=== PATIENT | male | born 1970 | race Caucasian/White ===

== ENCOUNTER 2021-02-14 15:01 | Emergency (ER) | payer MEDICAID ==
[~2021-02-14] VITALS: Ht 172 cm; Wt 57.0 kg
--- OUTSIDE RECORDS SUMMARY | 2021-02-14 15:07 | XMS REPORT | Clinical Summary ---
Author Author [facility] Organization [facility] Address Unknown Phone Unavailable Care Team Providers Care Academic Interventionist Name Role Phone Marcela Lucas MD PCP Allergies Comments Active Allergy Reactions Severity Noted Date Tree Nuts 03/15/2018 Medications End Date Status Medication Sig Dispensed Refills Start Date Active nystatin (MYCOSTATIN) MIX 6ML WITH 0 02/24/20 1 100,000 unit/mL 15ML OF WATER 8 suspension SWISH FOR 30 SECONDS AND SWALLOW QID TAT Active oxybutynin (DITROPAN-XL) TK 1 T PO QHS 11 03/22 5 MG 24 hr tablet 8 Active citalopram (CELEXA) 20 mg Take 1 tablet 30 tablet 0 tabletIndications: major (20 mg total) 8 depressive disorder by mouth daily. Active citalopram (CELEXA) 40 MG Take 1 tablet 30 tablet 0 tabletIndications: (40 mg total) 8 anxiety with depression by mouth daily. 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 Family History Medical History Relation Name Comments ALS Father Schizophrenia Father Diabetes Maternal Aunt Heart disease Maternal Grandfather Hypertension Maternal Grandfather Breast cancer Maternal Grandmother Diabetes Mother Relation Name Status Comments Father Maternal Aunt Maternal Grandfather Maternal Grandmother Mother Social History Date Tobacco Use Types Packs/Day Years Used Current Every Day Smoker Cigarettes 0.25 28 Smokeless Tobacco: Current User Tobacco Cessation: Ready to Quit: No Drinks/Week oz/Week Comments Alcohol Use No Sex Assigned at Date Recorded Male 01/07/2019 7:47 AM CDT Last Filed Vital Signs Reading Time Taken Comments Vital Sign 107/67 05/03/2018 4:12 PM PLANT QUALITY MANAGER Blood Pressure 85 05/03/2018 4:12 PM PLANT QUALITY MANAGER Pulse 37.1 C (98.7 F) 05/03/2018 4:12 PM PLANT QUALITY MANAGER Temperature 16 01/30/2018 3:25 PM CDT Respiratory Rate 100% 03/15/2018 2:38 PM CDT Oxygen Saturation - - Inhaled Oxygen Concentration 52.9 kg (116 lb 11.2 oz) 05/03/2018 4:12 PM PLANT QUALITY MANAGER Weight 180.3 cm (5' 11") 01/30/2018 3:25 PM CDT Height 16.28 01/30/2018 3:25 PM CDT Body Mass Index Plan of Treatment Health Maintenance Due Date Last Done Comments Td # 1970 Pneumococcal Vaccine: 1977 Pediatrics (0 to 5 Years) and At-Risk Patients (6 to 64 Years) (1 of 1 - PPSV23) Tobacco Cessation 01/30/2019 01/30/2018 Counseling # Depression Monitoring 05/03/2019 05/03/2018 PHQ-9 # Influenza Vaccine (#1) 2020 Pneumococcal Vaccine: 65+ 2036 Years (1 of 1 - PPSV23) Results Not on filefrom Last 3 Months Insurance Type Payer Benefit Subscriber ID Effective Phone Address Plan / Dates Group COMMERCIAL-CONTRACTED MEDICA [id number] 2017 -P EXCHANGE resent Jonel Bacon Personal/F Self [address] [place] [address]) [place] [address] Jonel Bacon Personal/F Self [address] (Home) [place] [address] oJnel Bacon Behavioral Self 1970 [id number] [facility] (Home) [place] [address] Advance Directives For more information, please contact: [phone] Patient Die Repairer Forging Explanation Type Date Recorded Advance Directives and Living Will Power of Nuclear Operations Specialist Health Care Directive
--- OUTSIDE RECORDS SUMMARY | 2021-02-14 15:08 | XMS REPORT | Clinical Summary ---
Author Author [facility] Organization [facility] Address Unknown Phone Unavailable Care Team Providers Care Locomotive Electrician Name Role Phone No, Pcp ENTRY ENGINEER PP Unavailable Allergies No known active allergies Medications No known medications Active Problems Not on file Social History Date Tobacco Use Types Packs/Day Years Used Current Every Day Smoker 0.5 27 Tobacco Cessation: Ready to Quit: Yes; C ounseling Given: Yes Comments: discussed smoking cessation services Sex Assigned at Date Recorded Not on file Last Filed Vital Signs Reading Time Taken Comments Vital Sign 118/80 04/04/2017 6:08 PM CDT Blood Pressure 79 04/04/2017 6:08 PM CDT Pulse - - Temperature - - Respiratory Rate - - Oxygen Saturation - - Inhaled Oxygen Concentration 61.2 kg (135 lb) 04/04/2017 6:08 PM CDT Weight - - Height - - Body Mass Index Plan of Treatment Health Maintenance Due Date Last Done Comments Colonoscopy 2011 Results Not on filefrom Last 3 Months Care Teams Start Date End Date Locomotive Electrician Relationship Specialty 04/04/17 No, Pcp, ENTRY ENGINEER PCP - General N/A Do not use
--- NOTE | 2021-02-14 15:26 | ED General ---
General Stated Complaint: AMS History of Present Illness Date Seen by Provider: Feb 14, 2021 Time Seen by Provider: 15:10 Initial Comments 50-year-old male who is nonverbal brought in wheelchair by his mother for confusion at the [facility]. He was diagnosed with a UTI 2 days ago by his PCP however antibiotics were not started as they were awaiting the culture results. The staff reported to his mother that he seemed more confused today. Timing/Duration: 2-3 Days Severity: Mild Associated Systoms: No Cough; Malaise; No Nausea/Vomiting; Weakness Allergies and Home Medications Allergies Coded Allergies: tree nut (Verified Allergy, Unknown, 02/14/21) Home Medications Cephalexin 500 Mg Tablet, 500 MG PO TID Prescribed by: LOUIS NAVARRO on 02/14/21 1712 Patient Home Medication List Home Medication List Reviewed: Yes Review of Systems Review of Systems Constitutional: see HPI; No fever; malaise, weakness EENTM: see HPI, no symptoms reported Respiratory: no symptoms reported, see HPI Gastrointestinal: see HPI; No diarrhea; loss of appetite; No vomiting Genitourinary: no symptoms reported, see HPI All Other Systems Reviewed Negative Unless Noted: Yes Past Zrzjmfc-Rlipal-Icwgpf Hx Patient Social History Tobacco Use?: No Family Medical History Reviewed Nursing Family Hx Physical Exam Vital Signs Vital Signs - First Documented 02/14/21 15:10 Temp 36.4 Pulse 111 Resp 16 B/P (MAP) 113/82 (92) Pulse Ox 97 O2 Delivery Room Air Capillary Refill : Height, Weight, BMI Height: '" Weight: lbs. oz. kg; BMI Method: General Appearance: No Apparent Distress, WD/WN HEENT: PERRL/EOMI, TMs Normal, Normal ENT Inspection Neck: Full Range of Motion, Normal Inspection, Non Tender Respiratory: Chest Non Tender, No Accessory Muscle Use, Rhonci Cardiovascular: No Edema, No JVD, No Murmur, Tachycardia Gastrointestinal: Normal Bowel Sounds, Non Tender, Soft Neurologic/Psychiatric: Alert, Oriented x3, No Motor/Sensory Deficits, Normal Mood/Affect Skin: Normal Color, Warm/Dry Focused Exam Sepsis Stage: Ruled Out Lactate Level 02/14/21 15:30: Lactic Acid Level 2.26*H 02/14/21 17:33: Time of Focused Exam: 16:45 Respiratory: Chest Non Tender, Lungs Clear, Normal Breath Sounds Cardiovascular: Regular Rate, Rhythm Capillary Refill: Less Than 3 Seconds Skin: normal color, warm/dry; No rash, No ulcerations Lactic Acid Level Laboratory Tests Test 02/14/21 15:30 02/14/21 17:33 Lactic Acid Level 2.26 MMOL/L (0.50-2.00) *H Within 3hrs of presentation: Admin fluids, Admin ABX, Blood cultures prior to ABX's, D/C Instructions given to patient, Focus exam, Lactate level Progress/Results/Core Measures Suspected Sepsis Recent Fever Within 48 Hours: No Infection Criteria Present: Documented Infection New/Unexplained Altered Menta: Yes Within 3hrs of presentation: Admin fluids, Admin 30ml/kg IBW due to BMI>30, Admin ABX, Blood cultures prior to ABX's, D/C Instructions given to patient, Focus exam, Lactate level SIRS Temperature: Pulse: Respiratory Rate: Laboratory Tests 02/14/21 15:20: White Blood Count 7.0 Blood Pressure / Mean: 02/14/21 15:30: Lactic Acid Level 2.26*H 02/14/21 17:33: Laboratory Tests 02/14/21 15:20: Creatinine 0.96, INR Comment 1.1, Platelet Count 308, Total Bilirubin 0.3 Results/Orders Lab Results Laboratory Tests Test 02/14/21 15:20 02/14/21 15:30 02/14/21 17:33 Range/Units White Blood Count 7.0 4.3-11.0 10^3/uL Red Blood Count 4.41 4.30-5.52 10^6/uL Hemoglobin 13.0 L 13.3-17.7 g/dL Hematocrit 41 40-54 % Mean Corpuscular Volume 92 80-99 fL Mean Corpuscular Hemoglobin 30 25-34 pg Mean Corpuscular Hemoglobin Concent 32 32-36 g/dL Red Cell Distribution Width 12.6 10.0-14.5 % Platelet Count 308 130-400 10^3/uL Mean Platelet Volume 10.9 9.0-12.2 fL Immature Granulocyte % (Auto) 0 % Neutrophils (%) (Auto) 57 42-75 % Lymphocytes (%) (Auto) 30 12-44 % Monocytes (%) (Auto) 9 0-12 % Eosinophils (%) (Auto) 4 0-10 % Basophils (%) (Auto) 1 0-10 % Neutrophils # (Auto) 4.0 1.8-7.8 X 10^3 Lymphocytes # (Auto) 2.1 1.0-4.0 X 10^3 Monocytes # (Auto) 0.6 0.0-1.0 X 10^3 Eosinophils # (Auto) 0.3 0.0-0.3 10^3/uL Basophils # (Auto) 0.1 0.0-0.1 10^3/uL Immature Granulocyte # (Auto) 0.0 0.0-0.1 10^3/uL Prothrombin Time 14.8 H 12.2-14.7 SEC INR Comment 1.1 0.8-1.4 Activated Partial Thromboplast Time 29 24-35 SEC Sodium Level 141 135-145 MMOL/L Potassium Level 3.9 3.6-5.0 MMOL/L Chloride Level 103 98-107 MMOL/L Carbon Dioxide Level 25 21-32 MMOL/L Anion Gap 13 5-14 MMOL/L Blood Urea Nitrogen 21 H 7-18 MG/DL Creatinine 0.96 0.60-1.30 MG/DL Estimat Glomerular Filtration Rate 83 BUN/Creatinine Ratio 22 Glucose Level 192 H 70-105 MG/DL Calcium Level 9.9 8.5-10.1 MG/DL Corrected Calcium 9.7 8.5-10.1 MG/DL Total Bilirubin 0.3 0.1-1.0 MG/DL Aspartate Amino Transf (AST/SGOT) 51 H 5-34 U/L Alanine Aminotransferase (ALT/SGPT) 37 0-55 U/L Alkaline Phosphatase 80 40-136 U/L Total Protein 8.4 H 6.4-8.2 GM/DL Albumin 4.2 3.2-4.5 GM/DL Urine Color YELLOW Urine Clarity CLEAR Urine pH 5.5 5-9 Urine Specific Ashby >=1.030 1.016-1.022 Urine Protein 1+ H NEGATIVE Urine Glucose (UA) NEGATIVE NEGATIVE Urine Ketones TRACE H NEGATIVE Urine Nitrite NEGATIVE NEGATIVE Urine Bilirubin NEGATIVE NEGATIVE Urine Urobilinogen 0.2 < = 1.0 MG/DL Urine Leukocyte Esterase NEGATIVE NEGATIVE Urine RBC (Auto) NEGATIVE NEGATIVE Urine RBC NONE /HPF Urine WBC NONE /HPF Urine Squamous Epithelial Cells NONE /HPF Urine Renal Epithelial Cells NONE /HPF Urine Crystals NONE /LPF Urine Bacteria FEW H /HPF Urine Casts NONE /LPF Urine Mucus NEGATIVE /LPF Urine Culture Indicated CULTURE PENDING Lactic Acid Level 2.26 *H 0.50-2.00 MMOL/L My Orders Orders - LOUIS NAVARRO Cbc With Automated Diff (02/14/21 15:18) Comprehensive Metabolic Panel (02/14/21 15:18) Blood Culture (02/14/21 15:18) Urinalysis (02/14/21 15:18) Urine Culture (02/14/21 15:18) Protime With Inr (02/14/21 15:18) Partial Thromboplastin Time (02/14/21 15:18) Chest 1 View, Ap/Pa Only (02/14/21 15:18) Ed Iv/Invasive Line Start (02/14/21 15:18) Ns Iv 1000 Ml (Sodium Chloride 0.9%) (02/14/21 15:30) Lactic Acid Analyzer (02/14/21 15:18) Ceftriaxone (Rocephin) (02/14/21 16:45) Medications Given in ED Current Medications Medications Dose Ordered Sig/Oscar Route Start Time Stop Time Status Last Admin Dose Admin Ceftriaxone Sodium 1000 mg/ Sterile Water 10 ml @ 200 mls/hr ONCE ONCE IV 02/14/21 16:45 02/14/21 16:47 DC 02/14/21 16:41 200 MLS/HR Vital Signs/I&O 02/14/21 02/14/21 15:10 17:37 Temp 36.4 Pulse 111 94 Resp 16 16 B/P (MAP) 113/82 (92) 115/93 Pulse Ox 97 97 O2 Delivery Room Air Room Air Capillary Refill : Progress Note : Time: 15:10 Progress Note Patient seen and evaluated, will obtain labs, chest x-ray, repeat UA and normal saline 1 L per IV. 1600 pulse and blood pressure improved after IV fluids, will give IV antibiotics for UTI. Discharge planning discussed with the patient's mother she had to leave prior to staff arriving. 1640 patient has remained stable, vital signs improved. Discharge instructions and return precautions reviewed with the staff. Diagnostic Imaging Diagonstic Imaging: Xray Plain Films/CT/US/NM/MRI: chest Comments NAME: ZOË MALLOY REC#: [id number] PT STATUS: REG ER : 1970 PHYSICIAN: LOUIS NAVARRO ADMIT DATE: 02/14/21/ER Draft Date of Exam:02/14/21 CHEST 1 VIEW, AP/PA ONLY INDICATION: Sepsis. EXAMINATION: Portable erect AP chest at 3:57 p.m. Two AP views were obtained. COMPARISON: There is no prior study available for comparison. FINDINGS: The heart size is within normal limits. There is a vague area of slightly increased density overlying the right upper lung. This finding could be chronic in nature. The possibility that there is an element of pneumonia/atelectasis there, however, should certainly be considered. The lungs are otherwise generally clear. There is no significant pleural effusion identified. The mediastinum is not widened. The osseous structures are intact. IMPRESSION: 1. The vague area of increased density overlying the right lung is suspicious for pneumonia/atelectasis. Clinical follow-up is recommended. 2. There is no acute cardiopulmonary abnormality noted otherwise. Dictated on workstation # [id number] Dict: 02/14/21 1617 Trans: 02/14/21 1624 [facility] [id number] Interpreted by: ZOË MASON MD Electronically signed by: Reviewed: Reviewed by Me Departure Impression Primary Impression: UTI (urinary tract infection) Qualified Codes: N30.01 - Acute cystitis with hematuria Disposition: HOME, SELF-CARE Condition: Stable Departure-Patient Inst. Decision time for Depature: 16:40 Referrals: MARYCRUZ MAXWELL DO (PCP/Family) Primary Care Physician Patient Instructions: Urinary Tract Infection, Adult (DC) Add. Discharge Instructions: increase water intake. Tylenol 650 mg every 6-8 hours for pain or fever. Ibuprofen 600 mg every 8 hours for pain. Antibiotics as prescribed. Follow up with Dr. Maxwell, next week. Return to ER for new, urgent healchare needs. Scripts Cephalexin (Cephalexin) 500 Mg Tablet 500 MG PO TID, #21 TAB 0 Refills Prov: LOUIS NAVARRO 02/14/21 Copy Copies To 1: MARYCRUZ MAXWELL AMY ARNP Feb 14, 2021 15:26
[2021-02-14 15:28] LABS: BASOPHILS # (AUTO) 0.1 10^3/uL (0.0-0.1); BASOPHILS % (AUTO) 1 % (0-10); EOSINOPHILS # (AUTO) 0.3 10^3/uL (0.0-0.3); EOSINOPHILS % (AUTO) 4 % (0-10); HEMATOCRIT 41 % (40-54); LYMPHOCYTES # (AUTO) 2.1 X 10^3 (1.0-4.0); LYMPHOCYTES % (AUTO) 30 % (12-44); MEAN CORPUSCULAR HEMOGLOBIN 30 pg (25-34); MEAN CORPUSCULAR HGB CONC 32 g/dL (32-36); MEAN CORPUSCULAR VOLUME 92 fL (80-99); MEAN PLATELET VOLUME 10.9 fL (9.0-12.2); MONOCYTES # (AUTO) 0.6 X 10^3 (0.0-1.0); MONOCYTES % (AUTO) 9 % (0-12); NEUTROPHILS % (AUTO) 57 % (42-75); PLATELET COUNT 308 10^3/uL (130-400)
[2021-02-14] MEDS ORDERED: NS IV 1000 ML 1,000 ML IV SCH (15:30)
[2021-02-14 15:38] LABS: ALBUMIN 4.2 GM/DL (3.2-4.5); POTASSIUM 3.9 MMOL/L (3.6-5.0)
[2021-02-14 15:39] LABS: BILIRUBIN,URINE NEGATIVE (NEGATIVE); CLARITY,URINE CLEAR; COLOR,URINE YELLOW; GLUCOSE, URINE (UA) NEGATIVE (NEGATIVE); KETONES,URINE TRACE (NEGATIVE); LEUKOCYTE ESTERASE ,URINE NEGATIVE (NEGATIVE); NITRITE,URINE NEGATIVE (NEGATIVE); PH,URINE 5.5 (5-9); PROTEIN,URINE 1+ (NEGATIVE)
[2021-02-14 15:40] LABS: CALCIUM 9.9 MG/DL (8.5-10.1)
[2021-02-14 15:41] LABS: TOTAL PROTEIN 8.4 GM/DL (6.4-8.2)
[2021-02-14 15:42] LABS: INR 1.1 (0.8-1.4); PROTHROMBIN TIME PATIENT 14.8 SEC (12.2-14.7)
[2021-02-14 15:43] LABS: BILIRUBIN,TOTAL 0.3 MG/DL (0.1-1.0)
[2021-02-14 15:44] LABS: CREATININE SERUM 0.96 MG/DL (0.60-1.30)
[2021-02-14 15:46] LABS: BACTERIA,URINE FEW /HPF
--- NOTE | 2021-02-14 16:25 | Diagnostic Imaging Report ---
INDICATION: Sepsis. EXAMINATION: Portable erect AP chest at 3:57 p.m. Two AP views were obtained. COMPARISON: There is no prior study available for comparison. FINDINGS: The heart size is within normal limits. There is a vague area of slightly increased density overlying the right upper lung. This finding could be chronic in nature. The possibility that there is an element of pneumonia/atelectasis there, however, should certainly be considered. The lungs are otherwise generally clear. There is no significant pleural effusion identified. The mediastinum is not widened. The osseous structures are intact. IMPRESSION: 1. The vague area of increased density overlying the right lung is suspicious for pneumonia/atelectasis. Clinical follow-up is recommended. 2. There is no acute cardiopulmonary abnormality noted otherwise. Dictated by: Dictated on workstation # [id number]
[2021-02-14] MEDS ORDERED: cefTRIAXone 1,000 MG in WATER (STERILE) FOR INJECTION 10 ML IV ONE (16:45)
[2021-02-14] MEDS ORDERED: CEPH500T PO (17:12)
[2021-02-14 17:37] VITALS: BP 115/93
== END 2021-02-14 17:37 | disposition home or self-care (01) ==
LOC: ER 15:05
DX: N39.0 Urinary tract infection, site not specified (principal)
CPT/HCPCS: 36415; 51701; 71045; 80053; 81000; 83605; 85025; 85610; 85730; 87040; 87088

== ENCOUNTER → 2021-02-21 | Outpatient (CLI) | payer MEDICAID ==
[~2021-02-21] MED LIST: CEPH500T PO
[2021-02-21 15:41] LABS: HEMATOCRIT 40 % (40-54); HEMOGLOBIN 12.9 g/dL (13.3-17.7); MEAN CORPUSCULAR HEMOGLOBIN 29 pg (25-34); MEAN CORPUSCULAR HGB CONC 32 g/dL (32-36); MEAN CORPUSCULAR VOLUME 90 fL (80-99); MEAN PLATELET VOLUME 11.6 fL (9.0-12.2); PLATELET COUNT 421 10^3/uL (130-400); WHITE BLOOD COUNT 9.1 10^3/uL (4.3-11.0)
[2021-02-21 15:51] LABS: POTASSIUM 4.2 MMOL/L (3.6-5.0)
[2021-02-21 15:52] LABS: CALCIUM 9.7 MG/DL (8.5-10.1)
[2021-02-21 15:56] LABS: CREATININE SERUM 0.84 MG/DL (0.60-1.30)
== END ==
LOC: LABNPT 15:31
PROVIDERS: ATTEND Family Medicine
DX: N39.0 Urinary tract infection, site not specified (principal)
CPT/HCPCS: 80048; 85027

== ENCOUNTER 2021-03-02 23:13 | Inpatient (IN) | payer MEDICAID ==
[~2021-03-02] VITALS: Ht 175 cm; Wt 56.0 kg
[2021-03-02 23:25] LABS: BASOPHILS % (AUTO) 0 % (0-10); EOSINOPHILS % (AUTO) 0 % (0-10); HEMATOCRIT 44 % (40-54); HEMOGLOBIN 13.8 g/dL (13.3-17.7); LYMPHOCYTES # (AUTO) 2.6 10^3/uL (1.0-4.0); LYMPHOCYTES % (AUTO) 17 % (12-44); MEAN CORPUSCULAR HEMOGLOBIN 29 pg (25-34); MEAN CORPUSCULAR HGB CONC 31 g/dL (32-36); MEAN CORPUSCULAR VOLUME 92 fL (80-99); MEAN PLATELET VOLUME 12.6 fL (9.0-12.2); MONOCYTES % (AUTO) 7 % (0-12); NEUTROPHILS # (AUTO) 11.4 10^3/uL (1.8-7.8); NEUTROPHILS % (AUTO) 76 % (42-75); PLATELET COUNT 164 10^3/uL (130-400)
[2021-03-02 23:35] LABS: ALBUMIN 4.2 GM/DL (3.2-4.5)
[2021-03-02 23:37] LABS: CALCIUM 9.9 MG/DL (8.5-10.1)
[2021-03-02 23:38] LABS: TOTAL PROTEIN 8.2 GM/DL (6.4-8.2)
[2021-03-02 23:40] LABS: BILIRUBIN,TOTAL 1.1 MG/DL (0.1-1.0)
[2021-03-02 23:42] LABS: CREATININE SERUM 2.51 MG/DL (0.60-1.30)
[2021-03-02 23:54] LABS: INR 1.4 (0.8-1.4); PROTHROMBIN TIME PATIENT 17.5 SEC (12.2-14.7)
--- NOTE | 2021-03-02 23:57 | Diagnostic Imaging Report ---
EXAMINATION: Chest 1 view HISTORY: Chest pain. COMPARISON: 02/14/2021. FINDINGS: The lung volumes are normal. No focal consolidation is seen. No large pleural effusion or pneumothorax is seen. The cardiomediastinal silhouette is normal in size and contour. No acute osseous abnormality is seen. IMPRESSION: 1. No acute pleuroparenchymal process. Dictated by: Dictated on workstation # [id number]
[2021-03-03 00:01] LABS: CLARITY,URINE SL CLOUDY; COLOR,URINE ORANGE; GLUCOSE, URINE (UA) NEGATIVE (NEGATIVE); KETONES,URINE NEGATIVE (NEGATIVE); LEUKOCYTE ESTERASE ,URINE NEGATIVE (NEGATIVE); NITRITE,URINE NEGATIVE (NEGATIVE); PH,URINE 5.5 (5-9); PROTEIN,URINE 2+ (NEGATIVE)
[2021-03-03 00:20] LABS: BACTERIA,URINE FEW /HPF; BILIRUBIN,URINE NEGATIVE (NEGATIVE); RBC,URINE 0-2 /HPF; WHITE BLOOD CELL CASTS, URINE 0-2 /LPF
[2021-03-03 00:33] LABS: LYMPHOCYTES % (MANUAL) 17 %; MONOCYTES % (MANUAL) 4 %; NEUTROPHILS % (MANUAL) 79 %
[2021-03-03] MEDS ORDERED: cefTRIAXone 1,000 MG in WATER (STERILE) FOR INJECTION 10 ML IV ONE (00:45)
--- NOTE | 2021-03-03 01:47 | ED General ---
General Chief Complaint: Cardiac/General Problems Stated Complaint: LOW BLOOD PRESSURE Source of Information: EMS, Family, Old Records Exam Limitations: Physical Impairments History of Present Illness Date Seen by Provider: Mar 02, 2021 Time Seen by Provider: 23:15 Initial Comments This 50-year-old gentleman presents to the emergency room via EMS from the [facility]. EMS was activated because he was having marginal blood pressures in the 80s and 90s systolic. He was also diaphoretic. He is nonverbal and has significant functional deficits. He has a neurocognitive disorder according to his mother. Patient's mother is his guardian. Darlyn Bacon [phone]. Neurocognitive disorder was diagnosed by Dr. Rossy Darby at [facility] in [place], [place]. He is afebrile but noted to be tachycardic. Mother states he was recently treated for urinary tract infection. Allergies and Home Medications Allergies Coded Allergies: tree nut (Verified Allergy, Unknown, 02/14/21) Patient Home Medication List Home Medication List Reviewed: Yes Cephalexin (Cephalexin) 500 Mg Tablet, 500 MG PO TID Prescribed by: LOUIS NAVARRO on 02/14/21 1712 Review of Systems Review of Systems Constitutional: see HPI EENTM: no symptoms reported Respiratory: no symptoms reported Cardiovascular: no symptoms reported Gastrointestinal: no symptoms reported Genitourinary: see HPI Musculoskeletal: see HPI Skin: no symptoms reported Psychiatric/Neurological: See HPI Hematologic/Lymphatic: See HPI Past Qljpncm-Daztuq-Wvqsdr Hx Patient Social History Tobacco Use?: No Substance use?: No Immunizations Up To Date First/Initial COVID19 Vaccinat: + Second COVID19 Vaccination Esau: + Past Medical History Surgery/Hospitalization HX: AUTISTIC; NON VERBAL; MELENA, UTI Surgeries: No (None reported) Respiratory: No Cardiac: No Neurological: Yes (Neurocognitive disorder with rapid functional decline in recent years) Reproductive Disorders: No Gastrointestinal: No Musculoskeletal: No Endocrine: No HEENT: No Cancer: No Did You Recieve Any Treatments: No Psychosocial: No Integumentary: No Physical Exam Vital Signs Vital Signs - First Documented 03/02/21 23:15 Temp 36.9 Pulse 128 Resp 16 B/P (MAP) 101/77 (85) Pulse Ox 96 O2 Delivery Room Air Capillary Refill : Less Than 3 Seconds Height, Weight, BMI Height: '" Weight: lbs. oz. kg; 19.00 BMI Method: General Appearance: No Apparent Distress, WD/WN HEENT: PERRL/EOMI, Normal ENT Inspection, Other (Will not open mouth) Neck: Normal Inspection Respiratory: Lungs Clear, Normal Breath Sounds, No Accessory Muscle Use Cardiovascular: No Edema, No Murmur, Tachycardia Gastrointestinal: Normal Bowel Sounds, Non Tender, Soft; No Distended Extremity: Normal Inspection, No Pedal Edema Neurologic/Psychiatric: Alert, Other (Rigidity of the extremities but does move all 4 extremities. Nonverbal. Seems alert.) Skin: Normal Color, Warm/Dry Focused Exam Lactate Level 03/02/21 23:30: Lactic Acid Level 1.78 Lactic Acid Level Laboratory Tests Test 03/02/21 23:30 Lactic Acid Level 1.78 MMOL/L (0.50-2.00) Progress/Results/Core Measures Suspected Sepsis SIRS Temperature: Pulse: Respiratory Rate: Laboratory Tests 03/02/21 23:15: White Blood Count 15.0H Blood Pressure / Mean: 03/02/21 23:30: Lactic Acid Level 1.78 Laboratory Tests 03/02/21 23:15: Creatinine 2.51H, INR Comment 1.4, Platelet Count 164, Total Bilirubin 1.1H Results/Orders Lab Results Laboratory Tests Test 03/02/21 23:15 03/02/21 23:30 03/02/21 23:50 Range/Units White Blood Count 15.0 H 4.3-11.0 10^3/uL Red Blood Count 4.79 4.30-5.52 10^6/uL Hemoglobin 13.8 13.3-17.7 g/dL Hematocrit 44 40-54 % Mean Corpuscular Volume 92 80-99 fL Mean Corpuscular Hemoglobin 29 25-34 pg Mean Corpuscular Hemoglobin Concent 31 L 32-36 g/dL Red Cell Distribution Width 13.2 10.0-14.5 % Platelet Count 164 130-400 10^3/uL Mean Platelet Volume 12.6 H 9.0-12.2 fL Immature Granulocyte % (Auto) 1 % Neutrophils (%) (Auto) 76 H 42-75 % Lymphocytes (%) (Auto) 17 12-44 % Monocytes (%) (Auto) 7 0-12 % Eosinophils (%) (Auto) 0 0-10 % Basophils (%) (Auto) 0 0-10 % Neutrophils # (Auto) 11.4 H 1.8-7.8 10^3/uL Lymphocytes # (Auto) 2.6 1.0-4.0 10^3/uL Monocytes # (Auto) 1.0 0.0-1.0 10^3/uL Eosinophils # (Auto) 0.0 0.0-0.3 10^3/uL Basophils # (Auto) 0.0 0.0-0.1 10^3/uL Immature Granulocyte # (Auto) 0.1 0.0-0.1 10^3/uL Neutrophils % (Manual) 79 % Lymphocytes % (Manual) 17 % Monocytes % (Manual) 4 % Prothrombin Time 17.5 H 12.2-14.7 SEC INR Comment 1.4 0.8-1.4 Activated Partial Thromboplast Time 32 24-35 SEC Sodium Level 153 H 135-145 MMOL/L Potassium Level 4.0 3.6-5.0 MMOL/L Chloride Level 113 H 98-107 MMOL/L Carbon Dioxide Level 24 21-32 MMOL/L Anion Gap 16 H 5-14 MMOL/L Blood Urea Nitrogen 60 H 7-18 MG/DL Creatinine 2.51 H 0.60-1.30 MG/DL Estimat Glomerular Filtration Rate 27 BUN/Creatinine Ratio 24 Glucose Level 213 H 70-105 MG/DL Calcium Level 9.9 8.5-10.1 MG/DL Corrected Calcium 9.7 8.5-10.1 MG/DL Magnesium Level 3.0 H 1.6-2.4 MG/DL Total Bilirubin 1.1 H 0.1-1.0 MG/DL Aspartate Amino Transf (AST/SGOT) 32 5-34 U/L Alanine Aminotransferase (ALT/SGPT) 54 0-55 U/L Alkaline Phosphatase 81 40-136 U/L Myoglobin 415.5 H 10.0-92.0 NG/ML Troponin I < 0.028 <0.028 NG/ML C-Reactive Protein High Sensitivity 2.13 H 0.00-0.50 MG/DL Total Protein 8.2 6.4-8.2 GM/DL Albumin 4.2 3.2-4.5 GM/DL Procalcitonin 1.00 H <0.10 NG/ML Lactic Acid Level 1.78 0.50-2.00 MMOL/L Influenza Type A (RT-PCR) Not Detected Not Detecte Influenza Type B (RT-PCR) Not Detected Not Detecte SARS-CoV-2 RNA (RT-PCR) Not Detected Not Detecte Urine Color ORANGE Urine Clarity SL CLOUDY Urine pH 5.5 5-9 Urine Specific Mertens >=1.030 1.016-1.022 Urine Protein 2+ H NEGATIVE Urine Glucose (UA) NEGATIVE NEGATIVE Urine Ketones NEGATIVE NEGATIVE Urine Nitrite NEGATIVE NEGATIVE Urine Bilirubin NEGATIVE NEGATIVE Urine Urobilinogen 1.0 < = 1.0 MG/DL Urine Leukocyte Esterase NEGATIVE NEGATIVE Urine RBC (Auto) NEGATIVE NEGATIVE Urine RBC 0-2 /HPF Urine WBC 2-5 /HPF Urine Crystals NONE /LPF Urine Bacteria FEW H /HPF Urine Casts PRESENT /LPF Urine Hyaline Casts 10-25 H /LPF Urine White Blood Cell Casts 0-2 H /LPF Urine Mucus NEGATIVE /LPF Urine Culture Indicated CULTURE PENDING My Orders Orders - CARINA SAUCEDO MD Cbc With Automated Diff (03/02/21:) Magnesium (03/02/21:) Chest 1 View, Ap/Pa Only (03/02/21 23:15) Ekg Tracing (03/02/21 23:15) Comprehensive Metabolic Panel (03/02/21:) Myoglobin Serum (03/02/21:) Protime With Inr (03/02/21 23:15) Partial Thromboplastin Time (03/02/21 23:15) O2 (03/02/21:15) Monitor-Rhythm Ecg Trace Only (03/02/21:) Lipid Panel (03/03/21 06:00) Ed Iv/Invasive Line Start (03/02/21 23:15) Troponin I (03/02/21 23:15) Procalcitonin (Pct) (03/02/21 23:29) Hs C Reactive Protein (03/02/21:29) Covid 19 Inhouse Test (03/02/21 23:29) Influenza A And B By Pcr (03/02/21 23:29) Blood Culture (03/02/21 23:29) Sputum Culture (03/02/21 23:29) Urine Culture (03/02/21:) Vital Signs Adult Sepsis Patie Q15M (03/02/21 23:29) Remove Rings In Anticipation O (03/02/21 23:29) Lactic Acid Analyzer (03/02/21 23:29) Manual Differential (03/02/21 23:15) Straight Cath For Spec.-Adult (03/02/21 23:52) Urinalysis (03/02/21 23:52) Ceftriaxone (Rocephin) (03/03/21 00:45) Medications Given in ED Current Medications Medications Dose Ordered Sig/Oscar Route Start Time Stop Time Status Last Admin Dose Admin Ceftriaxone Sodium 1000 mg/ Sterile Water 10 ml @ 200 mls/hr ONCE ONCE IV 03/03/21 00:45 03/03/21 00:47 DC 03/03/21 02:07 200 MLS/HR Vital Signs/I&O 03/02/21 23:15 Temp 36.9 Pulse 128 Resp 16 B/P (MAP) 101/77 (85) Pulse Ox 96 O2 Delivery Room Air 03/03/21 00:00 Intake Total 100 ml Balance 100 ml Capillary Refill : Less Than 3 Seconds Progress Note : Progress Note Patient was found to have acute kidney injury. He was also noted to have leukocytosis, tachycardia and an elevated procalcitonin. No source of infection was identified. Nonetheless, there was concern for infection with possible sepsis. Rocephin was given empirically. Swabs for Covid and influenza were ne gative. 2 L of IV normal saline were administered in the ER. long-term paperwork listed CODE STATUS is full code. However, after discussing risks and benefits of cardiopulmonary resuscitation and intubation, his mother elects to make him a DNR. ECG Initial ECG Impression Date: Mar 03, 2021 Initial ECG Impression Time: 23:22 Initial ECG Rate: 121 Initial ECG Rhythm: S.Tach Comment Sinus tachycardia with no ST elevation or depression. No abnormal intervals or axis deviation. Diagnostic Imaging Diagonstic Imaging: Xray Plain Films/CT/US/NM/MRI: chest Comments NAME: [facility] REC#: [id number] PT STATUS: REG ER : 1970 PHYSICIAN: CARINA SAUCEDO MD ADMIT DATE: 03/02/21/ER Signed Date of Exam:03/02/21 CHEST 1 VIEW, AP/PA ONLY EXAMINATION: Chest 1 view HISTORY: Chest pain. COMPARISON: 02/14/2021. FINDINGS: The lung volumes are normal. No focal consolidation is seen. No large pleural effusion or pneumothorax is seen. The cardiomediastinal silhouette is normal in size and contour. No acute osseous abnormality is seen. IMPRESSION: 1. No acute pleuroparenchymal process. Dictated by: Dictated on workstation # [id number] Dict: 03/02/212354 Trans: 03/02/212356 [facility] [id number] Interpreted by: AHMET GONGORA DO Electronically signed by: AHMET GONGORA DO 03/02/212356 Departure Impression Primary Impression: Acute kidney injury Additional Impressions: Dehydration Leukocytosis Qualified Codes: D72.829 - Elevated white blood cell count, unspecified Neurocognitive disorder Disposition: ADMITTED INPATIENT Condition: Stable Admissions Decision to Admit Reason: Admit from ER (General) Decision to Admit/Date: Mar 03, 2021 Time/Decision to Admit Time: 00:35 Departure-Patient Inst. Referrals: MARYCRUZ MAXWELL DO (PCP/Family) Primary Care Physician Copy Copies To 1: MARYCRUZ MAXWELL JOSHUA T MD Mar 03, 2021 01:47
[2021-03-03] MEDS ORDERED: NS IV 1000 ML 1,000 ML IV ONE (02:00)
[2021-03-03 03:10] VITALS: BP 102/71
[2021-03-03] MEDS ORDERED: ONDANSETRON 4 MG/2 ML (SDV) Z0FRAN IVP PRN (03:15)
[2021-03-03] MEDS ORDERED: D5 1/2 NS W/KCL 20 MEQ 1000 ML IV SCH (03:15)
[2021-03-03 06:30] LABS: POTASSIUM 3.7 MMOL/L (3.6-5.0)
[2021-03-03 06:31] LABS: CALCIUM 8.9 MG/DL (8.5-10.1)
[2021-03-03 06:36] LABS: CREATININE SERUM 1.75 MG/DL (0.60-1.30)
[2021-03-03 06:38] LABS: MAGNESIUM 2.7 MG/DL (1.6-2.4)
[2021-03-03 07:41] VITALS: BP 93/64
[2021-03-03 07:42] LABS: CHOLESTEROL 190 MG/DL (< 200); HDL CHOLESTEROL 28 MG/DL (40-60); TRIGLYCERIDES 135 MG/DL (<150); VLDL CHOLESTEROL 27 MG/DL (5-40)
[2021-03-03] MEDS: 1/2 NS IV SOLUTION 1,000 ML IV SCH ×3 (07:56→23:26)
[2021-03-03 11:30] VITALS: BP 103/68
[2021-03-03] MEDS ORDERED: CIME-48 PO (15:16)
[2021-03-03] MEDS ORDERED: BISA10SU58 RC (15:16)
[2021-03-03] MEDS ORDERED: MAGN400O7 PO (15:16)
[2021-03-03] MEDS ORDERED: DIVA125C10 PO (15:16)
[2021-03-03] MEDS ORDERED: ESCI10TA PO (15:16)
[2021-03-03] MEDS ORDERED: QUET25TA34 PO (15:16)
[2021-03-03] MEDS ORDERED: LORA10TA7 PO (15:16)
[2021-03-03] MEDS ORDERED: MULT-1136 PO (15:16)
[2021-03-03] MEDS ORDERED: PANT20TA2 PO (15:16)
[2021-03-03] MEDS ORDERED: POLY17PO6 PO (15:16)
[2021-03-03] MEDS ORDERED: ACET325T38 PO (15:16)
[2021-03-03 15:53] VITALS: BP 108/72
--- NOTE | 2021-03-03 16:40 | History & Physical-Hospitalist ---
History of Present Illness HPI/Chief Complaint Jonel Bacon is a 50 year old male with PMH neurocognitive disorder, nonverbal, who presented from [facility] with low blood pressures and diaphoresis. He is unable to provide any history due to his condition. He was found to have severe sepsis likely due to urinary tract infection and acute kidney injury. He was started on antibiotics and fluids. Source: RN/MD Exam Limitations: clinical condition Date Seen 03/03/21 Time Seen by a Provider: 10:25 Attending Physician Mushtaq Mohan MD PCP Amador Mitchell DO Referring Physician Date of Admission Mar 03, 2021 at 01:42 Home Medications & Allergies Home Medications Reviewed patient Home Medication Reconciliation performed by pharmacy medication reconciliations automotive specialty technician and/or nursing. Patients Allergies have been reviewed. Allergies Allergies Coded Allergies tree nut (Verified Allergy, Unknown, 02/14/21) Past Rhceagc-Jdgyby-Tzpift Hx Patient Social History Tobacco Use?: No Substance use?: No Pt feels they are or have been: Unable to obtain Immunizations Up To Date First/Initial COVID19 Vaccinat: + Second COVID19 Vaccination Esau: + Current Status Advance Directives: Unable to obtain Communicates: Unable To Communicate Primary Language: Palauan Preferred Spoken Language: Palauan Sensory deficits: Speech impairment Past Medical History Developmental Disorder (neurocognitive disorder with decreased function and nonverbal status) Did You Recieve Any Treatments: No Family Medical History No Pertinent Family Hx Review of Systems ROS-Unable to Obtain: nonverbal Constitutional: see HPI Physical Exam Physical Exam Vital Signs Vital Signs - First Documented 03/02/21 23:15 Temp 36.9 Pulse 128 Resp 16 B/P (MAP) 101/77 (85) Pulse Ox 96 O2 Delivery Room Air Capillary Refill : Less Than 3 Seconds Height, Weight, BMI Height: '" Weight: lbs. oz. kg; 18.28 BMI Method: General Appearance: No Apparent Distress, Chronically ill, Thin, Other (syndromic appearance) HEENT: PERRL/EOMI, Pharynx Normal Neck: Normal Inspection, Supple Respiratory: Lungs Clear, Normal Breath Sounds, No Respiratory Distress Cardiovascular: No Murmur, Tachycardia Gastrointestinal: Normal Bowel Sounds, Soft Extremity: Normal Inspection, Non Tender, No Pedal Edema Neurologic/Psychiatric: Alert, Motor Weakness, Other (nonverbal) Skin: Normal Color, Warm/Dry Results Results/Procedures Labs Laboratory Tests 03/02/21 23:15 03/03/21 05:55 Patient resulted labs reviewed. Imaging: Reviewed Imaging Report Assessment/Plan Admission Diagnosis Severe sepsis Admission Status: Inpatient Order (span 2 midnights) Reason for Inpatient Admission: UTI IV antibiotics Assessment and Plan Severe sepsis UTI MICHAEL Hyponatremia Neurocognitive disorder SIRS+ with fever and leukocytosis Chest xray negative Blood cultures pending UA consistent with UTI Started on Rocephin Urine culture pending Sodium 154 Transition to 1/2 normal saline Procalcitonin elevated, trending down DVT prophylaxis: Lovenox Diagnosis/Problems Diagnosis/Problems (1) Severe sepsis Status: Acute (2) UTI (urinary tract infection) Status: Acute (3) MICHAEL (acute kidney injury) Status: Acute (4) Hypernatremia Status: Acute (5) Neurocognitive disorder Status: Chronic MUSHTAQ MOHAN MD Mar 03, 2021 16:40
[2021-03-03] MEDS ORDERED: diphenhydrAMINE 25 MG TAB (BENADRYL) PO PRN (16:45)
[2021-03-03] MEDS ORDERED: BISACODYL 10 MG SUPP (DULCOLAX) PR PRN (16:45)
[2021-03-03] MEDS ORDERED: MELATONIN 3 MG TABLET PO PRN (16:45)
[2021-03-03] MEDS ORDERED: polyethylene glycoL POWDER 17 GM (MIRALAX) PACK PO PRN (16:45)
[2021-03-03] MEDS ORDERED: ANTACID SUSP 30 ML UDC (MYLANTA) PO PRN (16:45)
[2021-03-03] MEDS: ENOXAPARIN 30 MG/0.3 ML (LOVENOX) SYR SC SCH (17:18)
[2021-03-03 19:27] VITALS: BP 108/66
[2021-03-03] MEDS: cefTRIAXone 1,000 MG/SWFI 10 ML IV PUSH IV SCH ×2 (20:09)
[2021-03-03] MEDS: DOCUSATE SODIUM 100 MG (COLACE) CAP PO SCH (20:09)
[2021-03-03] MEDS: SENNOSIDES 8.6 MG (SENOKOT) TAB PO SCH (20:09)
[2021-03-04] VITALS (7 sets, daily range): BP systolic 94–102; BP diastolic 55–65
[2021-03-04 06:23] LABS: BASOPHILS % (AUTO) 0 % (0-10); EOSINOPHILS # (AUTO) 0.1 10^3/uL (0.0-0.3); EOSINOPHILS % (AUTO) 2 % (0-10); HEMATOCRIT 34 % (40-54); HEMOGLOBIN 10.3 g/dL (13.3-17.7); LYMPHOCYTES # (AUTO) 2.1 10^3/uL (1.0-4.0); LYMPHOCYTES % (AUTO) 26 % (12-44); MEAN CORPUSCULAR HEMOGLOBIN 28 pg (25-34); MEAN CORPUSCULAR HGB CONC 30 g/dL (32-36); MEAN CORPUSCULAR VOLUME 95 fL (80-99); MONOCYTES # (AUTO) 0.4 10^3/uL (0.0-1.0); MONOCYTES % (AUTO) 6 % (0-12); NEUTROPHILS # (AUTO) 5.2 10^3/uL (1.8-7.8); NEUTROPHILS % (AUTO) 66 % (42-75); PLATELET COUNT 103 10^3/uL (130-400); WHITE BLOOD COUNT 7.9 10^3/uL (4.3-11.0)
[2021-03-04 06:43] LABS: POTASSIUM 3.6 MMOL/L (3.6-5.0)
[2021-03-04 06:45] LABS: CALCIUM 8.6 MG/DL (8.5-10.1)
[2021-03-04 06:49] LABS: CREATININE SERUM 0.81 MG/DL (0.60-1.30)
[2021-03-04 06:51] LABS: MAGNESIUM 2.3 MG/DL (1.6-2.4)
[2021-03-04] MEDS: DOCUSATE SODIUM 100 MG (COLACE) CAP PO SCH ×3 (08:58→20:30)
[2021-03-04] MEDS: SENNOSIDES 8.6 MG (SENOKOT) TAB PO SCH ×2 (08:58→20:31)
[2021-03-04] MEDS: 1/2 NS IV SOLUTION 1,000 ML IV SCH ×3 (08:58→23:45)
--- NOTE | 2021-03-04 09:38 | Diagnostic Imaging Report ---
INDICATION: Cough. Chest pain. COMPARISON: 03/02/2021. EXAMINATION: Portable chest. FINDINGS: The lungs are well aerated. The right lung apex is not well visualized due to positioning of the patient. The remainder of the lungs is well-aerated and clear. The heart is not enlarged. No pneumothorax or pleural effusion. IMPRESSION: Negative limited portable chest. Dictated by: Dictated on workstation # [id number]
--- NOTE | 2021-03-04 12:36 | Progress Note - Hospitalist ---
Subjective HPI/CC On Admission Date Seen by Provider: Mar 04, 2021 Time Seen by Provider: 09:30 Jonel Bacon is a 50 year old male with PMH neurocognitive disorder, nonverbal, who presented from [facility] with low blood pressures and diaphoresis. He is unable to provide any history due to his condition. He was found to have severe sepsis likely due to urinary tract infection and acute kidney injury. He was started on antibiotics and fluids. Subjective/Events-last exam He is nonverbal and cannot provide any information. He is awake and alert and opens his eyes but does not participate or follow commands. Focused Exam Lactate Level 03/02/21 23:30: Lactic Acid Level 1.78 Objective Exam Vital Signs Vital Signs Date Time Temp Pulse Resp B/P (MAP) Pulse Ox O2 Delivery O2 Flow Rate FiO2 03/04/21 11:20 36.5 87 24 101/55 (70) 97 Room Air Capillary Refill : Less Than 3 Seconds General Appearance: No Apparent Distress, Chronically ill, Thin Respiratory: Lungs Clear, Normal Breath Sounds, No Respiratory Distress Cardiovascular: Regular Rate, Rhythm, No Edema, No Murmur Gastrointestinal: Normal Bowel Sounds, Non Tender, Soft Extremity: Normal Inspection, Non Tender, No Pedal Edema Neurologic/Psychiatric: Alert, Oriented x3, No Motor/Sensory Deficits, Normal Mood/Affect Skin: Normal Color, Warm/Dry Results/Procedures Lab Laboratory Tests 03/04/21 05:45 Patient resulted labs reviewed. Imaging: Reviewed Imaging Report Assessment/Plan Assessment and Plan Assess & Plan/Chief Complaint Severe sepsis MICHAEL Hypernatremia Neurocognitive disorder SIRS+ with fever and leukocytosis Repeat chest xray negative Blood cultures with no growth Urine culture with no growth Continue Rocephin Urine culture pending Sodium trending down Renal function improved Continue 1/2 normal saline Procalcitonin elevated, trending down DVT prophylaxis: Lovenox Diagnosis/Problems Diagnosis/Problems (1) Severe sepsis Status: Acute (2) MICHAEL (acute kidney injury) Status: Acute (3) Hypernatremia Status: Acute (4) Neurocognitive disorder Status: Chronic MUSHTAQ MOHAN MD Mar 04, 2021 12:36
[2021-03-04] MEDS: ENOXAPARIN 30 MG/0.3 ML (LOVENOX) SYR SC SCH (16:58)
[2021-03-04] MEDS: cefTRIAXone 1,000 MG/SWFI 10 ML IV PUSH IV SCH ×2 (20:23)
[2021-03-05] MEDS: 1/2 NS IV SOLUTION 1,000 ML IV SCH ×2 (00:17→08:35)
[2021-03-05 03:09] VITALS: BP 102/61
[2021-03-05 06:33] LABS: BASOPHILS % (AUTO) 0 % (0-10); MEAN CORPUSCULAR VOLUME 94 fL (80-99)
[2021-03-05 06:35] LABS: EOSINOPHILS # (AUTO) 0.2 10^3/uL (0.0-0.3); EOSINOPHILS % (AUTO) 3 % (0-10); HEMATOCRIT 32 % (40-54); HEMOGLOBIN 9.9 g/dL (13.3-17.7); LYMPHOCYTES # (AUTO) 1.9 10^3/uL (1.0-4.0); LYMPHOCYTES % (AUTO) 24 % (12-44); MEAN CORPUSCULAR HEMOGLOBIN 29 pg (25-34); MEAN CORPUSCULAR HGB CONC 31 g/dL (32-36); MEAN PLATELET VOLUME 13.7 fL (9.0-12.2); MONOCYTES # (AUTO) 0.5 10^3/uL (0.0-1.0); MONOCYTES % (AUTO) 6 % (0-12); NEUTROPHILS # (AUTO) 5.3 10^3/uL (1.8-7.8); NEUTROPHILS % (AUTO) 67 % (42-75); PLATELET COUNT 107 10^3/uL (130-400)
[2021-03-05 07:48] LABS: CALCIUM 8.5 MG/DL (8.5-10.1); CREATININE SERUM 0.68 MG/DL (0.60-1.30); POTASSIUM 3.4 MMOL/L (3.6-5.0)
[2021-03-05 08:00] VITALS: BP 103/64
[2021-03-05] MEDS: SENNOSIDES 8.6 MG (SENOKOT) TAB PO SCH (08:35)
[2021-03-05] MEDS: DOCUSATE SODIUM 100 MG (COLACE) CAP PO SCH (08:35)
[2021-03-05] MEDS ORDERED: KCL 10 MEQ TAB (MICRO K) PO ONE (09:30)
[2021-03-05] MEDS ORDERED: POTASSIUM CL 10MEQ/50ML IVPB 50 ML IV ONE (09:45)
[2021-03-05] MEDS: POTASSIUM CL 10MEQ/50ML IVPB 50 ML IV SCH ×2 (10:12→11:34)
[2021-03-05 12:00] VITALS: BP 97/62
--- NOTE | 2021-03-05 17:57 | Discharge Summary ---
Discharge Summary Hospital Course Problems/Dx: (1) MICHAEL (acute kidney injury) Status: Acute (2) Hypernatremia Status: Acute (3) Neurocognitive disorder Status: Chronic (4) Severe sepsis Status: Acute Hospital Course Date of Admission: Mar 03, 2021 at 01:42 Admission Diagnosis : Severe sepsis Family Physician/Provider: Marycruz Mitchell DO Date of Discharge: 03/05/21 Discharge Diagnosis: Acute kidney injury and hypernatremia due to dehydration Hospital Course: Jonel Bacon is a 50 year old male with H neurocognitive disorder, nonverbal, who presented with tachycardia and leukocytosis and was admitted for possible severe sepsis. He underwent a thorough infectious evaluation and did not have any identifiable infection. He was very dehydrated with acute kidney injury and hypernatremia. He had decreased fluid intake at his facility. He was rehydrated with IV fluids and was drinking fluids with assistance. He should be encouraged to drink every couple hours at the facility. His mother was concerned about his eating and asked about a feeding tube. I recommended against this due to his poor functional and nonverbal status and she was understanding. I recommended her to follow up with his primary care physician for further discussion. He was discharged back to [facility] in stable condition. Labs and Pending Lab Test: Laboratory Tests 03/05/21 05:29: White Blood Count 8.0, Red Blood Count 3.45L, Hemoglobin 9.9L, Hematocrit 32L, Mean Corpuscular Volume 94, Mean Corpuscular Hemoglobin 29, Mean Corpuscular Hemoglobin Concent 31L, Red Cell Distribution Width 13.1, Platelet Count 107L, Mean Platelet Volume 13.7H, Immature Granulocyte % (Auto) 0, Neutrophils (%) (Auto) 67, Lymphocytes (%) (Auto) 24, Monocytes (%) (Auto) 6, Eosinophils (%) (Auto) 3, Basophils (%) (Auto) 0, Neutrophils # (Auto) 5.3, Lymphocytes # (Auto) 1.9, Monocytes # (Auto) 0.5, Eosinophils # (Auto) 0.2, Basophils # (Auto) 0.0, Immature Granulocyte # (Auto) 0.0, Percent Immature Platelet Fraction 13.5H, Sodium Level 142, Potassium Level 3.4L, Chloride Level 109H, Carbon Dioxide Level 23, Anion Gap 10, Blood Urea Nitrogen 14, Creatinine 0.68, Estimat Glomerular Filtration Rate 124, BUN/Creatinine Ratio 21, Glucose Level 101, Calcium Level 8.5 Microbiology 03/03/21 Blood Culture - Preliminary, Resulted No growth 03/02/21 Urine Culture - Final, Complete NO GROWTH Home Meds Active Reported Tylenol (Acetaminophen) 325 Mg Tablet 650 Mg PO Q6H PRN Milk of Magnesia (Magnesium Hydroxide) 400 Mg/5 Ml Oral.susp 30 Ml PO DAILY PRN Dulcolax (Bisacodyl) 10 Mg Supp.rect 10 Mg RC DAILY PRN Quetiapine Fumarate 25 Mg Tablet 75 Mg PO BID TAKES 3 (75MG) TABLETS Miralax (Polyethylene Glycol 3350) 17 Gm Powd.pack 17 Gm PO BID Protonix (Pantoprazole Sodium) 20 Mg Tablet.dr 40 Mg PO DAILY TAKES 2 (20MG) TABLETS Multivitamin 1 Each Tablet 1 Each PO DAILY Loratadine 10 Mg Tablet 10 Mg PO DAILY Lexapro (Escitalopram Oxalate) 10 Mg Tablet 10 Mg PO DAILY Divalproex Sodium 125 Mg Cap.sprink 500 Mg PO DAILY TAKES 4 (125MG) CAPSULES Cimetidine 400 Mg Tablet 400 Mg PO DAILY Assessment/Pt Instructions Patient discharged back to [facility]. Take medications as prescribed. Increase fluid intake. Follow up with your PCP. Return with worsening symptoms. Discharge Planning: <30 minutes discharge planning Discharge Instructions Discharge Diet: No Restrictions Activity as Tolerated: Yes Discharge Physical Examination Vital Signs Vital Signs Date Time Temp Pulse Resp B/P (MAP) Pulse Ox O2 Delivery O2 Flow Rate FiO2 03/05/21 12:00 36.1 80 18 97/62 (74) 98 Room Air General Appearance: No Apparent Distress, Chronically ill, Thin Respiratory: Lungs Clear, Normal Breath Sounds, No Respiratory Distress Cardiovascular: Regular Rate, Rhythm, No Edema, No Murmur Gastrointestinal: Normal Bowel Sounds, Non Tender, Soft Extremity: Normal Inspection, Non Tender, No Pedal Edema Skin: Normal Color, Warm/Dry Neurologic/Psychiatric: Alert, Other (nonverbal, noncooperative) Allergies: Coded Allergies: tree nut (Verified Allergy, Unknown, 02/14/21) Copy Copies To 1: MARYCRUZ MITCHELL DO Discharge Summary Date of Admission Mar 03, 2021 at 01:42 Date of Discharge Discharge Date: Mar 05, 2021 Discharge Time: 1700 Admission Diagnosis Severe sepsis Discharge Diagnosis MICHAEL Hypernatremia (1) MICHAEL (acute kidney injury) Status: Acute (2) Hypernatremia Status: Acute (3) Neurocognitive disorder Status: Chronic (4) Severe sepsis Status: Acute MUSHTAQ MOHAN MD Mar 05, 2021 17:57
[2021-03-05 18:06] VITALS: BP 97/62
== END 2021-03-05 17:30 | DRG 872 ==
LOC: EDUNIT# 23:13 → ER 23:14 → EDLOC 03-03 01:42 → 4TH 03-03 01:42
PROVIDERS: ADMIT Internal Medicine; ATTEND Internal Medicine
DX: A41.9 Sepsis, unspecified organism (principal); N39.0 Urinary tract infection, site not specified; N17.9 Acute kidney failure, unspecified; E87.0 Hyperosmolality and hypernatremia; R65.20 Severe sepsis without septic shock; E86.0 Dehydration; R41.9 Unspecified symptoms and signs involving cognitive functions and awareness; Z66 Do not resuscitate; Z20.822 Contact with and (suspected) exposure to COVID-19
CPT/HCPCS: 36415; 51701; 71045; 80048; 80053; 80061; 81000; 83605; 83735; 83874; 84145; 84484; 85007; 85025; 85027; 85610; 85730; 86141; 87040; 87088; 87636; 93005; 93041; 96361; 96374

== ENCOUNTER 2021-03-23 19:36 | Emergency (ER) | payer MEDICAID ==
[~2021-03-23] VITALS: Ht 170.1 cm; Wt 56.0 kg
[~2021-03-23 19:36] MED LIST changes: +ACET325T38 PO; +BISA10SU58 RC; +CIME-48 PO; +DIVA125C10 PO; +ESCI10TA PO; +LORA10TA7 PO; +MAGN400O7 PO; +MULT-1136 PO; +PANT20TA2 PO; +POLY17PO6 PO; +QUET25TA35 PO
[2021-03-23 19:38] VITALS: BP 113/88
--- NOTE | 2021-03-23 19:43 | ED Cardiac General ---
History of Present Illness General Chief Complaint: Cardiac/General Problems Stated Complaint: HIGH HEART RATE Source: patient Exam Limitations: no limitations History of Present Illness Date Seen by Provider: Mar 23, 2021 Time Seen by Provider: 19:33 Initial Comments This is a 50 yo non verbal male [facility] that presented via [facility] for c/o elevated HR. Allergies and Home Medications Allergies Coded Allergies: tree nut (Verified Allergy, Unknown, 02/14/21) Patient Home Medication List Acetaminophen (Tylenol) 325 Mg Tablet, 650 MG PO Q6H PRN for PAIN-MILD (1-4), (Reported) Entered as Reported by: ANNE GARCIA on 03/03/211515 Bisacodyl (Dulcolax) 10 Mg Supp.rect, 10 MG RC DAILY PRN for CONSTIPATION-4TH LINE, (Reported) Entered as Reported by: ANNE GARCIA on 03/03/211515 Cimetidine (Cimetidine) 400 Mg Tablet, 400 MG PO DAILY, (Reported) Entered as Reported by: ANNE GARCIA on 03/03/211515 Divalproex Sodium (Divalproex Sodium) 125 Mg Cap.sprink, 500 MG PO DAILY, (Reported) Entered as Reported by: ANNE GARCIA on 03/03/211515 Escitalopram Oxalate (Lexapro) 10 Mg Tablet, 10 MG PO DAILY, (Reported) Entered as Reported by: ANNE GARCIA on 03/03/211515 Loratadine (Loratadine) 10 Mg Tablet, 10 MG PO DAILY, (Reported) Entered as Reported by: ANNE GARCIA on 03/03/211515 Magnesium Hydroxide (Milk of Magnesia) 400 Mg/5 Ml Oral.susp, 30 ML PO DAILY PRN for CONSTIPATION-7TH LINE, (Reported) Entered as Reported by: ANNE GARCIA on 03/03/211515 Multivitamin (Multivitamin) 1 Each Tablet, 1 EACH PO DAILY, (Reported) Entered as Reported by: ANNE GARCIA on 03/03/211515 Pantoprazole Sodium (Protonix) 20 Mg Tablet.dr, 40 MG PO DAILY, (Reported) Entered as Reported by: ANNE GARCIA on 03/03/211515 Polyethylene Glycol 3350 (Miralax) 17 Gm Powd.pack, 17 GM PO BID, (Reported) Entered as Reported by: ANNE GARCIA on 03/03/21 1516 Quetiapine Fumarate (Quetiapine Fumarate) 25 Mg Tablet, 75 MG PO BID, (Reported) Entered as Reported by: ANNE GARCIA on 03/03/21 1516 Past Uaawfhq-Ihcnwp-Svywcr Hx Immunizations Up To Date First/Initial COVID19 Vaccinat: + Second COVID19 Vaccination Esau: + Past Medical History Surgery/Hospitalization HX: AUTISTIC; NON VERBAL; MELENA, UTI Surgeries: No (None reported) Respiratory: No Cardiac: No Neurological: Yes (Neurocognitive disorder with rapid functional decline in recent years) Developmental Disorder Reproductive Disorders: No Gastrointestinal: No Musculoskeletal: No Endocrine: No HEENT: No Cancer: No Did You Recieve Any Treatments: No Psychosocial: No Integumentary: No Family Medical History No Pertinent Family Hx Physical Exam Vital Signs Vital Signs - First Documented 03/23/21 19:38 Temp 37.3 Pulse 126 Resp 20 B/P (MAP) 113/88 (96) Pulse Ox 95 O2 Delivery Room Air Capillary Refill : Height, Weight, BMI Height: '" Weight: lbs. oz. kg; 18.28 BMI Method: Focused Exam Lactate Level 03/23/21 19:40: Lactic Acid Level 1.84 Lactic Acid Level Laboratory Tests Test 03/23/21 19:40 Lactic Acid Level 1.84 MMOL/L (0.50-2.00) Progress/Results/Core Measures Results/Orders Lab Results Laboratory Tests Test 03/23/21 19:40 Range/Units White Blood Count 6.8 4.3-11.0 10^3/uL Red Blood Count 5.33 4.30-5.52 10^6/uL Hemoglobin 15.1 13.3-17.7 g/dL Hematocrit 47 40-54 % Mean Corpuscular Volume 88 80-99 fL Mean Corpuscular Hemoglobin 28 25-34 pg Mean Corpuscular Hemoglobin Concent 32 32-36 g/dL Red Cell Distribution Width 13.8 10.0-14.5 % Platelet Count 342 130-400 10^3/uL Mean Platelet Volume 11.0 9.0-12.2 fL Immature Granulocyte % (Auto) 0 % Neutrophils (%) (Auto) 58 42-75 % Lymphocytes (%) (Auto) 32 12-44 % Monocytes (%) (Auto) 9 0-12 % Eosinophils (%) (Auto) 0 0-10 % Basophils (%) (Auto) 1 0-10 % Neutrophils # (Auto) 3.9 1.8-7.8 10^3/uL Lymphocytes # (Auto) 2.1 1.0-4.0 10^3/uL Monocytes # (Auto) 0.6 0.0-1.0 10^3/uL Eosinophils # (Auto) 0.0 0.0-0.3 10^3/uL Basophils # (Auto) 0.0 0.0-0.1 10^3/uL Immature Granulocyte # (Auto) 0.0 0.0-0.1 10^3/uL Prothrombin Time 16.4 H 12.2-14.7 SEC INR Comment 1.3 0.8-1.4 Activated Partial Thromboplast Time 36 H 24-35 SEC Sodium Level 145 135-145 MMOL/L Potassium Level 3.4 L 3.6-5.0 MMOL/L Chloride Level 105 98-107 MMOL/L Carbon Dioxide Level 23 21-32 MMOL/L Anion Gap 17 H 5-14 MMOL/L Blood Urea Nitrogen 24 H 7-18 MG/DL Creatinine 1.13 0.60-1.30 MG/DL Estimat Glomerular Filtration Rate 69 BUN/Creatinine Ratio 21 Glucose Level 166 H 70-105 MG/DL Lactic Acid Level 1.84 0.50-2.00 MMOL/L Calcium Level 10.5 H 8.5-10.1 MG/DL Corrected Calcium 8.5-10.1 MG/DL Total Bilirubin 0.8 0.1-1.0 MG/DL Aspartate Amino Transf (AST/SGOT) 41 H 5-34 U/L Alanine Aminotransferase (ALT/SGPT) 38 0-55 U/L Alkaline Phosphatase 90 40-136 U/L C-Reactive Protein High Sensitivity 0.12 0.00-0.50 MG/DL Total Protein 9.0 H 6.4-8.2 GM/DL Albumin 4.6 H 3.2-4.5 GM/DL Procalcitonin 0.04 <0.10 NG/ML My Orders Orders - [employer] Cbc With Automated Diff (03/23/21 19:41) Comprehensive Metabolic Panel (03/23/21 19:41) Blood Culture (03/23/21 19:41) Sputum Culture (03/23/21 19:41) Urinalysis (03/23/21 19:41) Urine Culture (03/23/21 19:41) Protime With Inr (03/23/21 19:41) Partial Thromboplastin Time (03/23/21 19:41) Chest 1 View, Ap/Pa Only (03/23/21 19:41) Ed Iv/Invasive Line Start (03/23/21 19:41) Vital Signs Adult Sepsis Patie Q15M (03/23/21 19:41) O2 (03/23/21 19:41) Remove Rings In Anticipation O (03/23/21 19:41) Lactic Acid Analyzer (03/23/21 19:41) Ns Iv 1000 Ml (Sodium Chloride 0.9%) (03/23/21 19:45) Procalcitonin (Pct) (03/23/21 19:41) Hs C Reactive Protein (03/23/21 19:41) Ekg Tracing (03/23/21 19:44) Ns Iv 1000 Ml (Sodium Chloride 0.9%) (03/23/21 21:00) Vital Signs/I&O 03/23/21 19:38 Temp 37.3 Pulse 126 Resp 20 B/P (MAP) 113/88 (96) Pulse Ox 95 O2 Delivery Room Air Departure Impression Primary Impression: Failure to thrive Additional Impressions: Dehydration Tachycardia Disposition: 03 XFER SNF Condition: Improved Departure-Patient Inst. Decision time for Depature: 20:52 Referrals: MARYCRUZ MAXWELL DO (PCP/Family) Primary Care Physician Patient Instructions: Dehydration, Adult ED, Failure to Thrive, Adult Add. Discharge Instructions: Plan: 1. Discuss possibly prescribing appetite stimulant with primary care provider. 2. May need to have IVF if not eating or drinking, call position classification manager provider if he is not eating or drinking. 3. Discuss feeding tube if he continues to not eat or drink. 4. Encourage plenty of oral fluids and supplements between meals. 5. Return for any new, concerning, or worsening symptoms. All discharge instructions reviewed with patient and/or family. Voiced understanding. [employer] Mar 23, 2021 19:43
[2021-03-23] MEDS ORDERED: NS IV 1000 ML 1,000 ML IV SCH (19:45)
[2021-03-23 19:54] LABS: BASOPHILS % (AUTO) 1 % (0-10); EOSINOPHILS % (AUTO) 0 % (0-10); HEMATOCRIT 47 % (40-54); HEMOGLOBIN 15.1 g/dL (13.3-17.7); LYMPHOCYTES # (AUTO) 2.1 10^3/uL (1.0-4.0); LYMPHOCYTES % (AUTO) 32 % (12-44); MEAN CORPUSCULAR HEMOGLOBIN 28 pg (25-34); MEAN CORPUSCULAR HGB CONC 32 g/dL (32-36); MEAN CORPUSCULAR VOLUME 88 fL (80-99); MONOCYTES # (AUTO) 0.6 10^3/uL (0.0-1.0); MONOCYTES % (AUTO) 9 % (0-12); NEUTROPHILS # (AUTO) 3.9 10^3/uL (1.8-7.8); NEUTROPHILS % (AUTO) 58 % (42-75); PLATELET COUNT 342 10^3/uL (130-400); WHITE BLOOD COUNT 6.8 10^3/uL (4.3-11.0)
[2021-03-23 20:12] LABS: INR 1.3 (0.8-1.4); PROTHROMBIN TIME PATIENT 16.4 SEC (12.2-14.7)
--- NOTE | 2021-03-23 20:34 | Diagnostic Imaging Report ---
INDICATION: Sepsis Portable AP view of the chest is obtained with comparison made to the study of 03/04/2021. FINDINGS: Heart size and pulmonary vascularity are within normal limits, and the lungs are clear, bilaterally. IMPRESSION: Unremarkable chest. Dictated by: Dictated on workstation # [id number]
[2021-03-23 20:41] LABS: ALANINE AMINOTRANSFERASE 38 U/L (0-55); ALBUMIN 4.6 GM/DL (3.2-4.5); ALKALINE PHOSPHATASE 90 U/L (40-136); BILIRUBIN,TOTAL 0.8 MG/DL (0.1-1.0); BUN/CREATININE RATIO 21; CALCIUM 10.5 MG/DL (8.5-10.1); CARBON DIOXIDE 23 MMOL/L (21-32); CHLORIDE 105 MMOL/L (98-107); CREATININE SERUM 1.13 MG/DL (0.60-1.30); GFR ESTIMATED 69; GLUCOSE 166 MG/DL (70-105); POTASSIUM 3.4 MMOL/L (3.6-5.0); SODIUM 145 MMOL/L (135-145)
[2021-03-23] MEDS ORDERED: NS IV 1000 ML 1,000 ML ONE (20:53)
[2021-03-23] MEDS ORDERED: NS IV 1000 ML 1,000 ML IV ONE (21:00)
[2021-03-23 21:12] LABS: CLARITY,URINE CLEAR; COLOR,URINE YELLOW; GLUCOSE, URINE (UA) NEGATIVE (NEGATIVE); KETONES,URINE NEGATIVE (NEGATIVE); LEUKOCYTE ESTERASE ,URINE NEGATIVE (NEGATIVE); NITRITE,URINE NEGATIVE (NEGATIVE); PROTEIN,URINE TRACE (NEGATIVE)
[2021-03-23 21:21] LABS: BILIRUBIN,URINE 1+ (NEGATIVE)
[2021-03-23 21:22] LABS: BACTERIA,URINE TRACE /HPF
== END 2021-03-23 21:59 ==
LOC: EDUNIT# 19:36 → ER 19:37
DX: R62.7 Adult failure to thrive (principal); E86.0 Dehydration; R00.0 Tachycardia, unspecified
CPT/HCPCS: 36415; 51702; 71045; 80053; 81000; 83605; 84145; 85025; 85610; 85730; 86141; 87040; 87088; 93005

== ENCOUNTER 2021-03-28 13:37 | Emergency (ER) | payer MEDICAID ==
[~2021-03-28] VITALS: Ht 167.7 cm; Wt 60.0 kg
[2021-03-28] MEDS ORDERED: NS IV 1000 ML 1,000 ML IV STA (13:56)
--- NOTE | 2021-03-28 14:03 | ED General ---
General Chief Complaint: General Problems/Pain Stated Complaint: NOT EATING OR DRINKING Source of Information: [facility] Exam Limitations: Physical Impairments History of Present Illness Date Seen by Provider: Mar 28, 2021 Time Seen by Provider: 13:50 Initial Comments Patient is a 50-year-old who presents from a local [place] [facility], [facility] with a chief complaint of not taking any food, fluids or medications by mouth for about 2 weeks now. Patient's guardian is his mother who reportedly does not live locally. Dr. Maxwell, the patient's PCP reportedly has been trying to get the mother to consent to a PEG tube for treatment and she has reportedly declined. He was in the hospital about a week ago, had blood cultures that have returned positive, sensitivities pending. Dr. Maxwell ordered for the patient to be started on cefdinir either yesterday or the day before but as the patient is not taking anything by mouth he is not had any antibiotics. Staff was concerned about his lack of oral intake, slightly tachycardic at 110 to 120 bpm. Decision was made to send the patient to the ER for concerns of dehydration. Patient is at baseline nonverbal secondary to a history of autism. He cannot contribute to the HPI, review of systems, past medical family or social history. I did speak to one of the nurses at the [place] [facility] [place] for further history. Timing/Duration: Other (2 weeks) Severity: Severe Allergies and Home Medications Allergies Coded Allergies: tree nut (Verified Allergy, Unknown, 02/14/21) Patient Home Medication List Home Medication List Reviewed: Yes Acetaminophen (Tylenol) 325 Mg Tablet, 650 MG PO Q6H PRN for PAIN-MILD (1-4), (Reported) Entered as Reported by: ANNE GARCIA on 03/03/211515 Bisacodyl (Dulcolax) 10 Mg Supp.rect, 10 MG RC DAILY PRN for CONSTIPATION-4TH LINE, (Reported) Entered as Reported by: ANNE GARCIA on 03/03/21 151 Cimetidine (Cimetidine) 400 Mg Tablet, 400 MG PO DAILY, (Reported) Entered as Reported by: ANNE GARCIA on 03/03/211515 Divalproex Sodium (Divalproex Sodium) 125 Mg Cap.sprink, 500 MG PO DAILY, (R eported) Entered as Reported by: ANNE GARCIA on 03/03/211515 Escitalopram Oxalate (Lexapro) 10 Mg Tablet, 10 MG PO DAILY, (Reported) Entered as Reported by: ANNE GARCIA on 03/03/211515 Loratadine (Loratadine) 10 Mg Tablet, 10 MG PO DAILY, (Reported) Entered as Reported by: ANNE GARCIA on 03/03/211515 Magnesium Hydroxide (Milk of Magnesia) 400 Mg/5 Ml Oral.susp, 30 ML PO DAILY PRN for CONSTIPATION-7TH LINE, (Reported) Entered as Reported by: ANNE GARCIA on 03/03/211515 Multivitamin (Multivitamin) 1 Each Tablet, 1 EACH PO DAILY, (Reported) Entered as Reported by: ANNE GARCIA on 03/03/211515 Pantoprazole Sodium (Protonix) 20 Mg Tablet.dr, 40 MG PO DAILY, (Reported) Entered as Reported by: ANNE GARCIA on 03/03/211515 Polyethylene Glycol 3350 (Miralax) 17 Gm Powd.pack, 17 GM PO BID, (Reported) Entered as Reported by: ANNE GARCIA on 03/03/211515 Quetiapine Fumarate (Quetiapine Fumarate) 25 Mg Tablet, 75 MG PO BID, (Reported) Entered as Reported by: ANNE GARCIA on 03/03/211515 Review of Systems Review of Systems Constitutional: see HPI Unable to obtain review of systems secondary the patient's physical impairments Past Vsmikhh-Vyuxdl-Rhtrpo Hx Immunizations Up To Date First/Initial COVID19 Vaccinat: + Second COVID19 Vaccination Esau: + Past Medical History Surgery/Hospitalization HX: AUTISTIC; NON VERBAL Surgeries: No (None reported) Respiratory: No Cardiac: No Neurological: Yes (Neurocognitive disorder with rapid functional decline in recent years) Developmental Disorder Reproductive Disorders: No Gastrointestinal: No Musculoskeletal: No Endocrine: No HEENT: No Cancer: No Did You Recieve Any Treatments: No Psychosocial: No Integumentary: No Family Medical History No Pertinent Family Hx Physical Exam Vital Signs Vital Signs - First Documented 03/28/21 13:59 Temp 37.5 Pulse 116 Resp 20 B/P (MAP) 119/87 (98) Pulse Ox 96 O2 Delivery Room Air Capillary Refill : Height, Weight, BMI Height: '" Weight: lbs. oz. kg; 19.00 BMI Method: General Appearance: Chronically ill, Cachetic Eyes: Bilateral Eye Normal Inspection Neck: Supple (No lymphadenopathy) Respiratory: Lungs Clear, Normal Breath Sounds, No Accessory Muscle Use, No Respiratory Distress Cardiovascular: Regular Rate, Rhythm, Tachycardia, Other (Radial pulses 2+ bilaterally) Gastrointestinal: Normal Bowel Sounds, Guarding Extremity: Other (Minimal erythema noted to the lateral malleolus of the right ankle otherwise no skin breakdown in the feet, patient presented with heel protectors in place. Patient is noted to have abrasions to the left knee, appear old/not fresh; contractured upper extremities) Neurologic/Psychiatric: Alert (Eyes are open however the patient is nonverbal and does not really appear to react to my voice; unable to assess orientation secondary to autism) Skin: Normal Color, Warm/Dry (Tactile fever) Progress/Results/Core Measures Suspected Sepsis SIRS Temperature: Pulse: Respiratory Rate: Laboratory Tests 03/28/21 14:15: White Blood Count 8.6 Blood Pressure / Mean: Laboratory Tests 03/28/21 14:15: Creatinine 0.71, Platelet Count 265, Total Bilirubin 0.7 Results/Orders Lab Results Laboratory Tests Test 03/28/21 14:15 03/28/21 14:34 Range/Units White Blood Count 8.6 4.3-11.0 10^3/uL Red Blood Count 4.80 4.30-5.52 10^6/uL Hemoglobin 13.7 13.3-17.7 g/dL Hematocrit 42 40-54 % Mean Corpuscular Volume 88 80-99 fL Mean Corpuscular Hemoglobin 29 25-34 pg Mean Corpuscular Hemoglobin Concent 33 32-36 g/dL Red Cell Distribution Width 14.0 10.0-14.5 % Platelet Count 265 130-400 10^3/uL Mean Platelet Volume 12.3 H 9.0-12.2 fL Immature Granulocyte % (Auto) 0 % Neutrophils (%) (Auto) 69 42-75 % Lymphocytes (%) (Auto) 25 12-44 % Monocytes (%) (Auto) 5 0-12 % Eosinophils (%) (Auto) 1 0-10 % Basophils (%) (Auto) 0 0-10 % Neutrophils # (Auto) 5.9 1.8-7.8 10^3/uL Lymphocytes # (Auto) 2.1 1.0-4.0 10^3/uL Monocytes # (Auto) 0.4 0.0-1.0 10^3/uL Eosinophils # (Auto) 0.1 0.0-0.3 10^3/uL Basophils # (Auto) 0.0 0.0-0.1 10^3/uL Immature Granulocyte # (Auto) 0.0 0.0-0.1 10^3/uL Sodium Level 141 135-145 MMOL/L Potassium Level 3.5 L 3.6-5.0 MMOL/L Chloride Level 105 98-107 MMOL/L Carbon Dioxide Level 23 21-32 MMOL/L Anion Gap 13 5-14 MMOL/L Blood Urea Nitrogen 9 7-18 MG/DL Creatinine 0.71 0.60-1.30 MG/DL Estimat Glomerular Filtration Rate 118 BUN/Creatinine Ratio 13 Glucose Level 140 H 70-105 MG/DL Calcium Level 9.8 8.5-10.1 MG/DL Corrected Calcium 9.7 8.5-10.1 MG/DL Total Bilirubin 0.7 0.1-1.0 MG/DL Aspartate Amino Transf (AST/SGOT) 68 H 5-34 U/L Alanine Aminotransferase (ALT/SGPT) 83 H 0-55 U/L Alkaline Phosphatase 83 40-136 U/L Total Protein 7.5 6.4-8.2 GM/DL Albumin 4.1 3.2-4.5 GM/DL Urine Color YELLOW Urine Clarity SL CLOUDY Urine pH 6.5 5-9 Urine Specific [place] 1.025 H 1.016-1.022 Urine Protein 1+ H NEGATIVE Urine Glucose (UA) NEGATIVE NEGATIVE Urine Ketones NEGATIVE NEGATIVE Urine Nitrite NEGATIVE NEGATIVE Urine Bilirubin NEGATIVE NEGATIVE Urine Urobilinogen 0.2 < = 1.0 MG/DL Urine Leukocyte Esterase NEGATIVE NEGATIVE Urine RBC (Auto) NEGATIVE NEGATIVE Urine RBC 0-2 /HPF Urine WBC 0-2 /HPF Urine Squamous Epithelial Cells 2-5 /HPF Urine Crystals NONE /LPF Urine Bacteria NEGATIVE /HPF Urine Casts PRESENT /LPF Urine Hyaline Casts 2-5 H /LPF Urine Mucus SMALL H /LPF Urine Culture Indicated NO My Orders Orders - MAGI HERNANDEZ MD Tier Lift Operator Consult (03/28/21 13:56) Ed Iv/Invasive Line Start (03/28/21 13:56) Cbc With Automated Diff (03/28/21 13:56) Comprehensive Metabolic Panel (03/28/21 13:56) Ua Culture If Indicated (03/28/21 13:56) Ns Iv 1000 Ml (Sodium Chloride 0.9%) (03/28/21 13:56) Vital Signs/I&O 03/28/21 03/28/21 13:59 17:08 Temp 37.5 Pulse 116 98 Resp 20 18 B/P (MAP) 119/87 (98) 104/75 Pulse Ox 96 96 O2 Delivery Room Air Room Air Capillary Refill : Progress Note : Time: 16:38 Progress Note Jonel's labs actually look pretty good. He is not significantly dehydrated, urine does not appear infected. Micro reviewed from previous culture - was "Micrococcus luteus" - no sensitivities performed. Chemistry is unremarkable today as is his CBC. Vital signs are stable, heart rate is decreased down to below 100. I think there is no clinical and certainly no objective reason to keep him in the hospital. Close follow-up recommended with his primary care physician regarding further management of decreased oral intake. Departure Impression Primary Impression: Failure to thrive in adult Disposition: 01 HOME, SELF-CARE Condition: Stable Departure-Patient Inst. Decision time for Depature: 16:39 Referrals: MARYCRUZ MAXWELL DO (PCP/Family) Primary Care Physician Patient Instructions: Failure to Thrive, Adult (DC) Add. Discharge Instructions: Continue to try and push oral fluids as much as possible. I have reviewed his blood culture results, this is likely skin contaminant, no further treatment is necessary. Please contact his guardian for further instructions on DNR/feeding tube/further therapy in conjunction with his primary care physician. Return to the emergency room for any fevers, change in mental status, vomiting or other emergent concerns. Copy Copies To 1: MARYCRUZ MAXWELL KATHRYN M MD Mar 28, 2021 14:03
[2021-03-28 14:38] LABS: BASOPHILS % (AUTO) 0 % (0-10); EOSINOPHILS # (AUTO) 0.1 10^3/uL (0.0-0.3); EOSINOPHILS % (AUTO) 1 % (0-10); HEMATOCRIT 42 % (40-54); HEMOGLOBIN 13.7 g/dL (13.3-17.7); LYMPHOCYTES # (AUTO) 2.1 10^3/uL (1.0-4.0); LYMPHOCYTES % (AUTO) 25 % (12-44); MEAN CORPUSCULAR HEMOGLOBIN 29 pg (25-34); MEAN CORPUSCULAR HGB CONC 33 g/dL (32-36); MEAN CORPUSCULAR VOLUME 88 fL (80-99); MEAN PLATELET VOLUME 12.3 fL (9.0-12.2); MONOCYTES # (AUTO) 0.4 10^3/uL (0.0-1.0); MONOCYTES % (AUTO) 5 % (0-12); NEUTROPHILS # (AUTO) 5.9 10^3/uL (1.8-7.8); NEUTROPHILS % (AUTO) 69 % (42-75); PLATELET COUNT 265 10^3/uL (130-400); WHITE BLOOD COUNT 8.6 10^3/uL (4.3-11.0)
[2021-03-28 14:40] LABS: BILIRUBIN,URINE NEGATIVE (NEGATIVE); CLARITY,URINE SL CLOUDY; COLOR,URINE YELLOW; GLUCOSE, URINE (UA) NEGATIVE (NEGATIVE); KETONES,URINE NEGATIVE (NEGATIVE); LEUKOCYTE ESTERASE ,URINE NEGATIVE (NEGATIVE); NITRITE,URINE NEGATIVE (NEGATIVE); PH,URINE 6.5 (5-9); PROTEIN,URINE 1+ (NEGATIVE)
[2021-03-28 14:50] LABS: ALBUMIN 4.1 GM/DL (3.2-4.5); POTASSIUM 3.5 MMOL/L (3.6-5.0)
[2021-03-28 14:51] LABS: CALCIUM 9.8 MG/DL (8.5-10.1)
[2021-03-28 14:52] LABS: TOTAL PROTEIN 7.5 GM/DL (6.4-8.2)
[2021-03-28 14:54] LABS: BACTERIA,URINE NEGATIVE /HPF; RBC,URINE 0-2 /HPF; WBC,URINE 0-2 /HPF
[2021-03-28 14:54] LABS: BILIRUBIN,TOTAL 0.7 MG/DL (0.1-1.0)
[2021-03-28 14:56] LABS: CREATININE SERUM 0.71 MG/DL (0.60-1.30)
[2021-03-28 17:08] VITALS: BP 104/75
== END 2021-03-28 16:45 | disposition home or self-care (01) ==
LOC: EDUNIT# 13:37 → ER 13:38
DX: R62.7 Adult failure to thrive (principal); F84.0 Autistic disorder; R00.0 Tachycardia, unspecified
CPT/HCPCS: 36415; 80053; 81000; 85025

== ENCOUNTER 2021-04-01 06:35 | Emergency (ER) | payer MEDICAID ==
[~2021-04-01] VITALS: Ht 167.7 cm; Wt 60.0 kg
--- NOTE | 2021-04-01 06:45 | ED Fall/Injury ---
General Chief Complaint: Trauma-Non Activation Stated Complaint: FALL History of Present Illness Date Seen by Provider: Apr 01, 2021 Time Seen by Provider: 06:40 Initial Comments 50-year-old male sent in from the senior living to be "checked out" patient had a unwitnessed fall out of bed at some point throughout the night. Patient has severe autism and is nonverbal. Patient is on a blood thinner. Patient has fall mats around his bed and "fell out a low a spot on his bed" is unsure exactly what time he fell. Patient has no visible signs of injury. Patient is at his baseline mentation with no acute changes. No reports of vomiting or other acute change Allergies and Home Medications Allergies Coded Allergies: tree nut (Verified Allergy, Unknown, 02/14/21) Patient Home Medication List Home Medication List Reviewed: Yes Acetaminophen (Tylenol) 325 Mg Tablet, 650 MG PO Q6H PRN for PAIN-MILD (1-4), (Reported) Entered as Reported by: ANNE GARCIA on 03/03/211515 Bisacodyl (Dulcolax) 10 Mg Supp.rect, 10 MG RC DAILY PRN for CONSTIPATION-4TH LINE, (Reported) Entered as Reported by: ANNE GARCIA on 03/03/211515 Cimetidine (Cimetidine) 400 Mg Tablet, 400 MG PO DAILY, (Reported) Entered as Reported by: ANNE GARCIA on 03/03/211515 Divalproex Sodium (Divalproex Sodium) 125 Mg Cap.sprink, 500 MG PO DAILY, (Reported) Entered as Reported by: ANNE GARCIA on 03/03/211515 Escitalopram Oxalate (Lexapro) 10 Mg Tablet, 10 MG PO DAILY, (Reported) Entered as Reported by: ANNE GARCIA on 03/03/211515 Loratadine (Loratadine) 10 Mg Tablet, 10 MG PO DAILY, (Reported) Entered as Reported by: ANNE GARCIA on 03/03/211515 Magnesium Hydroxide (Milk of Magnesia) 400 Mg/5 Ml Oral.susp, 30 ML PO DAILY PRN for CONSTIPATION-7TH LINE, (Reported) Entered as Reported by: ANNE GARCIA on 03/03/211515 Multivitamin (Multivitamin) 1 Each Tablet, 1 EACH PO DAILY, (Reported) Entered as Reported by: ANNE GARCIA on 03/03/211515 Pantoprazole Sodium (Protonix) 20 Mg Tablet.dr, 40 MG PO DAILY, (Reported) Entered as Reported by: ANNE GARCIA on 03/03/211515 Polyethylene Glycol 3350 (Miralax) 17 Gm Powd.pack, 17 GM PO BID, (Reported) Entered as Reported by: ANNE GARCIA on 03/03/211515 Quetiapine Fumarate (Quetiapine Fumarate) 25 Mg Tablet, 75 MG PO BID, (Reported) Entered as Reported by: ANNE GARCIA on 03/03/211515 Review of Systems Review of Systems Constitutional: No chills, No fever Eyes: No Symptoms Reported Ears, Nose, Mouth, Throat: no symptoms reported Respiratory: no symptoms reported Cardiovascular: no symptoms reported Gastrointestinal: no symptoms reported Genitourinary: no symptoms reported Musculoskeletal: no symptoms reported Skin: no symptoms reported Psychiatric/Neurological: No Symptoms Reported Past Njsmnxy-Stoipn-Cthgwd Hx Immunizations Up To Date First/Initial COVID19 Vaccinat: + Second COVID19 Vaccination Esau: + Past Medical History Surgery/Hospitalization HX: AUTISTIC; NON VERBAL Surgeries: No (None reported) Respiratory: No Cardiac: No Neurological: Yes (Neurocognitive disorder with rapid functional decline in recent years) Developmental Disorder Reproductive Disorders: No Gastrointestinal: No Musculoskeletal: No Endocrine: No HEENT: No Cancer: No Did You Recieve Any Treatments: No Psychosocial: No Integumentary: No Family Medical History No Pertinent Family Hx Physical Exam Vital Signs Capillary Refill : Height, Weight, BMI Height: '" Weight: lbs. oz. kg; 21.00 BMI Method: General Appearance: WD/WN, no apparent distress HEENT: PERRL/EOMI Neck: full range of motion, supple Cardiovascular: normal peripheral pulses, regular rate, rhythm Respiratory: lungs clear, normal breath sounds Gastrointestinal: non tender, soft Back: normal inspection Extremities: non-tender, normal inspection, other (Bilateral lower leg ICDs) Neurologic/Psychiatric: alert, normal mood/affect (Patient is baseline nonverbal with no acute changes in his normal status) Skin: normal color, warm/dry Progress/Results/Core Measures Progress Progress Note : Progress Note Patient "fell out of bed" onto a fall mat. Patient shows no signs of injury, no changes in his mental status. Patient's bed is only approximately 1 foot off the ground with fall mats around it. This time I do not see any indication for CT head or any other imaging. Patient with no pain palpation of any extremities. No pain with any range of motion. Patient stable and discharged back to the senior living Departure Impression Primary Impression: Accidental fall from bed Qualified Codes: W06.XXXA - Fall from bed, initial encounter Disposition: HOME, SELF-CARE Condition: Stable Departure-Patient Inst. Referrals: MARYCRUZ MAXWELL DO (PCP/Family) Primary Care Physician Patient Instructions: Preventing Falls ED Add. Discharge Instructions: Follow-up with his primary care provider as needed All discharge instructions reviewed with patient and/or family. Voiced understanding. MICHELLE LECHUGA DO Apr 01, 2021 06:45
[2021-04-01 07:19] VITALS: BP 93/74
== END 2021-04-01 07:22 | disposition home or self-care (01) ==
LOC: EDUNIT# 06:35 → ER 06:36
DX: F84.0 Autistic disorder (principal); Z79.01 Long term (current) use of anticoagulants; W06.XXXA Fall from bed, initial encounter
CPT/HCPCS: 99283

== ENCOUNTER 2022-03-22 18:39 | Inpatient (IN) | payer MEDICARE, MEDICAID ==
[2022-03-22] MEDS ORDERED: methylPREDNISolone 125 MG (Solu-MEDROL) VIAL IV STA (18:46)
[2022-03-22] MEDS ORDERED: RT-ALBUTEROL/IPRATROPIUM 3 ML (DUONEB) VIAL INH ONE (19:00)
[2022-03-22 19:08] LABS: BASOPHILS % (AUTO) 0 % (0-10); EOSINOPHILS # (AUTO) 0.1 10^3/uL (0.0-0.3); EOSINOPHILS % (AUTO) 2 % (0-10); HEMATOCRIT 40 % (40-54); HEMOGLOBIN 13.5 g/dL (13.3-17.7); LYMPHOCYTES # (AUTO) 2.5 10^3/uL (1.0-4.0); LYMPHOCYTES % (AUTO) 30 % (12-44); MEAN CORPUSCULAR HEMOGLOBIN 30 pg (25-34); MEAN CORPUSCULAR HGB CONC 34 g/dL (32-36); MEAN CORPUSCULAR VOLUME 88 fL (80-99); MEAN PLATELET VOLUME 11.4 fL (9.0-12.2); MONOCYTES # (AUTO) 0.3 10^3/uL (0.0-1.0); MONOCYTES % (AUTO) 3 % (0-12); NEUTROPHILS # (AUTO) 5.3 10^3/uL (1.8-7.8); NEUTROPHILS % (AUTO) 64 % (42-75); PLATELET COUNT 271 10^3/uL (130-400); WHITE BLOOD COUNT 8.2 10^3/uL (4.3-11.0)
--- NOTE | 2022-03-22 19:09 | ED Respiratory ---
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 PER EMS THE FACILITY SAID HE HAD LOW O2 PER THEIR READINGS Source: EMS, old records Exam Limitations: other (PT IS NON-VERBAL, NO REPORT FROM [facility], AND NO PAPERS SENT WITH PT FROM [facility]. ) History of Present Illness Date Seen by Provider: Mar 22, 2022 Time Seen by Provider: 18:39 Initial Comments PT ARRIVES VIA EMS FROM [facility] NO CALL / REPORT FROM [facility], AND NO PAPERWORK SENT WITH PATIENT OTHER THAN A FACE SHEET. WAS REPORTED TO EMS THAT PT POSSIBLY ASPIRATED WHILE HE WAS BEING FED TONIGHT, 20 MINUTES PRIOR TO ARRIVAL. NO EVIDENCE OF VOMITING [facility] REPORTED TO EMS THAT THEY HAD AN O2 SAT OF 64% ON NON-REBREATHER AND UNKNOWN AMOUNT EMS HAD O2 SAT OF 91% ON NON-REBREATHER AT UNKNOWN AMOUNT O2 SAT IS 87-88% ON ROOM AIR ON ARRIVAL HERE PT DOES NOT APPEAR TO BE TO BE DYSPNEIC OR ANY DISCOMFORT OR DISTRESS PT HAS SEVERE AUTISM, AND IS NON-VERBAL AND NON-AMBULATORY PT WITH FLEXION CONTRACTURES OF ARMS AND HANDS/WRISTS, AND BOTH LOWER LEGS AND FEET WITH VERY THICK HEEL/FEET PROTECTORS IN PLACE APPEARS TO HAVE SOME FLEXION CONTRACTURES AT KNEES NO OTHER INFORMATION IS AVAILABLE AT THIS TIME. RN LATER CALLED THE [facility]--STAFF MEMBER THAT SHE SPOKE WITH DID NOT KNOW ANYTHING ABOUT PT, AND PT'S NURSE /STAFF MEMBER THAT WAS WITH PT WHEN EMS WAS CALLED WAS NOT THERE ANYMORE. PT'S MEDICATION LIST AND DIAGNOSIS LIST WAS FAXED. PT WAS DX WITH COVID-19 ON 03/08/22. ELIQUIS IS LISTED MEDICATION, FOR DVT RIGHT LOWER EXTREMITY. HOWEVER, THIS DX IS NOT LISTED WITH HIS OTHER DIAGNOSES, ONLY NOTED ON MEDICATION LIST. PCP: DR. MAXWELL Allergies and Home Medications Allergies Coded Allergies: tree nut (Verified Allergy, Unknown, 02/14/21) Patient Home Medication List Home Medication List Reviewed: Yes Acetaminophen (Tylenol) 325 Mg Tablet, 650 MG PO Q6H PRN for PAIN-MILD (1-4), (Reported) Entered as Reported by: ANNE GARCIA on 03/03/21 7496 Last Action: Reviewed Apixaban (Eliquis) 2.5 Mg Tablet, 2.5 MG PO BID, (Reported) Entered as Reported by: LARY STERN on 03/23/22 1016 Last Action: Reviewed Bisacodyl (Dulcolax) 10 Mg Supp.rect, 10 MG RC DAILY PRN for CONSTIPATION-4TH LINE, (Reported) Entered as Reported by: ANNE GARCIA on 03/03/211515 Last Action: Reviewed Cefdinir (Cefdinir) 300 Mg Capsule, 300 MG PO BID Prescribed by: JONEL WEBER on 03/24/22 1032 Docusate Sodium (Docusate Sodium) 100 Mg Capsule, 100 MG PO BID, (Reported) Entered as Reported by: LARY STERN on 03/23/22 1016 Last Action: Reviewed Escitalopram Oxalate (Lexapro) 10 Mg Tablet, 10 MG PO DAILY, (Reported) Entered as Reported by: ANNE GARCIA on 03/03/211515 Last Action: Reviewed Loratadine (Loratadine) 10 Mg Tablet, 10 MG PO DAILY, (Reported) Entered as Reported by: ANNE GARCIA on 03/03/211515 Last Action: Reviewed Magnesium Hydroxide (Milk of Magnesia) 400 Mg/5 Ml Oral.susp, 30 ML PO DAILY PRN for CONSTIPATION-7TH LINE, (Reported) Entered as Reported by: ANNE GARCIA on 03/03/211515 Last Action: Reviewed Multivitamin (Multivitamin) 1 Each Tablet, 1 EACH PO DAILY, (Reported) Entered as Reported by: ANNE GARCIA on 03/03/211515 Last Action: Reviewed Na Phos,M-B/Na Phos,Di-Ba (Enema Ready To Use) 19 Gram-7 Gram/118 Ml Enema, 133 ML RC DAILY PRN for CONSTIPATION, (Reported) Entered as Reported by: LARY STERN on 03/23/22 1016 Last Action: Reviewed Ondansetron (Ondansetron Odt) 4 Mg Tab.rapdis, 4 MG SL Q8H PRN for NAUSEA/VOMITING, (Reported) Entered as Reported by: LARY STERN on 03/23/22 1016 Last Action: Reviewed Pantoprazole Sodium (Pantoprazole Sodium) 40 Mg Tablet.dr, 40 MG PO DAILY, (Reported) Entered as Reported by: LARY STERN on 03/23/22 1016 Last Action: Reviewed Polyethylene Glycol 3350 (Miralax) 17 Gm Powd.pack, 17 GM PO BID, (Reported) Entered as Reported by: ANNE GARCIA on 03/03/211515 Last Action: Reviewed Discontinued Medications Cimetidine (Cimetidine) 400 Mg Tablet, 400 MG PO DAILY, (Reported) Discontinued Reason: No Longer Taking Entered as Reported by: ANNE GARCIA on 03/03/211515 Last Action: Discontinued Divalproex Sodium (Divalproex Sodium) 125 Mg Cap.sprink, 500 MG PO DAILY, (Reported) Discontinued Reason: No Longer Taking Entered as Reported by: ANNE GARCAI on 03/03/211515 Last Action: Discontinued Pantoprazole Sodium (Protonix) 20 Mg Tablet.dr, 40 MG PO DAILY, (Reported) Discontinued Reason: Duplicate Order Entered as Reported by: ANNE GARCIA on 03/03/211515 Last Action: Discontinued Quetiapine Fumarate (Quetiapine Fumarate) 25 Mg Tablet, 75 MG PO BID, (Reported) Discontinued Reason: No Longer Taking Entered as Reported by: ANNE GARCIA on 03/03/211515 Last Action: Discontinued Review of Systems Review of Systems Constitutional: other (UNABLE TO OBTAIN ANY INFORMATION FROM PT) Past Afydobn-Cqewhd-Zwkfln Hx Patient Social History Tobacco Use?: No Use of E-Cig and/or Vaping dev: No Substance use?: No Alcohol Use?: No Pt feels they are or have been: No Immunizations Up To Date First/Initial COVID19 Vaccinat: + Second COVID19 Vaccination Esau: + Third COVID19 Vaccination Date: + Past Medical History Surgery/Hospitalization HX: AUTISTIC; NON VERBAL, COVID 19, DEPRESSIN, UTI Surgeries: No (UNKNOWN) Respiratory: No (UNKNOWN) Cardiac: No (UNKNOWN) Neurological: Yes (Neurocognitive disorder W/ rapid functional decline in recent years;AUTISM) Developmental Disorder Reproductive Disorders: No Gastrointestinal: No Musculoskeletal: Yes (NONAMBULATORY; FLEXION CONTRACTURES OF ARMS/HANDS AND LEGS) Contracture Endocrine: No HEENT: No Cancer: No Did You Recieve Any Treatments: No Psychosocial: Yes (SEVERE AUTISM) Integumentary: No Blood Disorders: No Family Medical History No Pertinent Family Hx Physical Exam Vital Signs - First Documented 03/22/22 18:40 Temp 37.1 Pulse 105 Resp 18 B/P (MAP) 130/93 (105) Pulse Ox 93 O2 Delivery OxyMask O2 Flow Rate 15.00 Capillary Refill : Height: '" Weight: lbs. oz. kg; BMI Method: General Appearance: no apparent distress, cachetic, thin, other (PT IS AWAKE/ALERT, AND FREELY MOVING LEGS AND ARMS, BUT WITH FLEXION CONTRACTURES NOTED ABOVE. ) Neck: normal inspection Respiratory: no respiratory distress, no accessory muscle use, wheezing (FAINT WHEEZING BILATERALLY) Cardiovascular: no murmur, tachycardia (100-110) Gastrointestinal: soft Extremities: normal capillary refill Neurologic/Psychiatric: alert, other (AWAKE, ALERT, BUT IS NON-VERBAL, HAS GROSS MOVEMENT OF ALL EXTREMEMITES, BUT DOES NOT FOLLOW ANY COMMANDS. ROM LIMITED BY FLEXION CONTRACTURES. BOTH LOWER LEGS AND FEET WITH THICK HEEL/FOOT PROTECTORS) Skin: normal color, warm/dry Focused Exam Sepsis Stage: Ruled Out Reason for ruling out sepsis: DOES NOT MEET CRITERIA Possible Source: Pulmonary Lactate Level 03/22/22 18:50: Lactic Acid Level 1.16 Time of Focused Exam: 20:00 Respiratory: Normal Breath Sounds, No Accessory Muscle Use, No Respiratory Distress Cardiovascular: Tachycardia Capillary Refill: Less Than 3 Seconds Skin: normal color, warm/dry Lactic Acid Level Laboratory Tests Test 03/22/22 18:50 Lactic Acid Level 1.16 MMOL/L (0.50-2.00) Within 3hrs of presentation: Admin fluids, Admin ABX, Blood cultures prior to ABX's, Focus exam, Lactate level Progress/Results/Core Measures Suspected Sepsis SIRS Temperature: Pulse: 105 Respiratory Rate: 18 Laboratory Tests 03/22/22 18:50: White Blood Count 8.2 Blood Pressure 130 /93 Mean: 105 03/22/22 18:50: Lactic Acid Level 1.16 Laboratory Tests 03/22/22 18:50: Creatinine 0.95, Platelet Count 271, Total Bilirubin 0.4 Results/Orders Lab Results Laboratory Tests Test 03/22/22 18:50 03/22/22 19:23 Range/Units White Blood Count 8.2 4.3-11.0 10^3/uL Red Blood Count 4.56 4.30-5.52 10^6/uL Hemoglobin 13.5 13.3-17.7 g/dL Hematocrit 40 40-54 % Mean Corpuscular Volume 88 80-99 fL Mean Corpuscular Hemoglobin 30 25-34 pg Mean Corpuscular Hemoglobin Concent 34 32-36 g/dL Red Cell Distribution Width 12.3 10.0-14.5 % Platelet Count 271 130-400 10^3/uL Mean Platelet Volume 11.4 9.0-12.2 fL Immature Granulocyte % (Auto) 0 % Neutrophils (%) (Auto) 64 42-75 % Lymphocytes (%) (Auto) 30 12-44 % Monocytes (%) (Auto) 3 0-12 % Eosinophils (%) (Auto) 2 0-10 % Basophils (%) (Auto) 0 0-10 % Neutrophils # (Auto) 5.3 1.8-7.8 10^3/uL Lymphocytes # (Auto) 2.5 1.0-4.0 10^3/uL Monocytes # (Auto) 0.3 0.0-1.0 10^3/uL Eosinophils # (Auto) 0.1 0.0-0.3 10^3/uL Basophils # (Auto) 0.0 0.0-0.1 10^3/uL Immature Granulocyte # (Auto) 0.0 0.0-0.1 10^3/uL Erythrocyte Sedimentation Rate 17 0-30 MM/HR Sodium Level 138 135-145 MMOL/L Potassium Level 3.6 3.6-5.0 MMOL/L Chloride Level 103 98-107 MMOL/L Carbon Dioxide Level 25 21-32 MMOL/L Anion Gap 10 5-14 MMOL/L Blood Urea Nitrogen 13 7-18 MG/DL Creatinine 0.95 0.60-1.30 MG/DL Estimat Glomerular Filtration Rate 98 BUN/Creatinine Ratio 14 Glucose Level 146 H 70-105 MG/DL Lactic Acid Level 1.16 0.50-2.00 MMOL/L Calcium Level 9.5 8.5-10.1 MG/DL Corrected Calcium 9.3 8.5-10.1 MG/DL Magnesium Level 2.2 1.6-2.4 MG/DL Total Bilirubin 0.4 0.1-1.0 MG/DL Aspartate Amino Transf (AST/SGOT) 19 5-34 U/L Alanine Aminotransferase (ALT/SGPT) 23 0-55 U/L Alkaline Phosphatase 68 40-136 U/L C-Reactive Protein High Sensitivity 0.07 0.00-0.50 MG/DL B-Type Natriuretic Peptide 15.3 <100.0 PG/ML Total Protein 7.5 6.4-8.2 GM/DL Albumin 4.2 3.2-4.5 GM/DL Procalcitonin 0.01 <0.10 NG/ML Valproic Acid (Depakene) Level < 2.0 L 50.0-100.0 UG/ML Influenza Type A (RT-PCR) Not Detected Not Detecte Influenza Type B (RT-PCR) Not Detected Not Detecte SARS-CoV-2 RNA (RT-PCR) Detected H Not Detecte Blood Gas Puncture Site RT RADIAL Blood Gas Patient Temperature 37.1 Arterial Blood pH 7.35 L 7.37-7.43 Arterial Blood Partial Pressure CO2 51 H 35-45 MMHG Arterial Blood Partial Pressure O2 156 H 79-93 MMHG Arterial Blood HCO3 28 H 23-27 MMOL/L Arterial Blood Total CO2 29.4 21.0-31.0 MMOL/L Arterial Blood Oxygen Saturation 99 94-100 % Arterial Blood Base Excess 2.8 H -2.5-2.5 MMOL/L Can Test YES-POS Blood Gas Ventilator Setting NO Blood Gas Inspired Oxygen 14 Micro Results Microbiology 03/22/22 Blood Culture - Preliminary, Resulted Coryneform bacteria 03/22/22 Blood Culture - Preliminary, Resulted Corynebacterium species My Orders Orders - HANNAH DELEON DO Ed Iv/Invasive Line Start (03/22/22 18:46) O2 (03/22/22 18:46) Monitor-Rhythm Ecg Trace Only (03/22/22 18:46) Chest 1 View, Ap/Pa Only (03/22/22 18:46) Arterial Blood Gas (03/22/22 19:23) Bnp [place] (03/22/22 18:46) Cbc With Automated Diff (03/22/22 18:46) Comprehensive Metabolic Panel (03/22/22 18:46) Hs C Reactive Protein (03/22/22 18:46) Lactic Acid Analyzer (03/22/22 18:46) Magnesium (03/22/22 18:46) Procalcitonin (Pct) (03/22/22 18:46) Erythrocyte Sedimentation Rate (03/22/22 18:46) Albuterol/Ipra Inhalation Soln (Duoneb I (03/22/22 19:00) Dexamethasone Injection (Decadron Injec (03/22/22 19:00) Rt Request For Service (03/22/22 18:46) Methylprednisolone Sod Succ (Solu-Medrol (03/22/22 18:46) Covid 19 Inhouse Test (03/22/22 18:46) Svn Small Volume Nebulizer (03/22/22 18:46) Influenza A And B By Pcr (03/22/22 18:46) Isolation Central Supply Req (03/22/22 18:46) Valproic Acid (03/22/22 18:49) Medications Given in ED Vital Signs/I&O 03/22/22 03/22/22 03/22/22 18:40 19:27 19:28 Temp 37.1 Pulse 105 Resp 18 B/P (MAP) 130/93 (105) Pulse Ox 93 99 99 O2 Delivery OxyMask Non Rebreather Non Rebreather O2 Flow Rate 15.00 14.00 14.00 Capillary Refill : Blood Pressure Mean: 105 Progress Note : Progress Note O2 SATS UP TO MID 90'S ON NON-REBREATHER AT 15L, LATER WEANED DOWN TO 6 LITERS AND O2 SATS 1005 PRIOR TO ADMIT GIVEN NEB TREATMENT WITH WHEEZING RESOLVED NO COUGH NO DYSPNEA NO FEVER NO DETERIORATION IN PT'S CONDITION DURING ER STAY Diagnostic Imaging Comments CXR--PER RADIOLOGIST REPORT AT 1930 FINDINGS: Hyperinflation. No new focal pulmonary opacity. No pleural effusion or pneumothorax. Normal heart size and central pulmonary vascularity. No acute osseous findings. IMPRESSION: 1. COPD. 2. No acute cardiopulmonary findings. CT CHEST ANGIOGRAM--PER RADIOLOGIST REPORT AT 2106 COMPARISON: Chest radiograph 03/22/2022. FINDINGS: No pulmonary artery filling defects. Normal caliber thoracic aorta. Normal heart size. No pericardial effusion. No mediastinal, hilar or axillary lymphadenopathy. Multifocal airspace opacities scattered throughout both lungs are greatest in the lung apices. There are also tree-in-bud opacities in the left lung base. No pleural effusion or pneumothorax. Debris in the superiormost esophagus measuring 2.8 x 1.8 cm. No acute osseous findings. Visualized upper abdominal contents are unremarkable. IMPRESSION: 1. No pulmonary emboli. 2. Multifocal airspace opacities, greatest in the lung apices, are compatible with reported COVID pneumonitis 3. airspace opacities in the left lung base have more of a tree-in-bud morphology and are more compatible with aspiration. 4. Debris within the most upper esophagus measuring approximately 2.[address] ABDOMEN/PELVIS--PER RADIOLOGIST REPORT AT 2107 FINDINGS: Tree-in-bud opacities in the lung bases are better demonstrated on the comparison exam given the motion on this exam. The liver, gallbladder, pancreas, spleen, adrenals, kidneys, collecting systems demonstrate no acute findings on this noncontrast exam. There is contrast in the collecting systems. Urinary bladder is decompressed by a Dowell catheter. No free intraperitoneal air or fluid. No lymphadenopathy. No evidence of bowel obstruction. No acute osseous findings. IMPRESSION: 1. No acute CT findings in the abdomen or pelvis. 2. Airspace opacities in the left lung base. Reviewed: Reviewed by Me Departure Communication (Admissions) 2001--SPOKE WITH DR. CASTILLO, HOSPITALIST. ACCEPTS PT FOR ADMIT. 2107--SPOKE WITH DR. DUBOSE FOR SURGICAL CONSULT FOR FOOD IN ESOPHAGUS. HE WILL SEE PT IN CONSULT Impression Primary Impression: Acute on chronic respiratory failure with hypoxia and hypercapnia Additional Impressions: Suspected pulmonary aspiration of food RECENT COVID-19 VIRUS 03/08/22 Severe intellectual disability NON-AMBULATORY History of deep venous thrombosis (DVT) of distal vein of right lower extrem ity Aspiration pneumonia FOOD IN PROXIMAL ESOPHAGUS Disposition: ADMITTED INPATIENT Condition: Stable Admissions Decision to Admit Reason: Admit from ER (General) Decision to Admit/Date: Mar 22, 2022 Time/Decision to Admit Time: 20:05 Departure-Patient Inst. Referrals: MARYCRUZ MAXWELL DO (PCP/Family) Primary Care Physician Scripts Cefdinir (Cefdinir) 300 Mg Capsule 300 MG PO BID, #10 CAP Prov: JONEL WEBER MD 03/24/22 HANNAH DELEON DO Mar 22, 2022 19:09
--- NOTE | 2022-03-22 19:23 | Diagnostic Imaging Report ---
EXAM: CHEST 1 VIEW, AP/PA ONLY. INDICATION: Hypoxia. COMPARISON: 03/23/2021. FINDINGS: Hyperinflation. No new focal pulmonary opacity. No pleural effusion or pneumothorax. Normal heart size and central pulmonary vascularity. No acute osseous findings. IMPRESSION: 1. COPD. 2. No acute cardiopulmonary findings. Dictated by: Dictated on workstation # [id number]
[2022-03-22 19:24] LABS: ERYTHROCYTE SEDIMENTATION RATE 17 MM/HR (0-30)
[2022-03-22 19:32] LABS: ABG BASE EXCESS 2.8 MMOL/L (-2.5-2.5); ABG OXYGEN SATURATION 99 % (94-100); ABG PCO2 51 MMHG (35-45); ABG PH 7.35 (7.37-7.43); ABG PO2 156 MMHG (79-93); ABG TCO2 29.4 MMOL/L (21.0-31.0); ALLENS TEST YES-POS; INSPIRED O2 14; PATIENT TEMP 37.1; VENTILATOR NO
[2022-03-22 19:44] LABS: ALANINE AMINOTRANSFERASE 23 U/L (0-55); ALBUMIN 4.2 GM/DL (3.2-4.5); ALKALINE PHOSPHATASE 68 U/L (40-136); BILIRUBIN,TOTAL 0.4 MG/DL (0.1-1.0); BUN/CREATININE RATIO 14; CALCIUM 9.5 MG/DL (8.5-10.1); CARBON DIOXIDE 25 MMOL/L (21-32); CHLORIDE 103 MMOL/L (98-107); CREATININE SERUM 0.95 MG/DL (0.60-1.30); GFR ESTIMATED 98; GLUCOSE 146 MG/DL (70-105); MAGNESIUM 2.2 MG/DL (1.6-2.4); POTASSIUM 3.6 MMOL/L (3.6-5.0); SODIUM 138 MMOL/L (135-145); TOTAL PROTEIN 7.5 GM/DL (6.4-8.2)
[2022-03-22 20:08] LABS: VALPROIC ACID < 2.0 UG/ML (50.0-100.0)
[2022-03-22] MEDS ORDERED: LIDOCAINE UROJET 2% GEL 10 ML PKG TOP ONE (20:15)
[2022-03-22] MEDS ORDERED: NS 100 ML (IVPB) BAG IV ONE (20:15)
[2022-03-22] MEDS ORDERED: CEFEPIME INJECTION 1,000 MG in NS (IVPB) 50 ML IV ONE (20:15)
[2022-03-22] MEDS ORDERED: LACTATED RINGERS 1,000 ML IV ONE (20:15)
[2022-03-22] MEDS ORDERED: IOHEXOL 350 MG/ML 100 ML (OMNIPAQUE 350) VIAL IV ONE (20:15)
[2022-03-22] MEDS ORDERED: HOLD METFORMIN - RECEIVED CONTRAST 20 ML VIAL IV SCH (20:15)
[2022-03-22 20:38] LABS: BILIRUBIN,URINE NEGATIVE (NEGATIVE); CLARITY,URINE CLEAR; COLOR,URINE YELLOW; GLUCOSE, URINE (UA) NEGATIVE (NEGATIVE); KETONES,URINE NEGATIVE (NEGATIVE); LEUKOCYTE ESTERASE ,URINE NEGATIVE (NEGATIVE); NITRITE,URINE NEGATIVE (NEGATIVE); PROTEIN,URINE NEGATIVE (NEGATIVE)
[2022-03-22 20:44] LABS: BACTERIA,URINE NEGATIVE /HPF; RBC,URINE RARE /HPF; SQUAMOUS EPITHELIAL CELL,UR 0-2 /HPF
--- NOTE | 2022-03-22 21:00 | Diagnostic Imaging Report ---
PROCEDURE: CT angiography of the chest with contrast. TECHNIQUE: Multiple contiguous axial images were obtained through the chest after uneventful bolus administration of intravenous contrast. 3D reconstructed CTA MIP acquisitions were also performed. Auto Exposure Controls were utilized during the CT exam to meet ALARA standards for radiation dose reduction. INDICATION: COVID. Possible aspiration. Shortness of breath. COMPARISON: Chest radiograph 03/22/2022. FINDINGS: No pulmonary artery filling defects. Normal caliber thoracic aorta. Normal heart size. No pericardial effusion. No mediastinal, hilar or axillary lymphadenopathy. Multifocal airspace opacities scattered throughout both lungs are greatest in the lung apices. There are also tree-in-bud opacities in the left lung base. No pleural effusion or pneumothorax. Debris in the superiormost esophagus measuring 2.8 x 1.8 cm. No acute osseous findings. Visualized upper abdominal contents are unremarkable. IMPRESSION: 1. No pulmonary emboli. 2. Multifocal airspace opacities, greatest in the lung apices, are compatible with reported COVID pneumonitis 3. airspace opacities in the left lung base have more of a tree-in-bud morphology and are more compatible with aspiration. 4. Debris within the most upper esophagus measuring approximately 2.8 x 1.8 cm. Dictated by: Dictated on workstation # [id number]
--- NOTE | 2022-03-22 21:01 | Diagnostic Imaging Report ---
PROCEDURE: CT abdomen and pelvis without contrast. TECHNIQUE: Multiple contiguous axial images were obtained through the abdomen and pelvis without the use of intravenous contrast. Auto Exposure Controls were utilized during the CT exam to meet ALARA standards for radiation dose reduction. INDICATION: Abdominal pain and distention. COMPARISON: CTA chest also performed today. FINDINGS: Tree-in-bud opacities in the lung bases are better demonstrated on the comparison exam given the motion on this exam. The liver, gallbladder, pancreas, spleen, adrenals, kidneys, collecting systems demonstrate no acute findings on this noncontrast exam. There is contrast in the collecting systems. Urinary bladder is decompressed by a Dowell catheter. No free intraperitoneal air or fluid. No lymphadenopathy. No evidence of bowel obstruction. No acute osseous findings. IMPRESSION: 1. No acute CT findings in the abdomen or pelvis. 2. Airspace opacities in the left lung base. Dictated by: Dictated on workstation # [id number]
--- NOTE | 2022-03-22 22:16 | Progress Note-Pre Operative ---
Pre-Operative Progress Note Date of Available H&P: Mar 22, 2022 Date H&P Reviewed: Mar 22, 2022 Time H&P Reviewed: 22:00 History & Physical: No changes noted Pre-Operative Diagnosis: dysphagia possible aspiration JENNYFER DUBOSE MD Mar 22, 2022 22:16
[2022-03-23] VITALS (12 sets, daily range): BP systolic 88–120; BP diastolic 50–72
[2022-03-23] MEDS ORDERED: RT-ALBUTEROL/IPRATROPIUM 3 ML (DUONEB) VIAL INH PRN (01:15)
--- NOTE | 2022-03-23 03:32 | CONSULTATION REPORT ---
DATE OF SERVICE: ATTENDING PRIMARY CARE PHYSICIAN: Dr. Mitchell. ADMITTING PHYSICIAN: Dr. Correa. HISTORY OF PRESENT ILLNESS: The patient is a 51-year-old male with a history of severe autism, who is nonverbal and nonambulatory, who resides at [facility] [place]. EMS was called by staff when he developed a cough after being fed a meal and staff had reported that his oxygen saturation was 64% on a nonrebreather mask. Upon arrival to the Emergency Department, his saturation was around 91%. A chest x-ray was performed, which did show signs of COPD. There is no consolidation to indicate any aspiration. A CT scan of the chest and abdomen were also performed, which did show a possible food bolus within the upper to middle third of the esophagus. The patient is comfortable, not showing any signs of distress and is ventilating without any difficulty. PAST MEDICAL HISTORY: Severe autism with functional decline over time, flexion contractures of arms, hands and lower extremities, past history of COVID-19, depression, urinary tract infection. PAST SURGICAL HISTORY: None known. ALLERGIES: No known drug allergies. MEDICATIONS: Dulcolax suppository p.r.n., cimetidine 400 mg daily, divalproex 500 mg daily, citalopram 10 mg daily, loratadine 10 mg daily, Protonix 40 mg daily, MiraLax p.r.n., quetiapine fumarate 25 mg b.i.d. SOCIAL HISTORY: Severe developmental delay. Negative alcohol. Negative smoking. FAMILY HISTORY: Noncontributory. PHYSICAL EXAMINATION: VITAL SIGNS: Temperature 37.1, blood pressure 130/83, pulse 105, respirations 18, pulse ox 99% on a nonrebreather mask. REVIEW OF SYSTEMS: This is a physical and cognitively impaired male with severe contractures. He appears comfortable and not in any acute distress. No signs of shortness of breath or use of any accessory muscles of respirations. No nausea, vomiting, history of constipation. No known red blood per rectum, no dark tarry stools. No known fever, chills. No recent inadvertent weight loss. All other review of systems negative. PHYSICAL EXAMINATION: Will be assessed in a.m. on examination of the patient. The patient's history was ascertained by the emergency room physician as well as the patient's electronic medical records. LABORATORY DATA: WBC 8.2, hemoglobin 13.5, hematocrit 40, platelets 271. BUN 13, creatinine 0.95. ASSESSMENT AND PLAN: A 51-year-old male with history of severe developmental delay, which has been progressive with severe contractures of upper and lower extremities and nonverbal as well as nonambulatory and is fully dependent on care. After feeding, he did have some coughing as well as low oxygen saturations after being fed a meal, which may indicate some aspiration. Upon presentation to the Emergency Department, his oxygen saturations were in a normal range. A CT scan of the chest and abdomen were performed, which did show a possible food bolus within the upper to middle third of the esophagus. We will keep him n.p.o. and proceed with IV hydration and proceed with an EGD as well as biopsies as appropriate and possible foreign body retraction on this admission. Job ID: [id number] DocumentID: [id number] Dictated Date: 03/22/2022 22:25:13 Senior Search Marketing Analyst Date: 03/23/2022 03:32:43 Dictated By: JENNYFER DUBOSE MD
[2022-03-23] MEDS: CEFEPIME 1,000 MG/NS 50 ML IVPB IV SCH ×8 (03:56→21:16)
[2022-03-23 05:35] LABS: BASOPHILS % (AUTO) 0 % (0-10); EOSINOPHILS % (AUTO) 0 % (0-10); HEMATOCRIT 36 % (40-54); HEMOGLOBIN 12.1 g/dL (13.3-17.7); LYMPHOCYTES # (AUTO) 0.6 10^3/uL (1.0-4.0); LYMPHOCYTES % (AUTO) 4 % (12-44); MEAN CORPUSCULAR HEMOGLOBIN 30 pg (25-34); MEAN CORPUSCULAR HGB CONC 33 g/dL (32-36); MEAN CORPUSCULAR VOLUME 89 fL (80-99); MEAN PLATELET VOLUME 11.7 fL (9.0-12.2); MONOCYTES # (AUTO) 0.6 10^3/uL (0.0-1.0); MONOCYTES % (AUTO) 4 % (0-12); NEUTROPHILS # (AUTO) 15.1 10^3/uL (1.8-7.8); NEUTROPHILS % (AUTO) 92 % (42-75); PLATELET COUNT 250 10^3/uL (130-400); WHITE BLOOD COUNT 16.4 10^3/uL (4.3-11.0)
[2022-03-23 05:53] LABS: CALCIUM 9.3 MG/DL (8.5-10.1); CREATININE SERUM 0.9 MG/DL (0.60-1.30); POTASSIUM 3.9 MMOL/L (3.6-5.0)
[2022-03-23 06:38] LABS: LYMPHOCYTES % (MANUAL) 6 %; MONOCYTES % (MANUAL) 5 %; NEUTROPHILS % (MANUAL) 89 %
[2022-03-23 06:39] LABS: BURR CELLS SLIGHT; ELLIPT/OVALOCYTES SLIGHT
[2022-03-23] MEDS: RT-ALBUTEROL/IPRATROPIUM 3 ML (DUONEB) VIAL INH SCH ×4 (08:05→19:26)
--- NOTE | 2022-03-23 08:24 | History & Physical-Hospitalist ---
History of Present Illness HPI/Chief Complaint Patient is a 51-year-old male with a past medical history of autism who is nonverbal who presented to the emergency department due to aspiration. He is unable to provide me any history and there is no family at bedside. All history is obtained from the records. He resides at [facility] and was being fed dinner last night when he choked on it. The intermediate reported to EMS that he was hypoxic into the 60s and placed him on a nonrebreather. EMS transported him to the ER here on the nonrebreather breather where he remained with sats in the high 80s. This was titrated off in the [facility] department and he stayed in the high 80s. He was then placed back on nasal cannula and has maintained sats in the 90s. A CT of his chest was done which revealed pneumonitis consistent with recent COVID infection (last month) and tree-in-bud morphology consistent with aspiration. It also revealed likely food bolus still in the esophagus. Surgery has been consulted and plans to take him to endoscopy today. RT is at bedside and reports they have weaned him down from 5 L to 3 L. Exam Limitations: clinical condition Date Seen 03/23/22 Time Seen by a Provider: 08:21 Attending Physician Amador Mitchell DO PCP Admitting Physician: Gonzales Correa MD Attending Physician: Amador Mitchell DO Referring Physician Date of Admission Mar 22, 2022 at 20:02 Home Medications & Allergies Home Medications Reviewed patient Home Medication Reconciliation performed by pharmacy medication reconciliations chemical research technician and/or nursing. Patients Allergies have been reviewed. Allergies Allergies Coded Allergies tree nut (Verified Allergy, Unknown, 02/14/21) Past Hvgeltu-Mlmxgd-Favxpg Hx Patient Social History Employed/Student: unemployed Tobacco Use?: No Smoking Status: Never a Smoker Smokeless Tobacco Frequency: Never a User Use of E-Cig and/or Vaping dev: No Substance use?: No Alcohol Use?: No Pt feels they are or have been: No Immunizations Up To Date First/Initial COVID19 Vaccinat: + Second COVID19 Vaccination Esau: + Tetanus Booster (TDap): Unknown Current Status Communicates: Does Not Communicate Primary Language: Northern Irish Preferred Spoken Language: Northern Irish Is interpretation needed?: No Sensory deficits: Speech impairment Past Medical History Developmental Disorder Contracture Did You Recieve Any Treatments: No Blood Disorders: No Family Medical History Reviewed Nursing Family Hx (non verbal- unable to assess family history) Review of Systems ROS-Unable to Obtain: nonverbal Constitutional: see HPI Physical Exam Physical Exam Vital Signs Vital Signs - First Documented 03/22/22 18:40 Temp 37.1 Pulse 105 Resp 18 B/P (MAP) 130/93 (105) Pulse Ox 93 O2 Delivery OxyMask O2 Flow Rate 15.00 Capillary Refill : Less Than 3 Seconds Height, Weight, BMI Height: '" Weight: lbs. oz. kg; BMI Method: General Appearance: No Apparent Distress, Chronically ill, Cachetic, Thin HEENT: PERRL/EOMI; No Scleral Icterus (L), No Scleral Icterus (R); Other (receiving nebulized breathing treatments- oral exam deferred) Respiratory: Decreased Breath Sounds, Other (upper airway noises) Cardiovascular: Regular Rate, Rhythm, No JVD, No Murmur Gastrointestinal: Normal Bowel Sounds, Non Tender, Soft Genital/Rectal: Other (catheter in place) Neurologic/Psychiatric: Alert, Other (nonverbal, contractures of extremities) Skin: Normal Color, Warm/Dry Results Results/Procedures Labs Laboratory Tests 03/22/22 18:50 03/23/22 05:20 Patient resulted labs reviewed. Imaging: Reviewed Imaging Report Imaging [facility] [place], [place] NAME: [facility] REC#: [id number] PT STATUS: REG ER : 1970 PHYSICIAN: HANNAH DELEON DO ADMIT DATE: 03/22/22/ER Signed Date of Exam:03/22/22 CHEST 1 VIEW, AP/PA ONLY EXAM: CHEST 1 VIEW, AP/PA ONLY. INDICATION: Hypoxia. COMPARISON: 03/23/2021. FINDINGS: Hyperinflation. No new focal pulmonary opacity. No pleural effusion or pneumothorax. Normal heart size and central pulmonary vascularity. No acute osseous findings. IMPRESSION: 1. COPD. 2. No acute cardiopulmonary findings. Dictated by: Dictated on workstation # [id number] Dict: 03/22/221920 Trans: 03/22/221922 [id number] Interpreted by: HELGA GOLDSTEIN MD Electronically signed by: HELGA GOLDSTEIN MD 03/22/221922 [facility] [place] [place] NAME: [facility] REC#: [id number] PT STATUS: ADM IN : 1970 PHYSICIAN: HANNAH DELEON DO ADMIT DATE: 03/22/22 Signed Date of Exam:03/22/22 CT ANGIO CHEST W PROCEDURE: CT angiography of the chest with contrast. TECHNIQUE: Multiple contiguous axial images were obtained through the chest after uneventful bolus administration of intravenous contrast. 3D reconstructed CTA MIP acquisitions were also performed. Auto Exposure Controls were utilized during the CT exam to meet ALARA standards for radiation dose reduction. INDICATION: COVID. Possible aspiration. Shortness of breath. COMPARISON: Chest radiograph 03/22/2022. FINDINGS: No pulmonary artery filling defects. Normal caliber thoracic aorta. Normal heart size. No pericardial effusion. No mediastinal, hilar or axillary lymphadenopathy. Multifocal airspace opacities scattered throughout both lungs are greatest in the lung apices. There are also tree-in-bud opacities in the left lung base. No pleural effusion or pneumothorax. Debris in the superiormost esophagus measuring 2.8 x 1.8 cm. No acute osseous findings. Visualized upper abdominal contents are unremarkable. IMPRESSION: 1. No pulmonary emboli. 2. Multifocal airspace opacities, greatest in the lung apices, are compatible with reported COVID pneumonitis 3. airspace opacities in the left lung base have more of a tree-in-bud morphology and are more compatible with aspiration. 4. Debris within the most upper esophagus measuring approximately 2.8 x 1.8 cm. Dictated by: Dictated on workstation # [id number] Dict: 03/22/222050 Trans: 03/22/222220 [facility] [id number] Interpreted by: HELGA GOLDSTEIN MD Electronically signed by: HELGA GOLDSTEIN MD 03/22/222220 [facility] [place] [place] NAME: [facility] REC#: [id number] PT STATUS: ADM IN : 1970 PHYSICIAN: HANNAH DELEON DO ADMIT DATE: 03/22/22 Signed Date of Exam:03/22/22 CT ABDOMEN/PELVIS WO PROCEDURE: CT abdomen and pelvis without contrast. TECHNIQUE: Multiple contiguous axial images were obtained through the abdomen and pelvis without the use of intravenous contrast. Auto Exposure Controls were utilized during the CT exam to meet ALARA standards for radiation dose reduction. INDICATION: Abdominal pain and distention. COMPARISON: CTA chest also performed today. FINDINGS: Tree-in-bud opacities in the lung bases are better demonstrated on the comparison exam given the motion on this exam. The liver, gallbladder, pancreas, spleen, adrenals, kidneys, collecting systems demonstrate no acute findings on this noncontrast exam. There is contrast in the collecting systems. Urinary bladder is decompressed by a Dowell catheter. No free intraperitoneal air or fluid. No lymphadenopathy. No evidence of bowel obstruction. No acute osseous findings. IMPRESSION: 1. No acute CT findings in the abdomen or pelvis. 2. Airspace opacities in the left lung base. Dictated by: Dictated on workstation # [id number] Dict: 03/22/222055 Trans: 03/22/222220 [facility] [id number] Interpreted by: HELGA GOLDSTEIN MD Electronically signed by: HELGA GOLDSTEIN MD 03/22/222220 Assessment/Plan Admission Diagnosis Acute respiratory failure due to aspiration pneumonitis Admission Status: Inpatient Order (span 2 midnights) Reason for Inpatient Admission: see below Assessment and Plan Acute respiratory failure due to aspiration pneumonitis Recent COVID infection Aspirated at [place] last night Food bolus still in esophagus Surgery consulted, appreciate recs WBC up today Continue IV abx Wean oxygen as able MAT protocol No indication for COVID treatment as PCR likely indicative of remnant Autism Nonverbal Contractures History of DVT Resume home meds as able DVT ppx: On Eliquis- hold for EGD with possibly biopsies Diagnosis/Problems Diagnosis/Problems (1) Contracture of joint, multiple sites (2) Severe intellectual disability Status: Acute (3) Aspiration pneumonia Status: Acute (4) Neurocognitive disorder Status: Chronic (5) History of deep venous thrombosis (DVT) of distal vein of right lower extremity Status: Acute (6) Suspected pulmonary aspiration of food Status: Acute (7) Leukocytosis JONEL WEBER MD Mar 23, 2022 08:24
--- NOTE | 2022-03-23 09:03 | Speech Therapy Progress Note ---
Therapy Progress Note Speech pathology received the consultation for the patient, reviewed the medical chart extensively, and contacted the clinician's RN. Per chart review, the patient is N.P.O. for a pending upper esophageal study and biopsy with Dr. Deshpande. Due to the patient's N.P.O. status, the clinician is unable to complete a clinical bedside swallowing evaluation. The patient's RN stated the patient's study is scheduled for noon on this date pending signature and approval. This clinician will contact the RN later on this date to re-assess the appropriateness of the evaluation. The evaluation will be completed if the patient's study has been completed, the patient displays appropriate alertness following the study, and the patient's physician clears the speech pathologist for safe P.O. trials pending results of the study. If the patient is not appropriate by 1400 on this date, the clinician's bedside evaluation will be completed on 03/24/22 (if the patient is appropriate at that time). The RN verbalized comprehension and agreed with the above plan of care. JANAK DOBSON Mar 23, 2022 09:03
[2022-03-23] MEDS ORDERED: DOCU100C37 PO (10:16)
[2022-03-23] MEDS ORDERED: PANT40TA52 PO (10:16)
[2022-03-23] MEDS ORDERED: ONDA4TAB11 SL (10:16)
[2022-03-23] MEDS ORDERED: APIX2.5T PO (10:16)
[2022-03-23] MEDS ORDERED: NA P133E36 RC (10:16)
[2022-03-23] MEDS ORDERED: LACTATED RINGERS 1,000 ML IV STA (12:11)
[2022-03-23] MEDS ORDERED: LIDOCAINE JELLY 2% 6 ML SYRINGE MM PRN (12:15)
[2022-03-23] MEDS ORDERED: HURRICAINE EXT TUBE (BENZOCAINE) XX PRN (12:15)
[2022-03-23] MEDS ORDERED: LIDOCAINE PF 2% 5 ML (XYLOCAINE) VIAL ONE (12:18)
[2022-03-23] MEDS ORDERED: SUCCINYLCHOLINE INJ 100 MG/5 ML SYR/VIAL ONE (12:18)
[2022-03-23] MEDS ORDERED: proPOfol 200 MG/20 ML (DIPRIVAN) VIAL IV ONE (12:18)
--- NOTE | 2022-03-23 13:36 | Speech Therapy Progress Note ---
Therapy Progress Note Speech pathology followed up with the patient's RN regarding the patient's procedure. The patient is currently being returned to his room. At this time, the recommendations and results are unknown to the RN. Additionally, due to the procedure, the patient is not appropriate (alertness) for participation in a clinical bedside swallowing evaluation. ST will HOLD the patient at this time and plan to complete the clinical bedside swallowing evaluation following results and recommendations from the patient's physician/surgeon. ST asked the RN to contact her with any updated information. JANAK DOBSON Mar 23, 2022 13:36
--- NOTE | 2022-03-23 13:48 | Anesthesia-General Post-Op ---
MAC Patient Condition Mental Status/LOC: Same as Preop Cardiovascular: Satisfactory Nausea/Vomiting: Absent Respiratory: Satisfactory Pain: Controlled Complications: Absent Post Op Complications Complications None Follow Up Care/Instructions Patient Instructions None needed. Anesthesiology Discharge Order Discharge Order Patient is doing well, no complaints, stable vital signs, no apparent adverse anesthesia problems. No complications reported per nursing. TAE CASTILLO CRNA Mar 23, 2022 13:48
[2022-03-23] MEDS: D5 1/2 NS 1000 ML IV SOLUTION 1,000 ML IV SCH ×2 (13:51→23:50)
--- NOTE | 2022-03-23 13:53 | Progress Note-Post Operative ---
Post-Operative Progess Note Surgeon (s)/Wet Inspector Optical Glass (s) Surgeon JENNYFER DUBOSE MD Wet Inspector Optical Glass: none Pre-Operative Diagnosis dysphagia possible aspiration Post-Operative Diagnosis pharyngitis, upper esopageal FB with stricture, reflux esophagitis(grade B-C)with distal esophageal stricture, small HH(2cm), mild-mod gastritis, no distal obstructions. Procedure & Operative Findings Date of Procedure 03/23/22 Procedure Performed/Findings EGD with bx, removal esophageal FB, balloon dilatation x2 Anesthesia Type mac Estimated Blood Loss Estimated blood loss (mL): minimal Specimens/Packing Specimens Removed ge jxn, antrum JENNYFER DUBOSE MD Mar 23, 2022 13:52
--- NOTE | 2022-03-23 22:15 | OPERATIVE REPORT ---
DATE OF SERVICE: 03/23/2022 ATTENDING PRIMARY CARE PHYSICIAN: Dr. Amador Mitchell. ADMITTING PHYSICIAN: Dr. Merino. PREOPERATIVE DIAGNOSES: Dysphagia, low oxygen saturations, possible aspiration, possible esophageal foreign body. POSTOPERATIVE DIAGNOSES: Upper esophageal food foreign body, upper esophageal stricture, chronic pharyngitis, mild distal esophageal stricture, small hiatal hernia 2 cm in size, mild to moderate gastritis. No distal obstructions. PROCEDURE: EGD with removal of esophageal foreign body, biopsy, balloon dilatation of the lower esophageal sphincter as well as upper esophageal sphincter. SURGEON: Jennyfer Deshpande MD. ANESTHESIA: Monitored anesthesia care. ESTIMATED BLOOD LOSS: Minimal. FINDINGS: Upper esophageal food foreign body, upper esophageal stricture, chronic pharyngitis, mild distal esophageal stricture, small hiatal hernia 2 cm in size, mild to moderate gastritis. No distal obstructions. DISPOSITION: The patient tolerated the procedure well. INDICATIONS: The patient is a 51-year-old male with a severe mental developmental delay and autism spectrum. He has progressively worsened as he has gotten older and constantly holds a contractured position. He is a resident of a nursing facility and is completely care dependent including for feedings. Staff had reported that during a feeding, he appeared to be struggling with a food bolus and then developed low oxygen saturations. Staff does not report any issues with regurgitation as well as no hematemesis, no coffee ground emesis. A CT scan of the chest and abdomen were performed, which did show a potential foreign body in the upper esophagus. DESCRIPTION OF PROCEDURE: The patient was brought to the endoscopy suite, laid in the left lateral decubitus position with head slightly elevated. After adequate IV pain and sedative medications and monitored anesthesia care, the mouthpiece was applied. The endoscope was placed in the mouth, visualizing the pharynx and hypopharyngeal region. Vocal cords, epiglottis and vallecula identified with a chronic pharyngitis noted, likely consistent with a chronic dysphagia and reflux. The endoscope was then advanced into the upper portion of the esophagus and at the level of the cricopharyngeus muscle, an esophageal foreign body identified. This appeared to be some form of vegetable product. Gentle pressure was held at the area of the food bolus and this was able to push through with minimal resistance throughout the rest of the esophagus. The endoscope was pulled back to the area of the food bolus and there was an upper esophageal stricture near the cricopharyngeus muscle identified. At the level of the distal esophageal stricture, a mild stricture was also identified as well as a reflux esophagitis, [place] between grade B and C. The endoscope was then advanced in the stomach and endoscope retroflexed, visualizing a small hiatal hernia approximately 2 cm in size. There was a mild to moderate gastritis. A biopsy was taken of the antrum to rule out H. pylori with visualization of good hemostasis. The endoscope was then advanced to the pylorus and the first and second portion of the duodenum, which appeared normal with no distal obstructions. A biopsy was also taken of the GE junction to rule out Art's esophagus. We then proceeded with balloon dilatations of both upper and lower esophageal strictures. We first proceeded with balloon dilatation of the lower esophageal sphincter integrated stepwise fashion from 2, 4, then eventually 6 atmospheres of pressure or 20 mm in luminal diameter with moderate resistance and left this in place for approximately 60 seconds. The balloon was then desufflated and removed with visualization of good hemostasis as well as no mucosal tears. Using the same balloon, the balloon was placed at the area of the upper esophageal cricopharyngeus muscle and the balloon was slowly insufflated to approximately 3 atmospheres of pressure or approximately 18.5 mm in luminal diameter with moderate resistance and left this in place for approximately 60 seconds. The wound was then desufflated and removed with visualization of good hemostasis as well as no mucosal tears. Endoscope was then slowly withdrawn while taking a second look and suctioning of residual air with no additional findings. The patient tolerated the procedure well. We feel that he likely is an aspiration risk based on his chronic pharyngitis as well as upper esophageal foreign body. We did do a balloon dilatations of both structures and we will see what speech pathology finds out on swallow evaluation. For now, we will start him on a soft pureed diet. If his aspiration risk is high plus his body mass index is low and he appears to be malnourished, the option for placement of a percutaneous endoscopic gastrostomy tube will also be given to the patient's family for further alimentation and reduction of aspiration risk. Job ID: [id number] DocumentID: [id number] Dictated Date: 03/23/2022 13:17:42 Impress Associate Date: 03/23/2022 22:14:19 Dictated By: JENNYFER DESHPANDE MD MTDD
[2022-03-24] MEDS ORDERED: ACETAMINOPHEN 650 MG SUPP (TYLENOL) PR PRN
[2022-03-24] MEDS ORDERED: LACTATED RINGERS 1,000 ML IV ONE ×2 (00:02)
[2022-03-24] MEDS ORDERED: ACETAMINOPHEN 650 MG SUPP (TYLENOL) ONE (00:04)
[2022-03-24 01:57] VITALS: BP 101/57
[2022-03-24] MEDS: CEFEPIME 1,000 MG/NS 50 ML IVPB IV SCH ×6 (03:13→15:36)
[2022-03-24 03:18] VITALS: BP 97/53
[2022-03-24 05:44] LABS: HEMATOCRIT 32 % (40-54); HEMOGLOBIN 10.6 g/dL (13.3-17.7); MEAN CORPUSCULAR HEMOGLOBIN 30 pg (25-34); MEAN CORPUSCULAR HGB CONC 33 g/dL (32-36); MEAN CORPUSCULAR VOLUME 91 fL (80-99); MEAN PLATELET VOLUME 11.9 fL (9.0-12.2); PLATELET COUNT 264 10^3/uL (130-400); WHITE BLOOD COUNT 13.7 10^3/uL (4.3-11.0)
[2022-03-24 05:58] LABS: CALCIUM 8.7 MG/DL (8.5-10.1); CREATININE SERUM 0.81 MG/DL (0.60-1.30); POTASSIUM 3.6 MMOL/L (3.6-5.0)
[2022-03-24] MEDS: RT-ALBUTEROL/IPRATROPIUM 3 ML (DUONEB) VIAL INH SCH ×3 (06:58→15:15)
[2022-03-24 08:12] VITALS: BP 86/52
--- NOTE | 2022-03-24 09:58 | Discharge Summary ---
Diagnosis/Chief Complaint Date of Admission Mar 22, 2022 at 8:02 pm Date of Discharge Admission Diagnosis Acute respiratory failure due to aspiration pneumonitis Primary Care Amador Mitchell DO Discharge Diagnosis (1) Contracture of joint, multiple sites (2) Severe intellectual disability Status: Acute (3) Aspiration pneumonia Status: Acute (4) Neurocognitive disorder Status: Chronic (5) History of deep venous thrombosis (DVT) of distal vein of right lower extremity Status: Acute (6) Suspected pulmonary aspiration of food Status: Acute (7) Leukocytosis Discharge Summary Discharge Physical Exam Allergies: Coded Allergies: tree nut (Verified Allergy, Unknown, 02/14/21) Vitals & I&Os Vital Signs Date Time Temp Pulse Resp B/P (MAP) Pulse Ox O2 Delivery O2 Flow Rate FiO2 03/24/22 08:12 37.5 92 18 86/52 (63) 98 Nasal Cannula 2.00 Hospital Course Labs (last 24 hrs) Laboratory Tests 03/24/22 05:25: White Blood Count 13.7H, Red Blood Count 3.56L, Hemoglobin 10.6L, Hematocrit 32L , Mean Corpuscular Volume 91, Mean Corpuscular Hemoglobin 30, Mean Corpuscular Hemoglobin Concent 33, Red Cell Distribution Width 12.7, Platelet Count 264, Mean Platelet Volume 11.9, Sodium Level 139, Potassium Level 3.6, Chloride Level 107, Carbon Dioxide Level 22, Anion Gap 10, Blood Urea Nitrogen 9, Creatinine 0. 81, Estimat Glomerular Filtration Rate 107, BUN/Creatinine Ratio 11, Glucose Level 123H, Calcium Level 8.7 Microbiology 03/22/22 Blood Culture - Preliminary, Resulted No growth Patient resulted labs reviewed. Pending Labs Laboratory Tests 03/24/22 05:25: White Blood Count 13.7, Red Blood Count 3.56, Hemoglobin 10.6, Hematocrit 32, Mean Corpuscular Volume 91, Mean Corpuscular Hemoglobin 30, Mean Corpuscular Hemoglobin Concent 33, Red Cell Distribution Width 12.7, Platelet Count 264, Mean Platelet Volume 11.9, Sodium Level 139, Potassium Level 3.6, Chloride Level 107, Carbon Dioxide Level 22, Anion Gap 10, Blood Urea Nitrogen 9, Creatinine 0.81, Estimat Glomerular Filtration Rate 107, BUN/Creatinine Ratio 11, Glucose Level 123, Calcium Level 8.7 Imaging: Reviewed Imaging Report Discharge Home Medications: Active Scripts Active Reported Ondansetron Odt (Ondansetron) 4 Mg Tab.rapdis 4 Mg SL Q8H PRN Eliquis (Apixaban) 2.5 Mg Tablet 2.5 Mg PO BID Docusate Sodium 100 Mg Capsule 100 Mg PO BID Pantoprazole Sodium 40 Mg Tablet.dr 40 Mg PO DAILY Enema Ready To Use (Na Phos,M-B/Na Phos,Di-Ba) 19 Gram-7 Gram/118 Ml Enema 133 Ml RC DAILY PRN Tylenol (Acetaminophen) 325 Mg Tablet 650 Mg PO Q6H PRN Milk of Magnesia (Magnesium Hydroxide) 400 Mg/5 Ml Oral.susp 30 Ml PO DAILY PRN Dulcolax (Bisacodyl) 10 Mg Supp.rect 10 Mg RC DAILY PRN Miralax (Polyethylene Glycol 3350) 17 Gm Powd.pack 17 Gm PO BID Multivitamin 1 Each Tablet 1 Each PO DAILY Loratadine 10 Mg Tablet 10 Mg PO DAILY Lexapro (Escitalopram Oxalate) 10 Mg Tablet 10 Mg PO DAILY Instructions to patient/family Please see electronic discharge instructions given to patient. JONEL WEBER MD Mar 24, 2022 9:58 am
--- NOTE | 2022-03-24 10:02 | ST Dysphagia Evaluation ---
Speech Evaluation-General Medical Diagnosis Aspiration Pneumonia Onset Date: Mar 23, 2022 Therapy Diagnosis Therapy Diagnosis: Oropharyngeal Dysphagia Precautions Precautions: Fall, Pressure Ulcer, Aspiration Precautions/Isolations: Fall Prevention, Standard Precautions, Pressure Ulcer Referral Referring Physician: Dr. Merino Reason for Referral: Evaluation/Treatment Medical History Current History The patient is a 51-year-old male with a past medical history of autism (nonverbal), who presented to the emergency department due to aspiration. A CT of his chest was done which revealed pneumonitis consistent with recent COVID infection (last month) and tree-in-bud morphology consistent with aspiration. It also revealed likely food bolus still in the esophagus. Chest CT: 03/22/22: 1. No pulmonary emboli. 2. Multifocal airspace opacities, greatest in the lung apices, are compatible with reported COVID pneumonitis 3. airspace opacities in the left lung base have more of a tree-in-bud morphology and are more compatible with aspiration. 4. Debris within the most upper esophagus measuring approximately 2.8 x 1.8 cm. Speech PLF/Current-Dysphagia Prior Level of Function The patient's prior level of function is unknown to this clinician and not retrieved from a medical chart review. Due to the patient's nonverbal state, he is unable to provide information to the clinician regarding prior P.O. intake. Subjective The patient was lying in bed, awake and alert upon entrance to the patient's room by the clinician. The patient makes eye contact with the clinician throughout a verbal greeting. The patient was positioned upright in bed for safe swallowing. 03/23/2022: EGD FINDINGS: Upper esophageal food foreign body, upper esophageal stricture, chronic pharyngitis, mild distal esophageal stricture, small hiatal hernia 2 cm in size, mild to moderate gastritis. No distal obstructions. PROCEDURE: EGD with removal of esophageal foreign body, biopsy, balloon dilatation of the lower esophageal sphincter as well as upper esophageal sphincter. Cognitive Status Patient Orientation: Non-Verbal/Aphasic Oral Motor Skills Dentition: Natural Ability to Follow Directions: Poor Oral Expression Ability: Severe Impairment Face Facial Symmetry: Symmetrical (Grossly symmetrical at rest.) The patient was unable to follow verbal instructions or direct modeling for completion of the oral mechanism evaluation. Oral-Facial Assessment Oral-Facial Dentition: Normal Labial Seal Description: Normal Dysphagia Evaluation Consistencies Presented: Thin Liquid, Pureed The patient is able to appropriately draw bolus material from a teaspoon and straw without anterior bolus loss. Mild lingual pumping is displayed in attempts to move bolus material posterior in the oral cavity. A pharyngeal swallow is triggered appropriately and complete clearance of material is observed from the oral cavity. The patient displays a suspected, slightly delayed pharyngeal swallow. Laryngeal elevation was present to palpation. Vocal quality following the swallow could not be evaluated due to the patient's non-verbal state. The patient was provided thin liquid via teaspoon and straw (single and multiple straw drinks) and teaspoons of puree. The material was presented with a slow pace and consistencies were alternated to aid in pharyngeal and upper esophageal clearance. The patient remained seated upright following to reduce aspiration risks. No overt s/s of suspected aspiration were present throughout the evaluation with thin liquids or puree. Solid consistencies were not tested due to the patient's documented upper esophageal stricture and recent recommendation from physician. Dietary Recommendations: Pureed Liquid Recommendations: Thin Recommendations: - Dysphagia one (pureed) with thin liquids, as tolerated. - Fully upright and alert for P.O. intake. - Full feeding support ("feeder"). - Small, single bites and sips. - Slow rate of P.O. intake. - Alternate puree and thin liquid consistencies on a 1:1 ratio to aid in pharyngeal and upper esophageal clearance. - Crush medication and place in puree for administration. - Remain upright for a minimum of 30 minutes following P.O. intake. - Monitor for s/s of suspected aspiration with P.O. intake. If demonstrated, contact speech pathology. The recommendations were discussed with the patient, the patient's RN, and the patient's physician immediately following completion. Dysphagia Evaluation Summary The patient demonstrated suspected oropharyngeal-esophageal dysphagia kirk acterized by reduced lingual coordination, a suspected delay in the pharyngeal swallow, and the presence of an upper esophageal stricture. No s/s of suspected aspiration were demonstrated with thin liquids or purees presented on this date. Speech-Plan Treatment Plan Speech Therapy Treatment Plan: Discontinue ST Treatment Duration: Mar 24, 2022 Frequency: 1 time per week Estimated Hrs Per Day: .5 hour per day Rehab Potential: Poor Safety Risks/Education Teaching Recipient: Patient Teaching Methods: Discussion Response to Teaching: Unable to Comprehend Education Topics Provided: Results, Recommendations, Plan of Care Time Speech Therapy Time In: 08:25 Speech Therapy Time Out: 08:45 Total Billed Time: 20 Billed Treatment Time FAISAL MACHADO [facility] ST Mar 24, 2022 10:02
[2022-03-24] MEDS ORDERED: CEFD300C3 PO (10:32)
[2022-03-24] MEDS: D5 1/2 NS 1000 ML IV SOLUTION 1,000 ML IV SCH (10:38)
[2022-03-24 11:56] VITALS: BP 107/67
[2022-03-24] MEDS ORDERED: PANTOPRAZOLE 40 MG (PROTONIX) TAB PO NR (13:45)
--- NOTE | 2022-03-24 15:27 | Discharge Inst-Simple/Standard ---
Discharge Inst-Standard Patient Instructions/Follow Up Plan of Care/Instructions/FU: Please continue to take your medications as written. Please follow up with your primary care doctor to follow up this hospital stay. Activity as Tolerated: Yes Discharge Diet: Soft Diet (thin liquids) Return to The Hospital For: Chest pain, shortness of breath, fever, weakness, if you feel you are getting worse. Other Inst to Patient Recommendations: - Dysphagia one (pureed) with thin liquids, as tolerated. - Fully upright and alert for P.O. intake. - Full feeding support ("feeder"). - Small, single bites and sips. - Slow rate of P.O. intake. - Alternate puree and thin liquid consistencies on a 1:1 ratio to aid in pharyngeal and upper esophageal clearance. - Crush medication and place in puree for administration. - Remain upright for a minimum of 30 minutes following P.O. intake. JONEL WEBER MD Mar 24, 2022 10:31
[2022-03-24 15:37] VITALS: BP 107/67
[2022-03-25] MEDS ORDERED: PANTOPRAZOLE 40 MG (PROTONIX) TAB PO SCH (09:00)
--- NOTE | 2022-03-25 14:35 | Physician Query Clarification ---
PQ-Intro New Diagnosis Admission/Discharge Admission Date: Mar 22, 2022 at 20:02 Discharge Date: Mar 24, 2022 at 15:38 Dr. Merino, The medical record reflects the following clinical scenario: History/Risk Factors: aspirated, nonverbal, severe autism, hx covid 03/08/22 Clinical Findings: O2 sats 64%, positive covid test Treatment: IV Cefepime, Isolation Question: What condition best reflects the above clinical scenario? Please document a response in the Progress Noter or Discharge Summary. 1. Covid still active 2. hx covid no longer active disease process 3. postcovid condition 4. Other, with explanation of the clinical findings. 5. Clinically undetermined, no explanation for the clinical findings. PHYSICIAN RESPONSE What condition reflects above: 2 In responding to this query, please exercise your independent professional judgment. The purpose of this communication is to more accurately reflect the complexity of your patients condition. The fact that a question is asked does not imply that any particular answer is desired or expected. Thank you for your timely response to this clarification. Requestors name: Lyndsey THIS PHYSICIAN QUERY FORM IS A PERMANENT PART OF THE MEDICAL RECORD LYNDSEY COSTELLO Mar 25, 2022 14:35 JONEL MERINO MD Mar 25, 2022 15:25
== END 2022-03-24 15:38 | DRG 177 ==
LOC: EDUNIT# 18:39 → ER 18:40 → 4TH 20:02
PROVIDERS: ADMIT Internal Medicine; ATTEND Family Medicine
PROC: 8E0ZXY6 Isolation (ICD-10-PCS; 2022-03-22)
PROC: 0D738ZZ Dilation of Lower Esophagus, Via Natural or Artificial Opening Endoscopic (ICD-10-PCS; 2022-03-23)
PROC: 0D718ZZ Dilation of Upper Esophagus, Via Natural or Artificial Opening Endoscopic (ICD-10-PCS; 2022-03-23)
PROC: 0DB78ZX Excision of Stomach, Pylorus, Via Natural or Artificial Opening Endoscopic, Diagnostic (ICD-10-PCS; 2022-03-23)
PROC: 0DB48ZX Excision of Esophagogastric Junction, Via Natural or Artificial Opening Endoscopic, Diagnostic (ICD-10-PCS; 2022-03-23)
PROC: 0DC18ZZ Extirpation of Matter from Upper Esophagus, Via Natural or Artificial Opening Endoscopic (ICD-10-PCS; principal; 2022-03-23 12:35)
DX: J69.0 Pneumonitis due to inhalation of food and vomit (principal); J96.21 Acute and chronic respiratory failure with hypoxia; J96.22 Acute and chronic respiratory failure with hypercapnia; F72 Severe intellectual disabilities; F84.0 Autistic disorder; T18.128A Food in esophagus causing other injury, initial encounter; M24.542 Contracture, left hand; M24.541 Contracture, right hand; M24.532 Contracture, left wrist; M24.531 Contracture, right wrist; M24.562 Contracture, left knee; M24.561 Contracture, right knee; J44.9 Chronic obstructive pulmonary disease, unspecified; K22.2 Esophageal obstruction; J31.2 Chronic pharyngitis; K29.70 Gastritis, unspecified, without bleeding; K44.9 Diaphragmatic hernia without obstruction or gangrene; F32.A Depression, unspecified; Z99.81 Dependence on supplemental oxygen; Z86.16 Personal history of COVID-19; Z86.718 Personal history of other venous thrombosis and embolism; Z79.01 Long term (current) use of anticoagulants; Z91.018 Allergy to other foods
CPT/HCPCS: 36415; 51702; 71045; 71275; 74176; 80048; 80053; 80164; 81000; 82805; 83605; 83735; 83880; 84145; 85007; 85025; 85027; 85652; 86141; 87040; 87636; 93041; 94640; 94760; 94761; 96361; 96365; 96375

== ENCOUNTER 2022-06-14 09:28 | Inpatient (IN) | payer MEDICARE, MEDICAID ==
[~2022-06-14] VITALS: Ht 167.7 cm; Wt 60.3 kg
[~2022-06-14 09:28] MED LIST changes: +APIX2.5T PO; +CEFD300C3 PO; +DOCU100C37 PO; +NA P133E36 RC; +ONDA4TAB11 SL; +PANT40TA52 PO
--- NOTE | 2022-06-14 09:35 | ED Respiratory ---
General Chief Complaint: Respiratory Problems Stated Complaint: LOW O2 Source: EMS Exam Limitations: clinical condition History of Present Illness Date Seen by Provider: Jun 14, 2022 Time Seen by Provider: 09:25 Initial Comments 51-year-old male with severe dementia presents from local nursing facility after what is reported to been a witnessed aspiration. He was eating oatmeal and apparently "choked." Staff waited for about 15 minutes to see if his breathing was improved and it did not so they called the paramedics. On metal sorter arrival his oxygen saturation was 60%. They started him on 15 L via nonrebreather and transported him here with a short transit time. He was reportedly well just prior to the events. He is a full code as verified on the phone with the nursing facility. Allergies and Home Medications Allergies Coded Allergies: tree nut (Verified Allergy, Unknown, 02/14/21) Patient Home Medication List Home Medication List Reviewed: Yes Acetaminophen (Tylenol) 325 Mg Tablet, 650 MG PO Q6H PRN for PAIN-MILD (1-4), (Reported) Entered as Reported by: ANNE GARCIA on 03/03/211515 Last Action: Reviewed Apixaban (Eliquis) 2.5 Mg Tablet, 2.5 MG PO BID, (Reported) Entered as Reported by: LARY STERN on 03/23/22 1016 Last Action: Continued Bisacodyl (Dulcolax) 10 Mg Supp.rect, 10 MG RC DAILY PRN for CONSTIPATION-4TH LINE, (Reported) Entered as Reported by: ANNE GARCIA on 03/03/211515 Last Action: Held Docusate Sodium (Docusate Sodium) 100 Mg Capsule, 100 MG PO BID, (Reported) Entered as Reported by: LARY STERN on 03/23/22 1016 Last Action: Held Escitalopram Oxalate (Lexapro) 10 Mg Tablet, 10 MG PO DAILY, (Reported) Entered as Reported by: ANNE GARCIA on 03/03/211515 Last Action: Converted Loratadine (Loratadine) 10 Mg Tablet, 10 MG PO DAILY, (Reported) Entered as Reported by: ANNE GARCIA on 03/03/211515 Last Action: Continued Magnesium Hydroxide (Milk of Magnesia) 400 Mg/5 Ml Oral.susp, 30 ML PO DAILY PRN for CONSTIPATION-7TH LINE, (Reported) Entered as Reported by: ANNE GARCIA on 03/03/21 1516 Last Action: Held Mirtazapine (Remeron) 15 Mg Tablet, 15 MG PO HS Prescribed by: RADHA VAZ on 06/14/22 1416 Last Action: Converted Multivitamin (Multivitamin) 1 Each Tablet, 1 EACH PO DAILY, (Reported) Entered as Reported by: ANNE GARCIA on 03/03/21 1516 Last Action: Held Na Phos,M-B/Na Phos,Di-Ba (Enema Ready To Use) 19 Gram-7 Gram/118 Ml Enema, 133 ML RC DAILY PRN for CONSTIPATION, (Reported) Entered as Reported by: LARY STERN on 03/23/22 1016 Last Action: Held Ondansetron (Ondansetron Odt) 4 Mg Tab.rapdis, 4 MG SL Q8H PRN for NAUSEA/VOMITING, (Reported) Entered as Reported by: LARY STERN on 03/23/22 1016 Last Action: Held Pantoprazole Sodium (Pantoprazole Sodium) 40 Mg Tablet.dr, 40 MG PO DAILY, (Reported) Entered as Reported by: LARY STERN on 03/23/22 1016 Last Action: Continued Polyethylene Glycol 3350 (Miralax) 17 Gm Powd.pack, 17 GM PO BID, (Reported) Entered as Reported by: ANNE GARCIA on 03/03/21 151 Last Action: Continued Discontinued Medications Cefdinir (Cefdinir) 300 Mg Capsule, 300 MG PO BID Discontinued Reason: No Longer Taking Prescribed by: JONEL WEBER on 03/24/22 1032 Last Action: Discontinued Review of Systems Review of Systems Constitutional: no symptoms reported EENTM: no symptoms reported Respiratory: short of breath Cardiovascular: no symptoms reported Gastrointestinal: no symptoms reported Genitourinary: no symptoms reported Musculoskeletal: no symptoms reported Skin: no symptoms reported Psychiatric/Neurological: No Symptoms Reported Hematologic/Lymphatic: No Symptoms Reported Immunological/Allergic: no symptoms reported Past Cwmqltn-Xumibx-Kjehuj Hx Patient Social History Tobacco Use?: No Use of E-Cig and/or Vaping dev: No Substance use?: No Alcohol Use?: No Immunizations Up To Date First/Initial COVID19 Vaccinat: + Second COVID19 Vaccination Esau: + Third COVID19 Vaccination Date: + Past Medical History Surgery/Hospitalization HX: AUTISTIC; NON VERBAL, COVID 19, DEPRESSIN, UTI Surgeries: No (UNKNOWN) Respiratory: No (UNKNOWN) Cardiac: No (UNKNOWN) Neurological: Yes (Neurocognitive disorder W/ rapid functional decline in recent years;AUTISM) Developmental Disorder Reproductive Disorders: No Gastrointestinal: No Musculoskeletal: Yes (NONAMBULATORY; FLEXION CONTRACTURES OF ARMS/HANDS AND LEGS) Contracture Endocrine: No HEENT: No Cancer: No Did You Recieve Any Treatments: No Psychosocial: Yes (SEVERE AUTISM) Integumentary: No Blood Disorders: No Family Medical History Reviewed Nursing Family Hx No Pertinent Family Hx Physical Exam Vital Signs - First Documented 06/14/22 09:28 Temp 34.6 Pulse 121 Resp 32 B/P (MAP) 126/93 (104) Pulse Ox 91 O2 Delivery Non Rebreather O2 Flow Rate 15.00 Capillary Refill : Height: '" Weight: lbs. oz. kg; BMI Method: General Appearance: severe distress Eyes: Bilateral Eye Normal Inspection, Bilateral Eye PERRL, Bilateral Eye EOMI HEENT: normal ENT inspection, other (Dry mucous membranes) Neck: non-tender Respiratory: decreased breath sounds, accessory muscle use, rhonchi, other (Severe respiratory distress) Cardiovascular: no murmur, tachycardia Gastrointestinal: normal bowel sounds, non tender, soft Skin: warm/dry, pallor Lymphatic: no adenopathy Focused Exam Lactic Acid Level Laboratory Tests Test 06/14/22 09:30 Lactic Acid Level 12.28 MMOL/L (0.50-2.00) *H Procedures/Interventions Reason for Intubation: resp failure Intubation Method: orotracheal Tube Size: 7.5 Medications: Etomidate, Rocuronium Positive End Tide CO2: Yes Breath Sounds after Intubation: bilateral-equal Intubation Complications: no complications Post Intubation Xray: Yes Progress/Results/Core Measures Suspected Sepsis SIRS Temperature: Pulse: Respiratory Rate: Laboratory Tests 06/14/22 09:30: White Blood Count 17.3H Blood Pressure / Mean: Laboratory Tests 06/14/22 09:30: Creatinine 1.38H, Platelet Count 361, Total Bilirubin 0.5 Results/Orders Lab Results Laboratory Tests Test 06/14/22 09:30 06/14/22 09:31 06/14/22 09:35 06/14/22 09:45 Range/Units White Blood Count 17.3 H 4.3-11.0 10^3/uL Red Blood Count 4.60 4.30-5.52 10^6/uL Hemoglobin 13.2 L 13.3-17.7 g/dL Hematocrit 43 40-54 % Mean Corpuscular Volume 94 80-99 fL Mean Corpuscular Hemoglobin 29 25-34 pg Mean Corpuscular Hemoglobin Concent 31 L 32-36 g/dL Red Cell Distribution Width 13.4 10.0-14.5 % Platelet Count 361 130-400 10^3/uL Mean Platelet Volume 11.9 9.0-12.2 fL Immature Granulocyte % (Auto) 2 % Neutrophils (%) (Auto) 47 42-75 % Lymphocytes (%) (Auto) 47 H 12-44 % Monocytes (%) (Auto) 3 0-12 % Eosinophils (%) (Auto) 2 0-10 % Basophils (%) (Auto) 1 0-10 % Neutrophils # (Auto) 8.1 H 1.8-7.8 10^3/uL Lymphocytes # (Auto) 8.0 H 1.0-4.0 10^3/uL Monocytes # (Auto) 0.5 0.0-1.0 10^3/uL Eosinophils # (Auto) 0.3 0.0-0.3 10^3/uL Basophils # (Auto) 0.1 0.0-0.1 10^3/uL Immature Granulocyte # (Auto) 0.3 H 0.0-0.1 10^3/uL Neutrophils % (Manual) 42 % Lymphocytes % (Manual) 47 % Monocytes % (Manual) 2 % Eosinophils % (Manual) 1 % Basophils % (Manual) 0 % Metamyelocytes % 1 % Band Neutrophils 7 % Blood Morphology Comment NORMAL Sodium Level 138 135-145 MMOL/L Potassium Level 2.8 L 3.6-5.0 MMOL/L Chloride Level 100 98-107 MMOL/L Carbon Dioxide Level 14 L 21-32 MMOL/L Anion Gap 24 H 5-14 MMOL/L Blood Urea Nitrogen 14 7-18 MG/DL Creatinine 1.38 H 0.60-1.30 MG/DL Estimat Glomerular Filtration Rate 62 BUN/Creatinine Ratio 10 Glucose Level 393 H 70-105 MG/DL Lactic Acid Level 12.28 *H 0.50-2.00 MMOL/L Calcium Level 9.4 8.5-10.1 MG/DL Corrected Calcium 9.2 8.5-10.1 MG/DL Total Bilirubin 0.5 0.1-1.0 MG/DL Aspartate Amino Transf (AST/SGOT) 40 H 5-34 U/L Alanine Aminotransferase (ALT/SGPT) 47 0-55 U/L Alkaline Phosphatase 87 40-136 U/L Total Protein 8.4 H 6.4-8.2 GM/DL Albumin 4.2 3.2-4.5 GM/DL Triglycerides Level 126 <150 MG/DL Influenza Type A (RT-PCR) Not Detected Not Detecte Influenza Type B (RT-PCR) Not Detected Not Detecte SARS-CoV-2 RNA (RT-PCR) Not Detected Not Detecte Blood Gas Puncture Site LT RADIAL Blood Gas Patient Temperature 34.6 Arterial Blood pH 7.07 *L 7.37-7.43 Arterial Blood Partial Pressure CO2 65 H 35-45 MMHG Arterial Blood Partial Pressure O2 81 79-93 MMHG Arterial Blood HCO3 19 L 23-27 MMOL/L Arterial Blood Total CO2 21.2 21.0-31.0 MMOL/L Arterial Blood Oxygen Saturation 91 L 94-100 % Arterial Blood Base Excess -10.2 L -2.5-2.5 MMOL/L Can Test YES-POS Blood Gas Ventilator Setting NO Blood Gas Inspired Oxygen UNK Test 06/14/22 10:23 Range/Units Urine Color YELLOW Urine Clarity CLEAR Urine pH 6.0 5-9 Urine Specific [place] >=1.030 1.016-1.022 Urine Protein TRACE H NEGATIVE Urine Glucose (UA) 1+ H NEGATIVE Urine Ketones NEGATIVE NEGATIVE Urine Nitrite NEGATIVE NEGATIVE Urine Bilirubin NEGATIVE NEGATIVE Urine Urobilinogen 0.2 < = 1.0 MG/DL Urine Leukocyte Esterase NEGATIVE NEGATIVE Urine RBC (Auto) NEGATIVE NEGATIVE Urine RBC NONE /HPF Urine WBC RARE /HPF Urine Squamous Epithelial Cells NONE /HPF Urine Crystals NONE /LPF Urine Bacteria NEGATIVE /HPF Urine Casts NONE /LPF Urine Mucus MODERATE H /LPF Urine Culture Indicated NO My Orders Orders - WALTER MULLEN DO Cbc With Automated Diff (06/14/22 09:31) Comprehensive Metabolic Panel (06/14/22 09:31) Blood Culture (06/14/22 09:31) Urinalysis (06/14/22 09:31) Urine Culture (06/14/22 09:31) Chest 1 View, Ap/Pa Only (06/14/22 09:31) Ed Iv/Invasive Line Start (06/14/22 09:31) Ed Iv/Invasive Line Start (06/14/22 09:31) Vital Signs Adult Sepsis Patie Q15M (06/14/22 09:31) O2 (06/14/22 09:31) Lactic Acid Analyzer (06/14/22 09:31) Influenza A And B By Pcr (06/14/22 09:31) Vancomycin Injection (Vancomycin Injecti (06/14/22 09:45) Cefepime Injection (Maxipime Injection) (06/14/22 09:45) Covid 19 Inhouse Test (06/14/22 09:31) Arterial Blood Gas (06/14/22 09:31) Manual Differential (06/14/22 09:30) Catheter(Urinary) Insert & Ass 03,15 (06/14/22 10:09) Og Tube Insertion (06/14/22 10:09) Ed Admission (Communication) (06/14/22 10:48) Medications Given in ED Current Medications Medications Dose Ordered Sig/Oscar Route Start Time Stop Time Status Last Admin Dose Admin Cefepime HCl 1000 mg/Sodium Chloride 50 ml @ 100 mls/hr ONCE ONCE IV 06/14/22 09:45 06/14/22 10:14 DC 06/14/22 10:39 100 MLS/HR Vancomycin HCl 1000 mg/Sodium Chloride 250 ml @ 250 mls/hr ONCE ONCE IV 06/14/22 09:45 06/14/22 10:44 DC 06/14/22 10:41 250 MLS/HR Vital Signs/I&O 06/14/22 06/14/22 06/14/22 09:28 09:28 09:56 Temp 34.6 Pulse 121 116 Resp 32 36 B/P (MAP) 126/93 (104) Pulse Ox 91 91 97 O2 Delivery Non Rebreather Non Rebreather O2 Flow Rate 15.00 15.00 Capillary Refill : Critical Care Note Critical Care Total Time (minutes) 45 Departure Communication (Admissions) Patient initially with significant respiratory distress, concern for aspiration. He is alert, oriented and maintaining erect posture. We tried BiPAP initially so that I can take the time to call his mother. He reportedly has severe dementia and poor quality of life. I spoke with his mother about the significance of the situation. I tried to encourage possible comfort measures, watch his respiratory status to see if it would improve but I did impress upon her that this could likely be life-threatening either with or without intubation. She states she wants "everything to be done to save his life." Without I recommended intubation given the patient's significant respiratory distress despite BiPAP use. He became diaphoretic and had even worsening increased work of breathing while on BiPAP after about 20 minutes. pH is 7.07. He is intubated successfully without complications. His oxygenation improved after the procedure. Chest x-ray shows patchy infiltrates bilaterally consistent with likely aspiration. He is given antibiotics. His lactate significantly elevated, ordered 30 cc/kg bolus in accordance with sepsis protocol. Cultures have been obtained prior to antibiotic administration. Patient is admitted to the ICU in otherwise stable condition. Impression Primary Impression: Aspiration into airway Qualified Codes: T17.908A - Unspecified foreign body in respiratory tract, part unspecified causing other injury, initial encounter Additional Impression: Acute respiratory failure Qualified Codes: J96.01 - Acute respiratory failure with hypoxia; J96.02 - Acute respiratory failure with hypercapnia Disposition: ADMITTED INPATIENT Condition: Critical Departure-Patient Inst. Referrals: MARYCRUZ MAXWELL DO (PCP/Family) Primary Care Physician Scripts Mirtazapine (Remeron) 15 Mg Tablet 15 MG PO HS for 30 Days, TAB Prov: JONEL WEBER MD 06/14/22 WALTER MULLEN DO Jun 14, 2022 09:35
[2022-06-14 09:44] LABS: BASOPHILS # (AUTO) 0.1 10^3/uL (0.0-0.1); BASOPHILS % (AUTO) 1 % (0-10); EOSINOPHILS # (AUTO) 0.3 10^3/uL (0.0-0.3); EOSINOPHILS % (AUTO) 2 % (0-10); HEMATOCRIT 43 % (40-54); HEMOGLOBIN 13.2 g/dL (13.3-17.7); LYMPHOCYTES % (AUTO) 47 % (12-44); MEAN CORPUSCULAR HEMOGLOBIN 29 pg (25-34); MEAN CORPUSCULAR HGB CONC 31 g/dL (32-36); MEAN CORPUSCULAR VOLUME 94 fL (80-99); MEAN PLATELET VOLUME 11.9 fL (9.0-12.2); MONOCYTES # (AUTO) 0.5 10^3/uL (0.0-1.0); MONOCYTES % (AUTO) 3 % (0-12); NEUTROPHILS # (AUTO) 8.1 10^3/uL (1.8-7.8); NEUTROPHILS % (AUTO) 47 % (42-75); PLATELET COUNT 361 10^3/uL (130-400); WHITE BLOOD COUNT 17.3 10^3/uL (4.3-11.0)
[2022-06-14] MEDS ORDERED: VANCOMYCIN INJECTION 1,000 MG in NS (IVPB) 250 ML IV ONE (09:45)
[2022-06-14] MEDS ORDERED: CEFEPIME INJECTION 1,000 MG in NS (IVPB) 50 ML IV ONE (09:45)
[2022-06-14 09:51] LABS: ABG BASE EXCESS -10.2 MMOL/L (-2.5-2.5); ABG OXYGEN SATURATION 91 % (94-100); ABG PCO2 65 MMHG (35-45); ABG PO2 81 MMHG (79-93); ABG TCO2 21.2 MMOL/L (21.0-31.0)
[2022-06-14 09:54] LABS: ALBUMIN 4.2 GM/DL (3.2-4.5)
[2022-06-14 09:54] LABS: ABG PH 7.07 (7.37-7.43); ALLENS TEST YES-POS; PATIENT TEMP 34.6; VENTILATOR NO
[2022-06-14 09:55] LABS: POTASSIUM 2.8 MMOL/L (3.6-5.0)
[2022-06-14 09:56] VITALS: BP 109/88
[2022-06-14 09:56] LABS: CALCIUM 9.4 MG/DL (8.5-10.1)
[2022-06-14 09:57] LABS: TOTAL PROTEIN 8.4 GM/DL (6.4-8.2)
[2022-06-14 09:59] LABS: BILIRUBIN,TOTAL 0.5 MG/DL (0.1-1.0)
[2022-06-14 10:01] LABS: CREATININE SERUM 1.38 MG/DL (0.60-1.30)
[2022-06-14 10:09] LABS: BAND NEUTROPHILS 7 %; BASOPHILS % (MANUAL) 0 %; EOSINOPHILS % (MANUAL) 1 %; LYMPHOCYTES % (MANUAL) 47 %; METAMYELOCYTES % 1 %; MONOCYTES % (MANUAL) 2 %; NEUTROPHILS % (MANUAL) 42 %; RBC MORPH NORMAL
[2022-06-14 10:29] LABS: BILIRUBIN,URINE NEGATIVE (NEGATIVE); CLARITY,URINE CLEAR; COLOR,URINE YELLOW; GLUCOSE, URINE (UA) 1+ (NEGATIVE); KETONES,URINE NEGATIVE (NEGATIVE); LEUKOCYTE ESTERASE ,URINE NEGATIVE (NEGATIVE); NITRITE,URINE NEGATIVE (NEGATIVE); PROTEIN,URINE TRACE (NEGATIVE)
[2022-06-14 10:43] LABS: BACTERIA,URINE NEGATIVE /HPF; WBC,URINE RARE /HPF
--- NOTE | 2022-06-14 10:55 | Diagnostic Imaging Report ---
INDICATION: dyspnea, hypoxia. TECHNIQUE: Single view chest 10:27 AM. CORRELATION STUDY: 03/22/2022 FINDINGS: Endotracheal tube projects over the trachea just below the left clavicles. Gastric tube passes below the diaphragm and edge of the film. These have been placed since the prior. Heart size and mediastinum are stable. Scattered pulmonary infiltrate-like opacities particularly the upper lobes right greater than left. IMPRESSION: 1. Interval intubation. 2. Suggested somewhat nodular patchy infiltrate-like opacities of the bilateral lung apices right greater than left. Follow-up imaging is recommended particularly given their nodular appearance. Dictated by: Dictated on workstation # [id number]
[2022-06-14] MEDS ORDERED: NS IV 1000 ML 1,000 ML IV SCH ×3 (11:15→22:30)
[2022-06-14] MEDS ORDERED: NS IV 500 ML 500 ML IV SCH (11:30)
[2022-06-14] MEDS ORDERED: PIPERACILLIN SODIUM/TAZOBACTAM 4.5 GM in NS (IVPB) 100 ML IV ONE (12:00)
[2022-06-14] MEDS ORDERED: VANCOMYCIN INJECTION 0.1 MG in NS (IVPB) 250 ML IV SCH (12:00)
[2022-06-14] MEDS ORDERED: PROPOFOL DRIP (ICU) 100 ML IV ONE (12:14)
[2022-06-14] MEDS: fentaNYL DRIP PRE-MIX 250 ML IV SCH ×2 (12:18→23:58)
[2022-06-14] MEDS: PROPOFOL DRIP (ICU) 100 ML IV SCH ×2 (12:33→22:14)
--- NOTE | 2022-06-14 12:34 | Tele-ICU Consult ---
History of Present Illness History of Present Illness Date Seen by Provider: Jun 14, 2022 Time Seen by Provider: 12:31 Date of Admission (Tele-ICU Physician , consultation as per request of PCP Service provided via interactive audio and video telecommunications E-CARE system to a patient admitted to ICU bed in [facility]. Available chart/ vitals / labs / Images reviewed H&P is from ER notes Patient's information available about PMH, Shx, Fhx allergy reviewed inEMR. ROS as per chart and RN report Now in ICU, hemodynamically stable Video assessment done using teleICU camera, rest of exam as per RN Discussed with RN. VENT SETTINGS and ABG reviewed NOT CANDIDATE for SBTreviewed possible contraindications including Cardiovascular Stability /Sedation Score / FI02/PEEP / ABG / CXR/ secretions Sedation, discussed with RN, RASS +2 on fentanyl 50 Consultants: Hospital course: -: 51 y/o M - From [place] - Aspitation Pneumonia - Intubated.Neg Covid & Flu A/P Acute resp failure - Intubated 06/14 -AC 20 - 450-80% + 6- follow ABG Aspiration PNA - 06/14 in [place] eating oatmeal and apparently "choked."= Sao2 80% - Abx started 06/14 - suspected chronic intermittent aspiration based on previous CT and reports - speach eval 03/2022- Dysphagia one (pureed) with thin liquids MICHAEL - cont hydration Elevated lactate 12 - reported SaO2 60s for > 15 min - follow - not correlates with sepsis [id number] Recent EGD 03/2023 - distal esophageal stricture - foreign body in esophagus ( veggi h/o DVT reported - ? on eliquis Baseline : severe dementia, AUTISTIC; NON VERBAL - cont fentanyl gtt , propofol gtt Lines : periph , (Central Line Necessity Reviewed) Dowell: 06/14 OG:+ Nutrition: to start Analgesia: Anxiety/ delirium VTE Prophylaxis: ? resume Eliquis Stress Ulcer Prophylaxis: PPi Plans in collaboration with bedside consultants and IM MDs. Discussed with RN to reach out if any questions or concerns A total of 31 minutes of critical care time was devoted to this patient today, required to treat and/or prevent further deterioration of critical care condition ( as above ) . I am remotely monitoring this patient from another state. I am unable to do the bedside exam, and history/physical and pertinent information is taken from other notes in the computer and bedside staff. . Allergies and Home Medications Allergies Coded Allergies: tree nut (Verified Allergy, Unknown, 02/14/21) Home Medications Acetaminophen 325 Mg Tablet, 650 MG PO Q6H PRN for PAIN-MILD (1-4), (Reported) Apixaban 2.5 Mg Tablet, 2.5 MG PO BID, (Reported) Bisacodyl 10 Mg Supp.rect, 10 MG RC DAILY PRN for CONSTIPATION-4TH LINE, (Reported) Cefdinir 300 Mg Capsule, 300 MG PO BID Prescribed by: JONEL WEBER on 03/24/22 1032 Docusate Sodium 100 Mg Capsule, 100 MG PO BID, (Reported) Escitalopram Oxalate 10 Mg Tablet, 10 MG PO DAILY, (Reported) Loratadine 10 Mg Tablet, 10 MG PO DAILY, (Reported) Magnesium Hydroxide 400 Mg/5 Ml Oral.susp, 30 ML PO DAILY PRN for CONSTIPATION- 7TH LINE, (Reported) Multivitamin 1 Each Tablet, 1 EACH PO DAILY, (Reported) Na Phos,M-B/Na Phos,Di-Ba 19 Gram-7 Gram/118 Ml Enema, 133 ML RC DAILY PRN for CONSTIPATION, (Reported) Ondansetron 4 Mg Tab.rapdis, 4 MG SL Q8H PRN for NAUSEA/VOMITING, (Reported) Pantoprazole Sodium 40 Mg Tablet.dr, 40 MG PO DAILY, (Reported) Polyethylene Glycol 3350 17 Gm Powd.pack, 17 GM PO BID, (Reported) Past Medical/Social/Family Hx Patient Social History Tobacco Use?: No Use of E-Cig and/or Vaping dev: No Substance use?: No Alcohol Use?: No Immunizations Up To Date First/Initial COVID19 Vaccinat: no report from n.h. Second COVID19 Vaccination Esau: + Tetanus Booster (TDap): Unknown Current Status Advance Directives: Yes Advance Directive Location: full code per n.h. paperwork Communicates: Unable To Communicate Primary Language: Ukrainian Review of Systems Constitutional: see HPI Focused Exam Lactate Level 06/14/22 09:30: Lactic Acid Level 12.28*H 06/14/22 11:20: Lactic Acid Level 5.78*H Height, Weight, BMI Height: '" Weight: lbs. oz. kg; 18.00 BMI Method: Lactic Acid Level Laboratory Tests Test 06/14/22 09:30 06/14/22 11:20 Lactic Acid Level 12.28 MMOL/L (0.50-2.00) *H 5.78 MMOL/L (0.50-2.00) *H Exam Exam Patient acknowledged, consented, and participated in this virtual visit which was conducted using real time audio/video Vital Signs Date Time Temp Pulse Resp B/P (MAP) Pulse Ox O2 Delivery O2 Flow Rate FiO2 06/14/22 12:18 128 134/96 06/14/22 09:56 116 36 97 06/14/22 09:28 34.6 121 32 126/93 (104) 91 Non Rebreather 15.00 06/14/22 09:28 91 Non Rebreather 15.00 Height & Weight Height: '" Weight: lbs. oz. kg; 18.00 BMI Method: General Appearance: Other Gastrointestinal: normal bowel sounds, non tender, soft Results Lab Laboratory Tests 06/14/22 09:30 Assessment/Plan Assessment/Plan 1 LELIA MASSEY MD Jun 14, 2022 12:34
[2022-06-14] MEDS: POTASSIUM CL 10MEQ/50ML IVPB 50 ML IV SCH (13:05)
[2022-06-14] MEDS ORDERED: ETOMIDATE IV SOLN 20 MG/10 ML VIAL IV ONE (13:13)
[2022-06-14] MEDS ORDERED: ROCURONIUM 50 MG/5 ML (ZEMURON) VIAL IV ONE (13:13)
[2022-06-14 13:25] LABS: ABG BASE EXCESS -0.9 MMOL/L (-2.5-2.5); ABG OXYGEN SATURATION 95 % (94-100); ABG PCO2 52 MMHG (35-45); ABG PO2 80 MMHG (79-93); ABG TCO2 26.5 MMOL/L (21.0-31.0)
[2022-06-14 13:28] LABS: ABG PH 7.29 (7.37-7.43)
[2022-06-14 13:29] LABS: ALLENS TEST YES-POS; INSPIRED O2 80%; PATIENT TEMP 36.3; VENTILATOR YES
--- NOTE | 2022-06-14 13:32 | History & Physical ---
AMANDAANAM 06/14/22 1332: History of Present Illness History of Present Illness Reason for visit/HPI Mr. Bacon is a 51 year old male with a PMHx of autism, dementia, and depression who presented to the [facility] ED with acute respiratory failure s/p an aspiration incident that occurred this morning, 06/14. The patient lives in a senior living and is non-verbal. Per ED provider report, the senior living staff reported the patient aspirated on oatmeal this morning during breakfast and demonstrated labored breathing and signs of respiratory distress. With no improvement the patient was transferred to [facility] via EMS. The patient is currently intubated and sedated for respiratory support s/p acute respiratory failure with hypoxia and respiratory acidosis. Ventilator Settings: 450 / 20 / 6.0 with FiO2 of 90%. AB.07 / 65 / 81 -> 7.29 / 52 / 80 Antibiotics day: 1 with Zosyn, vancomycin Urinary catheter: in place OGT: in place Position: supine Date of Admission Jun 14, 2022 at 10:50 Date Seen by a Provider: Jun 14, 2022 Time Seen by a Provider: 13:15 I consulted on this patient on 06/14/22 13:25 Attending Physician Amador Mitchell DO Admitting Physician Admitting Physician: Jonel Weber MD Attending Physician: Jonel Weber MD Consult Allergies and Home Medications Allergies Coded Allergies: tree nut (Verified Allergy, Unknown, 02/14/21) Patient Home Medication List Home Medication List Reviewed: Yes Acetaminophen (Tylenol) 325 Mg Tablet, 650 MG PO Q6H PRN for PAIN-MILD (1-4), (Reported) Entered as Reported by: ANNE GARCIA on 03/03/21 151 Last Action: Reviewed Apixaban (Eliquis) 2.5 Mg Tablet, 2.5 MG PO BID, (Reported) Entered as Reported by: LARY STERN on 03/23/22 1016 Last Action: Reviewed Bisacodyl (Dulcolax) 10 Mg Supp.rect, 10 MG RC DAILY PRN for CONSTIPATION-4TH LINE, (Reported) Entered as Reported by: ANNE GARCIA on 03/03/21 1516 Last Action: Reviewed Docusate Sodium (Docusate Sodium) 100 Mg Capsule, 100 MG PO BID, (Reported) Entered as Reported by: LARY STERN on 03/23/22 1016 Last Action: Reviewed Escitalopram Oxalate (Lexapro) 10 Mg Tablet, 10 MG PO DAILY, (Reported) Entered as Reported by: ANNE GARCIA on 03/03/211515 Last Action: Reviewed Loratadine (Loratadine) 10 Mg Tablet, 10 MG PO DAILY, (Reported) Entered as Reported by: ANNE GARCIA on 03/03/211515 Last Action: Reviewed Magnesium Hydroxide (Milk of Magnesia) 400 Mg/5 Ml Oral.susp, 30 ML PO DAILY PRN for CONSTIPATION-7TH LINE, (Reported) Entered as Reported by: ANNE GARCIA on 03/03/211515 Last Action: Reviewed Mirtazapine (Remeron) 15 Mg Tablet, 15 MG PO HS Prescribed by: RADHA VAZ on 06/14/22 141 Last Action: Reviewed Multivitamin (Multivitamin) 1 Each Tablet, 1 EACH PO DAILY, (Reported) Entered as Reported by: ANNE GARCIA on 03/03/211515 Last Action: Reviewed Na Phos,M-B/Na Phos,Di-Ba (Enema Ready To Use) 19 Gram-7 Gram/118 Ml Enema, 133 ML RC DAILY PRN for CONSTIPATION, (Reported) Entered as Reported by: LARY STERN on 03/23/22 1016 Last Action: Reviewed Ondansetron (Ondansetron Odt) 4 Mg Tab.rapdis, 4 MG SL Q8H PRN for NAUS EA/VOMITING, (Reported) Entered as Reported by: LARY STERN on 03/23/22 1016 Last Action: Reviewed Pantoprazole Sodium (Pantoprazole Sodium) 40 Mg Tablet.dr, 40 MG PO DAILY, (Reported) Entered as Reported by: LARY STERN on 03/23/22 1016 Last Action: Reviewed Polyethylene Glycol 3350 (Miralax) 17 Gm Powd.pack, 17 GM PO BID, (Reported) Entered as Reported by: ANNE GARCIA on 03/03/211515 Last Action: Reviewed Discontinued Medications Cefdinir (Cefdinir) 300 Mg Capsule, 300 MG PO BID Discontinued Reason: No Longer Taking Prescribed by: JONEL WEBER on 03/24/22 1032 Last Action: Discontinued Past Cueccex-Cozwei-Eoiuwk Hx Patient Social History Tobacco Use?: No Use of E-Cig and/or Vaping dev: No Substance use?: No Alcohol Use?: No Immunizations Up To Date First/Initial COVID19 Vaccinat: no report from n.h. Second COVID19 Vaccination Esau: + Tetanus Booster (TDap): Unknown Current Status Advance Directives: Yes Advance Directive Location: full code per n.h. paperwork Communicates: Unable To Communicate Primary Language: Yoruba Past Medical History Developmental Disorder Contracture Did You Recieve Any Treatments: No Blood Disorders: No Family Medical History Reviewed Nursing Family Hx No Pertinent Family Hx Review of Systems ROS-Unable to Obtain: Unable to Obtain Physical Exam Vital Signs Vital Signs - First Documented 06/14/22 09:28 Temp 34.6 Pulse 121 Resp 32 B/P (MAP) 126/93 (104) Pulse Ox 91 O2 Delivery Non Rebreather O2 Flow Rate 15.00 Capillary Refill : Height, Weight, BMI Height: '" Weight: lbs. oz. kg; 18.00 BMI Method: General Appearance: Other (intubated and sedated) Respiratory: No Accessory Muscle Use, Crackles (bilateral crackles in lower lung herrera ) Cardiovascular: Regular Rate, Rhythm, No Edema, Normal Peripheral Pulses (R radial +2, bilateral dorsalis pedis +2) Gastrointestinal: Normal Bowel Sounds, Soft Genital/Rectal: Other (urinary catheter in place) Extremity: No Pedal Edema, Other (bilateral contractures of hands and feet) Neurologic/Psychiatric: Other (intubated and sedated) Skin: Normal Color, Warm/Dry Comments NAME: [facility]ACON [facility] REC#: [id number] PT STATUS: REG ER : 1970 PHYSICIAN: WALTER MULLEN DO ADMIT DATE: 06/14/22/ER Signed Date of Exam:06/14/22 CHEST 1 VIEW, AP/PA ONLY INDICATION: dyspnea, hypoxia. TECHNIQUE: Single view chest 10:27 AM. CORRELATION STUDY: 03/22/2022 FINDINGS: Endotracheal tube projects over the trachea just below the left clavicles. Gastric tube passes below the diaphragm and edge of the film. These have been placed since the prior. Heart size and mediastinum are stable. Scattered pulmonary infiltrate-like opacities particularly the upper lobes right greater than left. IMPRESSION: 1. Interval intubation. 2. Suggested somewhat nodular patchy infiltrate-like opacities of the bilateral lung apices right greater than left. Follow-up imaging is recommended particularly given their nodular appearance. Dictated by: Dictated on workstation # [id number] Dict: 06/14/22 1042 Trans: 06/14/22 1057 MALIK [id number] Interpreted by: MICHELE BARROSO DO Electronically signed by: MICHELE BARROSO DO 06/14/22 1057 Assessment/Plan Assessment and Plan 1. Acute respiratory failure with hypoxia and respiratory acidosis / aspiration pneumonitis -ET tube in place for respiratory support -Sedation with Propofol and fentanyl -Pantoprazole 40mg IV qd for stress ulcer ppx -Antibiotic therapy for aspiration pneumonitis/PNA ppx: -Zosyn 4.5gm for anaerobic and pseudomonas coverage: 100ml @ 30mls/hr Q8H IV -Vancomycin 750 mg for MRSA coverage: 250ml @ 250mls/hr Q12H IV with vancomycin trough monitoring. Discontinue if trough exceeds 17 -Speech evaluation -Urinary catheter in place -OGT in place -Supine positioning -Appreciate plan per Critical Care -DVT ppx -> resuming Eliquis 2.5mg PO BID -Consider PEG tube placement for long-term nutrition support 2. Hypokalemia -Replaced with 20meq KCl - 2 bags KCl 50ml @ 50mls/hr -Resolved to 3.7 on 06/14 3. MICHAEL with Cr 1.38 on 06/14 -Continue IV fluids -Monitor Cr 4. Lactic acidosis, likely secondary to hypoxia. Lactate is trending down 12.28 -> 5.78 on 06/14 Admission Diagnosis Admission Status: Inpatient Order (span 2 midnights) Reason for Inpatient Admission: Acute respiratory failure, aspiration PNA JONEL WEBER MD 06/14/22 1435: Allergies and Home Medications Allergies Coded Allergies: tree nut (Verified Allergy, Unknown, 02/14/21) Patient Home Medication List Acetaminophen (Tylenol) 325 Mg Tablet, 650 MG PO Q6H PRN for PAIN-MILD (1-4), (Reported) Entered as Reported by: ANNE GARCIA on 03/03/21 0497 Last Action: Reviewed Apixaban (Eliquis) 2.5 Mg Tablet, 2.5 MG PO BID, (Reported) Entered as Reported by: LARY STERN on 03/23/22 1016 Last Action: Reviewed Bisacodyl (Dulcolax) 10 Mg Supp.rect, 10 MG RC DAILY PRN for CONSTIPATION-4TH LINE, (Reported) Entered as Reported by: ANNE GARCIA on 03/03/211515 Last Action: Reviewed Docusate Sodium (Docusate Sodium) 100 Mg Capsule, 100 MG PO BID, (Reported) Entered as Reported by: LARY STERN on 03/23/22 1016 Last Action: Reviewed Escitalopram Oxalate (Lexapro) 10 Mg Tablet, 10 MG PO DAILY, (Reported) Entered as Reported by: ANNE GARCIA on 03/03/211515 Last Action: Reviewed Loratadine (Loratadine) 10 Mg Tablet, 10 MG PO DAILY, (Reported) Entered as Reported by: ANNE GARCIA on 03/03/211515 Last Action: Reviewed Magnesium Hydroxide (Milk of Magnesia) 400 Mg/5 Ml Oral.susp, 30 ML PO DAILY PRN for CONSTIPATION-7TH LINE, (Reported) Entered as Reported by: ANNE GARCIA on 03/03/211515 Last Action: Reviewed Mirtazapine (Remeron) 15 Mg Tablet, 15 MG PO HS Prescribed by: RADHA VAZ on 06/14/22 1416 Last Action: Reviewed Multivitamin (Multivitamin) 1 Each Tablet, 1 EACH PO DAILY, (Reported) Entered as Reported by: ANNE GARCIA on 03/03/211515 Last Action: Reviewed Na Phos,M-B/Na Phos,Di-Ba (Enema Ready To Use) 19 Gram-7 Gram/118 Ml Enema, 133 ML RC DAILY PRN for CONSTIPATION, (Reported) Entered as Reported by: LARY STERN on 03/23/22 1016 Last Action: Reviewed Ondansetron (Ondansetron Odt) 4 Mg Tab.rapdis, 4 MG SL Q8H PRN for NAUSEA/VOMITING, (Reported) Entered as Reported by: LARY STERN on 03/23/22 1016 Last Action: Reviewed Pantoprazole Sodium (Pantoprazole Sodium) 40 Mg Tablet.dr, 40 MG PO DAILY, ( Reported) Entered as Reported by: LARY STERN on 03/23/22 1016 Last Action: Reviewed Polyethylene Glycol 3350 (Miralax) 17 Gm Powd.pack, 17 GM PO BID, (Reported) Entered as Reported by: ANNE GARCIA on 03/03/21 1516 Last Action: Reviewed Discontinued Medications Cefdinir (Cefdinir) 300 Mg Capsule, 300 MG PO BID Discontinued Reason: No Longer Taking Prescribed by: JONEL WEBER on 03/24/22 1032 Last Action: Discontinued Review of Systems Constitutional: see HPI Assessment/Plan Assessment and Plan Patient was admitted to the hospital secondary to acute respiratory failure following aspiration this morning. He was trialed on nonrebreather and BiPAP in the emergency room without improvement in his respiratory status and was ultimately intubated. He is being covered with IV antibiotics and telemetry ICU is managing the ventilator. This is his second event of aspiration requiring hospitalization in the past 2 to 3 months so once off ventilator will consider PEG placement if family and patient in agreement. We will otherwise resume home meds. Supervisory-Addendum Brief Verification & Attestation Participated in pt care: history, MDM, physical Personally performed: exam, history, MDM, supervision of care Care discussed with: Medical Student Procedures: n/a Results interpretation: Verified all documentation Verification and Attestation of Medical Student E/M Service A medical student performed and documented this service in my presence. I rev iewed and verified all information documented by the medical student and made modifications to such information, when appropriate. I personally performed the physical exam and medical decision making. Jonel Weber, Jun 14, 2022,14:35 ANAM PATEL Jun 14, 2022 13:32 JONEL WEBER MD Jun 14, 2022 14:35
[2022-06-14] MEDS ORDERED: MIRT-96 PO (14:16)
[2022-06-14 14:17] LABS: POTASSIUM 3.7 MMOL/L (3.6-5.0)
[2022-06-14 14:18] LABS: CALCIUM 8.1 MG/DL (8.5-10.1)
[2022-06-14 14:23] LABS: CREATININE SERUM 0.93 MG/DL (0.60-1.30)
[2022-06-14 14:52] VITALS: BP 98/66
[2022-06-14] MEDS: NS IV 1000 ML 1,000 ML IV SCH ×2 (15:15→21:27)
[2022-06-14] MEDS ORDERED: DEXTROSE 50% 50 ML (IMS) SYR ONE (17:34)
[2022-06-14] MEDS: PIPERACILLIN SODIUM/TAZOBACTAM 4.5 GM in NS (IVPB) 100 ML IV SCH (17:40)
[2022-06-14] MEDS ORDERED: DEXTROSE 50% 50 ML (IMS) SYR IV ONE (17:45)
[2022-06-14 19:20] VITALS: BP 87/50
[2022-06-14] MEDS: MIRTAZAPINE 15 MG (REMERON) TAB PO SCH (20:43)
[2022-06-14] MEDS: polyethylene glycoL POWDER 17 GM (MIRALAX) PACK PO SCH (20:43)
[2022-06-14] MEDS: APIXABAN 2.5 MG (ELIQUIS) TABLET PO SCH (20:43)
[2022-06-14 22:51] VITALS: BP 77/54
[2022-06-15] VITALS (7 sets, daily range): BP systolic 72–123; BP diastolic 49–69
[2022-06-15] MEDS ORDERED: NS IV 1000 ML 1,000 ML IV SCH (02:00)
[2022-06-15] MEDS: PIPERACILLIN SODIUM/TAZOBACTAM 4.5 GM in NS (IVPB) 100 ML IV SCH ×3 (02:07→17:22)
[2022-06-15] MEDS ORDERED: NOREPINEPHRINE 8 MG/250 ML 250 ML IV ONE (03:37)
[2022-06-15] MEDS: NOREPINEPHRINE 8 MG/250 ML 250 ML IV SCH ×2 (03:45→14:24)
[2022-06-15 04:54] LABS: BASOPHILS # (AUTO) 0.1 10^3/uL (0.0-0.1); BASOPHILS % (AUTO) 1 % (0-10); EOSINOPHILS # (AUTO) 0.3 10^3/uL (0.0-0.3); EOSINOPHILS % (AUTO) 2 % (0-10); HEMATOCRIT 31 % (40-54); LYMPHOCYTES # (AUTO) 2.2 10^3/uL (1.0-4.0); LYMPHOCYTES % (AUTO) 14 % (12-44); MEAN CORPUSCULAR HEMOGLOBIN 29 pg (25-34); MEAN CORPUSCULAR HGB CONC 32 g/dL (32-36); MEAN CORPUSCULAR VOLUME 89 fL (80-99); MEAN PLATELET VOLUME 11.8 fL (9.0-12.2); MONOCYTES # (AUTO) 0.4 10^3/uL (0.0-1.0); MONOCYTES % (AUTO) 2 % (0-12); NEUTROPHILS # (AUTO) 13.3 10^3/uL (1.8-7.8); NEUTROPHILS % (AUTO) 81 % (42-75); PLATELET COUNT 224 10^3/uL (130-400); WHITE BLOOD COUNT 16.4 10^3/uL (4.3-11.0)
[2022-06-15 05:30] LABS: ALBUMIN 2.7 GM/DL (3.2-4.5); BILIRUBIN,TOTAL 0.6 MG/DL (0.1-1.0); CALCIUM 7.3 MG/DL (8.5-10.1); CREATININE SERUM 0.94 MG/DL (0.60-1.30); POTASSIUM 3.3 MMOL/L (3.6-5.0); TOTAL PROTEIN 5.5 GM/DL (6.4-8.2)
[2022-06-15] MEDS ORDERED: POTASSIUM CL 10MEQ/50ML IVPB 200 ML IV ONE (05:43)
[2022-06-15] MEDS ORDERED: NS IV 500 ML 500 ML IV PRN (05:45)
[2022-06-15] MEDS: POTASSIUM CL 10MEQ/50ML IVPB 50 ML IV SCH ×5 (05:47→08:46)
[2022-06-15] MEDS: MAGNESIUM 1 GM/100 ML IVPB 100 ML IV SCH (05:50)
[2022-06-15] MEDS: KCL 20 MEQ TAB (K-DUR) PO SCH (05:50)
[2022-06-15] MEDS: NS IV 1000 ML 1,000 ML IV SCH ×4 (06:39→20:54)
[2022-06-15] MEDS: fentaNYL DRIP PRE-MIX 250 ML IV SCH ×2 (08:47→17:22)
[2022-06-15] MEDS: PANTOPRAZOLE 40 MG (PROTONIX) VIAL IV SCH (08:47)
[2022-06-15] MEDS ORDERED: PANTOPRAZOLE 40 MG (PROTONIX) TAB PO SCH (09:00)
[2022-06-15] MEDS ORDERED: NON-FORMULARY MEDICATION 1 EA EA (Escitalopram Oxalate (Lexapro) 10 MG) PO SCH (09:00)
[2022-06-15] MEDS: VANCOMYCIN 750 MG/NS 250 ML IVPB IV SCH ×2 (09:48)
[2022-06-15] MEDS: LORATADINE (CLARITIN) 10 MG TAB PO SCH (09:49)
[2022-06-15] MEDS: polyethylene glycoL POWDER 17 GM (MIRALAX) PACK PO SCH ×2 (09:49→20:48)
--- NOTE | 2022-06-15 10:03 | Tele-ICU Progress Note ---
Subjective Date Seen by a Provider: Jun 15, 2022 Time Seen by a Provider: 10:02 Subjective/Events-last exam (Tele-ICU Physician , Progress Note ) Service provided via interactive audio and video telecommunications E-CARE system to a patient admitted to ICU bed in [facility]. Available chart/ vitals / labs / Images reviewed Video assessment done using teleICU camera, rest of exam as per RN Discussed with RN Events overnight : received 2 l for hypotension Afebrile hemodynamically stable Respiratory - I/O = Drips: Pressors- no NS 150 VENT SETTINGS and ABG reviewed NOT CANDIDATE for SBTreviewed possible contraindications including Cardiovascular Stability /Sedation Score / FI02/PEEP / ABG / CXR/ secretions Sedation, discussed with RN, RASS +2 on fentanyl 125 propofol 20 Consultants: Hospital course: -: 51 y/o M - [place] - Aspitation Pneumonia - Intubated.Neg Covid & Flu 06/15 - shock , received additional 2 L NS , started on levo fio2 60% A/P Acute resp failure - Intubated 06/14 -AC 20 - 450-50% + 6 secretions thick shock - received additional 2 L NS , started on levo Aspiration PNA - 06/14 in [place] eating oatmeal and apparently "choked."= Sao2 80% - Abx started 06/14 - suspected chronic intermittent aspiration based on previous CT and reports - speach eval 03/2022- Dysphagia one (pureed) with thin liquids MICHAEL - cont hydration - RECOVERED Elevated lactate 12 - reported SaO2 60s for > 15 min - follow - not correlates with sepsis [id number] Recent EGD 03/2023 - distal esophageal stricture - foreign body in esophagus ( veggi h/o DVT reported - ? on eliquis Amnemia - no bleeding , delutional Baseline : severe dementia, AUTISTIC; NON VERBAL - cont fentanyl gtt , propofol gtt nutritional - TF started Lines : plans for 06/15 , (Central Line Necessity Reviewed) Dowell: 06/14 OG:+ Nutrition: to start Analgesia: Anxiety/ delirium VTE Prophylaxis: Eliquis Stress Ulcer Prophylaxis: PPi Plans in collaboration with bedside consultants and IM MDs. Discussed with RN to reach out if any questions or concerns A total of 35 minutes of critical care time was devoted to this patient today, required to treat and/or prevent further deterioration of critical care condition ( as above ) . I am remotely monitoring this patient from another state. I am unable to do the bedside exam, and history/physical and pertinent information is taken from other notes in the computer and bedside staff. . Sepsis Event Evaluation Height, Weight, BMI Height: '" Weight: lbs. oz. kg; 21.90 BMI Method: Focused Exam Lactate Level 06/14/22 13:52: Lactic Acid Level 2.90*H 06/14/22 16:38: Lactic Acid Level 2.38*H 06/14/22 19:25: Lactic Acid Level 2.86*H Exam Exam Patient acknowledged, consented, and participated in this virtual visit which was conducted using real time audio/video Vital Signs Date Time Temp Pulse Resp B/P (MAP) Pulse Ox O2 Delivery O2 Flow Rate FiO2 06/15/22 09:53 Mechanical Ventilator 60.00 06/15/22 09:00 82 29 89/61 (70) 95 Mechanical Ventilator 50.00 06/15/22 08:47 85 107/64 06/15/22 08:03 95 Mechanical Ventilator 50 06/15/22 08:01 50 06/15/22 08:00 83 20 97/60 (72) 94 Mechanical Ventilator 50.00 06/15/22 07:40 77 20 94 50 06/15/22 07:32 37.8 06/15/22 07:23 66 06/15/22 07:00 70 21 101/51 (68) 95 Mechanical Ventilator 50.00 06/15/22 06:39 82 87/47 06/15/22 06:32 80 91/47 06/15/22 06:00 78 20 101/52 (68) 94 Mechanical Ventilator 50.00 06/15/22 05:32 75 95/56 06/15/22 05:00 75 20 98/51 (67) 95 Mechanical Ventilator 50.00 06/15/22 04:11 73 86/55 06/15/22 04:11 73 86/55 06/15/22 04:02 37.8 74 20 90/54 (66) 99 Mechanical Ventilator 50.00 06/15/22 04:00 72 22 88/54 (65) 98 Mechanical Ventilator 70.00 06/15/22 04:00 99 Mechanical Ventilator 50 06/15/22 03:58 74 90/54 06/15/22 03:57 50 06/15/22 03:45 84 64/46 06/15/22 03:16 88 20 100 60 06/15/22 03:00 87 20 72/49 (57) 100 Mechanical Ventilator 70.00 06/15/22 02:14 84 64/46 06/15/22 02:00 91 20 73/47 (56) 94 Mechanical Ventilator 70.00 06/15/22 01:09 92 74/47 06/15/22 01:09 20 90 Mechanical Ventilator 70.00 06/15/22 01:00 97 20 97/49 (65) 90 Mechanical Ventilator 40.00 06/15/22 01:00 100 06/15/22 00:59 60 06/15/22 00:53 97 85/59 06/15/22 00:00 97 18 87/60 (69) 93 Mechanical Ventilator 40.00 06/14/22 23:59 93 Mechanical Ventilator 40 06/14/22 23:58 40 06/14/22 23:58 89 79/52 06/14/22 23:00 89 22 79/52 (61) 98 Mechanical Ventilator 40.00 06/14/22 22:51 89 20 97 40 06/14/22 22:14 92 79/49 06/14/22 22:11 92 79/49 06/14/22 22:00 91 18 79/49 (59) 94 Mechanical Ventilator 40.00 06/14/22 21:43 92 76/50 06/14/22 21:00 93 20 90/50 (63) 96 Mechanical Ventilator 40.00 06/14/22 20:00 94 18 94/60 (71) 97 Mechanical Ventilator 40.00 06/14/22 20:00 37.4 06/14/22 19:59 97 Mechanical Ventilator 40 06/14/22 19:58 40 06/14/22 19:20 Mechanical Ventilator 40.00 06/14/22 19:20 94 20 99 50 06/14/22 19:00 100 06/14/22 19:00 95 15 94/58 (70) 99 Mechanical Ventilator 50.00 06/14/22 18:00 98 92/57 (69) 99 Mechanical Ventilator 50.00 06/14/22 17:00 99 25 91/67 (75) 98 Mechanical Ventilator 50.00 06/14/22 16:24 103 95/61 12/26/22 16:23 103 95/61 06/14/22 16:00 94 20 90/61 (71) 97 Mechanical Ventilator 50.00 06/14/22 15:58 50 06/14/22 15:56 36.8 06/14/22 15:51 96 Mechanical Ventilator 50 06/14/22 15:00 Mechanical Ventilator 50.00 06/14/22 15:00 103 23 95/61 (72) 94 Mechanical Ventilator 50.00 06/14/22 14:52 100 22 96 65 06/14/22 14:00 95 21 97/67 (77) 97 Mechanical Ventilator 80.00 06/14/22 13:00 102 27 89/60 (70) 95 Mechanical Ventilator 80.00 06/14/22 12:48 113 06/14/22 12:33 108 100/64 06/14/22 12:18 128 134/96 06/14/22 12:15 91 Mechanical Ventilator 80 06/14/22 12:00 112 24 134/86 (102) 94 Mechanical Ventilator 80.00 06/14/22 11:58 36.3 06/14/22 11:50 35.0 100 26 136/94 100 Mechanical Ventilator 90.00 I & O 06/15/22 07:00 Intake Total 7400 ml Output Total 1375 ml Balance 6025 ml Height & Weight Height: '" Weight: lbs. oz. kg; 21.90 BMI Method: General Appearance: Other (intubated and sedated) Respiratory: No Accessory Muscle Use, Crackles (bilateral crackles in lower lung herrera ) Cardiovascular: Regular Rate, Rhythm, No Edema, Normal Peripheral Pulses (R radial +2, bilateral dorsalis pedis +2) Capillary Refill: Less Than 3 Seconds Gastrointestinal: normal bowel sounds, non tender, soft Extremity: No Pedal Edema, Other (bilateral contractures of hands and feet) Neurologic/Psychiatric: Other (intubated and sedated) Skin: Normal Color, Warm/Dry Results Lab Laboratory Tests 06/14/22 09:30 06/14/22 14:04 06/15/22 04:32 Assessment/Plan Assessment/Plan 1 LELIA MASSEY MD Jun 15, 2022 10:03
--- NOTE | 2022-06-15 10:03 | Progress Note ---
ANAM PATEL 06/15/22 1003: Subjective Date Seen by a Provider: Jun 15, 2022 Time Seen by a Provider: 07:50 Subjective/Events-last exam Mr. Bacon is a 51 year old male with a PMHx of autism, dementia, and depression who presented to the [facility] ED with acute respiratory failure s/p an aspiration incident that occurred this morning, 06/14. The patient lives in a fdc and is non-verbal. Per ED provider report, the fdc staff reported the patient aspirated on oatmeal this morning during breakfast and demonstrated labored breathing and signs of respiratory distress. With no improvement the patient was transferred to [facility] via EMS. The patient is currently intubated and sedated for respiratory support s/p acute respiratory failure with hypoxia and respiratory acidosis. 06/15: Patient remains intubated and sedation has been titrated to accommodate low BPs. The patient has been placed on a norepinephrine protocol to manage low BPs per EICU provider. The patient is resting this morning but opens his eyes when spoken to. The patient stirred when adjusting his SCDs but calmed easily and went back to sleep. Ventilator Settings: 500 / 20 / 6.0 with FiO2 of 50%. AB.07 / 65 / 81 -> 7.29 / 52 / 80 on 06/14 Antibiotics day: 2 with Zosyn, vancomycin Urinary catheter: in place OGT: in place Position: supine Review of Systems Unable to obtain Focused Exam Lactate Level 06/14/22 13:52: Lactic Acid Level 2.90*H 06/14/22 16:38: Lactic Acid Level 2.38*H 06/14/22 19:25: Lactic Acid Level 2.86*H Objective Exam Last Set of Vital Signs Vital Signs Date Time Temp Pulse Resp B/P (MAP) Pulse Ox O2 Delivery O2 Flow Rate FiO2 06/15/22 09:53 Mechanical Ventilator 60.00 06/15/22 09:00 82 29 89/61 (70) 95 06/15/22 08:03 50 06/15/22 07:32 37.8 Capillary Refill : Less Than 3 Seconds I&O Intake and Output 06/15/22 00:00 Intake Total 5030 ml Output Total 1025 ml Balance 4005 ml Intake Oral 0 ml IV Total 4950 ml Tube Feeding 50 ml Other 30 ml Output Urine Total 1025 ml Daily Weight Change Yes, Unsure # of pounds General: No Acute Distress, Other (Intubated with sedation) Lungs: Other (soft coarse breath sounds bilaterally. Good air movement bilaterally. Improved lung sounds from 06/14) Heart: Regular Rate, No Murmurs Abdomen: Normal Bowel Sounds, Other (tense abdominal musculature at rest) Extremities: No Edema, Other (contractures of bilateral hands and feet) Results Lab Laboratory Tests 06/14/22 10:23: Urine Color YELLOW, Urine Clarity CLEAR, Urine pH 6.0, Urine Specific [place] >=1.030, Urine Protein TRACEH, Urine Glucose (UA) 1+H, Urine Ketones NEGATIVE, Urine Nitrite NEGATIVE, Urine Bilirubin NEGATIVE, Urine Urobilinogen 0.2, Urine Leukocyte Esterase NEGATIVE, Urine RBC (Auto) NEGATIVE, Urine RBC NONE, Urine WBC RARE, Urine Squamous Epithelial Cells NONE, Urine Crystals NONE, Urine Bacteria NEGATIVE, Urine Casts NONE, Urine Mucus MODERATEH, Urine Culture Indicated NO 06/14/22 11:20: Lactic Acid Level 5.78*H 06/14/22 13:15: Blood Gas Puncture Site RT RADIAL, Blood Gas Patient Temperature 36.3, Arterial Blood pH 7.29*L, Arterial Blood Partial Pressure CO2 52H, Arterial Blood Partial Pressure O2 80, Arterial Blood HCO3 25, Arterial Blood Total CO2 26.5, Arterial Blood Oxygen Saturation 95, Arterial Blood Base Excess -0.9, Can Test YES-POS, Blood Gas Ventilator Setting YES, Blood Gas Inspired Oxygen 80% 06/14/22 13:36: Glucometer 129H 06/14/22 13:52: Lactic Acid Level 2.90*H 06/14/22 14:04: Sodium Level 140, Potassium Level 3.7, Chloride Level 108H, Carbon Dioxide Level 21, Anion Gap 11, Blood Urea Nitrogen 13, Creatinine 0.93, Estimat Glomerular Filtration Rate 100, BUN/Creatinine Ratio 14, Glucose Level 114H, Calcium Level 8.1L, Magnesium Level 2.0 06/14/22 16:38: Lactic Acid Level 2.38*H 06/14/22 17:26: Glucometer 68L 06/14/22 18:54: Glucometer 88 06/14/22 19:25: Lactic Acid Level 2.86*H 06/15/22 00:04: Glucometer 86 06/15/22 04:32: White Blood Count 16.4H, Red Blood Count 3.47L, Hemoglobin 10.0#L, Hematocrit 31L, Mean Corpuscular Volume 89, Mean Corpuscular Hemoglobin 29, Mean Corpuscular Hemoglobin Concent 32, Red Cell Distribution Width 13.9, Platelet Count 224, Mean Platelet Volume 11.8, Immature Granulocyte % (Auto) 1, Neutrophils (%) (Auto) 81H, Lymphocytes (%) (Auto) 14, Monocytes (%) (Auto) 2, Eosinophils (%) (Auto) 2, Basophils (%) (Auto) 1, Neutrophils # (Auto) 13.3H, Lymphocytes # (Auto) 2.2, Monocytes # (Auto) 0.4, Eosinophils # (Auto) 0.3, Basophils # (Auto) 0.1, Immature Granulocyte # (Auto) 0.1, Sodium Level 140, Potassium Level 3.3L, Chloride Level 114H, Carbon Dioxide Level 18L, Anion Gap 8, Blood Urea Nitrogen 11, Creatinine 0.94, Estimat Glomerular Filtration Rate 99, BUN/Creatinine Ratio 12, Glucose Level 111H, Calcium Level 7.3L, Corrected Calcium 8.3L, Total Bilirubin 0.6, Aspartate Amino Transf (AST/SGOT) 34, Alanine Aminotransferase (ALT/SGPT) 32, Alkaline Phosphatase 55, Total Protein 5.5L, Albumin 2.7L Microbiology 06/14/22 Gram Stain - Final, Resulted 06/14/22 Sputum Culture - Preliminary, Resulted Strep, Beta Hemolytic Group A Assessment/Plan Assessment/Plan Assess & Plan/Chief Complaint 1. Acute respiratory failure with hypoxia and respiratory acidosis / aspiration pneumonitis -ET tube in place for respiratory support -Sedation with Propofol and fentanyl, titrated to accommodate lower BPs. Norepinephrine protocol in place with goals of MAP >65, SBP >90 -Pantoprazole 40mg IV qd for stress ulcer ppx -Antibiotic therapy for aspiration pneumonitis/PNA ppx: -Zosyn 4.5gm for anaerobic and pseudomonas coverage: 100ml @ 30mls/hr Q8H IV -Vancomycin 750 mg for MRSA coverage: 250ml @ 250mls/hr Q12H IV with vancomycin trough monitoring. Discontinue if trough exceeds 17 -Speech evaluation -Urinary catheter in place -OGT in place -Supine positioning -Appreciate plan per Critical Care -DVT ppx -> resuming Eliquis 2.5mg PO BID -Consider PEG tube placement for long-term nutrition support 2. Hypokalemia -Replaced with 20meq KCl - 2 bags KCl 50ml @ 50mls/hr -Resolved to 3.7 on 06/14 -> 3.3 on 06/15. Replace with KCl 50ml IV qd 3. MICHAEL with Cr 1.38 on 06/14 -> Cr 0.94 on 06/15 -Continue IV fluids -Monitor Cr 4. Lactic acidosis, likely secondary to hypoxia. Lactate is trending down 12.28 -> 5.78 on 06/14 Clinical Quality Measures Admission Status Admission Dx 1. Acute respiratory failure with hypoxia and respiratory acidosis / aspiration pneumonitis -ET tube in place for respiratory support -Sedation with Propofol and fentanyl -Pantoprazole 40mg IV qd for stress ulcer ppx -Antibiotic therapy for aspiration pneumonitis/PNA ppx: -Zosyn 4.5gm for anaerobic and pseudomonas coverage: 100ml @ 30mls/hr Q8H IV -Vancomycin 750 mg for MRSA coverage: 250ml @ 250mls/hr Q12H IV with vancomycin trough monitoring. Discontinue if trough exceeds 17 -Speech evaluation -Urinary catheter in place -OGT in place -Supine positioning -Appreciate plan per Critical Care -DVT ppx -> resuming Eliquis 2.5mg PO BID -Consider PEG tube placement for long-term nutrition support 2. Hypokalemia -Replaced with 20meq KCl - 2 bags KCl 50ml @ 50mls/hr -Resolved to 3.7 on 06/14 3. MICHAEL with Cr 1.38 on 06/14 -Continue IV fluids -Monitor Cr 4. Lactic acidosis, likely secondary to hypoxia. Lactate is trending down 12.28 -> 5.78 on 06/14 JONEL MERINO MD 06/15/22 1254: Assessment/Plan Assessment/Plan Assess & Plan/Chief Complaint Patient remains intubated and sedated. We will continue on IV antibiotics and wean ventilator setting. He appears more comfortable with sedation today. No family at bedside. Supervisory-Addendum Brief Verification & Attestation Participated in pt care: history, MDM, physical Personally performed: exam, history, MDM, supervision of care Care discussed with: Medical Student Procedures: n/a Results interpretation: Verified all documentation Verification and Attestation of Medical Student E/M Service A medical student performed and documented this service in my presence. I reviewed and verified all information documented by the medical student and made modifications to such information, when appropriate. I personally performed the physical exam and medical decision making. Jonel Merino, Jun 15, 2022,12:53 ANAM PATEL Jun 15, 2022 10:03 JONEL MERINO MD Jun 15, 2022 12:54
[2022-06-15] MEDS: PROPOFOL DRIP (ICU) 100 ML IV SCH ×3 (10:58→23:34)
[2022-06-15] MEDS: APAP 325 MG/10.15 ML LIQ (TYLENOL) UDC PO PRN (11:23)
--- NOTE | 2022-06-15 13:21 | Consultation - Surgery ---
FANTASMA MADRIGAL 06/15/22 1321: History of Present Illness History of Present Illness Patient Consulted On(christina/time) 06/15/22 13:16 Date Seen by Provider: Jun 15, 2022 Time Seen by Provider: 13:16 History of Present Illness Jonel Bacon is a 51yo male with past medical history of autism, dementia, and depression. Pt is also nonverbal and resides in alf. Pt presented to ER 06/14 after symptoms of respiratory distress from aspirated oatmeal at his alf during breakfast. Symptoms became worse which prompted the ER visit and ICU admit. Pt is sedated with propofol and fentanyl which has been titrated to accommodate low BP. Currently pt is on Vancomycin and Zosyn for ppx of pneumonitis as well as pantoprazole for stress ulcer ppx. Surgery was consulted for Central Line placement. Today pt is currently intubated and sedated; pt was not awake during visit, and consent for central line placement was acquired from pt's mother. Allergies and Home Medications Allergies Coded Allergies: tree nut (Verified Allergy, Unknown, 02/14/21) Patient Home Medication List Acetaminophen (Tylenol) 325 Mg Tablet, 650 MG PO Q6H PRN for PAIN-MILD (1-4), (Reported) Entered as Reported by: ANNE GARCIA on 03/03/211515 Last Action: Reviewed Apixaban (Eliquis) 2.5 Mg Tablet, 2.5 MG PO BID, (Reported) Entered as Reported by: LARY STERN on 03/23/22 1016 Last Action: Reviewed Bisacodyl (Dulcolax) 10 Mg Supp.rect, 10 MG RC DAILY PRN for CONSTIPATION-4TH LINE, (Reported) Entered as Reported by: ANNE GARCIA on 03/03/211515 Last Action: Reviewed Docusate Sodium (Docusate Sodium) 100 Mg Capsule, 100 MG PO BID, (Reported) Entered as Reported by: LARY STERN on 03/23/22 1016 Last Action: Reviewed Escitalopram Oxalate (Lexapro) 10 Mg Tablet, 10 MG PO DAILY, (Reported) Entered as Reported by: ANNE GARCIA on 03/03/211515 Last Action: Reviewed Loratadine (Loratadine) 10 Mg Tablet, 10 MG PO DAILY, (Reported) Entered as Reported by: ANNE GARCIA on 03/03/211515 Last Action: Reviewed Magnesium Hydroxide (Milk of Magnesia) 400 Mg/5 Ml Oral.susp, 30 ML PO DAILY PRN for CONSTIPATION-7TH LINE, (Reported) Entered as Reported by: ANNE GARCIA on 03/03/211515 Last Action: Reviewed Mirtazapine (Remeron) 15 Mg Tablet, 15 MG PO HS Prescribed by: RAHDA VAZ on 06/14/22 1416 Last Action: Reviewed Multivitamin (Multivitamin) 1 Each Tablet, 1 EACH PO DAILY, (Reported) Entered as Reported by: ANNE GARCIA on 03/03/211515 Last Action: Reviewed Na Phos,M-B/Na Phos,Di-Ba (Enema Ready To Use) 19 Gram-7 Gram/118 Ml Enema, 133 ML RC DAILY PRN for CONSTIPATION, (Reported) Entered as Reported by: LARY STERN on 03/23/22 1016 Last Action: Reviewed Ondansetron (Ondansetron Odt) 4 Mg Tab.rapdis, 4 MG SL Q8H PRN for NAUSEA/VOMITING, (Reported) Entered as Reported by: LARY STERN on 03/23/22 1016 Last Action: Reviewed Pantoprazole Sodium (Pantoprazole Sodium) 40 Mg Tablet.dr, 40 MG PO DAILY, (Reported) Entered as Reported by: LARY STERN on 03/23/22 1016 Last Action: Reviewed Polyethylene Glycol 3350 (Miralax) 17 Gm Powd.pack, 17 GM PO BID, (Reported) Entered as Reported by: ANNE GARCIA on 03/03/211515 Last Action: Reviewed Discontinued Medications Cefdinir (Cefdinir) 300 Mg Capsule, 300 MG PO BID Discontinued Reason: No Longer Taking Prescribed by: JONEL MERINO on 03/24/22 1032 Last Action: Discontinued Past Dcezdtw-Hnqhfu-Hjtvdb Hx Patient Social History Smoking Status: Never a Smoker Alcohol Use?: No Have you traveled recently?: No Immunizations Up To Date Date of Influenza Vaccine: Mar 20, 2022 Surgeries History of Surgeries: No (UNKNOWN) Respiratory History of Respiratory Disorde: No (UNKNOWN) Cardiovascular History of Cardiac Disorders: No (UNKNOWN) Neurological History of Neurological Disord: Yes (Neurocognitive disorder W/ rapid functional decline in recent years;AUTISM) Neurological Disorders: Developmental Disorder Reproductive System Hx Reproductive Disorders: No Gastrointestinal History of Gastrointestinal Di: No Musculoskeletal History of Musculoskeletal Dis: Yes (NONAMBULATORY; FLEXION CONTRACTURES OF ARMS/HANDS AND LEGS) Musculoskeletal Disorders: Contracture Endocrine History of Endocrine Disorders: No HEENT History of HEENT Disorders: No Cancer History of Cancer: No Psychosocial History of Psychiatric Problem: Yes (SEVERE AUTISM) Integumentary History of Skin or Integumenta: No Blood Transfusions History of Blood Disorders: No Family Medical History Significant Family History: No Pertinent Family Hx Review of Systems-General ROS-Unable to Obtain: Pt was sedated Physical Exam-General Problems Physical Exam Vital Signs Vital Signs - First Documented 06/14/22 06/14/22 09:28 12:15 Temp 34.6 Pulse 121 Resp 32 B/P (MAP) 126/93 (104) Pulse Ox 91 O2 Delivery Non Rebreather O2 Flow Rate 15.00 FiO2 80 Capillary Refill : Less Than 3 Seconds General Appearance: no apparent distress, other (Pt was asleep ) Respiratory: chest non-tender, lungs clear, normal breath sounds, no respirato ry distress, no accessory muscle use Cardiovascular: regular rate, rhythm, no edema, no gallop, no murmur Peripheral Pulses: 2+ Radial Pulses (R), 2+ Radial Pulses (L) Gastrointestinal: normal bowel sounds, soft Rectal: deferred Skin: normal color, warm/dry Data Review Labs Laboratory Tests 06/14/22 13:36: Glucometer 129H 06/14/22 13:52: Lactic Acid Level 2.90*H 06/14/22 14:04: Sodium Level 140, Potassium Level 3.7, Chloride Level 108H, Carbon Dioxide Level 21, Anion Gap 11, Blood Urea Nitrogen 13, Creatinine 0.93, Estimat Glomerular Filtration Rate 100, BUN/Creatinine Ratio 14, Glucose Level 114H, Calcium Level 8.1L, Magnesium Level 2.0 06/14/22 16:38: Lactic Acid Level 2.38*H 06/14/22 17:26: Glucometer 68L 06/14/22 18:54: Glucometer 88 06/14/22 19:25: Lactic Acid Level 2.86*H 06/15/22 00:04: Glucometer 86 06/15/22 04:32: White Blood Count 16.4H, Red Blood Count 3.47L, Hemoglobin 10.0#L, Hematocrit 31L, Mean Corpuscular Volume 89, Mean Corpuscular Hemoglobin 29, Mean Corpuscular Hemoglobin Concent 32, Red Cell Distribution Width 13.9, Platelet C ount 224, Mean Platelet Volume 11.8, Immature Granulocyte % (Auto) 1, Neutrophils (%) (Auto) 81H, Lymphocytes (%) (Auto) 14, Monocytes (%) (Auto) 2, Eosinophils (%) (Auto) 2, Basophils (%) (Auto) 1, Neutrophils # (Auto) 13.3H, Lymphocytes # (Auto) 2.2, Monocytes # (Auto) 0.4, Eosinophils # (Auto) 0.3, Basophils # (Auto) 0.1, Immature Granulocyte # (Auto) 0.1, Sodium Level 140, Potassium Level 3.3L, Chloride Level 114H, Carbon Dioxide Level 18L, Anion Gap 8, Blood Urea Nitrogen 11, Creatinine 0.94, Estimat Glomerular Filtration Rate 99, BUN/Creatinine Ratio 12, Glucose Level 111H, Calcium Level 7.3L, Corrected Calcium 8.3L, Total Bilirubin 0.6, Aspartate Amino Transf (AST/SGOT) 34, Alanine Aminotransferase (ALT/SGPT) 32, Alkaline Phosphatase 55, Total Protein 5.5L, Albumin 2.7L 06/15/22 11:27: Glucometer 130H Microbiology 06/14/22 MRSA Screen - Final, Complete MRSA not isolated Radiology NAME: [facility] REC#: [id number] PT STATUS: REG ER : 1970 PHYSICIAN: WALTER MULELN DO ADMIT DATE: 06/14/22/ER Signed Date of Exam:06/14/22 CHEST 1 VIEW, AP/PA ONLY INDICATION: dyspnea, hypoxia. TECHNIQUE: Single view chest 10:27 AM. CORRELATION STUDY: 03/22/2022 FINDINGS: Endotracheal tube projects over the trachea just below the left clavicles. Gastric tube passes below the diaphragm and edge of the film. These have been placed since the prior. Heart size and mediastinum are stable. Scattered pulmonary infiltrate-like opacities particularly the upper lobes right greater than left. IMPRESSION: 1. Interval intubation. 2. Suggested somewhat nodular patchy infiltrate-like opacities of the bilateral lung apices right greater than left. Follow-up imaging is recommended particularly given their nodular appearance. Dictated by: Dictated on workstation # [id number] Dict: 06/14/22 1042 Trans: 06/14/22 1057 MALIK [id number] Interpreted by: MICHELE BARROSO DO Electronically signed by: MICHELE BARROSO DO 06/14/22 1057 Assessment/Plan Assessment/Plan Assessment/Plan Patient remains intubated and sedated. We will continue on IV antibiotics and wean ventilator setting. He appears more comfortable with sedation today. Consider Central Line Placement Continue supportive care ZACKERY HA DO 06/15/22 1524: History of Present Illness History of Present Illness History of Present Illness Consult requested by Dr. Merino for central line placement. Patient is a 51 year old male who aspirated oatmeal at alf yesterday. Having worsening respiratory status and was sent to emergency dept. Currently intubated and requiring pressors. No family at bedside. Is on Eliquis for recent history of right DVT, which is currently on hold. Allergies and Home Medications Allergies Coded Allergies: tree nut (Verified Allergy, Unknown, 02/14/21) Patient Home Medication List Home Medication List Reviewed: Yes Acetaminophen (Tylenol) 325 Mg Tablet, 650 MG PO Q6H PRN for PAIN-MILD (1-4), (Reported) Entered as Reported by: ANNE GARCIA on 03/03/211515 Last Action: Reviewed Apixaban (Eliquis) 2.5 Mg Tablet, 2.5 MG PO BID, (Reported) Entered as Reported by: LARY STERN on 03/23/22 1016 Last Action: Reviewed Bisacodyl (Dulcolax) 10 Mg Supp.rect, 10 MG RC DAILY PRN for CONSTIPATION-4TH LINE, (Reported) Entered as Reported by: ANNE GARCIA on 03/03/21 151 Last Action: Reviewed Docusate Sodium (Docusate Sodium) 100 Mg Capsule, 100 MG PO BID, (Reported) Entered as Reported by: LARY STERN on 03/23/22 1016 Last Action: Reviewed Escitalopram Oxalate (Lexapro) 10 Mg Tablet, 10 MG PO DAILY, (Reported) Entered as Reported by: ANNE GARCIA on 03/03/21 151 Last Action: Reviewed Loratadine (Loratadine) 10 Mg Tablet, 10 MG PO DAILY, (Reported) Entered as Reported by: ANNE GARCIA on 03/03/211515 Last Action: Reviewed Magnesium Hydroxide (Milk of Magnesia) 400 Mg/5 Ml Oral.susp, 30 ML PO DAILY PRN for CONSTIPATION-7TH LINE, (Reported) Entered as Reported by: ANNE GARCIA on 03/03/211515 Last Action: Reviewed Mirtazapine (Remeron) 15 Mg Tablet, 15 MG PO HS Prescribed by: RADHA VAZ on 06/14/22 1416 Last Action: Reviewed Multivitamin (Multivitamin) 1 Each Tablet, 1 EACH PO DAILY, (Reported) Entered as Reported by: ANNE GARCIA on 03/03/211515 Last Action: Reviewed Na Phos,M-B/Na Phos,Di-Ba (Enema Ready To Use) 19 Gram-7 Gram/118 Ml Enema, 133 ML RC DAILY PRN for CONSTIPATION, (Reported) Entered as Reported by: LARY STERN on 03/23/22 1016 Last Action: Reviewed Ondansetron (Ondansetron Odt) 4 Mg Tab.rapdis, 4 MG SL Q8H PRN for NAUSEA/VOMITING, (Reported) Entered as Reported by: LARY STERN on 03/23/22 1016 Last Action: Reviewed Pantoprazole Sodium (Pantoprazole Sodium) 40 Mg Tablet.dr, 40 MG PO DAILY, (Reported) Entered as Reported by: LARY STERN on 03/23/22 1016 Last Action: Reviewed Polyethylene Glycol 3350 (Miralax) 17 Gm Powd.pack, 17 GM PO BID, (Reported) Entered as Reported by: ANNE GARCIA on 03/03/211515 Last Action: Reviewed Discontinued Medications Cefdinir (Cefdinir) 300 Mg Capsule, 300 MG PO BID Discontinued Reason: No Longer Taking Prescribed by: JONEL MERINO on 03/24/22 1032 Last Action: Discontinued Review of Systems-General ROS-Unable to Obtain: intubated and sedated unable to provide. Physical Exam-General Problems Physical Exam General Appearance: no apparent distress, other (intubated and sedated) HEENT: PERRL/EOMI, normal ENT inspection Neck: non-tender, supple Respiratory: chest non-tender, no respiratory distress, no accessory muscle use Cardiovascular: regular rate, rhythm, no JVD Gastrointestinal: soft, no organomegaly Rectal: deferred Back: normal inspection Extremities: other (contracted extremities, decreased muscle mass) Neurologic/Psychiatric: No alert; other (intubated/sedated) Skin: normal color, warm/dry Lymphatic: no adenopathy Assessment/Plan Assessment/Plan Assessment/Plan aspiration pneumonia acute resp failure intubated and 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 Will sign off, call if needed. PROCEDURE: Right u/s guided central line placement right neck prepped and draped in sterile fashion. u/s used to isolate the right IJ vein. 3 mL of 1% lidocaine was used to anest hetize the right neck. The right IJ was then accessed using u/s guidance. Dark nonpulsatile blood withdrawn. Guide wire inserted and needle removed. 11 Blade used to make small skin incision at insertion point. Dilator adanced over wire and removed. Tripple lumen catheter was then advanced over wire and wire removed. All ports accessed and flushed without difficulty. Catheter secured with 3-0 silk. Washed and dried, sterile bandage applied. Tolerated without difficulty. Chest x ray pending. Supervisory-Addendum Brief Verification & Attestation Participated in pt care: history, MDM, physical Personally performed: exam, history, MDM, supervision of care Care discussed with: Medical Student Procedures: performed (by myself) Results interpretation: Verified all documentation Verification and Attestation of Medical Student E/M Service A medical student performed and documented this service in my presence. I reviewed and verified all information documented by the medical student and made modifications to such information, when appropriate. I personally performed the physical exam and medical decision making. Zackery Ha, Jun 15, 2022,15:48 FANTASMA MADRIGAL Jun 15, 2022 13:21 ZACKERY HA DO Jun 15, 2022 15:24
[2022-06-15] MEDS ORDERED: RT-ALBUTEROL/IPRATROPIUM 3 ML (DUONEB) VIAL INH PRN (13:30)
[2022-06-15] MEDS: RT-ALBUTEROL/IPRATROPIUM 3 ML (DUONEB) VIAL INH SCH ×3 (14:14→22:15)
--- NOTE | 2022-06-15 15:19 | Diagnostic Imaging Report ---
INDICATION: Aspiration. EXAMINATION: Portable chest, 3:13 p.m. FINDINGS: There is an ET tube projecting over the trachea. NG tube enters the stomach. There is diffuse interstitial fibrotic change in the lungs that is most coarse in the apices. There are no consolidating alveolar infiltrates. There are no effusions or pneumothoraces. IMPRESSION: Moderate interstitial lung disease. No change compared to 06/14/2022. Dictated by: Dictated on workstation # [id number]
[2022-06-15] MEDS: APIXABAN 2.5 MG (ELIQUIS) TABLET PO SCH ×2 (16:15→20:48)
[2022-06-15] MEDS: MIRTAZAPINE 15 MG (REMERON) TAB PO SCH (20:48)
[2022-06-16] MEDS: NOREPINEPHRINE 8 MG/250 ML 250 ML IV SCH ×2 (01:24→10:14)
[2022-06-16] MEDS: fentaNYL DRIP PRE-MIX 250 ML IV SCH ×3 (01:44→18:22)
[2022-06-16] MEDS: PIPERACILLIN SODIUM/TAZOBACTAM 4.5 GM in NS (IVPB) 100 ML IV SCH ×3 (01:44→17:01)
[2022-06-16 02:19] VITALS: BP 117/68
[2022-06-16] MEDS: RT-ALBUTEROL/IPRATROPIUM 3 ML (DUONEB) VIAL INH SCH ×6 (02:33→23:36)
[2022-06-16 02:54] LABS: BASOPHILS # (AUTO) 0.1 10^3/uL (0.0-0.1); BASOPHILS % (AUTO) 1 % (0-10); EOSINOPHILS # (AUTO) 0.5 10^3/uL (0.0-0.3); EOSINOPHILS % (AUTO) 3 % (0-10); HEMATOCRIT 33 % (40-54); HEMOGLOBIN 10.6 g/dL (13.3-17.7); LYMPHOCYTES # (AUTO) 1.7 10^3/uL (1.0-4.0); LYMPHOCYTES % (AUTO) 10 % (12-44); MEAN CORPUSCULAR HEMOGLOBIN 29 pg (25-34); MEAN CORPUSCULAR HGB CONC 32 g/dL (32-36); MEAN CORPUSCULAR VOLUME 90 fL (80-99); MEAN PLATELET VOLUME 11.8 fL (9.0-12.2); MONOCYTES # (AUTO) 0.4 10^3/uL (0.0-1.0); MONOCYTES % (AUTO) 2 % (0-12); NEUTROPHILS # (AUTO) 14.5 10^3/uL (1.8-7.8); NEUTROPHILS % (AUTO) 81 % (42-75); PLATELET COUNT 223 10^3/uL (130-400); WHITE BLOOD COUNT 17.8 10^3/uL (4.3-11.0)
[2022-06-16 03:07] LABS: ALBUMIN 2.4 GM/DL (3.2-4.5); BILIRUBIN,TOTAL 0.3 MG/DL (0.1-1.0); CALCIUM 7.6 MG/DL (8.5-10.1); CREATININE SERUM 0.81 MG/DL (0.60-1.30); MAGNESIUM 1.6 MG/DL (1.6-2.4); PHOSPHORUS 1.5 MG/DL (2.3-4.7); POTASSIUM 2.9 MMOL/L (3.6-5.0); TOTAL PROTEIN 5.4 GM/DL (6.4-8.2)
[2022-06-16] MEDS: NS IV 1000 ML 1,000 ML IV SCH ×2 (03:43→11:44)
[2022-06-16 03:48] LABS: ABG BASE EXCESS -8.2 MMOL/L (-2.5-2.5); ABG OXYGEN SATURATION 98 % (94-100); ABG PCO2 38 MMHG (35-45); ABG PO2 93 MMHG (79-93); ABG TCO2 18.5 MMOL/L (21.0-31.0); ALLENS TEST YES-POS
[2022-06-16 03:49] LABS: INSPIRED O2 35%; PATIENT TEMP 36.9; VENTILATOR YES
[2022-06-16 03:50] LABS: ABG PH 7.28 (7.37-7.43)
[2022-06-16] MEDS: MAGNESIUM 1 GM/100 ML IVPB 100 ML IV SCH ×3 (05:05→06:08)
[2022-06-16] MEDS: POTASSIUM CL 10MEQ/50ML IVPB 50 ML IV SCH ×10 (05:06→15:06)
[2022-06-16] MEDS: KCL 20 MEQ TAB (K-DUR) PO SCH (05:09)
[2022-06-16] MEDS: PROPOFOL DRIP (ICU) 100 ML IV SCH ×3 (05:47→20:06)
[2022-06-16 07:23] VITALS: BP 111/77
[2022-06-16] MEDS: APIXABAN 2.5 MG (ELIQUIS) TABLET PO SCH ×2 (08:44→20:05)
[2022-06-16] MEDS: LORATADINE (CLARITIN) 10 MG TAB PO SCH (08:44)
[2022-06-16] MEDS: PANTOPRAZOLE 40 MG (PROTONIX) VIAL IV SCH (08:44)
[2022-06-16] MEDS: polyethylene glycoL POWDER 17 GM (MIRALAX) PACK PO SCH ×2 (08:44→20:05)
[2022-06-16] MEDS ORDERED: TROUGH ORDER-PHARMACY XX ONE (09:00)
--- NOTE | 2022-06-16 09:15 | Progress Note ---
ANAM PATEL 06/16/22 0915: Subjective Date Seen by a Provider: Jun 16, 2022 Time Seen by a Provider: 08:20 Subjective/Events-last exam Mr. Bacon is a 51 year old male with a PMHx of autism, dementia, and depression who presented to the [facility] ED with acute respiratory failure s/p an aspiration incident that occurred this morning, 06/14. The patient lives in a fdc and is non-verbal. Per ED provider report, the fdc staff reported the patient aspirated on oatmeal this morning during breakfast and demonstrated labored breathing and signs of respiratory distress. With no improvement the patient was transferred to [facility] via EMS. The patient is currently intubated and sedated for respiratory support s/p acute respiratory failure with hypoxia and respiratory acidosis. 06/15: Patient remains intubated and sedation has been titrated to accommodate low BPs. The patient has been placed on a norepinephrine protocol to manage low BPs per EICU provider. The patient is resting this morning but opens his eyes when spoken to. The patient stirred when adjusting his SCDs but calmed easily and went back to sleep. 06/16: Patient is intubated and sedated. BP remains stable. Patient did not stir during exam this morning. Central line has been placed by Surgery. Ventilator Settings: 500 / 20 / 5.0 with FiO2 of 35%. AB.07 / 65 / 81 -> 7.29 / 52 / 80 on 06/15 -> 7.28 / 38 / 93 on 06/16 Antibiotics day: 3 with Zosyn, -[id number]- Urinary catheter: in place OGT: in place Position: supine Review of Systems Unable to obtain Focused Exam Lactate Level 06/14/22 13:52: Lactic Acid Level 2.90*H 06/14/22 16:38: Lactic Acid Level 2.38*H 06/14/22 19:25: Lactic Acid Level 2.86*H Objective Exam Last Set of Vital Signs Vital Signs Date Time Temp Pulse Resp B/P (MAP) Pulse Ox O2 Delivery O2 Flow Rate FiO2 06/16/22 08:00 85 20 101/63 (76) 90 Mechanical Ventilator 21.00 06/16/22 08:00 36.3 06/16/22 07:23 35 Capillary Refill : Less Than 3 Seconds I&O Intake and Output 06/16/22 00:00 Intake Total 6450 ml Output Total 3550 ml Balance 2900 ml Intake Oral 0 ml IV Total 5750 ml Tube Feeding 520 ml Other 180 ml Output Urine Total 3550 ml General: Other (intubated and sedated) Neck: Other (R central line in place) Lungs: Normal Air Movement, Other (coarse breath sounds on R, crackles noted on L ) Heart: Regular Rate, No Murmurs Abdomen: Normal Bowel Sounds, Soft Extremities: No Edema, Normal Pulses (dorsalis pedis +2 bilaterally) Results Lab Laboratory Tests 06/15/22 11:27: Glucometer 130H 06/15/22 18:13: Glucometer 149H 06/15/22 23:40: Glucometer 185H 06/16/22 02:33: Blood Gas Puncture Site R RAD, Blood Gas Patient Temperature 36.9, Arterial Blood pH 7.28*L, Arterial Blood Partial Pressure CO2 38, Arterial Blood Partial Pressure O2 93, Arterial Blood HCO3 17*L, Arterial Blood Total CO2 18.5L, Arterial Blood Oxygen Saturation 98, Arterial Blood Base Excess -8.2L, Can Test YES-POS, Blood Gas Ventilator Setting YES, Blood Gas Inspired Oxygen 35% 06/16/22 02:40: White Blood Count 17.8H, Red Blood Count 3.67L, Hemoglobin 10.6L, Hematocrit 33L , Mean Corpuscular Volume 90, Mean Corpuscular Hemoglobin 29, Mean Corpuscular Hemoglobin Concent 32, Red Cell Distribution Width 14.2, Platelet Count 223, Mean Platelet Volume 11.8, Immature Granulocyte % (Auto) 3, Neutrophils (%) (Auto) 81H, Lymphocytes (%) (Auto) 10L, Monocytes (%) (Auto) 2, Eosinophils (%) (Auto) 3, Basophils (%) (Auto) 1, Neutrophils # (Auto) 14.5H, Lymphocytes # (Auto) 1.7, Monocytes # (Auto) 0.4, Eosinophils # (Auto) 0.5H, Basophils # (Auto) 0.1, Immature Granulocyte # (Auto) 0.6H, Sodium Level 141, Potassium Level 2.9L, Chloride Level 117H, Carbon Dioxide Level 15L, Anion Gap 9, Blood Urea Nitrogen 7, Creatinine 0.81, Estimat Glomerular Filtration Rate 107, BUN/Creatinine Ratio 9, Glucose Level 186H, Calcium Level 7.6L, Corrected Calcium 8.9, Phosphorus Level 1.5L, Magnesium Level 1.6, Total Bilirubin 0.3, Aspartate Amino Transf (AST/SGOT) 62H, Alanine Aminotransferase (ALT/SGPT) 39, Alkaline Phosphatase 69, Total Protein 5.4L, Albumin 2.4L 06/16/22 08:47: Microbiology 06/14/22 MRSA Screen - Final, Complete MRSA not isolated 06/14/22 Urine Culture - Preliminary, Resulted NO GROWTH 06/14/22 Blood Culture - Preliminary, Resulted No growth Radiology NAME: ZOË BACON [facility] REC#: [id number] PT STATUS: ADM IN : 1970 PHYSICIAN: OFELIA HA DO ADMIT DATE: 06/14/22/ICU Signed Date of Exam:06/15/22 CHEST 1 VIEW, AP/PA ONLY INDICATION: Aspiration. EXAMINATION: Portable chest, 3:13 p.m. FINDINGS: There is an ET tube projecting over the trachea. NG tube enters the stomach. There is diffuse interstitial fibrotic change in the lungs that is most coarse in the apices. There are no consolidating alveolar infiltrates. There are no effusions or pneumothoraces. IMPRESSION: Moderate interstitial lung disease. No change compared to 06/14/2022. Dictated by: Dictated on workstation # [id number] Dict: 06/15/22 1515 Trans: 06/15/22 1527 [id number] Interpreted by: SHARMILA RODRIGUEZ MD Electronically signed by: SHARMILA RODRIGUEZ MD 06/15/22 1527 Assessment/Plan Assessment/Plan Assess & Plan/Chief Complaint 1. Acute respiratory failure with hypoxia and respiratory acidosis / aspiration pneumonitis -> respiratory acidosis resolved on 06/16 -ET tube in place for respiratory support -Sedation with Propofol and fentanyl, titrated to accommodate lower BPs. Norepinephrine protocol in place with goals of MAP >65, SBP >90. 06/16 plan to decrease/titrate down Levophed due to MAP within goals. Monitor BP/MAP -Pantoprazole 40mg IV qd for stress ulcer ppx -Antibiotic therapy for aspiration pneumonitis/PNA ppx: -Zosyn 4.5gm for anaerobic and pseudomonas coverage: 100ml @ 30mls/hr Q8H IV -Discontinue vancomycin on 06/16, cultures grew Group A strep. MRSA not identified -Speech evaluation -Urinary catheter in place -OGT in place -Supine positioning -Appreciate plan per Critical Care -> patient is not ready for SBT at this time 06/16 -DVT ppx -> resuming Eliquis 2.5mg PO BID -Consider PEG tube placement for long-term nutrition support -Central line placed -Patient has tested positive for Group A Strep -> continue Zosyn therapy 2. Hypokalemia -Replaced with 20meq KCl - 2 bags KCl 50ml @ 50mls/hr -Resolved to 3.7 on 06/14 -> 3.3 on 06/15. Replace with KCl 50ml IV qd -> 2.9 on 06/16 Replace with KCl 50ml IV x5 3. MICHAEL with Cr 1.38 on 06/14 -> Cr 0.94 on 06/15 -> Cr 0.81 on 06/16 -Continue IV fluids -Monitor Cr -Resolved 4. Lactic acidosis, likely secondary to hypoxia. Lactate is trending down 06.16 -> 5.78 on 06/14 5. Hypomagnesemia of 1.6 on 06/16 -Replace with magnesium sulfate 2gm IV once -AM Mg level 6. Hypophosphatemia -Likely secondary to re-feeding syndrome with combined hypophosphatemia, hypokalemia, and hypomagnesemia -Replace with KPO4 or NaPO4, depending on status of KCl replacement -Continue tube feeds with electrolyte substitution, adjust tube feeds to 1000-1500kcal/day 7. Metabolic acidosis -Hyperchloremic metabolic acidosis, NS infusion rate decreased to 70mls/hr -Monitor ABG and Cl levels with AM labs Clinical Quality Measures Admission Status Admission Dx 1. Acute respiratory failure with hypoxia and respiratory acidosis / aspiration pneumonitis -ET tube in place for respiratory support -Sedation with Propofol and fentanyl -Pantoprazole 40mg IV qd for stress ulcer ppx -Antibiotic therapy for aspiration pneumonitis/PNA ppx: -Zosyn 4.5gm for anaerobic and pseudomonas coverage: 100ml @ 30mls/hr Q8H IV -Vancomycin 750 mg for MRSA coverage: 250ml @ 250mls/hr Q12H IV with vancomycin trough monitoring. Discontinue if trough exceeds 17 -Speech evaluation -Urinary catheter in place -OGT in place -Supine positioning -Appreciate plan per Critical Care -DVT ppx -> resuming Eliquis 2.5mg PO BID -Consider PEG tube placement for long-term nutrition support 2. Hypokalemia -Replaced with 20meq KCl - 2 bags KCl 50ml @ 50mls/hr -Resolved to 3.7 on 06/14 3. MICHAEL with Cr 1.38 on 06/14 -Continue IV fluids -Monitor Cr 4. Lactic acidosis, likely secondary to hypoxia. Lactate is trending down . -> 5.78 on 06/14 JONEL MERINO MD 06/16/22 1152: Assessment/Plan Assessment/Plan Assess & Plan/Chief Complaint Patient stable on vent and weaning oxygen requirement down. Still on pressors. TeleICU managing vent and weaning parameters. Will continue Zosyn and DC Vancomycin as MRSA screen negative. I attempted call mother and no answer and no identifying information on voicemail. Will try again. Would like to discuss possible PEG placement with her. Supervisory-Addendum Brief Verification & Attestation Participated in pt care: history, MDM, physical Personally performed: exam, history, MDM, supervision of care Care discussed with: Medical Student Procedures: n/a Results interpretation: Verified all documentation Verification and Attestation of Medical Student E/M Service A medical student performed and documented this service in my presence. I reviewed and verified all information documented by the medical student and made modifications to such information, when appropriate. I personally performed the physical exam and medical decision making. Jonel Merino, Jun 16, 2022,11:49 ANAM PATEL Jun 16, 2022 09:15 JONEL MERINO MD Jun 16, 2022 11:52
--- NOTE | 2022-06-16 10:04 | Tele-ICU Progress Note ---
Subjective Date Seen by a Provider: Jun 16, 2022 Time Seen by a Provider: 10:04 Subjective/Events-last exam (Tele-ICU Physician , Progress Note ) Service provided via interactive audio and video telecommunications E-CARE system to a patient admitted to ICU bed in [facility]. Available chart/ vitals / labs / Images reviewed Video assessment done using teleICU camera, rest of exam as per RN Discussed with RN Events overnight : received 2 l for hypotension Afebrile hemodynamically stable Respiratory - 21 I/O = Drips: Pressors- LEVO NS 125 VENT SETTINGS and ABG reviewed NOT CANDIDATE for SBTreviewed possible contraindications including Cardiovascular Stability /Sedation Score / FI02/PEEP / ABG / CXR/ secretions Sedation, discussed with RN, RASS +2 on fentanyl 150 propofol 50 Consultants: Hospital course: -: 51 y/o M - From Tx - Aspitation Pneumonia - Intubated.Neg Covid & Flu 06/15 - shock , received additional 2 L NS , started on levo fio2 60% 06/16 - adding vaso 06/16 - cortisol level pending , 21 % , cut down IVF A/P Acute resp failure - Intubated 06/14 -AC 20 - 450-50% + 6 secretions thick shock - received additional 2 L NS , started on levo 06/14 - levo , adding vaso 06/16 - cortisol level Aspiration PNA - 06/14 in [place] eating oatmeal and apparently "choked."= Sao2 80% - Abx started 06/14 - suspected chronic intermittent aspiration based on previous CT and reports - speach eval 03/2022- Dysphagia one (pureed) with thin liquids MICHAEL - cont hydration - RECOVERED Elevated lactate 12 - reported SaO2 60s for > 15 min - follow - not correlates with sepsis [id number] Recent EGD 03/2023 - distal esophageal stricture - foreign body in esophagus ( veggi h/o DVT reported - ? on eliquis Anemia - no bleeding , delutional Baseline : severe dementia, AUTISTIC; NON VERBAL - cont fentanyl gtt , propofol gtt nutritional - TF started 06/15 - up to goal Elev TGL - decrease propofol Lines : R IJ 06/15 , (Central Line Necessity Reviewed) Dowell: 06/14 OG:+ Nutrition: + Analgesia: Anxiety/ delirium VTE Prophylaxis: Eliquis Stress Ulcer Prophylaxis: PPi Plans in collaboration with bedside consultants and IM MDs. Discussed with RN to reach out if any questions or concerns A total of 35 minutes of critical care time was devoted to this patient today, required to treat and/or prevent further deterioration of critical care condition ( as above ) . I am remotely monitoring this patient from another state. I am unable to do the bedside exam, and history/physical and pertinent information is taken from other notes in the computer and bedside staff. . Sepsis Event Evaluation Height, Weight, BMI Height: '" Weight: lbs. oz. kg; 22.57 BMI Method: Focused Exam Lactate Level 06/14/22 13:52: Lactic Acid Level 2.90*H 06/14/22 16:38: Lactic Acid Level 2.38*H 06/14/22 19:25: Lactic Acid Level 2.86*H Exam Exam Patient acknowledged, consented, and participated in this virtual visit which was conducted using real time audio/video Vital Signs Date Time Temp Pulse Resp B/P (MAP) Pulse Ox O2 Delivery O2 Flow Rate FiO2 06/16/22 09:56 85 101/63 06/16/22 08:00 85 20 101/63 (76) 90 Mechanical Ventilator 21.00 06/16/22 08:00 36.3 06/16/22 08:00 21 06/16/22 07:35 Mechanical Ventilator 21.00 06/16/22 07:23 61 20 98 35 06/16/22 07:00 58 43 83/59 (67) 96 Mechanical Ventilator 45.00 06/16/22 06:59 64 06/16/22 06:00 65 20 115/77 (90) 96 Mechanical Ventilator 45.00 06/16/22 05:57 112/74 06/16/22 05:47 61/33 06/16/22 05:47 68 117/68 06/16/22 05:44 68 112/74 06/16/22 05:00 67 21 109/62 (78) 96 Mechanical Ventilator 45.00 06/16/22 04:00 69 20 104/67 (79) 97 Mechanical Ventilator 45.00 06/16/22 04:00 96 Mechanical Ventilator 35 06/16/22 03:58 35 06/16/22 03:34 68 117/68 06/16/22 03:00 75 20 99/61 (74) 96 Mechanical Ventilator 45.00 06/16/22 02:19 68 20 98 35 06/16/22 02:00 70 20 117/68 (84) 98 Mechanical Ventilator 45.00 06/16/22 01:44 71 100/64 06/16/22 01:24 71 100/64 06/16/22 01:00 71 20 113/78 (90) 98 Mechanical Ventilator 45.00 06/16/22 01:00 71 06/16/22 00:00 71 20 100/64 (76) 98 Mechanical Ventilator 45.00 06/15/22 23:42 97 Mechanical Ventilator 45 06/15/22 23:41 45 06/15/22 23:34 80 100/65 06/15/22 23:00 80 20 100/65 (77) 97 Mechanical Ventilator 45.00 06/15/22 22:16 71 20 97 45 06/15/22 22:00 72 20 101/70 (80) 97 Mechanical Ventilator 45.00 06/15/22 21:22 74 113/73 06/15/22 21:22 74 113/73 06/15/22 21:00 74 20 113/73 (86) 98 Mechanical Ventilator 45.00 06/15/22 20:00 37.2 75 20 99/67 (78) 97 Mechanical Ventilator 45.00 06/15/22 19:31 98 Mechanical Ventilator 45 06/15/22 19:31 45 06/15/22 19:03 73 20 98 55 06/15/22 19:00 80 06/15/22 19:00 73 20 107/69 (82) 98 Mechanical Ventilator 55.00 06/15/22 18:00 74 20 103/68 (80) 98 Mechanical Ventilator 55.00 06/15/22 17:22 76 104/65 06/15/22 17:22 76 104/65 06/15/22 17:00 76 20 104/65 (78) 97 Mechanical Ventilator 55.00 06/15/22 16:00 50 06/15/22 16:00 97 Mechanical Ventilator 60 06/15/22 16:00 79 20 105/70 (82) 96 Mechanical Ventilator 55.00 06/15/22 15:53 36.6 06/15/22 15:12 81 101/55 06/15/22 15:00 81 20 101/55 (70) 96 Mechanical Ventilator 55.00 06/15/22 14:30 Mechanical Ventilator 55.00 06/15/22 14:24 96 118/67 06/15/22 14:14 79 20 97 55 06/15/22 14:00 80 20 120/60 (80) 97 Mechanical Ventilator 60.00 06/15/22 13:18 38.0 82 97 60 06/15/22 13:00 81 20 112/55 (74) 97 Mechanical Ventilator 60.00 06/15/22 12:47 82 123/54 06/15/22 12:36 81 06/15/22 12:30 38.0 06/15/22 12:30 50 06/15/22 12:00 82 20 123/54 (77) 97 Mechanical Ventilator 60.00 06/15/22 12:00 94 Mechanical Ventilator 60 06/15/22 12:00 38.6 06/15/22 11:23 38.6 06/15/22 11:20 Mechanical Ventilator 60.00 06/15/22 11:00 66 20 109/55 (73) 95 Mechanical Ventilator 60.00 06/15/22 10:58 67 107/54 06/15/22 10:30 67 20 95 60 I & O 06/16/22 07:00 Intake Total 6400 ml Output Total 4675 ml Balance 1725 ml Height & Weight Height: '" Weight: lbs. oz. kg; 22.57 BMI Method: General Appearance: Other (intubated and sedated) Respiratory: No Accessory Muscle Use, Crackles (bilateral crackles in lower lung herrera ) Cardiovascular: Regular Rate, Rhythm, No Edema, Normal Peripheral Pulses (R radial +2, bilateral dorsalis pedis +2) Capillary Refill: Less Than 3 Seconds Peripheral Pulses: 2+ Radial Pulses (R), 2+ Radial Pulses (L) Gastrointestinal: soft, no organomegaly Extremity: No Pedal Edema, Other (bilateral contractures of hands and feet) Neurologic/Psychiatric: Other (intubated and sedated) Skin: Normal Color, Warm/Dry Results Lab Laboratory Tests 06/14/22 14:04 06/15/22 04:32 06/16/22 02:40 Assessment/Plan Assessment/Plan 1 LELIA MASSEY MD Jun 16, 2022 10:04
[2022-06-16] MEDS: VANCOMYCIN 750 MG/NS 250 ML IVPB IV SCH ×2 (10:08)
[2022-06-16 11:05] VITALS: BP 115/77
[2022-06-16] MEDS: VASOPRESSIN INJECTION 20 UNIT in NS (IVPB) 100 ML IV SCH ×2 (11:15→22:21)
[2022-06-16] MEDS ORDERED: METOCLOPRAMIDE INJ 10 MG/2 ML (REGLAN) IVP PRN (13:00)
[2022-06-16 15:14] VITALS: BP 115/77
[2022-06-16] MEDS: inSUlin ASPART (NovoLOG) 1 UNIT/0.01 ML (CHARGE PER UNIT) SC SCH (17:42)
[2022-06-16 19:21] VITALS: BP 102/78
[2022-06-16] MEDS: MIRTAZAPINE 15 MG (REMERON) TAB PO SCH (20:05)
[2022-06-16] MEDS ORDERED: VASOPRESSIN (PYXIS DRIP KIT) 20 UNIT/1 ML VIAL ONE (22:16)
[2022-06-16] MEDS ORDERED: NS (IVPB) 100 ML ONE (22:17)
[2022-06-16 23:31] VITALS: BP 130/87
[2022-06-17] MEDS: inSUlin ASPART (NovoLOG) 1 UNIT/0.01 ML (CHARGE PER UNIT) SC SCH ×4 (00:20→18:09)
[2022-06-17] MEDS: NOREPINEPHRINE 8 MG/250 ML 250 ML IV SCH (00:42)
[2022-06-17] MEDS: NS IV 1000 ML 1,000 ML IV SCH ×2 (01:16→15:34)
[2022-06-17] MEDS: PIPERACILLIN SODIUM/TAZOBACTAM 4.5 GM in NS (IVPB) 100 ML IV SCH ×3 (01:18→18:23)
[2022-06-17 03:09] VITALS: BP 123/83
[2022-06-17] MEDS: RT-ALBUTEROL/IPRATROPIUM 3 ML (DUONEB) VIAL INH SCH ×6 (03:12→22:39)
[2022-06-17 04:19] LABS: BASOPHILS % (AUTO) 0 % (0-10); EOSINOPHILS # (AUTO) 0.6 10^3/uL (0.0-0.3); EOSINOPHILS % (AUTO) 6 % (0-10); HEMATOCRIT 31 % (40-54); HEMOGLOBIN 10.2 g/dL (13.3-17.7); LYMPHOCYTES # (AUTO) 1.3 10^3/uL (1.0-4.0); LYMPHOCYTES % (AUTO) 11 % (12-44); MEAN CORPUSCULAR HEMOGLOBIN 29 pg (25-34); MEAN CORPUSCULAR HGB CONC 33 g/dL (32-36); MEAN CORPUSCULAR VOLUME 86 fL (80-99); MEAN PLATELET VOLUME 11.3 fL (9.0-12.2); MONOCYTES # (AUTO) 0.5 10^3/uL (0.0-1.0); MONOCYTES % (AUTO) 4 % (0-12); NEUTROPHILS # (AUTO) 8.7 10^3/uL (1.8-7.8); NEUTROPHILS % (AUTO) 78 % (42-75); PLATELET COUNT 199 10^3/uL (130-400); WHITE BLOOD COUNT 11.2 10^3/uL (4.3-11.0)
[2022-06-17 04:36] LABS: ALBUMIN 2.3 GM/DL (3.2-4.5); POTASSIUM 2.9 MMOL/L (3.6-5.0)
[2022-06-17 04:37] LABS: CALCIUM 7.5 MG/DL (8.5-10.1)
[2022-06-17 04:38] LABS: TOTAL PROTEIN 5.4 GM/DL (6.4-8.2)
[2022-06-17 04:40] LABS: BILIRUBIN,TOTAL 0.5 MG/DL (0.1-1.0)
[2022-06-17 04:42] LABS: CREATININE SERUM 0.68 MG/DL (0.60-1.30)
[2022-06-17 04:43] LABS: PHOSPHORUS 1.2 MG/DL (2.3-4.7)
[2022-06-17 04:45] LABS: MAGNESIUM 1.7 MG/DL (1.6-2.4)
[2022-06-17] MEDS: POTASSIUM CL 10MEQ/50ML IVPB 50 ML IV SCH ×6 (05:01→08:19)
[2022-06-17] MEDS: KCL 20 MEQ TAB (K-DUR) PO SCH (05:02)
[2022-06-17] MEDS: MAGNESIUM 1 GM/100 ML IVPB 100 ML IV SCH ×3 (05:02→06:11)
[2022-06-17] MEDS: fentaNYL DRIP PRE-MIX 250 ML IV SCH ×2 (06:14→19:52)
[2022-06-17 07:20] VITALS: BP 106/73
[2022-06-17] MEDS: APIXABAN 2.5 MG (ELIQUIS) TABLET PO SCH ×2 (08:18→20:55)
[2022-06-17] MEDS: polyethylene glycoL POWDER 17 GM (MIRALAX) PACK PO SCH ×2 (08:18→20:55)
[2022-06-17] MEDS: PANTOPRAZOLE 40 MG (PROTONIX) VIAL IV SCH (08:18)
[2022-06-17] MEDS: LORATADINE (CLARITIN) 10 MG TAB PO SCH (08:18)
--- NOTE | 2022-06-17 09:05 | Progress Note ---
ANAM PATEL 06/17/22 0905: Subjective Date Seen by a Provider: Jun 17, 2022 Time Seen by a Provider: 07:50 Subjective/Events-last exam Mr. Bacon is a 51 year old male with a PMHx of autism, dementia, and depression who presented to the [facility] ED with acute respiratory failure s/p an aspiration incident that occurred this morning, 06/14. The patient lives in a intermediate and is non-verbal. Per ED provider report, the intermediate staff reported the patient aspirated on oatmeal this morning during breakfast and demonstrated labored breathing and signs of respiratory distress. With no improvement the patient was transferred to [facility] via EMS. The patient is currently intubated and sedated for respiratory support s/p acute respiratory failure with hypoxia and respiratory acidosis. 06/15: Patient remains intubated and sedation has been titrated to accommodate low BPs. The patient has been placed on a norepinephrine protocol to manage low BPs per EICU provider. The patient is resting this morning but opens his eyes when spoken to. The patient stirred when adjusting his SCDs but calmed easily and went back to sleep. 06/16: Patient is intubated and sedated. BP remains stable. Patient did not stir during exam this morning. Central line has been placed by Surgery. 06/17: Patient is intubated and sedated. BP/MAP remains stable. Ventilator Settings: 500 / 20 / 5.0 with FiO2 of 30%. AB.07 / 65 / 81 -> 7.29 / 52 / 80 on 06/15 -> 7.28 / 38 / 93 on 06/16 Antibiotics day: 4 with -[id number]-n-, -[id number]-c-y-c-i-n- -> 06/17 transition to amoxicillin 1000mg PO qd x10 days Urinary catheter: in place OGT: in place Position: supine Review of Systems Unable to obtain Focused Exam Lactate Level 06/14/22 13:52: Lactic Acid Level 2.90*H 06/14/22 16:38: Lactic Acid Level 2.38*H 06/14/22 19:25: Lactic Acid Level 2.86*H Objective Exam Last Set of Vital Signs Vital Signs Date Time Temp Pulse Resp B/P (MAP) Pulse Ox O2 Delivery O2 Flow Rate FiO2 06/17/22 08:00 89 20 106/73 (84) 97 Mechanical Ventilator 21.00 06/17/22 07:20 21 06/17/22 04:00 36.8 Capillary Refill : Less Than 3 Seconds I&O Intake and Output 06/17/22 00:00 Intake Total 5870 ml Output Total 4450 ml Balance 1420 ml IV Total 4850 ml Tube Feeding 680 ml Other 340 ml Output Urine Total 4450 ml General: Other (intubated and sedated) Lungs: Other (coarse breath sounds bilaterally) Heart: Regular Rate, No Murmurs Abdomen: Normal Bowel Sounds, Soft Extremities: No Edema, Normal Pulses (dorsalis pedis +2 bilaterally) Results Lab Laboratory Tests 06/16/22 13:10: Potassium Level 3.2L 06/16/22 17:37: Glucometer 146H 06/17/22 00:06: Glucometer 106 06/17/22 04:10: Potassium Level 2.9L, White Blood Count 11.2H, Red Blood Count 3.55L, Hemoglobin 10.2L, Hematocrit 31L, Mean Corpuscular Volume 86, Mean Corpuscular Hemoglobin 29, Mean Corpuscular Hemoglobin Concent 33, Red Cell Distribution Width 14.1, Platelet Count 199, Mean Platelet Volume 11.3, Immature Granulocyte % (Auto) 0, Neutrophils (%) (Auto) 78H, Lymphocytes (%) (Auto) 11L, Monocytes (%) (Auto) 4, Eosinophils (%) (Auto) 6, Basophils (%) (Auto) 0, Neutrophils # (Auto) 8.7H, Lymphocytes # (Auto) 1.3, Monocytes # (Auto) 0.5, Eosinophils # (Auto) 0.6H, Basophils # (Auto) 0.0, Immature Granulocyte # (Auto) 0.1, Sodium Level 135, Chloride Level 110H, Carbon Dioxide Level 18L, Anion Gap 7, Blood Urea Nitrogen 5L, Creatinine 0.68, Estimat Glomerular Filtration Rate 113, BUN/Creatinine Ratio 7, Glucose Level 128H, Calcium Level 7.5L, Corrected Calcium 8.9, Phosphor us Level 1.2L, Magnesium Level 1.7, Total Bilirubin 0.5, Aspartate Amino Transf (AST/SGOT) 51H, Alanine Aminotransferase (ALT/SGPT) 37, Alkaline Phosphatase 88, Total Protein 5.4L, Albumin 2.3L Microbiology 06/14/22 MRSA Screen - Final, Complete MRSA not isolated 06/14/22 Urine Culture - Final, Complete NO GROWTH 06/14/22 Blood Culture - Preliminary, Resulted No growth Assessment/Plan Assessment/Plan Assess & Plan/Chief Complaint 1. Acute respiratory failure with hypoxia and respiratory acidosis / aspiration pneumonitis -> respiratory acidosis resolved on 06/16 -ET tube in place for respiratory support -Sedation with Propofol and fentanyl, titrated to accommodate lower BPs. Norepinephrine protocol in place with goals of MAP >65, SBP >90. 06/16 plan to decrease/titrate down Levophed due to MAP within goals. Monitor BP/MAP -Pantoprazole 40mg IV qd for stress ulcer ppx -Antibiotic therapy for aspiration pneumonitis/PNA ppx: -Zosyn 4.5gm for anaerobic and pseudomonas coverage: 100ml @ 30mls/hr Q8H IV - Discontinue on 06/17, cultures grew Group A strep. Pseudomonas/anaerobic bacterium not identified -Discontinue vancomycin on 06/16, cultures grew Group A strep. MRSA not identified -06/17 transition to amoxicillin 1000mg PO qd x 10 days for Group A strep infection -Speech evaluation -Urinary catheter in place -OGT in place -Supine positioning -Appreciate plan per Critical Care -> decrease sedation and initiate SBT 06/17 -DVT ppx -> resuming Eliquis 2.5mg PO BID -Consider PEG tube placement for long-term nutrition support -Central line placed 2. Hypokalemia -Resolved to 3.7 on 06/14 s/p replacement -> 3.3 on 06/15. Replace with KCl 50ml IV qd -> 2.9 on 06/16 Replace with KCl 50ml IV x5 -> 2.9 on 06/17, continue replacement 3. MICHAEL with Cr 1.38 on 06/14 -> Cr 0.94 on 06/15 -> Cr 0.81 on 06/16 -Continue IV fluids -Monitor Cr -Resolved 4. Lactic acidosis, likely secondary to hypoxia. Lactate is trending down 06.16 -> 5.78 on 06/14 5. Hypomagnesemia of 1.6 on 06/16 ->1.7 on 06/17 -Replace with magnesium sulfate 2gm IV once -AM Mg level 6. Hypophosphatemia 1.5 on 06/16 -> 1.2 on 06/17 -Likely secondary to re-feeding syndrome with combined hypophosphatemia, hypokalemia, and hypomagnesemia -Replace with KPO4 or NaPO4, depending on status of KCl replacement -Continue tube feeds with electrolyte substitution, adjust tube feeds to 1000- 1500kcal/day 7. Metabolic acidosis -Hyperchloremic metabolic acidosis, NS infusion rate decreased to 70mls/hr -Monitor ABG and Cl levels with AM labs -Cl 117 06/16 -> 110 on 06/17 Clinical Quality Measures Admission Status Admission Dx 1. Acute respiratory failure with hypoxia and respiratory acidosis / aspiration pneumonitis -ET tube in place for respiratory support -Sedation with Propofol and fentanyl -Pantoprazole 40mg IV qd for stress ulcer ppx -Antibiotic therapy for aspiration pneumonitis/PNA ppx: -Zosyn 4.5gm for anaerobic and pseudomonas coverage: 100ml @ 30mls/hr Q8H IV -Vancomycin 750 mg for MRSA coverage: 250ml @ 250mls/hr Q12H IV with vancomycin trough monitoring. Discontinue if trough exceeds 17 -Speech evaluation -Urinary catheter in place -OGT in place -Supine positioning -Appreciate plan per Critical Care -DVT ppx -> resuming Eliquis 2.5mg PO BID -Consider PEG tube placement for long-term nutrition support 2. Hypokalemia -Replaced with 20meq KCl - 2 bags KCl 50ml @ 50mls/hr -Resolved to 3.7 on 06/14 3. MICHAEL with Cr 1.38 on 06/14 -Continue IV fluids -Monitor Cr 4. Lactic acidosis, likely secondary to hypoxia. Lactate is trending down 12.28 -> 5.78 on 06/14 JONEL MERINO MD 06/17/22 1106: Assessment/Plan Assessment/Plan Assess & Plan/Chief Complaint Patient remains sedated on vent. No family at bedside and no review of systems possible. Discussed with RN and they are going to try a spontaneous breathing trial today. He is still currently on 2 pressors though blood pressure is adequate discussed weaning that as well. I did return to the room yesterday and speak with patient's mother about potential for PEG tube. She requested time to think about this and see how he does off the ventilator. Supervisory-Addendum Brief Verification & Attestation Participated in pt care: history, MDM, physical Personally performed: exam, history, MDM, supervision of care Care discussed with: Medical Student Procedures: n/a Results interpretation: Verified all documentation Verification and Attestation of Medical Student E/M Service A medical student performed and documented this service in my presence. I reviewed and verified all information documented by the medical student and made modifications to such information, when appropriate. I personally performed the physical exam and medical decision making. Jonel Merino, Jun 17, 2022,11:02 ANAM PATEL Jun 17, 2022 09:05 JONEL MERINO MD Jun 17, 2022 11:06
[2022-06-17] MEDS: VASOPRESSIN INJECTION 20 UNIT in NS (IVPB) 100 ML IV SCH ×2 (09:57→20:55)
[2022-06-17 10:42] VITALS: BP 109/76
--- NOTE | 2022-06-17 10:56 | Tele-ICU Progress Note ---
Subjective Date Seen by a Provider: Jun 17, 2022 Time Seen by a Provider: 10:56 Subjective/Events-last exam (Tele-ICU Physician , Progress Note ) Service provided via interactive audio and video telecommunications E-CARE system to a patient admitted to ICU bed in [facility]. Available chart/ vitals / labs / Images reviewed Video assessment done using teleICU camera, rest of exam as per RN Discussed with RN Events overnight : received 2 l for hypotension Afebrile hemodynamically stable Respiratory - 21 I/O = Drips: Pressors- LEVO NS 125 VENT SETTINGS and ABG reviewed CANDIDATE for SBTreviewed possible contraindications including Cardiovascular Stability /Sedation Score / FI02/PEEP / ABG / CXR/ secretions Sedation, discussed with RN, RASS -1 on fentanyl propofol Consultants: Hospital course: -: 51 y/o M - From [place] - Aspitation Pneumonia - Intubated.Neg Covid & Flu 06/15 - shock , received additional 2 L NS , started on levo fio2 60% 06/16 - adding vaso 06/16 - cortisol level pending , 21 % , cut down IVF 06/17 21 levo . o.03 , vaso A/P Acute resp failure - Intubated 06/14 -AC 20 - 450-50% + 6 secretions thick = added MUCOMIS 06/17 - try SBT todaya shock - received additional 2 L NS , started on levo 06/14 -? partially related to sedation - levo to wean off , adding vaso 06/16 - cortisol level 6 Aspiration PNA - 06/14 in [place] eating oatmeal and apparently "choked."= Sao2 80% - Abx started 06/14 - suspected chronic intermittent aspiration based on previous CT and reports - speach eval 03/2022- Dysphagia one (pureed) with thin liquids MICHAEL - cont hydration - RECOVERED Recent EGD 03/2023 - distal esophageal stricture - foreign body in esophagus ( veggi h/o DVT reported - ? on eliquis Anemia - no bleeding , delutional Baseline : severe dementia, AUTISTIC; NON VERBAL - cont fentanyl gtt , propofol gtt nutritional - TF started 06/15 - up to goal 06/15 -HIGHresiduals 06/16- - strarted on reglan _ TF on hold now Elev TGL - decrease propofol Lines : R IJ 06/15 , (Central Line Necessity Reviewed) Dowell: 06/14 OG:+ Nutrition: + Analgesia: Anxiety/ delirium VTE Prophylaxis: Eliquis Stress Ulcer Prophylaxis: PPi Plans in collaboration with bedside consultants and IM MDs. Discussed with RN to reach out if any questions or concerns A total of 35 minutes of critical care time was devoted to this patient today, required to treat and/or prevent further deterioration of critical care c ondition ( as above ) . I am remotely monitoring this patient from another state. I am unable to do the bedside exam, and history/physical and pertinent information is taken from other notes in the computer and bedside staff. . Sepsis Event Evaluation Height, Weight, BMI Height: '" Weight: lbs. oz. kg; 22.57 BMI Method: Focused Exam Lactate Level 06/14/22 13:52: Lactic Acid Level 2.90*H 06/14/22 16:38: Lactic Acid Level 2.38*H 06/14/22 19:25: Lactic Acid Level 2.86*H Exam Exam Patient acknowledged, consented, and participated in this virtual visit which was conducted using real time audio/video Vital Signs Date Time Temp Pulse Resp B/P (MAP) Pulse Ox O2 Delivery O2 Flow Rate FiO2 06/17/22 10:42 95 20 95 21 06/17/22 10:14 89 106/73 06/17/22 10:00 79 20 112/81 (91) 99 Mechanical Ventilator 21.00 06/17/22 09:57 89 106/73 06/17/22 09:00 82 20 110/78 (89) 99 Mechanical Ventilator 21.00 06/17/22 08:00 30 06/17/22 08:00 89 20 106/73 (84) 97 Mechanical Ventilator 21.00 06/17/22 08:00 96 Mechanical Ventilator 30 06/17/22 07:20 83 20 98 21 06/17/22 07:11 82 06/17/22 07:00 85 20 102/70 (81) 100 Mechanical Ventilator 21.00 06/17/22 06:14 85 107/74 06/17/22 06:00 87 20 111/75 (87) 100 Mechanical Ventilator 21.00 06/17/22 05:00 84 20 108/76 (87) 99 Mechanical Ventilator 21.00 06/17/22 04:02 30 06/17/22 04:00 95 Mechanical Ventilator 30 06/17/22 04:00 36.8 109 20 100/66 (77) 95 Mechanical Ventilator 30.00 06/17/22 03:09 86 21 99 21 06/17/22 03:00 80 20 123/83 (96) 95 Mechanical Ventilator 21.00 06/17/22 02:00 85 20 121/84 (96) 95 Mechanical Ventilator 21.00 06/17/22 01:00 80 20 116/83 (94) 96 Mechanical Ventilator 21.00 06/17/22 01:00 84 06/17/22 00:42 85 104/76 06/17/22 00:20 93 101/75 06/17/22 00:11 21 06/17/22 00:00 37.1 06/17/22 00:00 94 18 106/74 (85) 95 Mechanical Ventilator 21.00 06/17/22 00:00 93 Mechanical Ventilator 21 06/16/22 23:31 79 20 96 21 06/16/22 23:00 80 20 119/85 (96) 98 Mechanical Ventilator 21.00 06/16/22 22:24 90 120/84 06/16/22 22:23 95 120/84 06/16/22 22:21 81 120/84 06/16/22 22:00 78 19 118/80 (93) 97 Mechanical Ventilator 21.00 06/16/22 21:00 82 20 109/80 (90) 97 Mechanical Ventilator 21.00 06/16/22 20:06 96 111/84 06/16/22 20:03 93 111/84 06/16/22 20:00 90 20 104/74 (84) 97 Mechanical Ventilator 21.00 06/16/22 20:00 98 Mechanical Ventilator 21 06/16/22 19:59 36.1 06/16/22 19:58 21 06/16/22 19:21 73 20 98 21 06/16/22 19:00 80 06/16/22 19:00 80 29 111/84 (93) 96 Mechanical Ventilator 21.00 06/16/22 18:22 78 95/72 06/16/22 18:00 78 20 95/72 (80) 98 Mechanical Ventilator 21.00 06/16/22 17:00 90 20 92/67 (75) 96 Mechanical Ventilator 21.00 06/16/22 16:35 102 102/76 06/16/22 16:00 86 20 108/77 (87) 96 Mechanical Ventilator 21.00 06/16/22 16:00 36.0 06/16/22 15:52 98 Mechanical Ventilator 21 06/16/22 15:50 77 114/75 06/16/22 15:42 71 115/77 06/16/22 15:41 21 06/16/22 15:14 71 20 98 21 06/16/22 15:00 74 20 110/77 (88) 98 Mechanical Ventilator 21.00 06/16/22 14:25 81 99/65 06/16/22 14:00 81 23 99/65 (76) 97 Mechanical Ventilator 21.00 06/16/22 13:00 81 20 98/70 (79) 96 Mechanical Ventilator 21.00 06/16/22 12:43 86 06/16/22 12:37 95 Mechanical Ventilator 21 06/16/22 12:15 21 06/16/22 12:14 86 111/75 06/16/22 12:00 36.0 06/16/22 12:00 75 30 111/75 (87) 92 Mechanical Ventilator 21.00 06/16/22 11:47 67 115/77 06/16/22 11:15 67 115/77 06/16/22 11:05 67 20 93 21 06/16/22 11:00 67 20 115/77 (90) 93 Mechanical Ventilator 21.00 I & O 06/17/22 07:00 Intake Total 5300 ml Output Total 3725 ml Balance 1575 ml Height & Weight Height: '" Weight: lbs. oz. kg; 22.57 BMI Method: General Appearance: Other (intubated and sedated) Respiratory: No Accessory Muscle Use, Crackles (bilateral crackles in lower lung herrera ) Cardiovascular: Regular Rate, Rhythm, No Edema, Normal Peripheral Pulses (R radial +2, bilateral dorsalis pedis +2) Capillary Refill: Less Than 3 Seconds Peripheral Pulses: 2+ Radial Pulses (R), 2+ Radial Pulses (L) Gastrointestinal: soft, no organomegaly Extremity: No Pedal Edema, Other (bilateral contractures of hands and feet) Neurologic/Psychiatric: Other (intubated and sedated) Skin: Normal Color, Warm/Dry Results Lab Laboratory Tests 06/16/22 02:40 06/16/22 13:10 06/17/22 04:10 Assessment/Plan Assessment/Plan 1 LELIA MASSEY MD Jun 17, 2022 10:56
[2022-06-17] MEDS ORDERED: POTASSIUM PHOSPHATE INJ 15 MM in NS (IVPB) 250 ML IV NR (13:00)
[2022-06-17 13:28] LABS: CALCIUM 7.4 MG/DL (8.5-10.1); CREATININE SERUM 0.67 MG/DL (0.60-1.30); POTASSIUM 3.5 MMOL/L (3.6-5.0)
[2022-06-17 14:20] VITALS: BP 89/56
[2022-06-17] MEDS: METOCLOPRAMIDE INJ 10 MG/2 ML (REGLAN) IVP SCH ×2 (15:33→21:00)
[2022-06-17] MEDS: PROPOFOL DRIP (ICU) 100 ML IV SCH (15:34)
[2022-06-17 18:15] VITALS: BP 97/47
[2022-06-17] MEDS: MIRTAZAPINE 15 MG (REMERON) TAB PO SCH (20:55)
[2022-06-17 22:36] VITALS: BP 120/79
[2022-06-17] MEDS: aCETylcysteine 20% (MUCOMYST) 4 ML SOLN VIAL INH SCH (22:39)
[2022-06-18] MEDS: inSUlin ASPART (NovoLOG) 1 UNIT/0.01 ML (CHARGE PER UNIT) SC SCH ×5 (00:13→23:42)
[2022-06-18] MEDS: PIPERACILLIN SODIUM/TAZOBACTAM 4.5 GM in NS (IVPB) 100 ML IV SCH (01:41)
[2022-06-18 03:05] VITALS: BP 119/79
[2022-06-18] MEDS: aCETylcysteine 20% (MUCOMYST) 4 ML SOLN VIAL INH SCH ×4 (03:05→22:08)
[2022-06-18] MEDS: RT-ALBUTEROL/IPRATROPIUM 3 ML (DUONEB) VIAL INH SCH ×6 (03:05→22:00)
[2022-06-18] MEDS: NOREPINEPHRINE 8 MG/250 ML 250 ML IV SCH (04:16)
[2022-06-18 04:37] LABS: BASOPHILS % (AUTO) 1 % (0-10); EOSINOPHILS # (AUTO) 0.5 10^3/uL (0.0-0.3); EOSINOPHILS % (AUTO) 6 % (0-10); HEMATOCRIT 28 % (40-54); HEMOGLOBIN 9.5 g/dL (13.3-17.7); LYMPHOCYTES # (AUTO) 1.2 10^3/uL (1.0-4.0); LYMPHOCYTES % (AUTO) 16 % (12-44); MEAN CORPUSCULAR HEMOGLOBIN 29 pg (25-34); MEAN CORPUSCULAR HGB CONC 34 g/dL (32-36); MEAN CORPUSCULAR VOLUME 85 fL (80-99); MEAN PLATELET VOLUME 11.8 fL (9.0-12.2); MONOCYTES # (AUTO) 0.5 10^3/uL (0.0-1.0); MONOCYTES % (AUTO) 7 % (0-12); NEUTROPHILS % (AUTO) 69 % (42-75); PLATELET COUNT 181 10^3/uL (130-400); WHITE BLOOD COUNT 7.2 10^3/uL (4.3-11.0)
[2022-06-18 04:49] LABS: ALBUMIN 2.4 GM/DL (3.2-4.5); POTASSIUM 3.5 MMOL/L (3.6-5.0)
[2022-06-18 04:50] LABS: CALCIUM 7.4 MG/DL (8.5-10.1)
[2022-06-18 04:51] LABS: TOTAL PROTEIN 5.6 GM/DL (6.4-8.2)
[2022-06-18 04:53] LABS: BILIRUBIN,TOTAL 1.3 MG/DL (0.1-1.0)
[2022-06-18 04:55] LABS: CREATININE SERUM 0.68 MG/DL (0.60-1.30)
[2022-06-18 04:58] LABS: MAGNESIUM 1.7 MG/DL (1.6-2.4); PHOSPHORUS 2.5 MG/DL (2.3-4.7)
[2022-06-18] MEDS: POTASSIUM CL 10MEQ/50ML IVPB 50 ML IV SCH ×4 (05:08→23:05)
[2022-06-18] MEDS: MAGNESIUM 1 GM/100 ML IVPB 100 ML IV SCH ×3 (05:08→06:27)
[2022-06-18] MEDS: KCL 20 MEQ TAB (K-DUR) PO SCH (05:09)
[2022-06-18] MEDS: METOCLOPRAMIDE INJ 10 MG/2 ML (REGLAN) IVP SCH ×3 (05:33→21:03)
[2022-06-18] MEDS: NS IV 1000 ML 1,000 ML IV SCH ×2 (05:42→21:12)
[2022-06-18 05:50] LABS: ABG OXYGEN SATURATION 90 % (94-100); ABG PCO2 29 MMHG (35-45); ABG PH 7.39 (7.37-7.43); ABG PO2 58 MMHG (79-93); ABG TCO2 17.8 MMOL/L (21.0-31.0)
[2022-06-18 05:58] LABS: ALLENS TEST YES-POS; PATIENT TEMP 37.5; VENTILATOR YES
[2022-06-18] MEDS: fentaNYL DRIP PRE-MIX 250 ML IV SCH ×3 (06:10→23:42)
[2022-06-18] MEDS: PROPOFOL DRIP (ICU) 100 ML IV SCH ×3 (06:11→21:41)
[2022-06-18 07:47] VITALS: BP 101/74
[2022-06-18] MEDS: VASOPRESSIN INJECTION 20 UNIT in NS (IVPB) 100 ML IV SCH (08:11)
[2022-06-18] MEDS: APIXABAN 2.5 MG (ELIQUIS) TABLET PO SCH ×2 (08:19→21:03)
[2022-06-18] MEDS: PANTOPRAZOLE 40 MG (PROTONIX) VIAL IV SCH (08:19)
[2022-06-18] MEDS: LORATADINE (CLARITIN) 10 MG TAB PO SCH (08:19)
[2022-06-18] MEDS: polyethylene glycoL POWDER 17 GM (MIRALAX) PACK PO SCH ×2 (08:19→21:03)
--- NOTE | 2022-06-18 09:09 | Diagnostic Imaging Report ---
INDICATION: Respiratory failure. COMPARISON: 06/15/2022 FINDINGS: Single frontal radiographic view of the chest was obtained and demonstrates indwelling endotracheal tube with tip at the clavicular heads. Gastric tube tip terminates in the stomach. Right internal jugular central venous catheter seen with tip in right atrium. Cardiac silhouette and pulmonary vasculature stable. Lungs continue to show diffuse interstitial prominence with scattered patchy alveolar opacities. Overall, airspace disease may be slightly progressed when compared to prior exam. Small effusions may be obscured. There is no pneumothorax. IMPRESSION: 1. Bilateral infiltrate, which appears slightly progressed when compared to prior exam. 2. Lines and tubes as above. Dictated by: Dictated on workstation # [id number]
[2022-06-18 10:07] VITALS: BP 102/75
--- NOTE | 2022-06-18 10:42 | Progress Note ---
ANAM PATEL 06/18/22 10:42am: Subjective Date Seen by a Provider: Jun 18, 2022 Time Seen by a Provider: 08:25 Subjective/Events-last exam Mr. Bacon is a 51 year old male with a PMHx of autism, dementia, and depression who presented to the [facility] ED with acute respiratory failure s/p an aspiration incident that occurred this morning, 06/14. The patient lives in a snf and is non-verbal. Per ED provider report, the snf staff reported the patient aspirated on oatmeal this morning during breakfast and demonstrated labored breathing and signs of respiratory distress. With no improvement the patient was transferred to [facility] via EMS. The patient is currently intubated and sedated for respiratory support s/p acute respiratory failure with hypoxia and respiratory acidosis. 06/15: Patient remains intubated and sedation has been titrated to accommodate low BPs. The patient has been placed on a norepinephrine protocol to manage low BPs per EICU provider. The patient is resting this morning but opens his eyes when spoken to. The patient stirred when adjusting his SCDs but calmed easily and went back to sleep. 06/16: Patient is intubated and sedated. BP remains stable. Patient did not stir during exam this morning. Central line has been placed by Surgery. 06/17: Patient is intubated and sedated. BP/MAP remains stable. 06/18: Patient is intubated and sedated. Patient failed two SBTs on 06/17. Plan per Critical Care and Hospitalist is to rest today and try weaning off the ventilator throughout the weekend. Ventilator Settings: 500 / 20 / 5.0 with FiO2 of 30%. AB.07 / 65 / 81 -> 7.29 / 52 / 80 on 06/15 -> 7.28 / 38 / 93 on 06/16 -> 7.39 / 58 / 58 on 06/18 Antibiotics day: 5 with -[id number]-, -[id number]- -> 06/17 transition to amoxicillin 500mg PO TID Urinary catheter: in place OGT: in place Position: supine Review of Systems Unable to obtain Objective Exam Last Set of Vital Signs Vital Signs Date Time Temp Pulse Resp B/P (MAP) Pulse Ox O2 Delivery O2 Flow Rate FiO2 06/18/22 10:07 91 20 92 21 06/18/22 10:06 106/75 06/18/22 10:00 Mechanical Ventilator 21.00 06/18/22 08:00 37.1 Capillary Refill : Less Than 3 Seconds I&O Intake and Output 06/18/22 00:00 Intake Total 2510 ml Output Total 2175 ml Balance 335 ml Intake Oral 60 ml IV Total 2350 ml Other 100 ml Output Urine Total 2175 ml General: Other (intubated and sedated) Lungs: Other (coarse breath sounds bilaterally) Heart: Regular Rate, No Murmurs Abdomen: Normal Bowel Sounds, Soft Extremities: No Edema Results Lab Laboratory Tests 06/17/22 11:47: Glucometer 97 06/17/22 13:04: Sodium Level 132L, Potassium Level 3.5L, Chloride Level 108H, Carbon Dioxide Level 19L, Anion Gap 5, Blood Urea Nitrogen 4L, Creatinine 0.67, Estimat Glomerular Filtration Rate 114, BUN/Creatinine Ratio 6, Glucose Level 101, Calcium Level 7.4L 06/17/22 23:47: Glucometer 84 06/18/22 04:14: Sodium Level 129L, Potassium Level 3.5L, Chloride Level 103, Carbon Dioxide Level 17L, Anion Gap 9, Blood Urea Nitrogen 4L, Creatinine 0.68, Estimat Glomerular Filtration Rate 113, BUN/Creatinine Ratio 6, Glucose Level 89, Calcium Level 7.4L, White Blood Count 7.2, Red Blood Count 3.30L, Hemoglobin 9.5L, Hematocrit 28L, Mean Corpuscular Volume 85, Mean Corpuscular Hemoglobin 29, Mean Corpuscular Hemoglobin Concent 34, Red Cell Distribution Width 14.4, Platelet Count 181, Mean Platelet Volume 11.8, Immature Granulocyte % (Auto) 0, Neutrophils (%) (Auto) 69, Lymphocytes (%) (Auto) 16, Monocytes (%) (Auto) 7, Eosinophils (%) (Auto) 6, Basophils (%) (Auto) 1, Neutrophils # (Auto) 5.0, Lymphocytes # (Auto) 1.2, Monocytes # (Auto) 0.5, Eosinophils # (Auto) 0.5H, Basophils # (Auto) 0.0, Immature Granulocyte # (Auto) 0.0, Corrected Calcium 8.7, Phosphorus Level 2.5, Magnesium Level 1.7, Total Bilirubin 1.3H, Aspartate Amino Transf (AST/SGOT) 49H, Alanine Aminotransferase (ALT/SGPT) 39, Alkaline Phosphatase 143H, Total Protein 5.6L, Albumin 2.4L 06/18/22 05:30: Blood Gas Puncture Site RIGHT RADIAL, Blood Gas Patient Temperature 37.5, Arterial Blood pH 7.39, Arterial Blood Partial Pressure CO2 29L, Arterial Blood Partial Pressure O2 58L, Arterial Blood HCO3 17*L, Arterial Blood Total CO2 17.8L, Arterial Blood Oxygen Saturation 90L, Arterial Blood Base Excess -7.0L, Can Test YES-POS, Blood Gas Ventilator Setting YES, Blood Gas Inspired Oxygen NA Microbiology 06/14/22 MRSA Screen - Final, Complete MRSA not isolated 06/14/22 Urine Culture - Final, Complete NO GROWTH 06/14/22 Blood Culture - Preliminary, Resulted No growth Assessment/Plan Assessment/Plan Assess & Plan/Chief Complaint 1. Acute respiratory failure with hypoxia and respiratory acidosis / aspiration pneumonitis -> respiratory acidosis resolved on 06/16 -ET tube in place for respiratory support -Sedation with Propofol and fentanyl, titrated to accommodate lower BPs. Norepinephrine protocol in place with goals of MAP >65, SBP >90. Monitor BP/MAP -Pantoprazole 40mg IV qd for stress ulcer ppx -Antibiotic therapy for aspiration pneumonitis/PNA ppx: -Vancomycin and Zosyn discontinued -> amoxicillin 500mg PO TID for Group A strep infection -Speech evaluation -Urinary catheter in place -OGT in place -Supine positioning -Appreciate plan per Critical Care -DVT ppx -> resuming Eliquis 2.5mg PO BID -Central line placed 2. Hypokalemia -3.5 on 06/18 -Continue to replace 3. MICHAEL with Cr 1.38 on 06/14 -> Cr 0.94 on 06/15 -> Cr 0.81 on 06/16 -Resolved 4. Lactic acidosis, likely secondary to hypoxia. Lactate is trending down 06.16 -> 5.78 on 06/14 -Resolved 5. Hypomagnesemia of 1.6 on 06/16 ->1.7 on 06/17 -> 1.7 on 06/18 -Replace with magnesium sulfate 2gm IV once if Mg <1.7 -AM Mg level 6. Hypophosphatemia 1.5 on 06/16 -> 1.2 on 06/17 -> 2.5 on 06/18 resolved -Likely secondary to re-feeding syndrome with combined hypophosphatemia, hypokalemia, and hypomagnesemia -Replace with KPO4 or NaPO4, depending on status of KCl replacement -Continue tube feeds with electrolyte substitution 7. Metabolic acidosis -Hyperchloremic metabolic acidosis, NS infusion rate decreased to 70mls/hr -Monitor ABG and Cl levels with AM labs -Cl 117 06/16 -> 110 on 06/17 -> 103 on 06/18 resolved Clinical Quality Measures Admission Status Admission Dx 1. Acute respiratory failure with hypoxia and respiratory acidosis / aspiration pneumonitis -ET tube in place for respiratory support -Sedation with Propofol and fentanyl -Pantoprazole 40mg IV qd for stress ulcer ppx -Antibiotic therapy for aspiration pneumonitis/PNA ppx: -Zosyn 4.5gm for anaerobic and pseudomonas coverage: 100ml @ 30mls/hr Q8H IV -Vancomycin 750 mg for MRSA coverage: 250ml @ 250mls/hr Q12H IV with vancomycin trough monitoring. Discontinue if trough exceeds 17 -Speech evaluation -Urinary catheter in place -OGT in place -Supine positioning -Appreciate plan per Critical Care -DVT ppx -> resuming Eliquis 2.5mg PO BID -Consider PEG tube placement for long-term nutrition support 2. Hypokalemia -Replaced with 20meq KCl - 2 bags KCl 50ml @ 50mls/hr -Resolved to 3.7 on 06/14 3. MICHAEL with Cr 1.38 on 06/14 -Continue IV fluids -Monitor Cr 4. Lactic acidosis, likely secondary to hypoxia. Lactate is trending down .28 -> 5.78 on 06/14 JONEL MERINO MD 06/18/22 12:33pm: Assessment/Plan Assessment/Plan Assess & Plan/Chief Complaint Pt remains sedated and on vent. RN at bedside and she was able to update mom. Mom plans to call the facility pt resides in and see how his baseline quality of life is. I will call and talk with her this afternoon. Pt failed SBT x2 yesterday. Vent management per ICU. Will deescalate abx per cultures. Supervisory-Addendum Brief Verification & Attestation Participated in pt care: history, MDM, physical Personally performed: exam, history, MDM, supervision of care Care discussed with: Medical Student Procedures: n/a Results interpretation: Verified all documentation Verification and Attestation of Medical Student E/M Service A medical student performed and documented this service in my presence. I reviewed and verified all information documented by the medical student and made modifications to such information, when appropriate. I personally performed the physical exam and medical decision making. Jonel Merino, Jun 18, 2022,12:28 ANAM PATEL Jun 18, 2022 10:42 am JONEL MERINO MD Jun 18, 2022 12:33 pm
[2022-06-18] MEDS: AMOXICILLIN 500 MG (POLYMOX) CAP PO SCH ×3 (10:45→21:03)
--- NOTE | 2022-06-18 14:15 | Tele-ICU Progress Note ---
Subjective Date Seen by a Provider: Jun 18, 2022 Time Seen by a Provider: 14:15 Subjective/Events-last exam (Tele-ICU Physician , consultation) Available chart/ vitals / labs / Images reviewed H&P is from ER notes Patient's information available about PMH, allergy reviewed in EMR. ROS as per chart and RN report Video assessment done using teleICU camera, rest of exam as per RN Discussed with RN. This patient admitted with history of autism, dementia apparently aspirated and development of hypoxic respiratory failure requiring intubation and mechanical ventilation. Yesterday he failed spontaneous breathing trials. Today he remained on mechanical ventilation and sedated. His respiratory acidosis is somewhat improved. Today his blood gas revealed a pH of 7.39 PCO2 29 PO2 58. He is on 21% FiO2. His blood pressure is somewhat soft and on a Levophed at 0.02 mics and also on IV vasopressin. Receiving saline at 70 cc/h. Impression 1. Acute hypercarbic respiratory failure with metabolic acidosis. He required mechanical ventilation. His current vent settings are AC 20/450/20 1% PEEP of 6. 2. Septic shock slowly improving currently on a low-dose Levophed and vasopressin. 3. Aspiration pneumonia. Currently on mechanical ventilation. Reportedly has a distal esophageal stricture. 4. Baseline severe dementia, autistic, nonverbal. Recommendations 1. We will continue to wean vasopressors as tolerated and hydrate the patient. Will restart tube feedings at 10 cc/h and advance as tolerated. He is started on Reglan as he did not tolerate tube feeds earlier. Plans per bedside physicians and consultants. Discussed with the SALES ADMINISTRATION SPECIALIST. Sepsis Event Evaluation Height, Weight, BMI Height: '" Weight: lbs. oz. kg; 22.57 BMI Method: Exam Exam Patient acknowledged, consented, and participated in this virtual visit which was conducted using real time audio/video Vital Signs Date Time Temp Pulse Resp B/P (MAP) Pulse Ox O2 Delivery O2 Flow Rate FiO2 06/18/22 13:45 37.1 06/18/22 13:00 88 06/18/22 13:00 85 15 111/78 (89) 93 Mechanical Ventilator 21.00 06/18/22 12:01 94 Mechanical Ventilator 21 06/18/22 12:00 98 20 85/61 (69) 94 Mechanical Ventilator 21.00 06/18/22 11:59 21 06/18/22 11:49 37.9 06/18/22 11:32 92 89/60 06/18/22 11:00 92 20 82/60 (67) 92 Mechanical Ventilator 21.00 06/18/22 10:07 91 20 92 21 06/18/22 10:06 87 106/75 06/18/22 10:05 87 106/75 06/18/22 10:00 90 21 102/75 (84) 93 Mechanical Ventilator 21.00 06/18/22 09:00 89 20 101/74 (83) 93 Mechanical Ventilator 21.00 06/18/22 08:34 87 106/75 06/18/22 08:17 21 06/18/22 08:11 94 101/74 06/18/22 08:00 94 12 101/74 (83) 92 Mechanical Ventilator 21.00 06/18/22 08:00 93 Mechanical Ventilator 21 06/18/22 08:00 37.1 06/18/22 07:47 89 20 93 21 06/18/22 07:00 85 06/18/22 07:00 84 10 103/78 (86) 92 Mechanical Ventilator 21.00 06/18/22 06:11 83 111/77 06/18/22 06:10 85 111/77 06/18/22 06:00 84 19 111/77 (88) 92 Mechanical Ventilator 21.00 06/18/22 05:00 80 20 111/78 (89) 93 Mechanical Ventilator 21.00 06/18/22 04:16 80 125/82 06/18/22 04:00 37.5 80 20 122/79 (93) 94 Mechanical Ventilator 21.00 06/18/22 04:00 94 Mechanical Ventilator 21 06/18/22 03:40 21 06/18/22 03:05 80 20 94 21 06/18/22 03:00 81 20 125/82 (96) 93 Mechanical Ventilator 21.00 06/18/22 02:00 88 20 121/77 (92) 92 Mechanical Ventilator 21.00 06/18/22 01:35 112 116/79 06/18/22 01:35 112 116/79 06/18/22 01:00 84 06/18/22 01:00 86 20 114/78 (90) 92 Mechanical Ventilator 21.00 06/18/22 00:00 92 Mechanical Ventilator 21 06/18/22 00:00 37.0 87 20 111/78 (89) 92 Mechanical Ventilator 21.00 06/18/22 00:00 86 27 115/80 (92) 92 Mechanical Ventilator 21.00 06/17/22 23:30 80 112/77 06/17/22 23:29 21 06/17/22 23:00 85 20 112/77 (89) 92 Mechanical Ventilator 30.00 06/17/22 22:36 78 20 96 21 06/17/22 22:00 70 20 104/75 (85) 99 Mechanical Ventilator 30.00 06/17/22 21:10 36.8 80 20 95/66 (76) 98 Mechanical Ventilator 30.00 06/17/22 21:00 82 20 119/76 (90) 98 Mechanical Ventilator 21.00 06/17/22 20:55 87 91/65 06/17/22 20:54 86 91/65 06/17/22 20:34 93 83/55 06/17/22 20:00 98 Mechanical Ventilator 30 06/17/22 20:00 93 18 91/65 (74) 97 Mechanical Ventilator 21.00 06/17/22 19:58 30 06/17/22 19:52 92 83/55 06/17/22 19:52 91 98/66 06/17/22 19:34 36.7 06/17/22 19:00 92 06/17/22 19:00 90 20 98/66 (77) 97 Mechanical Ventilator 21.00 06/17/22 18:15 87 20 99 30 06/17/22 18:00 84 20 96/68 (77) 97 Mechanical Ventilator 21.00 06/17/22 17:00 81 20 102/69 (80) 97 Mechanical Ventilator 21.00 06/17/22 16:00 84 20 104/72 (83) 98 Mechanical Ventilator 21.00 06/17/22 15:49 30 06/17/22 15:48 98 Mechanical Ventilator 30 06/17/22 15:34 103 89/56 06/17/22 15:00 89 20 91/64 (73) 98 Mechanical Ventilator 21.00 06/17/22 14:40 37.3 06/17/22 14:20 103 20 95 21 I & O 06/18/22 07:00 Intake Total 2360 ml Output Total 2375 ml Balance -15 ml Height & Weight Height: '" Weight: lbs. oz. kg; 22.57 BMI Method: General Appearance: Other (intubated and sedated) Respiratory: No Accessory Muscle Use, Crackles (bilateral crackles in lower lung herrera ) Cardiovascular: Regular Rate, Rhythm, No Edema, Normal Peripheral Pulses (R radial +2, bilateral dorsalis pedis +2) Capillary Refill: Less Than 3 Seconds Peripheral Pulses: 2+ Radial Pulses (R), 2+ Radial Pulses (L) Gastrointestinal: soft, no organomegaly Extremity: No Pedal Edema, Other (bilateral contractures of hands and feet) Neurologic/Psychiatric: Other (intubated and sedated) Skin: Normal Color, Warm/Dry Results Lab Laboratory Tests 06/17/22 04:10 06/17/22 13:04 06/18/22 04:14 Assessment/Plan Assessment/Plan as above Critical Care: Critically Ill Patient Time spent with patient (mins): 30 JARED MATHEWS MD Jun 18, 2022 14:15
[2022-06-18 15:27] VITALS: BP 93/61
[2022-06-18] MEDS ORDERED: NS IV 1000 ML 1,000 ML IV SCH (18:00)
[2022-06-18] MEDS ORDERED: DIGOXIN 0.25 MG/ML (LANOXIN) 2 ML AMP IV NR (18:00)
[2022-06-18] MEDS: NS IV 500 ML 500 ML IV SCH (18:04)
[2022-06-18 18:48] VITALS: BP 100/72
[2022-06-18] MEDS: MIRTAZAPINE 15 MG (REMERON) TAB PO SCH (21:03)
[2022-06-18 22:02] VITALS: BP 94/64
[2022-06-19] VITALS (9 sets, daily range): BP systolic 80–149; BP diastolic 44–82
[2022-06-19] MEDS: POTASSIUM CL 10MEQ/50ML IVPB 50 ML IV SCH ×4 (00:14→05:51)
[2022-06-19] MEDS: RT-ALBUTEROL/IPRATROPIUM 3 ML (DUONEB) VIAL INH SCH ×5 (02:51→21:42)
[2022-06-19] MEDS: aCETylcysteine 20% (MUCOMYST) 4 ML SOLN VIAL INH SCH ×4 (02:59→21:49)
[2022-06-19 03:57] LABS: BASOPHILS % (AUTO) 1 % (0-10); EOSINOPHILS # (AUTO) 0.2 10^3/uL (0.0-0.3); EOSINOPHILS % (AUTO) 6 % (0-10); HEMATOCRIT 28 % (40-54); HEMOGLOBIN 9.4 g/dL (13.3-17.7); LYMPHOCYTES # (AUTO) 0.9 10^3/uL (1.0-4.0); LYMPHOCYTES % (AUTO) 24 % (12-44); MEAN CORPUSCULAR HEMOGLOBIN 29 pg (25-34); MEAN CORPUSCULAR HGB CONC 34 g/dL (32-36); MEAN CORPUSCULAR VOLUME 87 fL (80-99); MEAN PLATELET VOLUME 11.3 fL (9.0-12.2); MONOCYTES # (AUTO) 0.5 10^3/uL (0.0-1.0); MONOCYTES % (AUTO) 12 % (0-12); NEUTROPHILS # (AUTO) 2.2 10^3/uL (1.8-7.8); NEUTROPHILS % (AUTO) 57 % (42-75); PLATELET COUNT 192 10^3/uL (130-400); WHITE BLOOD COUNT 3.8 10^3/uL (4.3-11.0)
[2022-06-19 04:05] LABS: POTASSIUM 3.6 MMOL/L (3.6-5.0)
[2022-06-19 04:07] LABS: ALBUMIN 2.3 GM/DL (3.2-4.5); CALCIUM 7.9 MG/DL (8.5-10.1); POTASSIUM 3.6 MMOL/L (3.6-5.0)
[2022-06-19 04:08] LABS: CALCIUM 7.8 MG/DL (8.5-10.1)
[2022-06-19 04:09] LABS: TOTAL PROTEIN 5.6 GM/DL (6.4-8.2)
[2022-06-19 04:11] LABS: BILIRUBIN,TOTAL 0.7 MG/DL (0.1-1.0); CREATININE SERUM 0.72 MG/DL (0.60-1.30); PHOSPHORUS 2.6 MG/DL (2.3-4.7)
[2022-06-19 04:13] LABS: CREATININE SERUM 0.75 MG/DL (0.60-1.30); MAGNESIUM 2.4 MG/DL (1.6-2.4)
[2022-06-19 04:24] LABS: ABG BASE EXCESS -8.2 MMOL/L (-2.5-2.5); ABG OXYGEN SATURATION 85 % (94-100); ABG PCO2 39 MMHG (35-45); ABG PO2 60 MMHG (79-93); ABG TCO2 18.3 MMOL/L (21.0-31.0)
[2022-06-19] MEDS: NOREPINEPHRINE 8 MG/250 ML 250 ML IV SCH (04:25)
[2022-06-19 04:26] LABS: ABG PH 7.27 (7.37-7.43)
[2022-06-19] MEDS: KCL 20 MEQ TAB (K-DUR) PO SCH (04:26)
[2022-06-19] MEDS: MAGNESIUM 1 GM/100 ML IVPB 100 ML IV SCH (04:26)
[2022-06-19 04:27] LABS: ALLENS TEST YES-POS; INSPIRED O2 21%; PATIENT TEMP 37.7; VENTILATOR YES
[2022-06-19] MEDS: inSUlin ASPART (NovoLOG) 1 UNIT/0.01 ML (CHARGE PER UNIT) SC SCH ×4 (04:27→23:05)
[2022-06-19] MEDS: METOCLOPRAMIDE INJ 10 MG/2 ML (REGLAN) IVP SCH ×3 (05:51→20:25)
[2022-06-19] MEDS: fentaNYL DRIP PRE-MIX 250 ML IV SCH ×2 (08:01→20:25)
[2022-06-19] MEDS: AMOXICILLIN 500 MG (POLYMOX) CAP PO SCH ×3 (08:02→20:25)
[2022-06-19] MEDS: APIXABAN 2.5 MG (ELIQUIS) TABLET PO SCH ×2 (08:02→20:25)
[2022-06-19] MEDS: polyethylene glycoL POWDER 17 GM (MIRALAX) PACK PO SCH ×2 (08:02→20:25)
[2022-06-19] MEDS: LORATADINE (CLARITIN) 10 MG TAB PO SCH (08:02)
[2022-06-19] MEDS: PANTOPRAZOLE 40 MG (PROTONIX) VIAL IV SCH (08:02)
[2022-06-19] MEDS: PROPOFOL DRIP (ICU) 100 ML IV SCH ×2 (09:59→22:16)
[2022-06-19] MEDS: NS IV 1000 ML 1,000 ML IV SCH (09:59)
[2022-06-19] MEDS: NS IV 500 ML 500 ML IV SCH (10:11)
--- NOTE | 2022-06-19 11:10 | Tele-ICU Progress Note ---
Subjective Date Seen by a Provider: Jun 19, 2022 Time Seen by a Provider: 11:07 Subjective/Events-last exam (Tele-ICU Physician , Progress note) Available chart/ vitals / labs / Images reviewed H&P is from ER notes Patient's information available about PMH, allergy reviewed in EMR. ROS as per chart and RN report Video assessment done using teleICU camera, rest of exam as per RN Discussed with RN. This patient admitted with history of autism, dementia apparently aspirated and development of hypoxic respiratory failure requiring intubation and mechanical ventilation. Yesterday he failed spontaneous breathing trials. Today he remained on mechanical ventilation and sedated. His respiratory acidosis is somewhat improved. Today his blood gas revealed a pH of 7.39 PCO2 29 PO2 58. He is on 21% FiO2. His blood pressure is somewhat soft and on a Levophed at 0.02 mics and also on IV vasopressin. Receiving saline at 70 cc/h. Impression 1. Acute hypercarbic respiratory failure with metabolic acidosis. He required mechanical ventilation. His current vent settings are AC 20/450/20 1% PEEP of 6. 2. Septic shock slowly improving currently on a low-dose Levophed and vasopressin. 3. Aspiration pneumonia. Currently on mechanical ventilation. Reportedly has a distal esophageal stricture. 4. Baseline severe dementia, autistic, nonverbal. 5. Hyperchloremic non gap acidosis Recommendations 1. We will continue to wean vasopressors as tolerated and hydrate the patient. Will restart tube feedings at 10 cc/h and advance as tolerated. He is started on Reglan as he did not tolerate tube feeds earlier. 2. Will give kcl rider and change ivf to !/2 ns 3. Not ready for sbt. family considering PEG insertion. Plans per bedside physicians and consultants. Discussed with the TRANSMITTER ENGINEER. Sepsis Event Evaluation Height, Weight, BMI Height: '" Weight: lbs. oz. kg; 22.72 BMI Method: Focused Exam Lactate Level 06/19/22 05:48: Lactic Acid Level 0.62 Exam Exam Patient acknowledged, consented, and participated in this virtual visit which was conducted using real time audio/video Vital Signs Date Time Temp Pulse Resp B/P (MAP) Pulse Ox O2 Delivery O2 Flow Rate FiO2 06/19/22 10:12 123 20 95 35 06/19/22 10:00 122 16 94/58 (70) 98 Mechanical Ventilator 35.00 06/19/22 09:59 124 94/51 06/19/22 09:00 124 20 94/51 (65) 94 Mechanical Ventilator 35.00 06/19/22 08:57 94 Mechanical Ventilator 35 06/19/22 08:01 126 88/61 06/19/22 08:00 35 06/19/22 08:00 37.3 06/19/22 08:00 130 20 88/49 (62) 98 Mechanical Ventilator 35.00 06/19/22 07:00 132 06/19/22 07:00 129 20 97/63 (74) 98 Mechanical Ventilator 35.00 06/19/22 06:40 126 20 97 35 06/19/22 06:00 128 20 91/61 (71) 95 Mechanical Ventilator 35.00 06/19/22 05:00 129 26 93/66 (75) 99 Mechanical Ventilator 35.00 06/19/22 04:25 120 87/56 06/19/22 04:00 37.6 128 20 96/56 (69) 100 Mechanical Ventilator 35.00 06/19/22 04:00 95 Mechanical Ventilator 35 06/19/22 03:58 21 06/19/22 03:42 120 87/56 06/19/22 03:00 122 20 98/61 (73) 97 Mechanical Ventilator 21.00 06/19/22 02:53 120 20 92 21 06/19/22 02:00 125 20 106/73 (84) 95 Mechanical Ventilator 21.00 06/19/22 01:41 128 86/55 06/19/22 01:00 124 20 90/52 (65) 92 Mechanical Ventilator 21.00 06/19/22 01:00 124 06/19/22 00:15 125 20 94/59 (71) 90 Mechanical Ventilator 21.00 06/18/22 23:49 37.4 125 20 85/52 (63) 91 Mechanical Ventilator 21.00 06/18/22 23:45 92 Mechanical Ventilator 21 06/18/22 23:45 21 06/18/22 23:42 128 86/55 06/18/22 23:00 128 20 86/55 (65) 94 Mechanical Ventilator 21.00 06/18/22 22:02 121 20 93 21 06/18/22 22:00 118 20 94/64 (74) 94 Mechanical Ventilator 21.00 06/18/22 21:41 116 85/62 06/18/22 21:00 37.7 116 20 85/62 (70) 94 Mechanical Ventilator 21.00 06/18/22 20:30 116 20 85/55 (65) 95 Mechanical Ventilator 21.00 06/18/22 19:54 95 Mechanical Ventilator 21 06/18/22 19:52 21 06/18/22 19:00 109 20 117/71 (86) 95 Mechanical Ventilator 21.00 06/18/22 19:00 109 06/18/22 18:48 117 20 93 21 06/18/22 18:04 120 73/48 06/18/22 18:03 120 73/48 06/18/22 18:00 120 20 82/55 (64) 96 Mechanical Ventilator 21.00 06/18/22 17:51 120 74/49 06/18/22 17:28 37.6 06/18/22 17:00 112 19 110/76 (87) 92 Mechanical Ventilator 21.00 06/18/22 16:33 37.4 06/18/22 16:00 104 19 103/60 (74) 93 Mechanical Ventilator 21.00 06/18/22 16:00 37.9 06/18/22 15:37 21 06/18/22 15:37 94 Mechanical Ventilator 21 06/18/22 15:36 81 110/74 06/18/22 15:27 99 20 94 21 06/18/22 15:00 95 16 93/61 (72) 97 Mechanical Ventilator 21.00 06/18/22 14:30 81 110/74 06/18/22 14:00 81 20 110/74 (86) 92 Mechanical Ventilator 21.00 06/18/22 13:45 37.1 06/18/22 13:00 88 06/18/22 13:00 85 15 111/78 (89) 93 Mechanical Ventilator 21.00 06/18/22 12:01 94 Mechanical Ventilator 21 06/18/22 12:00 98 20 85/61 (69) 94 Mechanical Ventilator 21.00 06/18/22 11:59 21 06/18/22 11:49 37.9 06/18/22 11:32 92 89/60 I & O 06/19/22 07:00 Intake Total 3725 ml Output Total 5700 ml Balance -1975 ml Height & Weight Height: '" Weight: lbs. oz. kg; 22.72 BMI Method: General Appearance: Other (intubated and sedated) Respiratory: No Accessory Muscle Use, Crackles (bilateral crackles in lower lung herrera ) Cardiovascular: Regular Rate, Rhythm, No Edema, Normal Peripheral Pulses (R radial +2, bilateral dorsalis pedis +2) Capillary Refill: Less Than 3 Seconds Peripheral Pulses: 2+ Radial Pulses (R), 2+ Radial Pulses (L) Gastrointestinal: soft, no organomegaly Extremity: No Pedal Edema, Other (bilateral contractures of hands and feet) Neurologic/Psychiatric: Other (intubated and sedated) Skin: Normal Color, Warm/Dry Results Lab Laboratory Tests 06/17/22 13:04 06/18/22 04:14 06/19/22 03:36 Assessment/Plan Assessment/Plan as above Critical Care: Critically Ill Patient Time spent with patient (mins): 30 JARED MATHEWS MD Jun 19, 2022 11:10
[2022-06-19] MEDS: 1/2 NS IV SOLUTION 1,000 ML IV SCH (11:57)
--- NOTE | 2022-06-19 13:06 | Progress Note ---
ANAM PATEL 06/19/22 1306: Subjective Date Seen by a Provider: Jun 19, 2022 Time Seen by a Provider: 08:40 Subjective/Events-last exam Mr. Bacon is a 51 year old male with a PMHx of autism, dementia, and depression who presented to the [facility] ED with acute respiratory failure s/p an aspiration incident that occurred this morning, 06/14. The patient lives in a skilled nursing and is non-verbal. Per ED provider report, the skilled nursing staff reported the patient aspirated on oatmeal this morning during breakfast and demonstrated labored breathing and signs of respiratory distress. With no improvement the patient was transferred to [facility] via EMS. The patient is currently intubated and sedated for respiratory support s/p acute respiratory failure with hypoxia and respiratory acidosis. 06/15: Patient remains intubated and sedation has been titrated to accommodate low BPs. The patient has been placed on a norepinephrine protocol to manage low BPs per EICU provider. The patient is resting this morning but opens his eyes when spoken to. The patient stirred when adjusting his SCDs but calmed easily and went back to sleep. 06/16: Patient is intubated and sedated. BP remains stable. Patient did not stir during exam this morning. Central line has been placed by Surgery. 06/17: Patient is intubated and sedated. BP/MAP remains stable. 06/18: Patient is intubated and sedated. Patient failed two SBTs on 06/17. Plan per Critical Care and Hospitalist is to rest today and try weaning off the ventilator throughout the weekend. 06/19: Patient is intubate and sedated. The patient is calm, and his eyes are open/blinking at time of encounter. Plan per Critical Care is to decrease sedation and initiate SBT today. Ventilator Settings: 500 / 20 / 5.0 with FiO2 of 35%. AB.07 / 65 / 81 -> 7.29 / 52 / 80 on 06/15 -> 7.28 / 38 / 93 on 06/16 -> 7.39 / 58 / 58 on 06/18 -> 7.3 / 32.2 / 76, HCO3 16.2, base excess -10 on 06/19 Antibiotics day: 5 with -Z-o-s-y-n-, -v--x-o-n-f-n-n-c-i-n- -> 06/17 transition to amoxicillin 500mg PO TID Urinary catheter: in place OGT: in place Position: supine Review of Systems Unable to obtain Focused Exam Lactate Level 06/19/22 05:48: Lactic Acid Level 0.62 Objective Exam Last Set of Vital Signs Vital Signs Date Time Temp Pulse Resp B/P (MAP) Pulse Ox O2 Delivery O2 Flow Rate FiO2 06/19/22 12:38 118 06/19/22 12:35 20 96 06/19/22 12:24 Mechanical Ventilator 35 06/19/22 12:00 102/62 (75) 35.00 06/19/22 11:53 37.6 Capillary Refill : Less Than 3 Seconds I&O Intake and Output 06/19/22 00:00 Intake Total 4865 ml Output Total 2850 ml Balance 2015 ml Intake Oral 0 ml IV Total 4226 ml Tube Feeding 129 ml Other 510 ml Output Urine Total 2850 ml # Bowel Movements 1 General: Other (intubated and sedated, patient is not over-breathing the ventilator) Lungs: Other (coarse breath sounds bilaterally) Heart: Other (regular rhythm, tachycardia) Abdomen: Normal Bowel Sounds, Soft, No Tenderness Extremities: No Edema, Normal Pulses (dorsalis pedis +2 bilaterally) Results Lab Laboratory Tests 06/18/22 17:48: Glucometer 74 06/18/22 23:38: Glucometer 75 06/19/22 03:36: White Blood Count 3.8L, Red Blood Count 3.23L, Hemoglobin 9.4L, Hematocrit 28L, Mean Corpuscular Volume 87, Mean Corpuscular Hemoglobin 29, Mean Corpuscular Hemoglobin Concent 34, Red Cell Distribution Width 14.5, Platelet Count 192, Mean Platelet Volume 11.3, Immature Granulocyte % (Auto) 1, Neutrophils (%) (Auto) 57, Lymphocytes (%) (Auto) 24, Monocytes (%) (Auto) 12, Eosinophils (%) (Auto) 6, Basophils (%) (Auto) 1, Neutrophils # (Auto) 2.2, Lymphocytes # (Auto) 0.9L, Monocytes # (Auto) 0.5, Eosinophils # (Auto) 0.2, Basophils # (Auto) 0.0, Immature Granulocyte # (Auto) 0.0, Sodium Level 138, Potassium Level 3.6, Chloride Level 114H, Carbon Dioxide Level 15L, Anion Gap 9, Blood Urea Nitrogen 5L, Creatinine 0.72, Estimat Glomerular Filtration Rate 111, BUN/Creatinine Ratio 7, Glucose Level 72, Calcium Level 7.9L, Corrected Calcium 9.2, Phosphorus Level 2.6, Magnesium Level 2.4, Total Bilirubin 0.7, Aspartate Amino Transf (AST/SGOT) 42H, Alanine Aminotransferase (ALT/SGPT) 33, Alkaline Phosphatase 158H, Total Protein 5.6L, Albumin 2.3L 06/19/22 04:14: Blood Gas Puncture Site RIGHT RADIAL, Blood Gas Patient Temperature 37.7, Arterial Blood pH 7.27*L, Arterial Blood Partial Pressure CO2 39, Arterial Blood Partial Pressure O2 60L, Arterial Blood HCO3 17*L, Arterial Blood Total CO2 18.3L, Arterial Blood Oxygen Saturation 85L, Arterial Blood Base Excess -8.2L, Can Test YES-POS, Blood Gas Ventilator Setting YES, Blood Gas Inspired Oxygen 21% 06/19/22 05:48: Lactic Acid Level 0.62 06/19/22 06:40: Bedside Blood Gas pH (LAB) 7.310, Bedside Blood Gas pCO2 (LAB) 32.2L, Bedside Blood Gas pO2 (LAB) 76L, Bedside Blood Gas HCO3 (LAB) 16.2*L, POC Blood Gas Total CO2 Calc 17L, Bedside Bl Gas O2 Saturation (Calc) 94L, Bedside Arterial Blood Base Excess -10L 06/19/22 11:57: Glucometer 90 Microbiology 06/14/22 MRSA Screen - Final, Complete MRSA not isolated 06/14/22 Urine Culture - Final, Complete NO GROWTH 06/14/22 Blood Culture - Preliminary, Resulted No growth Radiology NAME: ZOË BACON [facility] REC#: [id number] PT STATUS: ADM IN : 1970 PHYSICIAN: JARED MATHEWS MD ADMIT DATE: 06/14/22/ICU Signed Date of Exam:06/18/22 CHEST 1 VIEW, AP/PA ONLY INDICATION: Respiratory failure. COMPARISON: 06/15/2022 FINDINGS: Single frontal radiographic view of the chest was obtained and demonstrates indwelling endotracheal tube with tip at the clavicular heads. Gastric tube tip terminates in the stomach. Right internal jugular central venous catheter seen with tip in right atrium. Cardiac silhouette and pulmonary vasculature stable. Lungs continue to show diffuse interstitial prominence with scattered patchy alveolar opacities. Overall, airspace disease may be slightly progressed when compared to prior exam. Small effusions may be obscured. There is no pneumothorax. IMPRESSION: 1. Bilateral infiltrate, which appears slightly progressed when compared to prior exam. 2. Lines and tubes as above. Dictated by: Dictated on workstation # [id number] Dict: 06/18/22829 Trans: 06/18/22 [id number] CVB [id number] Interpreted by: CJ GALDAMEZ MD Electronically signed by: CJ GALDAMEZ MD 06/18/22 6705 Assessment/Plan Assessment/Plan Assess & Plan/Chief Complaint 1. Acute respiratory failure with hypoxia and respiratory acidosis / aspiration pneumonitis -> respiratory acidosis resolved on 06/16 -ET tube in place for respiratory support -Sedation with Propofol and fentanyl, titrated to accommodate lower BPs. Norepinephrine protocol in place with goals of MAP >65, SBP >90. Monitor BP/MAP -Pantoprazole 40mg IV qd for stress ulcer ppx -Antibiotic therapy for aspiration pneumonitis/PNA ppx: -Vancomycin and Zosyn discontinued -> amoxicillin 500mg PO TID for Group A strep infection -Urinary catheter in place -OGT in place -Supine positioning -Appreciate plan per Critical Care -DVT ppx -> resuming Eliquis 2.5mg PO BID -Central line placed 2. Hypokalemia -3.6 on 06/19 -Continue to monitor 3. MICHAEL with Cr 1.38 on 06/14 -> Cr 0.94 on 06/15 -> Cr 0.81 on 06/16 -Resolved 4. Lactic acidosis, likely secondary to hypoxia. Lactate is trending down 06.16 -> 5.78 on 06/14 -Resolved 5. Hypomagnesemia, 2.4 on 06/19 -Replace with magnesium sulfate 2gm IV once if Mg <1.7 -AM Mg level 6. Hypophosphatemia, 2.6 on 06/19, resolved -Likely secondary to re-feeding syndrome with combined hypophosphatemia, hypokalemia, and hypomagnesemia -Continue tube feeds with electrolyte substitution 7. Metabolic acidosis -Hyperchloremic metabolic acidosis, NS infusion rate decreased to 70mls/hr -Monitor ABG and Cl levels with AM labs -Cl 117 06/16 -> 110 on 06/17 -> 103 on 06/18, 114 on 06/19 Clinical Quality Measures Admission Status Admission Dx 1. Acute respiratory failure with hypoxia and respiratory acidosis / aspiration pneumonitis -ET tube in place for respiratory support -Sedation with Propofol and fentanyl -Pantoprazole 40mg IV qd for stress ulcer ppx -Antibiotic therapy for aspiration pneumonitis/PNA ppx: -Zosyn 4.5gm for anaerobic and pseudomonas coverage: 100ml @ 30mls/hr Q8H IV -Vancomycin 750 mg for MRSA coverage: 250ml @ 250mls/hr Q12H IV with vancomycin trough monitoring. Discontinue if trough exceeds 17 -Speech evaluation -Urinary catheter in place -OGT in place -Supine positioning -Appreciate plan per Critical Care -DVT ppx -> resuming Eliquis 2.5mg PO BID -Consider PEG tube placement for long-term nutrition support 2. Hypokalemia -Replaced with 20meq KCl - 2 bags KCl 50ml @ 50mls/hr -Resolved to 3.7 on 06/14 3. MICHAEL with Cr 1.38 on 06/14 -Continue IV fluids -Monitor Cr 4. Lactic acidosis, likely secondary to hypoxia. Lactate is trending down . -> 5.78 on 06/14 JONEL MERINO MD 06/19/22 6185: Assessment/Plan Assessment/Plan Assess & Plan/Chief Complaint Patient seems more alert today. He is opening eyes and blinking and appears to track at times. He did not follow any commands though. RN reports he is still not breathing over the vent. He is having new onset tachycardia though this appears sinus. I am hesitant to give him any beta-blockers to lower this given his hypotension. They are planning on doing a spontaneous breathing trial but if he remains on the ventilator we will trial a fluid bolus to help with the t achycardia. Supervisory-Addendum Brief Verification & Attestation Participated in pt care: history, MDM, physical Personally performed: exam, history, MDM, supervision of care Care discussed with: Medical Student Procedures: n/a Results interpretation: Verified all documentation Verification and Attestation of Medical Student E/M Service A medical student performed and documented this service in my presence. I reviewed and verified all information documented by the medical student and made modifications to such information, when appropriate. I personally performed the physical exam and medical decision making. Jonel Merino, Jun 19, 2022,13:33 ANAM PATEL Jun 19, 2022 13:06 JONEL MERINO MD Jun 19, 2022 13:35
[2022-06-19 13:43] LABS: ABG BASE EXCESS -8.1 MMOL/L (-2.5-2.5); ABG OXYGEN SATURATION 97 % (94-100); ABG PCO2 38 MMHG (35-45); ABG PO2 95 MMHG (79-93); ABG TCO2 18.1 MMOL/L (21.0-31.0)
[2022-06-19] MEDS: APAP 325 MG/10.15 ML LIQ (TYLENOL) UDC PO PRN (13:44)
[2022-06-19 13:46] LABS: ABG PH 7.29 (7.37-7.43); ALLENS TEST YES-POS; PATIENT TEMP 38.2; VENTILATOR YES
[2022-06-19 13:47] LABS: INSPIRED O2 35%
[2022-06-19] MEDS ORDERED: SODIUM BICARB 8.4% 50 MEQ/50 ML (ABBOTT) SYR IV ONE ×2 (14:00→15:00)
--- NOTE | 2022-06-19 15:29 | Diagnostic Imaging Report ---
INDICATION: Shortness of breath. Comparison is made with prior exam of 06/18/2022 FINDINGS: There is diffuse bilateral airspace disease. The heart size is normal. Lines and tubes are in satisfactory position. There is no pleural effusion or pneumothorax. IMPRESSION: Diffuse bilateral airspace disease which is increased since prior examination. Some degree of underlying central pulmonary venous congestion cannot be excluded. Recommend clinical correlation. Dictated by: Dictated on workstation # [id number]
--- NOTE | 2022-06-19 16:02 | Diagnostic Imaging Report ---
EXAMINATION: Chest radiograph, portable AP view. DATE: 06/19/2022 3:57 PM INDICATION: 51-year-old male, intubation. COMPARISON: June 19, 2022 at 1524 hours. FINDINGS: The endotracheal tube is approximately 4.5 cm above the harry. The nasogastric tube extends to the inferior margin of the included [id number]. The right internal jugular central venous line overlies the cavoatrial junction. Heart size and mediastinal contours are unchanged. There is no identified pneumothorax. There is no large pleural effusion. There are bilateral interstitial and/or alveolar opacities which appear unchanged. IMPRESSION: 1. Support lines and tubes as above. There is newly placed nasogastric tube extending to the inferior margin of the included [id number]. There is interval less distention of the stomach. 2. Redemonstrated and essentially unchanged multifocal interstitial and/or alveolar opacities bilaterally. Dictated by: Dictated on workstation # [id number]
--- NOTE | 2022-06-19 16:03 | Diagnostic Imaging Report ---
EXAMINATION: Abdominal radiographs, single portable view. DATE: June 19, 2022. CLINICAL INDICATION: 51-year-old male, orogastric tube placement. COMPARISON: CT abdomen pelvis March 22, 2022. COMMENTS: The nasogastric tube is in the stomach. There are dilated gas-filled segments of small bowel. There is an abnormal amount of gas filled segments of small bowel. There is no identified pneumatosis or portal venous gas. The upper abdomen is incompletely imaged. IMPRESSION: 1. The nasogastric tube is in the stomach. 2. Abnormal but nonspecific bowel gas pattern. Distal small bowel obstruction and ileus are both considered. Dictated by: Dictated on workstation # [id number]
--- NOTE | 2022-06-19 16:03 | Tele-ICU Progress Note ---
Subjective Date Seen by a Provider: Jun 19, 2022 Time Seen by a Provider: 15:58 Subjective/Events-last exam Available chart/ vitals / labs / Images reviewed H&P is from ER notes Patient's information available about PMH, allergy reviewed in EMR. ROS as per chart and RN report Video assessment done using teleICU camera, rest of exam as per RN Discussed with RN. This afternoon patient DR. TEMI SUN trial off for SBT is extubated and patient after extubation started developing respiratory distress associated with vomiting of his stomach contents. As patient developed respiratory distress I advisedly reintubation. Respiratory therapist tried to intubate the patient but was not successful and his oxygen saturation remained low hence anesthesiologist was called and intubated the patient after intubation his oxygen saturation came into mid 90s. Heart rate is decreased from the 180s to 130s. He is put on mechanical ventilation and tolerated well. During the entire process of the video visited and the coding clerks supervisor of the procedure. Vent orders and sedation orders were given. During the process his mother was contacted who is the power of director general who made him DO NOT RESUSCITATE but he agreed with the current procedure of intubation. Diagnosis. 1. Acute respiratory distress with acute respiratory failure 2. Aspiration pneumonia. Critical care time is 1 hour. Sepsis Event Evaluation Height, Weight, BMI Height: '" Weight: lbs. oz. kg; 22.72 BMI Method: Focused Exam Lactate Level 06/19/22 05:48: Lactic Acid Level 0.62 Exam Exam Patient acknowledged, consented, and participated in this virtual visit which was conducted using real time audio/video Vital Signs Date Time Temp Pulse Resp B/P (MAP) Pulse Ox O2 Delivery O2 Flow Rate FiO2 06/19/22 15:00 129 27 149/82 (104) 06/19/22 14:12 118 103/61 06/19/22 14:00 123 27 106/65 (79) 100 Mechanical Ventilator 35.00 06/19/22 13:44 38.3 06/19/22 13:42 38.3 06/19/22 13:00 122 20 105/59 (74) 96 Mechanical Ventilator 35.00 06/19/22 12:38 118 06/19/22 12:35 124 20 96 06/19/22 12:24 97 Mechanical Ventilator 35 06/19/22 12:00 118 25 102/62 (75) 95 Mechanical Ventilator 35.00 12/31/22 11:53 37.6 06/19/22 11:50 35 06/19/22 11:50 123 99/61 06/19/22 11:00 123 18 99/61 (74) 98 Mechanical Ventilator 35.00 06/19/22 10:12 123 20 95 35 06/19/22 10:00 122 16 94/58 (70) 98 Mechanical Ventilator 35.00 06/19/22 09:59 124 94/51 06/19/22 09:00 124 20 94/51 (65) 94 Mechanical Ventilator 35.00 06/19/22 08:57 94 Mechanical Ventilator 35 06/19/22 08:01 126 88/61 06/19/22 08:00 35 06/19/22 08:00 37.3 06/19/22 08:00 130 20 88/49 (62) 98 Mechanical Ventilator 35.00 06/19/22 07:00 132 06/19/22 07:00 129 20 97/63 (74) 98 Mechanical Ventilator 35.00 06/19/22 06:40 126 20 97 35 06/19/22 06:00 128 20 91/61 (71) 95 Mechanical Ventilator 35.00 06/19/22 05:00 129 26 93/66 (75) 99 Mechanical Ventilator 35.00 06/19/22 04:25 120 87/56 06/19/22 04:00 37.6 128 20 96/56 (69) 100 Mechanical Ventilator 35.00 06/19/22 04:00 95 Mechanical Ventilator 35 06/19/22 03:58 21 06/19/22 03:42 120 87/56 06/19/22 03:00 122 20 98/61 (73) 97 Mechanical Ventilator 21.00 06/19/22 02:53 120 20 92 21 06/19/22 02:00 125 20 106/73 (84) 95 Mechanical Ventilator 21.00 06/19/22 01:41 128 86/55 06/19/22 01:00 124 20 90/52 (65) 92 Mechanical Ventilator 21.00 06/19/22 01:00 124 06/19/22 00:15 125 20 94/59 (71) 90 Mechanical Ventilator 21.00 06/18/22 23:49 37.4 125 20 85/52 (63) 91 Mechanical Ventilator 21.00 06/18/22 23:45 92 Mechanical Ventilator 21 06/18/22 23:45 21 06/18/22 23:42 128 86/55 06/18/22 23:00 128 20 86/55 (65) 94 Mechanical Ventilator 21.00 06/18/22 22:02 121 20 93 21 06/18/22 22:00 118 20 94/64 (74) 94 Mechanical Ventilator 21.00 06/18/22 21:41 116 85/62 06/18/22 21:00 37.7 116 20 85/62 (70) 94 Mechanical Ventilator 21.00 06/18/22 20:30 116 20 85/55 (65) 95 Mechanical Ventilator 21.00 06/18/22 19:54 95 Mechanical Ventilator 21 06/18/22 19:52 21 06/18/22 19:00 109 20 117/71 (86) 95 Mechanical Ventilator 21.00 06/18/22 19:00 109 06/18/22 18:48 117 20 93 21 06/18/22 18:04 120 73/48 06/18/22 18:03 120 73/48 06/18/22 18:00 120 20 82/55 (64) 96 Mechanical Ventilator 21.00 06/18/22 17:51 120 74/49 06/18/22 17:28 37.6 06/18/22 17:00 112 19 110/76 (87) 92 Mechanical Ventilator 21.00 06/18/22 16:33 37.4 06/18/22 16:00 104 19 103/60 (74) 93 Mechanical Ventilator 21.00 06/18/22 16:00 37.9 I & O 06/19/22 07:00 Intake Total 3725 ml Output Total 5700 ml Balance -1975 ml Height & Weight Height: '" Weight: lbs. oz. kg; 22.72 BMI Method: General Appearance: Other (intubated and sedated) Respiratory: No Accessory Muscle Use, Crackles (bilateral crackles in lower lung herrera ) Cardiovascular: Regular Rate, Rhythm, No Edema, Normal Peripheral Pulses (R radial +2, bilateral dorsalis pedis +2) Capillary Refill: Less Than 3 Seconds Peripheral Pulses: 2+ Radial Pulses (R), 2+ Radial Pulses (L) Gastrointestinal: soft, no organomegaly Extremity: No Pedal Edema, Other (bilateral contractures of hands and feet) Neurologic/Psychiatric: Other (intubated and sedated) Skin: Normal Color, Warm/Dry Results Lab Laboratory Tests 06/18/22 04:14 06/19/22 03:36 Assessment/Plan Assessment/Plan as above Critical Care: Ventilator Management Time spent with patient (mins): 60 JARED MATHEWS MD Jun 19, 2022 16:03
--- NOTE | 2022-06-19 16:16 | Tele-ICU Progress Note ---
Subjective Date Seen by a Provider: Jun 19, 2022 Time Seen by a Provider: 16:15 Subjective/Events-last exam (Tele-ICU Physician , consultation) Available chart/ vitals / labs / Images reviewed H&P is from ER notes Patient's information available about PMH, allergy reviewed in EMR. ROS as per chart and RN report Video assessment done using teleICU camera, rest of exam as per RN Discussed with RN. This afternoon patient after a trial of SBT is extubated and patient after extubation started developing respiratory distress associated with vomiting of his stomach contents. As patient developed respiratory distress I advisedly reintubation. Respiratory therapist tried to intubate the patient but was not successful and his oxygen saturation remained low hence anesthesiologist was called and intubated the patient after intubation his oxygen saturation came into mid 90s. Heart rate is decreased from the 180s to 130s. He is put on mechanical ventilation and tolerated well. During the entire process of the video visited and the cryptologic supervisor of the procedure. Vent orders and sedation orders were given. During the process his mother was contacted who is the power of state's attorney who made him DO NOT RESUSCITATE but he agreed with the current procedure of intubation. Diagnosis. 1. Acute respiratory distress with acute respiratory failure 2. Aspiration pneumonia. Critical care time is 1 hour. Sepsis Event Evaluation Height, Weight, BMI Height: '" Weight: lbs. oz. kg; 22.72 BMI Method: Focused Exam Lactate Level 06/19/22 05:48: Lactic Acid Level 0.62 Exam Exam Patient acknowledged, consented, and participated in this virtual visit which was conducted using real time audio/video Vital Signs Date Time Temp Pulse Resp B/P (MAP) Pulse Ox O2 Delivery O2 Flow Rate FiO2 06/19/22 16:01 Mechanical Ventilator 70.00 06/19/22 15:00 129 27 149/82 (104) 06/19/22 14:12 118 103/61 06/19/22 14:00 123 27 106/65 (79) 100 Mechanical Ventilator 35.00 06/19/22 13:44 38.3 06/19/22 13:42 38.3 06/19/22 13:00 122 20 105/59 (74) 96 Mechanical Ventilator 35.00 06/19/22 12:38 118 06/19/22 12:35 124 20 96 06/19/22 12:24 97 Mechanical Ventilator 35 06/19/22 12:00 118 25 102/62 (75) 95 Mechanical Ventilator 35.00 06/19/22 11:53 37.6 06/19/22 11:50 35 06/19/22 11:50 123 99/61 06/19/22 11:00 123 18 99/61 (74) 98 Mechanical Ventilator 35.00 06/19/22 10:12 123 20 95 35 06/19/22 10:00 122 16 94/58 (70) 98 Mechanical Ventilator 35.00 06/19/22 09:59 124 94/51 06/19/22 09:00 124 20 94/51 (65) 94 Mechanical Ventilator 35.00 06/19/22 08:57 94 Mechanical Ventilator 35 06/19/22 08:01 126 88/61 06/19/22 08:00 35 06/19/22 08:00 37.3 06/19/22 08:00 130 20 88/49 (62) 98 Mechanical Ventilator 35.00 06/19/22 07:00 132 06/19/22 07:00 129 20 97/63 (74) 98 Mechanical Ventilator 35.00 06/19/22 06:40 126 20 97 35 06/19/22 06:00 128 20 91/61 (71) 95 Mechanical Ventilator 35.00 06/19/22 05:00 129 26 93/66 (75) 99 Mechanical Ventilator 35.00 06/19/22 04:25 120 87/56 06/19/22 04:00 37.6 128 20 96/56 (69) 100 Mechanical Ventilator 35.00 06/19/22 04:00 95 Mechanical Ventilator 35 06/19/22 03:58 21 06/19/22 03:42 120 87/56 06/19/22 03:00 122 20 98/61 (73) 97 Mechanical Ventilator 21.00 06/19/22 02:53 120 20 92 21 06/19/22 02:00 125 20 106/73 (84) 95 Mechanical Ventilator 21.00 06/19/22 01:41 128 86/55 06/19/22 01:00 124 20 90/52 (65) 92 Mechanical Ventilator 21.00 06/19/22 01:00 124 06/19/22 00:15 125 20 94/59 (71) 90 Mechanical Ventilator 21.00 06/18/22 23:49 37.4 125 20 85/52 (63) 91 Mechanical Ventilator 21.00 06/18/22 23:45 92 Mechanical Ventilator 21 06/18/22 23:45 21 06/18/22 23:42 128 86/55 06/18/22 23:00 128 20 86/55 (65) 94 Mechanical Ventilator 21.00 06/18/22 22:02 121 20 93 21 06/18/22 22:00 118 20 94/64 (74) 94 Mechanical Ventilator 21.00 06/18/22 21:41 116 85/62 06/18/22 21:00 37.7 116 20 85/62 (70) 94 Mechanical Ventilator 21.00 06/18/22 20:30 116 20 85/55 (65) 95 Mechanical Ventilator 21.00 06/18/22 19:54 95 Mechanical Ventilator 21 06/18/22 19:52 21 06/18/22 19:00 109 20 117/71 (86) 95 Mechanical Ventilator 21.00 06/18/22 19:00 109 06/18/22 18:48 117 20 93 21 06/18/22 18:04 120 73/48 06/18/22 18:03 120 73/48 06/18/22 18:00 120 20 82/55 (64) 96 Mechanical Ventilator 21.00 06/18/22 17:51 120 74/49 06/18/22 17:28 37.6 06/18/22 17:00 112 19 110/76 (87) 92 Mechanical Ventilator 21.00 06/18/22 16:33 37.4 I & O 06/19/22 07:00 Intake Total 3725 ml Output Total 5700 ml Balance -1975 ml Height & Weight Height: '" Weight: lbs. oz. kg; 22.72 BMI Method: General Appearance: Other (intubated and sedated) Respiratory: No Accessory Muscle Use, Crackles (bilateral crackles in lower lung herrera ) Cardiovascular: Regular Rate, Rhythm, No Edema, Normal Peripheral Pulses (R radial +2, bilateral dorsalis pedis +2) Capillary Refill: Less Than 3 Seconds Peripheral Pulses: 2+ Radial Pulses (R), 2+ Radial Pulses (L) Gastrointestinal: soft, no organomegaly Extremity: No Pedal Edema, Other (bilateral contractures of hands and feet) Neurologic/Psychiatric: Other (intubated and sedated) Skin: Normal Color, Warm/Dry Results Lab Laboratory Tests 06/18/22 04:14 06/19/22 03:36 Assessment/Plan Assessment/Plan as above Critical Care: Ventilator Management Time spent with patient (mins): 60 JARED MATHEWS MD Jun 19, 2022 16:16
[2022-06-19 16:26] LABS: ABG BASE EXCESS -5.9 MMOL/L (-2.5-2.5); ABG OXYGEN SATURATION 98 % (94-100); ABG PCO2 40 MMHG (35-45); ABG PO2 111 MMHG (79-93); ABG TCO2 20.4 MMOL/L (21.0-31.0)
[2022-06-19 16:29] LABS: ALLENS TEST YES-POS; INSPIRED O2 70%; PATIENT TEMP 37.2; VENTILATOR YES
[2022-06-19 16:31] LABS: ABG PH 7.31 (7.37-7.43)
[2022-06-19] MEDS: MEROPENEM 500 MG in NS (IVPB) 100 ML IV SCH ×2 (17:07→23:10)
[2022-06-19] MEDS: MIRTAZAPINE 15 MG (REMERON) TAB PO SCH (20:25)
[2022-06-20] MEDS: 1/2 NS IV SOLUTION 1,000 ML IV SCH ×2 (00:32→15:54)
[2022-06-20] MEDS: APAP 325 MG/10.15 ML LIQ (TYLENOL) UDC PO PRN ×2 (00:32→19:45)
[2022-06-20] MEDS: NOREPINEPHRINE 8 MG/250 ML 250 ML IV SCH (00:33)
[2022-06-20] MEDS: RT-ALBUTEROL/IPRATROPIUM 3 ML (DUONEB) VIAL INH SCH ×6 (02:10→21:46)
[2022-06-20 02:17] VITALS: BP 112/78
[2022-06-20] MEDS: aCETylcysteine 20% (MUCOMYST) 4 ML SOLN VIAL INH SCH ×4 (02:21→21:45)
[2022-06-20] MEDS: NS IV 500 ML 500 ML IV SCH ×2 (04:09→20:00)
[2022-06-20 04:23] LABS: BASOPHILS % (AUTO) 1 % (0-10); EOSINOPHILS # (AUTO) 0.5 10^3/uL (0.0-0.3); EOSINOPHILS % (AUTO) 13 % (0-10); HEMATOCRIT 28 % (40-54); HEMOGLOBIN 9.2 g/dL (13.3-17.7); LYMPHOCYTES % (AUTO) 26 % (12-44); MEAN CORPUSCULAR HEMOGLOBIN 29 pg (25-34); MEAN CORPUSCULAR HGB CONC 33 g/dL (32-36); MEAN CORPUSCULAR VOLUME 87 fL (80-99); MEAN PLATELET VOLUME 11.1 fL (9.0-12.2); MONOCYTES # (AUTO) 0.6 10^3/uL (0.0-1.0); MONOCYTES % (AUTO) 15 % (0-12); NEUTROPHILS # (AUTO) 1.8 10^3/uL (1.8-7.8); NEUTROPHILS % (AUTO) 45 % (42-75); PLATELET COUNT 226 10^3/uL (130-400)
[2022-06-20 04:41] LABS: CALCIUM 7.8 MG/DL (8.5-10.1); CREATININE SERUM 0.68 MG/DL (0.60-1.30); MAGNESIUM 1.7 MG/DL (1.6-2.4); PHOSPHORUS 2.5 MG/DL (2.3-4.7); POTASSIUM 3.2 MMOL/L (3.6-5.0)
[2022-06-20 05:07] LABS: EOSINOPHILS % (MANUAL) 7 %; LYMPHOCYTES % (MANUAL) 30 %; MONOCYTES % (MANUAL) 7 %; NEUTROPHILS % (MANUAL) 56 %; RBC MORPH NORMAL
[2022-06-20] MEDS: inSUlin ASPART (NovoLOG) 1 UNIT/0.01 ML (CHARGE PER UNIT) SC SCH ×3 (05:11→17:44)
[2022-06-20] MEDS: POTASSIUM CL 10MEQ/50ML IVPB 50 ML IV SCH ×5 (05:11→08:09)
[2022-06-20] MEDS: KCL 20 MEQ TAB (K-DUR) PO SCH (05:11)
[2022-06-20] MEDS: MAGNESIUM 1 GM/100 ML IVPB 100 ML IV SCH ×3 (05:11→05:39)
[2022-06-20] MEDS: METOCLOPRAMIDE INJ 10 MG/2 ML (REGLAN) IVP SCH ×3 (05:38→21:05)
[2022-06-20] MEDS: PROPOFOL DRIP (ICU) 100 ML IV SCH ×3 (05:39→21:06)
[2022-06-20] MEDS: fentaNYL DRIP PRE-MIX 250 ML IV SCH ×3 (05:40→21:20)
[2022-06-20 07:22] VITALS: BP 92/52
[2022-06-20] MEDS: AMOXICILLIN 500 MG (POLYMOX) CAP PO SCH ×3 (08:08→21:05)
[2022-06-20] MEDS: polyethylene glycoL POWDER 17 GM (MIRALAX) PACK PO SCH ×2 (08:08→21:05)
[2022-06-20] MEDS: APIXABAN 2.5 MG (ELIQUIS) TABLET PO SCH ×2 (08:08→21:05)
[2022-06-20] MEDS: MEROPENEM 500 MG in NS (IVPB) 100 ML IV SCH ×2 (08:08→15:54)
[2022-06-20] MEDS: LORATADINE (CLARITIN) 10 MG TAB PO SCH (08:08)
[2022-06-20] MEDS: PANTOPRAZOLE 40 MG (PROTONIX) VIAL IV SCH (08:08)
--- NOTE | 2022-06-20 08:12 | Tele-ICU Progress Note ---
Subjective Date Seen by a Provider: Jun 20, 2022 Time Seen by a Provider: 08:07 Subjective/Events-last exam Yesterday was extubated and quickly had to be reintubated Current vent settings, AC 20, Vt 500 FiO2 40%, not working hard to breathe CXR from yesterday shows extensive interstitial changes On IV meropenem On IV levophed @ 0.07 Pt is DNR due to chronic bedridden , contractured, non verbal, lives in [place] Sepsis Event Evaluation Height, Weight, BMI Height: '" Weight: lbs. oz. kg; 22.79 BMI Method: Focused Exam Lactate Level 06/19/22 05:48: Lactic Acid Level 0.62 Exam Exam Patient acknowledged, consented, and participated in this virtual visit which was conducted using real time audio/video Vital Signs Date Time Temp Pulse Resp B/P (MAP) Pulse Ox O2 Delivery O2 Flow Rate FiO2 06/20/22 07:22 103 20 92 40 06/20/22 06:00 108 20 96/54 (68) 93 Mechanical Ventilator 40.00 06/20/22 05:52 Mechanical Ventilator 40.00 06/20/22 05:40 103 112/78 06/20/22 05:39 103 112/78 06/20/22 05:00 112 20 87/59 (68) 90 Mechanical Ventilator 35.00 06/20/22 04:07 93 Mechanical Ventilator 35 06/20/22 04:06 37.8 Mechanical Ventilator 35.00 06/20/22 04:00 116 20 99/64 (76) 91 Mechanical Ventilator 35.00 06/20/22 04:00 35 06/20/22 03:00 114 20 92/59 (70) 90 Mechanical Ventilator 35.00 06/20/22 02:28 103 112/78 06/20/22 02:17 103 20 94 35 06/20/22 02:00 100 20 104/66 (79) 93 Mechanical Ventilator 35.00 06/20/22 01:37 37.7 06/20/22 01:03 98 06/20/22 01:00 99 20 101/69 (80) 92 Mechanical Ventilator 35.00 06/20/22 00:33 112 93/58 06/20/22 00:32 38.3 06/20/22 00:32 112 93/58 06/20/22 00:31 38.3 Mechanical Ventilator 35.00 06/20/22 00:00 35 06/20/22 00:00 96 Mechanical Ventilator 35 06/20/22 00:00 104 20 82/44 (57) 93 Mechanical Ventilator 45.00 06/19/22 23:00 115 20 97/59 (72) 90 Mechanical Ventilator 45.00 06/19/22 22:50 37.6 Mechanical Ventilator 45.00 06/19/22 22:16 112 93/58 06/19/22 22:15 111 20 93/58 (70) 93 Mechanical Ventilator 45.00 06/19/22 21:43 101 20 97 35 06/19/22 21:00 105 20 83/49 (60) 100 Mechanical Ventilator 45.00 06/19/22 20:25 96 87/50 06/19/22 20:15 100 20 98/56 (70) 96 Mechanical Ventilator 45.00 06/19/22 20:00 99 Mechanical Ventilator 45 06/19/22 19:30 45 06/19/22 19:30 37.2 Mechanical Ventilator 45.00 06/19/22 19:15 96 20 93/58 (70) 97 Mechanical Ventilator 50.00 06/19/22 19:14 36.9 06/19/22 19:00 96 06/19/22 18:55 96 20 98 45 06/19/22 18:00 101 20 105/64 (78) 100 Mechanical Ventilator 50.00 06/19/22 17:53 Mechanical Ventilator 50.00 06/19/22 17:29 103 20 99 50 06/19/22 17:00 106 20 102/67 (79) 99 Mechanical Ventilator 70.00 06/19/22 16:23 70 06/19/22 16:22 99 Mechanical Ventilator 70 06/19/22 16:17 37.6 06/19/22 16:15 37.6 06/19/22 16:01 126 14 70/45 (53) 96 Mechanical Ventilator 70.00 06/19/22 15:42 129 98 70 06/19/22 15:00 129 27 149/82 (104) 06/19/22 14:59 128 46 70 06/19/22 14:47 38.3 06/19/22 14:12 118 103/61 06/19/22 14:00 123 27 106/65 (79) 100 Mechanical Ventilator 35.00 06/19/22 13:44 38.3 06/19/22 13:42 38.3 06/19/22 13:00 122 20 105/59 (74) 96 Mechanical Ventilator 35.00 06/19/22 12:38 118 06/19/22 12:35 124 20 96 06/19/22 12:24 97 Mechanical Ventilator 35 06/19/22 12:00 118 25 102/62 (75) 95 Mechanical Ventilator 35.00 06/19/22 11:53 37.6 06/19/22 11:50 35 06/19/22 11:50 123 99/61 06/19/22 11:00 123 18 99/61 (74) 98 Mechanical Ventilator 35.00 06/19/22 10:12 123 20 95 35 06/19/22 10:00 122 16 94/58 (70) 98 Mechanical Ventilator 35.00 06/19/22 09:59 124 94/51 06/19/22 09:00 124 20 94/51 (65) 94 Mechanical Ventilator 35.00 06/19/22 08:57 94 Mechanical Ventilator 35 I & O 06/20/22 07:00 Intake Total 3580 ml Output Total 2981 ml Balance 599 ml Height & Weight Height: '" Weight: lbs. oz. kg; 22.79 BMI Method: General Appearance: Other (intubated and sedated) Respiratory: No Accessory Muscle Use, Crackles (bilateral crackles in lower lung herrera ), Rhonci Cardiovascular: Regular Rate, Rhythm, No Edema, Normal Peripheral Pulses (R radial +2, bilateral dorsalis pedis +2), Tachycardia Capillary Refill: Less Than 3 Seconds Peripheral Pulses: 2+ Radial Pulses (R), 2+ Radial Pulses (L) Gastrointestinal: soft, no organomegaly Extremity: No Pedal Edema, Other (bilateral contractures of hands and feet) Neurologic/Psychiatric: Other (intubated and sedated) Skin: Normal Color, Warm/Dry Results Lab Laboratory Tests 06/19/22 03:36 06/20/22 04:00 Assessment/Plan Assessment/Plan Acute resp failure, would leave on vent for today, does not look ready for extubation continue abx for possible asp PNA, grew Group A strep out of ET secretions-from NH Pt is DNR due to chronic problems Critical Care: Ventilator Management Time spent with patient (mins): 25 LENA HSU MD Jun 20, 2022 08:12
[2022-06-20 10:43] VITALS: BP 95/56
--- NOTE | 2022-06-20 13:47 | Progress Note ---
ANAM PATEL 06/20/22 1347: Subjective Date Seen by a Provider: Jun 20, 2022 Time Seen by a Provider: 10:50 Subjective/Events-last exam Mr. Bacon is a 51 year old male with a PMHx of autism, dementia, and depression who presented to the [facility] ED with acute respiratory failure s/p an aspiration incident that occurred this morning, 06/14. The patient lives in a [facility] and is non-verbal. Per ED provider report, the [facility] staff reported the patient aspirated on oatmeal this morning during breakfast and demonstrated labored breathing and signs of respiratory distress. With no improvement the patient was transferred to [facility] via EMS. The patient is currently intubated and sedated for respiratory support s/p acute respiratory failure with hypoxia and respiratory acidosis. 06/15: Patient remains intubated and sedation has been titrated to accommodate low BPs. The patient has been placed on a norepinephrine protocol to manage low BPs per EICU provider. The patient is resting this morning but opens his eyes when spoken to. The patient stirred when adjusting his SCDs but calmed easily and went back to sleep. 06/16: Patient is intubated and sedated. BP remains stable. Patient did not stir during exam this morning. Central line has been placed by Surgery. 06/17: Patient is intubated and sedated. BP/MAP remains stable. 06/18: Patient is intubated and sedated. Patient failed two SBTs on 06/17. Plan per Critical Care and Hospitalist is to rest today and try weaning off the ventilator throughout the weekend. 06/19: Patient is intubate and sedated. The patient is calm, and his eyes are open/blinking at time of encounter. Plan per Critical Care is to decrease sedation and initiate SBT today. 06/20: Patient is intubated and sedated. SBT and extubation were conducted on 06/19. Patient did not tolerate extubation with quick decline in respiratory status and aspiration on emesis. Patient was re-intubated. Patient's respiratory status recovered and has remained stable. Ventilator Settings: 500 / 20 / 5.0 with FiO2 of 28%. AB.385 / 31.9 / 80, HCO3 18 Antibiotics day: 7 with -Z-o-s-y-n-, -d-g-r-x-n-i-y-c-i-n- -> -l-q-z-l-l-g-i-l-l-i-n- -> meropenem 500mg for aspiration PNA Urinary catheter: in place OGT: in place Position: supine Review of Systems Unable to obtain Focused Exam Lactate Level 06/19/22 05:48: Lactic Acid Level 0.62 Objective Exam Last Set of Vital Signs Vital Signs Date Time Temp Pulse Resp B/P (MAP) Pulse Ox O2 Delivery O2 Flow Rate FiO2 06/20/22 12:56 116 06/20/22 12:05 93 Mechanical Ventilator 40 06/20/22 12:00 37.6 06/20/22 12:00 20 93/55 (68) 40.00 Capillary Refill : Less Than 3 Seconds I&O Intake and Output 06/20/22 00:00 Intake Total 3440 ml Output Total 5906 ml Balance -2466 ml IV Total 2250 ml Tube Feeding 580 ml Other 610 ml Output Urine Total 5505 ml Gastric Drainage Total 400 ml Emesis 1 ml # Bowel Movements 1 General: Other (intubated and sedated) Lungs: Other (coarse breath sounds and crackles bilaterally) Heart: Other (tachycardia, 115. Regular rhythm) Abdomen: Normal Bowel Sounds, Soft, Other (no distention) Results Lab Laboratory Tests 06/19/22 16:10: Glucometer 137H 06/19/22 16:15: Blood Gas Puncture Site R BRACHIAL, Blood Gas Patient Temperature 37.2, Arterial Blood pH 7.31*L, Arterial Blood Partial Pressure CO2 40, Arterial Blood Partial Pressure O2 111H, Arterial Blood HCO3 19L, Arterial Blood Total CO2 20.4L, Arterial Blood Oxygen Saturation 98, Arterial Blood Base Excess -5.9L, Can Test YES-POS, Blood Gas Ventilator Setting YES, Blood Gas Inspired Oxygen 70% 06/19/22 23:05: Glucometer 73 06/20/22 04:00: White Blood Count 4.0L, Red Blood Count 3.22L, Hemoglobin 9.2L, Hematocrit 28L, Mean Corpuscular Volume 87, Mean Corpuscular Hemoglobin 29, Mean Corpuscular Hemoglobin Concent 33, Red Cell Distribution Width 15.0H, Platelet Count 226, Mean Platelet Volume 11.1, Immature Granulocyte % (Auto) 1, Neutrophils (%) (Auto) 45, Lymphocytes (%) (Auto) 26, Monocytes (%) (Auto) 15H, Eosinophils (%) (Auto) 13H, Basophils (%) (Auto) 1, Neutrophils # (Auto) 1.8, Lymphocytes # (Auto) 1.0, Monocytes # (Auto) 0.6, Eosinophils # (Auto) 0.5H, Basophils # (Auto) 0.0, Immature Granulocyte # (Auto) 0.0, Neutrophils % (Manual) 56, Lymphocytes % (Manual) 30, Monocytes % (Manual) 7, Eosinophils % (Manual) 7, Blood Morphology Comment NORMAL, Sodium Level 144, Potassium Level 3.2L, Chloride Level 116H, Carbon Dioxide Level 17L, Anion Gap 11, Blood Urea Nitrogen 3L, Creatinine 0.68, Estimat Glomerular Filtration Rate 113, BUN/Creatinine Ratio 4, Glucose Level 83, Calcium Level 7.8L, Phosphorus Level 2.5, Magnesium Level 1.7 06/20/22 04:20: Bedside Blood Gas pH (LAB) 7.358, Bedside Blood Gas pCO2 (LAB) 31.9L, Bedside Blood Gas pO2 (LAB) 80, Bedside Blood Gas HCO3 (LAB) 18.0L, POC Blood Gas Total CO2 Calc 19L, Bedside Bl Gas O2 Saturation (Calc) 95, Bedside Arterial Blood Base Excess -8L 06/20/22 11:57: Glucometer 99 Microbiology 06/14/22 MRSA Screen - Final, Complete MRSA not isolated 06/14/22 Urine Culture - Final, Complete NO GROWTH 06/14/22 Blood Culture - Final, Complete No growth Radiology NAME: JONEL BACON Adam [employer] REC#: [id number] PT STATUS: ADM IN : 1970 PHYSICIAN: JARED MATHEWS MD ADMIT DATE: 06/14/22/ICU Signed Date of Exam:06/19/22 CHEST 1 VIEW, AP/PA ONLY EXAMINATION: Chest radiograph, portable AP view. DATE: 06/19/2022 3:57 PM INDICATION: 51-year-old male, intubation. COMPARISON: June 19, 2022 at 1524 hours. FINDINGS: The endotracheal tube is approximately 4.5 cm above the harry. The nasogastric tube extends to the inferior margin of the included [id number]. The right internal jugular central venous line overlies the cavoatrial junction. Heart size and mediastinal contours are unchanged. There is no identified pneumothorax. There is no large pleural effusion. There are bilateral interstitial and/or alveolar opacities which appear unchanged. IMPRESSION: 1. Support lines and tubes as above. There is newly placed nasogastric tube extending to the inferior margin of the included [id number]. There is interval less distention of the stomach. 2. Redemonstrated and essentially unchanged multifocal interstitial and/or alveolar opacities bilaterally. Dictated by: Dictated on workstation # [id number] Dict: 06/19/22 1557 Trans: 06/19/22 1634 [facility] [id number] Interpreted by: ELOISA PATEL MD Electronically signed by: ELOISA PATEL MD 06/19/22 1634 NAME: JONEL BACON [employer] REC#: [id number] PT STATUS: ADM IN : 1970 PHYSICIAN: JARED MATHEWS MD ADMIT DATE: 06/14/22/ICU Signed Date of Exam:06/19/22 ABDOMEN/KUB 1VIEW EXAMINATION: Abdominal radiographs, single portable view. DATE: June 19, 2022. CLINICAL INDICATION: 51-year-old male, orogastric tube placement. COMPARISON: CT abdomen pelvis March 22, 2022. COMMENTS: The nasogastric tube is in the stomach. There are dilated gas-filled segments of small bowel. There is an abnormal amount of gas filled segments of small bowel. There is no identified pneumatosis or portal venous gas. The upper abdomen is incompletely imaged. IMPRESSION: 1. The nasogastric tube is in the stomach. 2. Abnormal but nonspecific bowel gas pattern. Distal small bowel obstruction and ileus are both considered. Dictated by: Dictated on workstation # [id number] Dict: 06/19/22 1559 Trans: 06/19/22 1634 [facility] [id number] Interpreted by: ELOISA PATEL MD Electronically signed by: ELOISA PATEL MD 06/19/22 1906 Assessment/Plan Assessment/Plan Assess & Plan/Chief Complaint 1. Acute respiratory failure with hypoxia and respiratory acidosis / aspiration pneumonitis -> respiratory acidosis resolved on 06/16 -ET tube in place for respiratory support -Sedation with Propofol and fentanyl, titrated to accommodate lower BPs. Norepinephrine protocol in place with goals of MAP >65, SBP >90. Monitor BP/MAP -Pantoprazole 40mg IV qd for stress ulcer ppx -Antibiotic therapy for aspiration pneumonitis/PNA ppx: -Vancomycin and Zosyn discontinued -> amoxicillin 500mg PO TID for Group A strep infection, discontinued after aspiration event on 06/19 s/p extubation -> meropenem 500mg - 100ml @ 200mls/hr Q8H IV for aspiration PNA therapy -Urinary catheter in place -OGT in place -Supine positioning -Appreciate plan per Critical Care -DVT ppx -> resuming Eliquis 2.5mg PO BID -Central line placed 2. Hypokalemia -3.2 on 06/20 -Continue to monitor 3. MICHAEL with Cr 1.38 on 06/14 -> Cr 0.94 on 06/15 -> Cr 0.81 on 06/16 -Resolved 4. Lactic acidosis, likely secondary to hypoxia. Lactate is trending down 06.16 -> 5.78 on 06/14 -Resolved 5. Hypomagnesemia, 2.4 on 06/19 -Replace with magnesium sulfate 2gm IV once if Mg <1.7 -AM Mg level 6. Hypophosphatemia, 2.6 on 06/19, resolved -Likely secondary to re-feeding syndrome with combined hypophosphatemia, hypokalemia, and hypomagnesemia -Continue tube feeds with electrolyte substitution 7. Metabolic acidosis -Hyperchloremic metabolic acidosis, NS infusion rate decreased to 70mls/hr -Monitor ABG and Cl levels with AM labs -Cl 116 on 06/20 8. Small bowel obstruction vs. ileus -Dilated gas segments of small bowel noted on abdominal XRAY on 06/19 -OGT in place for decompression -Tube feedings have not been resumed. Will consider TPN or comfort care for management going forward Clinical Quality Measures Admission Status Admission Dx 1. Acute respiratory failure with hypoxia and respiratory acidosis / aspiration pneumonitis -ET tube in place for respiratory support -Sedation with Propofol and fentanyl -Pantoprazole 40mg IV qd for stress ulcer ppx -Antibiotic therapy for aspiration pneumonitis/PNA ppx: -Zosyn 4.5gm for anaerobic and pseudomonas coverage: 100ml @ 30mls/hr Q8H IV -Vancomycin 750 mg for MRSA coverage: 250ml @ 250mls/hr Q12H IV with vancomy julio cesar trough monitoring. Discontinue if trough exceeds 17 -Speech evaluation -Urinary catheter in place -OGT in place -Supine positioning -Appreciate plan per Critical Care -DVT ppx -> resuming Eliquis 2.5mg PO BID -Consider PEG tube placement for long-term nutrition support 2. Hypokalemia -Replaced with 20meq KCl - 2 bags KCl 50ml @ 50mls/hr -Resolved to 3.7 on 06/14 3. MICHAEL with Cr 1.38 on 06/14 -Continue IV fluids -Monitor Cr 4. Lactic acidosis, likely secondary to hypoxia. Lactate is trending down 12.28 -> 5.78 on 06/14 JONEL MERINO MD 06/20/222048: Assessment/Plan Assessment/Plan Assess & Plan/Chief Complaint Pt reintubated yesterday afternoon after short time extubated. Had aspirated as well. RN Reports mom called this morning and is planning to come to the hospital hopefully tomorrow if she can get transportation to discuss goals of care and likely transition to comfort care which I feel would be medically appropriate for Jonel. For the time being we will continue on vasopressors, IV abx, and mechanical ventilation. Supervisory-Addendum Brief Verification & Attestation Participated in pt care: history, MDM, physical Personally performed: exam, history, MDM, supervision of care Care discussed with: Medical Student Procedures: n/a Results interpretation: Verified all documentation Verification and Attestation of Medical Student E/M Service A medical student performed and documented this service in my presence. I reviewed and verified all information documented by the medical student and made modifications to such information, when appropriate. I personally performed the physical exam and medical decision making. Jonel Merino, Jun 20, 2022,20:47 ANAM PATEL Jun 20, 2022 13:47 JONEL MERINO MD Jun 20, 2022 20:49
[2022-06-20 15:14] VITALS: BP 99/68
[2022-06-20] MEDS ORDERED: proPOfol 200 MG/20 ML (DIPRIVAN) VIAL IV ONE (16:08)
[2022-06-20] MEDS ORDERED: SUCCINYLCHOLINE INJ 100 MG/5 ML SYR/VIAL INJ ONE (16:08)
[2022-06-20] MEDS ORDERED: ETOMIDATE IV SOLN 20 MG/10 ML VIAL IV ONE (16:08)
[2022-06-20 18:42] VITALS: BP 104/58
[2022-06-20] MEDS: MIRTAZAPINE 15 MG (REMERON) TAB PO SCH (21:05)
[2022-06-20 21:46] VITALS: BP 103/67
[2022-06-21] MEDS: inSUlin ASPART (NovoLOG) 1 UNIT/0.01 ML (CHARGE PER UNIT) SC SCH ×3 (00:06→11:19)
[2022-06-21] MEDS: APAP 325 MG/10.15 ML LIQ (TYLENOL) UDC PO PRN (00:08)
[2022-06-21] MEDS: MEROPENEM 500 MG in NS (IVPB) 100 ML IV SCH ×2 (00:08→08:17)
[2022-06-21 02:17] VITALS: BP 110/68
[2022-06-21] MEDS: RT-ALBUTEROL/IPRATROPIUM 3 ML (DUONEB) VIAL INH SCH ×3 (02:22→12:02)
[2022-06-21] MEDS: aCETylcysteine 20% (MUCOMYST) 4 ML SOLN VIAL INH SCH ×2 (02:26→08:17)
[2022-06-21 03:25] LABS: ABG BASE EXCESS -8.4 MMOL/L (-2.5-2.5); ABG OXYGEN SATURATION 84 % (94-100); ABG PCO2 34 MMHG (35-45); ABG PO2 48 MMHG (79-93); ABG TCO2 17.8 MMOL/L (21.0-31.0)
[2022-06-21 03:26] LABS: BASOPHILS % (AUTO) 0 % (0-10); EOSINOPHILS # (AUTO) 0.3 10^3/uL (0.0-0.3); EOSINOPHILS % (AUTO) 3 % (0-10); HEMATOCRIT 29 % (40-54); HEMOGLOBIN 9.5 g/dL (13.3-17.7); LYMPHOCYTES # (AUTO) 1.4 10^3/uL (1.0-4.0); LYMPHOCYTES % (AUTO) 13 % (12-44); MEAN CORPUSCULAR HEMOGLOBIN 28 pg (25-34); MEAN CORPUSCULAR HGB CONC 32 g/dL (32-36); MEAN CORPUSCULAR VOLUME 88 fL (80-99); MEAN PLATELET VOLUME 10.1 fL (9.0-12.2); MONOCYTES # (AUTO) 0.7 10^3/uL (0.0-1.0); MONOCYTES % (AUTO) 7 % (0-12); NEUTROPHILS # (AUTO) 8.5 10^3/uL (1.8-7.8); NEUTROPHILS % (AUTO) 77 % (42-75); PLATELET COUNT 271 10^3/uL (130-400)
[2022-06-21 03:27] LABS: ABG PH 7.31 (7.37-7.43)
[2022-06-21 03:28] LABS: ALLENS TEST YES-POS; INSPIRED O2 35%; PATIENT TEMP 36.7; VENTILATOR YES
[2022-06-21 03:47] LABS: ALBUMIN 2.3 GM/DL (3.2-4.5); BILIRUBIN,TOTAL 0.4 MG/DL (0.1-1.0); CALCIUM 7.8 MG/DL (8.5-10.1); CREATININE SERUM 0.71 MG/DL (0.60-1.30); MAGNESIUM 1.7 MG/DL (1.6-2.4); PHOSPHORUS 2.9 MG/DL (2.3-4.7); POTASSIUM 3.7 MMOL/L (3.6-5.0); TOTAL PROTEIN 5.9 GM/DL (6.4-8.2)
[2022-06-21] MEDS: POTASSIUM CL 10MEQ/50ML IVPB 50 ML IV SCH (05:07)
[2022-06-21] MEDS: KCL 20 MEQ TAB (K-DUR) PO SCH (05:08)
[2022-06-21] MEDS: METOCLOPRAMIDE INJ 10 MG/2 ML (REGLAN) IVP SCH ×2 (05:16→13:19)
[2022-06-21] MEDS: MAGNESIUM 1 GM/100 ML IVPB 100 ML IV SCH ×2 (05:17→05:56)
[2022-06-21] MEDS: fentaNYL DRIP PRE-MIX 250 ML IV SCH ×2 (05:39→13:24)
[2022-06-21] MEDS: PROPOFOL DRIP (ICU) 100 ML IV SCH ×2 (06:00→13:25)
[2022-06-21] MEDS: NOREPINEPHRINE 8 MG/250 ML 250 ML IV SCH (06:22)
[2022-06-21] MEDS: 1/2 NS IV SOLUTION 1,000 ML IV SCH (06:47)
[2022-06-21] MEDS: LORATADINE (CLARITIN) 10 MG TAB PO SCH (08:17)
[2022-06-21] MEDS: APIXABAN 2.5 MG (ELIQUIS) TABLET PO SCH (08:17)
[2022-06-21] MEDS: AMOXICILLIN 500 MG (POLYMOX) CAP PO SCH ×2 (08:17→13:19)
[2022-06-21] MEDS: PANTOPRAZOLE 40 MG (PROTONIX) VIAL IV SCH (08:17)
[2022-06-21] MEDS: polyethylene glycoL POWDER 17 GM (MIRALAX) PACK PO SCH (08:17)
[2022-06-21 08:18] VITALS: BP 104/64
--- NOTE | 2022-06-21 09:31 | Tele-ICU Progress Note ---
Subjective Date Seen by a Provider: Jun 21, 2022 Time Seen by a Provider: 12:55 Subjective/Events-last exam (Tele-ICU Physician , consultation) Available chart/ vitals / labs / Images reviewed H&P is from ER notes Patient's information available about PMH, allergy reviewed in EMR. ROS as per chart and RN report Video assessment done using teleICU camera, rest of exam as per RN Discussed with RN. She is a 60-year-old female with past medical history of for coronary artery disease status post LAD and diagonal stenting presented to the emergency room with a complaint of chest pain persisting despite giving nitroglycerin and her troponin is elevated. Non-STEMI suspected. She is started on IV nitroglycerin but has to be stopped due to hypotension. Also started on aspirin Plavix and IV heparin. She is seen by cardiology and plan to take her to the cardiac catheterization lab for possible intervention. She denies currently any nausea or vomiting. Apparently she does not smoke cigarettes and use alcohol. I reviewed with [employer] LO[employer]ING OPERATOR. Impression 1. Acute coronary syndrome with possible non-STEMI 2. History of coronary artery disease 3. Possible hyperlipidemia 4. Tobacco abuse 5. Alcohol abuse. Recommendations. Coronary artery disease management per cardiology service She is counseled to quit smoking and alcohol abuse. LDL goal is less than 70. Collaboration of care with the bedside consultants and IM MDs. Sepsis Event Evaluation Height, Weight, BMI Height: '" Weight: lbs. oz. kg; 21.44 BMI Method: Focused Exam Lactate Level 06/19/22 05:48: Lactic Acid Level 0.62 Exam Exam Patient acknowledged, consented, and participated in this virtual visit which was conducted using real time audio/video Vital Signs Date Time Temp Pulse Resp B/P (MAP) Pulse Ox O2 Delivery O2 Flow Rate FiO2 06/21/22 09:00 122 20 97/57 (70) 97 Mechanical Ventilator 40.00 06/21/22 08:18 105 20 95 35 06/21/22 08:00 106 19 104/64 (77) 95 Mechanical Ventilator 40.00 06/21/22 08:00 95 Mechanical Ventilator 40 06/21/22 08:00 37.2 06/21/22 07:05 110 06/21/22 07:00 110 20 104/62 (76) 95 Mechanical Ventilator 40.00 06/21/22 07:00 35 06/21/22 06:22 123 102/63 06/21/22 06:00 123 102/63 06/21/22 06:00 112 21 106/57 (73) 95 Mechanical Ventilator 40.00 06/21/22 05:39 123 102/63 06/21/22 04:41 37.3 123 20 102/63 (76) 95 Mechanical Ventilator 40.00 06/21/22 04:00 95 Mechanical Ventilator 40 06/21/22 03:58 35 06/21/22 03:00 131 20 111/73 (86) 95 Mechanical Ventilator 40.00 06/21/22 02:17 126 20 96 35 06/21/22 02:00 126 20 110/65 (80) 96 Mechanical Ventilator 40.00 06/21/22 01:20 142 114/63 06/21/22 01:06 142 114/63 06/21/22 01:00 135 06/21/22 01:00 135 20 107/65 (79) 95 Mechanical Ventilator 40.00 06/21/22 00:38 38.4 06/21/22 00:14 38.5 142 20 114/63 (80) 95 Mechanical Ventilator 40.00 06/21/22 00:08 38.4 06/20/22 23:59 96 Mechanical Ventilator 40 06/20/22 23:59 40 06/20/22 23:00 140 21 113/70 (84) 95 Mechanical Ventilator 40.00 06/20/22 22:00 133 20 116/65 (82) 95 Mechanical Ventilator 40.00 06/20/22 21:46 134 20 95 40 06/20/22 21:20 128 104/58 06/20/22 21:06 128 104/58 06/20/22 21:00 133 20 113/65 (81) 95 Mechanical Ventilator 40.00 06/20/22 20:15 39.2 06/20/22 20:00 135 21 108/67 (81) 95 Mechanical Ventilator 40.00 06/20/22 19:58 38.5 06/20/22 19:52 95 Mechanical Ventilator 40 06/20/22 19:51 40 06/20/22 19:45 38.5 06/20/22 19:00 129 06/20/22 19:00 129 21 110/69 (83) 95 Mechanical Ventilator 40.00 06/20/22 18:42 128 20 95 40 06/20/22 18:00 126 20 106/56 (73) 94 Mechanical Ventilator 40.00 06/20/22 17:00 129 20 106/70 (82) 94 Mechanical Ventilator 40.00 06/20/22 16:05 37.4 06/20/22 16:00 40 06/20/22 16:00 124 21 103/60 (74) 93 Mechanical Ventilator 40.00 06/20/22 16:00 93 Mechanical Ventilator 40 06/20/22 15:14 107 20 98 40 06/20/22 15:00 104 20 99/54 (69) 97 Mechanical Ventilator 40.00 06/20/22 14:00 110 20 90/52 (65) 96 Mechanical Ventilator 40.00 06/20/22 13:00 114 20 93/57 (69) 96 Mechanical Ventilator 40.00 06/20/22 12:56 116 06/20/22 12:05 93 Mechanical Ventilator 40 06/20/22 12:00 40 06/20/22 12:00 37.6 06/20/22 12:00 114 20 93/55 (68) 96 Mechanical Ventilator 40.00 06/20/22 11:00 113 20 90/53 (65) 96 Mechanical Ventilator 40.00 06/20/22 10:43 112 20 97 40 06/20/22 10:00 117 20 97/55 (69) 94 Mechanical Ventilator 40.00 I & O 06/21/22 07:00 Intake Total 3050 ml Output Total 2650 ml Balance 400 ml Height & Weight Height: '" Weight: lbs. oz. kg; 21.44 BMI Method: General Appearance: Other (intubated and sedated) Respiratory: No Accessory Muscle Use, Crackles (bilateral crackles in lower lung herrera ), Rhonci Cardiovascular: Regular Rate, Rhythm, No Edema, Normal Peripheral Pulses (R radial +2, bilateral dorsalis pedis +2), Tachycardia Capillary Refill: Less Than 3 Seconds Peripheral Pulses: 2+ Radial Pulses (R), 2+ Radial Pulses (L) Gastrointestinal: soft, no organomegaly Extremity: No Pedal Edema, Other (bilateral contractures of hands and feet) Neurologic/Psychiatric: Other (intubated and sedated) Skin: Normal Color, Warm/Dry Results Lab Laboratory Tests 06/20/22 04:00 06/21/22 03:08 Assessment/Plan Assessment/Plan as above Critical Care: Ventilator Management Time spent with patient (mins): 32 JARED MATHWES MD Jun 21, 2022 09:31
[2022-06-21 12:03] VITALS: BP 116/70
[2022-06-21] MEDS: NS IV 500 ML 500 ML IV SCH (13:11)
--- NOTE | 2022-06-21 13:19 | Tele-ICU Progress Note ---
Subjective Date Seen by a Provider: Jun 21, 2022 Time Seen by a Provider: 13:15 Subjective/Events-last exam (Tele-ICU Physician , Progress note) Available chart/ vitals / labs / Images reviewed H&P is from ER notes Patient's information available about PMH, allergy reviewed in EMR. ROS as per chart and RN report Video assessment done using teleICU camera, rest of exam as per RN Discussed with RN. This patient admitted with history of autism, dementia apparently aspirated and development of hypoxic respiratory failure requiring intubation and mechanical ventilation. Yesterday he failed spontaneous breathing trials. Today he remained on mechanical ventilation and sedated. His respiratory acidosis is somewhat improved. Today his blood gas revealed a pH of 7.39 PCO2 29 PO2 58. He is on 21% FiO2. His blood pressure is somewhat soft and on a Levophed at 0.02 mics and also on IV vasopressin. Receiving saline at 70 cc/h. 06/21/22. he was reintubated on 06/19/22 after brief extubation as he developed respiratory distress and aspiration. now on low dose levophed. non responsive. His mother made him DNR status and now considering put him in hospice and comfort care Impression 1. Acute hypercarbic respiratory failure with metabolic acidosis. He required mechanical ventilation. His current vent settings are AC 20/500/35% PEEP of 5. 2. Septic shock slowly improving currently on a low-dose Levophed 3. Aspiration pneumonia. Currently on mechanical ventilation. Reportedly has a distal esophageal stricture. 4. Baseline severe dementia, autistic, nonverbal. Recommendations 1. We will continue current vent settings 2. continue levophed. 3. iv meropenum. 4. Await his mothers decision on goals of therapy. Prognosis very poor Coordination of care with bedside physicians and consultants. Discussed with the VETERINARY TECHNOLOGIST. Sepsis Event Evaluation Height, Weight, BMI Height: '" Weight: lbs. oz. kg; 21.44 BMI Method: Focused Exam Lactate Level 06/19/22 05:48: Lactic Acid Level 0.62 Exam Exam Patient acknowledged, consented, and participated in this virtual visit which wa s conducted using real time audio/video Vital Signs Date Time Temp Pulse Resp B/P (MAP) Pulse Ox O2 Delivery O2 Flow Rate FiO2 06/21/22 12:03 112 20 97 35 06/21/22 12:00 38.2 06/21/22 11:50 95 Mechanical Ventilator 40 1/2/23 11:48 35 06/21/22 11:00 114 20 109/71 (84) 97 Mechanical Ventilator 40.00 06/21/22 10:00 115 20 98/62 (74) 96 Mechanical Ventilator 40.00 06/21/22 09:00 122 20 97/57 (70) 97 Mechanical Ventilator 40.00 06/21/22 08:18 105 20 95 35 06/21/22 08:00 106 19 104/64 (77) 95 Mechanical Ventilator 40.00 06/21/22 08:00 95 Mechanical Ventilator 40 06/21/22 08:00 37.2 06/21/22 07:05 110 06/21/22 07:00 110 20 104/62 (76) 95 Mechanical Ventilator 40.00 06/21/22 07:00 35 06/21/22 06:22 123 102/63 06/21/22 06:00 123 102/63 06/21/22 06:00 112 21 106/57 (73) 95 Mechanical Ventilator 40.00 06/21/22 05:39 123 102/63 06/21/22 04:41 37.3 123 20 102/63 (76) 95 Mechanical Ventilator 40.00 06/21/22 04:00 95 Mechanical Ventilator 40 06/21/22 03:58 35 06/21/22 03:00 131 20 111/73 (86) 95 Mechanical Ventilator 40.00 06/21/22 02:17 126 20 96 35 06/21/22 02:00 126 20 110/65 (80) 96 Mechanical Ventilator 40.00 06/21/22 01:20 142 114/63 06/21/22 01:06 142 114/63 06/21/22 01:00 135 06/21/22 01:00 135 20 107/65 (79) 95 Mechanical Ventilator 40.00 06/21/22 00:38 38.4 06/21/22 00:14 38.5 142 20 114/63 (80) 95 Mechanical Ventilator 40.00 06/21/22 00:08 38.4 06/20/22 23:59 96 Mechanical Ventilator 40 06/20/22 23:59 40 06/20/22 23:00 140 21 113/70 (84) 95 Mechanical Ventilator 40.00 06/20/22 22:00 133 20 116/65 (82) 95 Mechanical Ventilator 40.00 06/20/22 21:46 134 20 95 40 06/20/22 21:20 128 104/58 06/20/22 21:06 128 104/58 06/20/22 21:00 133 20 113/65 (81) 95 Mechanical Ventilator 40.00 06/20/22 20:15 39.2 06/20/22 20:00 135 21 108/67 (81) 95 Mechanical Ventilator 40.00 06/20/22 19:58 38.5 06/20/22 19:52 95 Mechanical Ventilator 40 06/20/22 19:51 40 06/20/22 19:45 38.5 06/20/22 19:00 129 06/20/22 19:00 129 21 110/69 (83) 95 Mechanical Ventilator 40.00 06/20/22 18:42 128 20 95 40 06/20/22 18:00 126 20 106/56 (73) 94 Mechanical Ventilator 40.00 06/20/22 17:00 129 20 106/70 (82) 94 Mechanical Ventilator 40.00 06/20/22 16:05 37.4 06/20/22 16:00 40 06/20/22 16:00 124 21 103/60 (74) 93 Mechanical Ventilator 40.00 06/20/22 16:00 93 Mechanical Ventilator 40 06/20/22 15:14 107 20 98 40 06/20/22 15:00 104 20 99/54 (69) 97 Mechanical Ventilator 40.00 06/20/22 14:00 110 20 90/52 (65) 96 Mechanical Ventilator 40.00 I & O 06/21/22 07:00 Intake Total 3050 ml Output Total 2650 ml Balance 400 ml Height & Weight Height: '" Weight: lbs. oz. kg; 21.44 BMI Method: General Appearance: Other (intubated and sedated) Respiratory: No Accessory Muscle Use, Crackles (bilateral crackles in lower lung herrera ), Rhonci Cardiovascular: Regular Rate, Rhythm, No Edema, Normal Peripheral Pulses (R radial +2, bilateral dorsalis pedis +2), Tachycardia Capillary Refill: Less Than 3 Seconds Peripheral Pulses: 2+ Radial Pulses (R), 2+ Radial Pulses (L) Gastrointestinal: soft, no organomegaly Extremity: No Pedal Edema, Other (bilateral contractures of hands and feet) Neurologic/Psychiatric: Other (intubated and sedated) Skin: Normal Color, Warm/Dry Results Lab Laboratory Tests 06/20/22 04:00 06/21/22 03:08 Assessment/Plan Assessment/Plan as above Critical Care: Ventilator Management Time spent with patient (mins): 32 JARED MATHEWS MD Jun 21, 2022 13:19
--- NOTE | 2022-06-21 15:29 | Progress Note - Hospitalist ---
Subjective HPI/CC On Admission Date Seen by Provider: Jun 21, 2022 Time Seen by Provider: 10:30 Subjective/Events-last exam He remains intubated and sedated. I spoke with his mother at the bedside. She decided to transition to comfort measures only. We discussed the plan with Jonel's friend, Charlene. Focused Exam Lactate Level 06/19/22 05:48: Lactic Acid Level 0.62 Objective Exam Vital Signs Vital Signs Date Time Temp Pulse Resp B/P (MAP) Pulse Ox O2 Delivery O2 Flow Rate FiO2 06/21/22 14:00 110 20 96/62 (73) 97 Mechanical Ventilator 40.00 06/21/22 12:03 35 06/21/22 12:00 38.2 Capillary Refill : Less Than 3 Seconds General Appearance: No Apparent Distress, Chronically ill Respiratory: No Respiratory Distress, Decreased Breath Sounds, Other (intubated and mechanically ventilated) Gastrointestinal: Normal Bowel Sounds, Soft Extremity: Normal Inspection, No Pedal Edema Neurologic/Psychiatric: Other (sedated) Skin: Warm/Dry, Pallor Results/Procedures Lab Laboratory Tests 06/21/22 03:08 Patient resulted labs reviewed. Assessment/Plan Assessment and Plan Assess & Plan/Chief Complaint Acute respiratory failure with hypoxia Endotracheally intubated Aspiration pneumonia Septic shock Advanced dementia Poor prognosis Comfort measures only status Transition to comfort measures Comfort care order set Critical Care Critically Ill Patient Diagnosis/Problems Diagnosis/Problems (1) Acute respiratory failure Status: Acute Qualifiers: Respiratory failure complication: hypoxia and hypercapnia Qualified Codes: J96.01 - Acute respiratory failure with hypoxia; J96.02 - Acute respiratory failure with hypercapnia (2) Septic shock Status: Acute (3) Aspiration pneumonia Status: Acute (4) Severe intellectual disability Status: Acute (5) Poor prognosis Status: Acute (6) Comfort measures only status Status: Acute MUSHTAQ MOHAN MD Jun 21, 2022 15:29
[2022-06-21] MEDS ORDERED: PROMETHAZINE INJ 25 MG/ML (PHENERGAN) AMP IVP PRN (15:30)
[2022-06-21] MEDS ORDERED: ARTIFICAL TEARS 0.4 ML UNIT DOSE (REFRESH PLUS) OU PRN (15:30)
[2022-06-21] MEDS ORDERED: RT-ALBUTEROL/IPRATROPIUM 3 ML (DUONEB) VIAL INH PRN (15:30)
[2022-06-21] MEDS ORDERED: LORazepam 1 MG (ATIVAN) TAB SL PRN (15:30)
[2022-06-21] MEDS ORDERED: ONDANSETRON 4 MG/2 ML (SDV) Z0FRAN IVP PRN (15:30)
[2022-06-21] MEDS ORDERED: morphine INJ 4 MG/ML 1 ML (VIAL/SYRINGE) IV PRN (15:30)
[2022-06-21] MEDS ORDERED: SALIVA SUBSTITUTE 60 ML SPRAY(MOUTHKOTE) MM PRN (15:30)
[2022-06-21] MEDS ORDERED: ACETAMINOPHEN 650 MG SUPP (TYLENOL) PR PRN (15:30)
[2022-06-21] MEDS ORDERED: GLYCOPYRROLATE 0.2 MG/ML (ROBINUL) 2 ML VIAL IV PRN (15:30)
[2022-06-21] MEDS ORDERED: BISACODYL 10 MG SUPP (DULCOLAX) PR PRN (15:30)
--- NOTE | 2022-06-21 17:38 | Discharge Summary ---
Discharge Summary Hospital Course Problems/Dx: (1) Acute respiratory failure Status: Acute Qualifiers: Qualified Codes: J96.01 - Acute respiratory failure with hypoxia; J96.02 - Acute respiratory failure with hypercapnia (2) Septic shock Status: Acute (3) Aspiration pneumonia Status: Acute (4) Severe intellectual disability Status: Acute (5) Poor prognosis Status: Acute (6) Comfort measures only status Status: Acute Hospital Course Date of Admission: Jun 14, 2022 at 10:50 Admission Diagnosis : Acute respiratory failure due to aspiration pneumonia Family Physician/Provider: Amador Mitchell DO Date of Discharge: 06/21/22 Discharge Diagnosis: Acute respiratory failure due to aspiration pneumonia, end otracheal intubation, septic shock, comfort measures only Hospital Course: Jonel Bacon is a 51 year old male with advanced dementia who was admitted with acute respiratory failure due to aspiration pneumonia. He required endotracheal intubation. He was also in septic shock requiring pressors. He had a lactic acidosis and acute kidney injury which improved with fluids and pressor support. He had a failed extubation attempt and had to be reintubated. Due to his poor prognosis and poor baseline quality of life, his mother made the decision to transition to comfort measures only status. He was compassionately extubated and subsequently on 06/21/2022 at 1708. Labs and Pending Lab Test: Laboratory Tests 06/21/22 00:02: Glucometer 110 06/21/22 03:08: White Blood Count 11.0, Red Blood Count 3.34L, Hemoglobin 9.5L, Hematocrit 29L, Mean Corpuscular Volume 88, Mean Corpuscular Hemoglobin 28, Mean Corpuscular Hemoglobin Concent 32, Red Cell Distribution Width 15.2H, Platelet Count 271, Mean Platelet Volume 10.1, Immature Granulocyte % (Auto) 1, Neutrophils (%) (Auto) 77H, Lymphocytes (%) (Auto) 13, Monocytes (%) (Auto) 7, Eosinophils (%) (Auto) 3, Basophils (%) (Auto) 0, Neutrophils # (Auto) 8.5H, Lymphocytes # (Auto) 1.4, Monocytes # (Auto) 0.7, Eosinophils # (Auto) 0.3, Basophils # (Auto) 0.0, Immature Granulocyte # (Auto) 0.1, Sodium Level 137, Potassium Level 3.7, Chloride Level 110H, Carbon Dioxide Level 16L, Anion Gap 11, Blood Urea Nitrogen 2L, Creatinine 0.71, Estimat Glomerular Filtration Rate 112, BUN/Creatinine Ratio 3, Glucose Level 107H, Calcium Level 7.8L, Corrected Calcium 9.2, Phosphorus Level 2.9, Magnesium Level 1.7, Total Bilirubin 0.4, Aspartate Amino Transf (AST/SGOT) 45H, Alanine Aminotransferase (ALT/SGPT) 33, Alkaline Phosphatase 179H, Total Protein 5.9L, Albumin 2.3L 06/21/22 03:16: Blood Gas Puncture Site AXILLARY, Blood Gas Patient Temperature 36.7, Arterial Blood pH 7.31*L, Arterial Blood Partial Pressure CO2 34L, Arterial Blood Partial Pressure O2 48L, Arterial Blood HCO3 17*L, Arterial Blood Total CO2 17.8L, Arterial Blood Oxygen Saturation 84L, Arterial Blood Base Excess -8.4L, Can Test YES-POS, Blood Gas Ventilator Setting YES, Blood Gas Inspired Oxygen 35% 06/21/22 11:15: Glucometer 106 Microbiology 06/14/22 MRSA Screen - Final, Complete MRSA not isolated 06/14/22 Urine Culture - Final, Complete NO GROWTH 06/14/22 Blood Culture - Final, Complete No growth Home Meds Active Remeron (Mirtazapine) 15 Mg Tablet 15 Mg PO HS 30 Days Reported Ondansetron Odt (Ondansetron) 4 Mg Tab.rapdis 4 Mg SL Q8H PRN Eliquis (Apixaban) 2.5 Mg Tablet 2.5 Mg PO BID Docusate Sodium 100 Mg Capsule 100 Mg PO BID Pantoprazole Sodium 40 Mg Tablet.dr 40 Mg PO DAILY Enema Ready To Use (Na Phos,M-B/Na Phos,Di-Ba) 19 Gram-7 Gram/118 Ml Enema 133 Ml RC DAILY PRN Tylenol (Acetaminophen) 325 Mg Tablet 650 Mg PO Q6H PRN Milk of Magnesia (Magnesium Hydroxide) 400 Mg/5 Ml Oral.susp 30 Ml PO DAILY PRN Dulcolax (Bisacodyl) 10 Mg Supp.rect 10 Mg RC DAILY PRN Miralax (Polyethylene Glycol 3350) 17 Gm Powd.pack 17 Gm PO BID Multivitamin 1 Each Tablet 1 Each PO DAILY Loratadine 10 Mg Tablet 10 Mg PO DAILY Lexapro (Escitalopram Oxalate) 10 Mg Tablet 10 Mg PO DAILY Assessment/Pt Instructions Patient Discharge Physical Examination Vital Signs Vital Signs Date Time Temp Pulse Resp B/P (MAP) Pulse Ox O2 Delivery O2 Flow Rate FiO2 06/21/22 16:00 37.0 06/21/22 16:00 Room Air 06/21/22 15:00 111 20 100/63 (75) 96 40.00 06/21/22 12:03 35 Allergies: Coded Allergies: tree nut (Verified Allergy, Unknown, 02/14/21) Discharge Summary Date of Admission Jun 14, 2022 at 10:50 Date of Discharge Discharge Date: Jun 21, 2022 Discharge Time: 17:08 Admission Diagnosis Acute respiratory failure due to aspiration pneumonia Comfort Measures/ End of Life Care: Comfort Measures Advance Care discuss with: family member (s) Plan: initiate discussion, clarifying prognosis, identified end-of-life goals, developed treatment plan Time spent on discussion (min): 30 Cardiopulmonary Arrest: Cardiorespiratory Arrest Date of : Jun 21, 2022 Time of : 17:08 Discharge Diagnosis Acute respiratory failure with hypoxia Endotracheally intubated Aspiration pneumonia Septic shock Advanced dementia Poor prognosis Comfort measures only status (1) Acute respiratory failure Status: Acute Qualifiers: Qualified Codes: J96.01 - Acute respiratory failure with hypoxia; J96.02 - Acute respiratory failure with hypercapnia (2) Septic shock Status: Acute (3) Aspiration pneumonia Status: Acute (4) Severe intellectual disability Status: Acute (5) Poor prognosis Status: Acute (6) Comfort measures only status Status: Acute MUSHTAQ MOHAN MD Jun 21, 2022 17:31
== END 2022-06-21 17:40 | disposition expired | DRG 870 ==
LOC: EDUNIT# 09:28 → ER 09:29 → ICU 10:50
PROVIDERS: ADMIT Family Medicine; ATTEND Internal Medicine
PROC: 5A1955Z Respiratory Ventilation, Greater than 96 Consecutive Hours (ICD-10-PCS; principal; 2022-06-14)
PROC: 0BH17EZ Insertion of Endotracheal Airway into Trachea, Via Natural or Artificial Opening (ICD-10-PCS; 2022-06-14)
DX: A41.9 Sepsis, unspecified organism (principal); J96.01 Acute respiratory failure with hypoxia; J69.0 Pneumonitis due to inhalation of food and vomit; R65.21 Severe sepsis with septic shock; J18.9 Pneumonia, unspecified organism; J96.02 Acute respiratory failure with hypercapnia; N17.9 Acute kidney failure, unspecified; Z66 Do not resuscitate; Z51.5 Encounter for palliative care; Z20.822 Contact with and (suspected) exposure to COVID-19; E87.29 Other acidosis; F84.0 Autistic disorder; F72 Severe intellectual disabilities; M24.59 Contracture, other specified joint; F03.C0 Unspecified dementia, severe, without behavioral disturbance, psychotic disturbance, mood disturbance, and anxiety; M24.542 Contracture, left hand; M24.541 Contracture, right hand; E87.6 Hypokalemia; Z86.16 Personal history of COVID-19; Z79.01 Long term (current) use of anticoagulants
CPT/HCPCS: 31500; 36415; 36600; 51702; 71045; 74018; 80048; 80053; 80202; 81000; 82533; 82805; 82947; 83605; 83735; 84100; 84132; 84478; 85007; 85025; 85027; 87040; 87070; 87081; 87088; 87205; 87636; 93005; 94003; 94640; 94660; 94799; 96365; 96367; 99291